=== PATIENT | male | born 1960 | race Caucasian/White ===

== ENCOUNTER 2016-11-08 11:49 | Inpatient (IN) | payer OTHER ==
[2016-11-08 15:42] VITALS: BMI 23.5
--- NOTE | 2016-11-08 17:06 | HP ---
CIWA Score - CIWA Score Nausea/Vomitin-Mild Nausea/No Vomiting Muscle Tremors: 3 Anxiety: 4-Mod. Anxious/Guarded Agitation: 4-Moderately Restless Paroxysmal Sweats: 1-Minimal Palms Moist Orientation: 1-Uncertain about Date Tacttile Disturbances: 0-None Auditory Disturbances: 0-None Visual Disturbances: 0-None Headache: 0-None Present CIWA-Ar Total Score: 14 Admission ROS BHS - HPI Chief Complaint: WITHDRAWAL SX Allergies/Adverse Reactions: Allergies Allergy/AdvReac Type Severity Reaction Status Date / Time No Known Allergies Allergy Verified 07/09/16 13:15 History of Present Illness: 56 YEARS OLD MALE WITH LONG HISTORY OF ALCOHOL DEPENDENCE, DENIES MEDICAL DENIES MENTAL ILLNESS IS ADMITTED TO DETOX Exam Limitations: No Limitations - Ebola screening Have you traveled outside of the country in the last 21 days: No Have you had contact with anyone from an Ebola affected area: No Have you been sick,other than usual withdrawal symptoms: No Do you have a fever: No - Review of Systems Constitutional: Chills, Changes in sleep, Weight Stable EENT: reports: No Symptoms Reported Respiratory: reports: SOB with Exertion Cardiac: reports: No Symptoms Reported GI: reports: Nausea, Poor Fluid Intake, Abdominal cramping : reports: No Symptoms Reported Musculoskeletal: reports: No Symptoms Reported Integumentary: reports: Dryness Neuro: reports: Tremors Endocrine: reports: No Symptoms Reported Hematology: reports: No Symptoms Reported Psychiatric: reports: Judgement Intact, Mood/Affect Appropiate Other Systems: Reviewed and Negative Patient History - Patient Medical History Hx Anemia: No Hx Asthma: No Hx Chronic Obstructive Pulmonary Disease (COPD): No Hx Cancer: No Hx Cardiac Disorders: No Hx Congestive Heart Failure: No Hx Hypertension: No Hx Hypercholesterolemia: No Hx Pacemaker: No HX Cerebrovascular Accident: No Hx Seizures: No Hx Dementia: No Hx Diabetes: No Hx Gastrointestinal Disorders: No Hx Liver Disease: No Hx Genitourinary Disorders: No Hx Sexually Transmitted Disorders: No Hx Renal Disease (ESRD): No Hx Thyroid Disease: No Hx Human Immunodeficiency Virus (HIV): No (LAST 11/27 NEGATIVE) Hx Hepatitis C: No Hx Depression: No Hx Suicide Attempt: No Hx Bipolar Disorder: No Hx Schizophrenia: No - Patient Surgical History Past Surgical History: Yes Hx Neurologic Surgery: No Hx Cataract Extraction: No Hx Cardiac Surgery: No Hx Lung Surgery: No Hx Breast Surgery: No Hx Breast Biopsy: No Hx Abdominal Surgery: Yes (UMBILICAL HERNIA REPAIR) Hx Appendectomy: No Hx Cholecystectomy: No Hx Genitourinary Surgery: No Hx Orthopedic Surgery: No Other Surgical History: HERNIA REPAIR-2009 Anesthesia Reaction: No - PPD History Previous Implant?: Yes Documented Results: Negative w/proof Implanted On Prior [facility] Admission?: Yes Date: 07/11/16 Results: OMM PPD to be Administered?: No - Smoking Cessation Smoking history: Former smoker Have you smoked in the past 12 months: No Aproximately how many cigarettes per day: 0 Cigars Per Day: 0 Hx Chewing Tobacco Use: No Initiated information on smoking cessation: No - Substance & Tx. History Hx Alcohol Use: Yes Hx Substance Use: Yes Substance Use Type: Heroin Hx Substance Use Treatment: Yes - Substances Abused Alcohol Route: Oral Frequency: Daily Amount used: 1/2 PINT VOLKA+ [id number] Age of first use: 15 Date of Last Use: 11/08/16 Family Disease History - Family Disease History Family Disease History: Diabetes: Father (alcohol), Mother, Other: Father, Brother (ALCOHOL,DSA) Admission Physical Exam S - Vital Signs Vital Signs: Vital Signs - 24 hr 11/08/16 15:40 Temperature 96 F L Pulse Rate 80 Respiratory 19 Rate Blood Pressure 122/83 - Physical General Appearance: Yes: Nourished, Appropriately Dressed, Mild Distress, Alcohol on Breath, Tremorous, Irritable, Sweating, Anxious HEENTM: Yes: Hearing grossly Normal, Normal ENT Inspection, Normocephalic, Normal Voice Respiratory: Yes: Chest Non-Tender, Lungs Clear, Normal Breath Sounds, No Respiratory Distress, No Accessory Muscle Use Neck: Yes: Supple, Trachea in good position Breast: Yes: Breasts Symetrical Cardiology: Yes: Regular Rhythm, Regular Rate, S1, S2 Abdominal: Yes: Non Tender, Soft Genitourinary: Yes: Within Normal Limits Back: Yes: Normal Inspection Musculoskeletal: Yes: full range of Motion, Gait Steady Extremities: Yes: Normal Range of Motion, Non-Tender, Tremors, Other (DRY SKIN) Neurological: Yes: Alert, Motor Strength 5/5, Normal Mood/Affect, Normal Response Integumentary: Yes: Dry, Warm Lymphatic: Yes: Within Normal Limits - Diagnostic (1) Alcohol dependence with uncomplicated withdrawal Current Visit: Yes Status: Acute (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
[2016-11-08] MEDS ORDERED: LOPERAMIDE HCL 2 MG CAPSULE PO PRN (17:13)
[2016-11-08] MEDS ORDERED: ACETAMINOPHEN 325 MG TABLET (FP) PO PRN (17:13)
[2016-11-08] MEDS ORDERED: MENTHOL/PHENOL 1 EACH UD MM PRN (17:13)
[2016-11-08] MEDS ORDERED: P-EPHED 60MG/TRIPROLIDI 2.5MG TABLET PO PRN (17:13)
[2016-11-08] MEDS ORDERED: guaiFENesin/D-METHORPHAN HB 10 ML UNIT-DOSE CUPS PO PRN (17:13)
[2016-11-08] MEDS ORDERED: IBUPROFEN 400 MG TABLET (FP) PO PRN (17:13)
[2016-11-08] MEDS ORDERED: MAGNESIUM CITRATE 300 ML BOTTLE PO PRN (17:13)
[2016-11-08] MEDS ORDERED: MAG HYDROX/AL HYDROX/SIMETH 30 ML UNIT-DOSE CUP PO PRN (17:13)
[2016-11-08] MEDS ORDERED: MAGNESIUM HYDROX 2400MG/30ML ORAL SUSPENSION 30 ML CUP PO PRN (17:13)
[2016-11-08] MEDS: chlordiazePOXIDE HCL 25 MG CAPSULE PO PRN (19:27)
[2016-11-08] MEDS ORDERED: diphenhydrAMINE HCL 50 MG CAPSULE PO PRN (22:00)
[2016-11-08] MEDS: THIAMINE HCL 100 MG TABLET (FP) PO SCH (22:58)
[2016-11-08] MEDS: MINERAL OIL/PETROLAT/WATER TOPICAL CREAM 113 GM JAR TP SCH (22:58)
[2016-11-08] MEDS: chlordiazePOXIDE HCL 25 MG CAPSULE PO SCH (22:58)
[2016-11-08 23:16] LABS: URINE APPEARANCE CLEAR; URINE BILIRUBIN NEGATIVE (NEGATIVE); URINE BLOOD NEGATIVE (NEGATIVE); URINE COLOR LTYELLOW; URINE GLUCOSE (UA) NEGATIVE (NEGATIVE); URINE KETONE NEGATIVE (NEGATIVE); URINE LEUK ESTERASE NEGATIVE (NEGATIVE); URINE NITRITE NEGATIVE (NEGATIVE); URINE UROBILINOGEN NEGATIVE E.U./dl (0.2-1.0)
[2016-11-08 23:23] LABS: URINE PROTEIN 2+ (NEGATIVE)
[2016-11-08 23:24] LABS: GRANULAR CASTS 1 /lpf; URINE HYALINE CAST 6 /lpf; URINE MUCUS RARE; URINE RBC <1 /hpf (0-3); URINE WBC <1 /hpf (3-5)
[2016-11-09] MEDS: chlordiazePOXIDE HCL 25 MG CAPSULE PO SCH ×4 (05:19→22:22)
[2016-11-09] MEDS ORDERED: METHADONE HCL 10 MG TABLET PO SCH (07:00)
[2016-11-09] MEDS ORDERED: METHADONE HCL 10 MG TABLET ONE (07:18)
[2016-11-09] MEDS ORDERED: METHADONE HCL 40 MG DISPERSABLE TABLET ONE (07:18)
[2016-11-09] MEDS: METHADONE 80 MG, METHADONE 10 MG PO SCH (07:21)
[2016-11-09 10:17] LABS: ALBUMIN 3.7 g/dl (3.4-5.0); ANION GAP 9 (8-16); CALCIUM 8.6 mg/dL (8.5-10.1); CO2 33 mmol/L (21-32)
[2016-11-09 10:23] LABS: ALK PHOS 186 U/L (45-117); BILIRUBIN,TOTAL 0.6 mg/dL (0.2-1.0); COCKROFT - GAULT 112.04; CREATININE 0.7 mg/dL (0.7-1.3); GLUCOSE,RANDOM 92 mg/dL (74-106); SGOT/AST 300 U/L (15-37); SGPT/ALT 150 U/L (12-78); TOT PROT 7.5 g/dl (6.4-8.2)
[2016-11-09] MEDS: PRENATAL VITAMINS W/ FOLIC ACID TABLET (FP) PO SCH (10:26)
[2016-11-09 10:27] LABS: MCHC 33.4 g/dl (32.0-35.9); MEAN CELL VOLUME 95.7 fl (80-96); MEAN PLT VOLUME 8.4 fl (7.5-11.1); PLATELET COUNT 231 K/MM3 (134-434); RDW 13.1 % (11.9-15.9); WHITE BLOOD COUNT 4.9 K/mm3 (4.0-10.0)
--- NOTE | 2016-11-09 10:47 | PN ---
S CIWA - CIWA Score Nausea/Vomitin Muscle Tremors: 4-Moderate,w/Arms Extend Anxiety: 3 Agitation: 3 Paroxysmal Sweats: 3 Orientation: 0-Oriented Tacttile Disturbances: 0-None Auditory Disturbances: 0-None Visual Disturbances: 0-None Headache: 0-None Present CIWA-Ar Total Score: 15 S Progress Note (SOAP) Subjective: Anxiety,tremors,sweating,interrupted sleep,restless. Objective: 11/09/16 10:42 Vital Signs - 8 hr 11/09/16 11/09/16 11/09/16 03:35 06:42 09:28 Temperature 96 F L 95.8 F L Pulse Rate 66 65 Respiratory 18 18 18 Rate Blood Pressure 181/99 153/97 Laboratory Last Values WBC 4.9 K/mm3 (4.0-10.0) 11/09/16 06:00 RBC 4.20 M/mm3 (4.00-5.60) 11/09/16 06:00 Hgb 13.4 GM/dL (11.7-16.9) 11/09/16 06:00 Hct 40.2 % (35.4-49) 11/09/16 06:00 MCV 95.7 fl (80-96) 11/09/16 06:00 MCHC 33.4 g/dl (32.0-35.9) 11/09/16 06:00 RDW 13.1 % (11.9-15.9) 11/09/16 06:00 Plt Count 231 K/MM3 (134-434) 11/09/16 06:00 MPV 8.4 fl (7.5-11.1) 11/09/16 06:00 Sodium 139 mmol/L (136-145) 11/09/16 06:00 Potassium 4.3 mmol/L (3.5-5.1) 11/09/16 06:00 Chloride 97 mmol/L (98-107) L 11/09/16 06:00 Carbon Dioxide 33 mmol/L (21-32) H 11/09/16 06:00 Anion Gap 9 (8-16) 11/09/16 06:00 BUN 19 mg/dL (7-18) H 11/09/16 06:00 Creatinine 0.7 mg/dL (0.7-1.3) 11/09/16 06:00 Creat Clearance w eGFR > 60 (>60) 11/09/16 06:00 Random Glucose 92 mg/dL (74-106) 11/09/16 06:00 Calcium 8.6 mg/dL (8.5-10.1) 11/09/16 06:00 Total Bilirubin 0.6 mg/dL (0.2-1.0) 11/09/16 06:00 AST 300 U/L (15-37) H D 11/09/16 06:00 ALT 150 U/L (12-78) H D 11/09/16 06:00 Alkaline Phosphatase 186 U/L (45-117) H D 11/09/16 06:00 Total Protein 7.5 g/dl (6.4-8.2) 11/09/16 06:00 Albumin 3.7 g/dl (3.4-5.0) 11/09/16 06:00 Urine Color Ltyellow 11/08/16 23:02 Urine Appearance Clear 11/08/16 23:02 Urine pH 5.0 (5.0-8.0) 11/08/16 23:02 Ur Specific [place] 1.020 (1.001-1.035) 11/08/16 23:02 Urine Protein 2+ (NEGATIVE) H 11/08/16 23:02 Urine Glucose (UA) Negative (NEGATIVE) 11/08/16 23:02 Urine Ketones Negative (NEGATIVE) 11/08/16 23:02 Urine Blood Negative (NEGATIVE) 11/08/16 23:02 Urine Nitrite Negative (NEGATIVE) 11/08/16 23:02 Urine Bilirubin Negative (NEGATIVE) 11/08/16 23:02 Urine Urobilinogen Negative E.U./dl (0.2-1.0) 11/08/16 23:02 Ur Leukocyte Esterase Negative (NEGATIVE) 11/08/16 23:02 Urine RBC <1 /hpf (0-3) 11/08/16 23:02 Urine WBC <1 /hpf (3-5) 11/08/16 23:02 Hyaline Casts 6 /lpf 11/08/16 23:02 Granular Casts 1 /lpf 11/08/16 23:02 Urine Mucus Rare 11/08/16 23:02 labs noted Assessment: 11/09/16 10:43 withdrawal sx. Plan: Continue detox
[2016-11-09] MEDS: amLODIPine BESYLATE 5 MG TABLET (FP) PO SCH ×2 (12:15→22:22)
[2016-11-09] MEDS: chlordiazePOXIDE HCL 25 MG CAPSULE PO PRN (12:18)
--- NOTE | 2016-11-09 13:45 | EKG ---
Test Reason : Blood Pressure : / mmHG Vent. Rate : 067 BPM Atrial Rate : 067 BPM P-R Int : 154 ms QRS Dur : 100 ms QT Int : 420 ms P-R-T Axes : 063 -12 026 degrees QTc Int : 443 ms NORMAL SINUS RHYTHM NON-SPECIFIC INTRA-VENTRICULAR CONDUCTION DELAY NO PREVIOUS ECGS AVAILABLE Confirmed by NIKOLAI LYNNE MD ([id number]) on 11/09/2016 1:45:15 PM Referred By: Confirmed By:NIKOLAI LYNNE MD
[2016-11-09] MEDS: MINERAL OIL/PETROLAT/WATER TOPICAL CREAM 113 GM JAR TP SCH (22:22)
[2016-11-09] MEDS: THIAMINE HCL 100 MG TABLET (FP) PO SCH (22:22)
[2016-11-10] MEDS ORDERED: METHADONE HCL 10 MG TABLET ONE (03:54)
[2016-11-10] MEDS ORDERED: METHADONE HCL 40 MG DISPERSABLE TABLET ONE (03:54)
[2016-11-10] MEDS: chlordiazePOXIDE HCL 25 MG CAPSULE PO SCH ×3 (04:59→18:15)
[2016-11-10] MEDS: METHADONE 80 MG, METHADONE 10 MG PO SCH (04:59)
[2016-11-10] MEDS: PRENATAL VITAMINS W/ FOLIC ACID TABLET (FP) PO SCH (10:32)
[2016-11-10] MEDS: amLODIPine BESYLATE 5 MG TABLET (FP) PO SCH (10:33)
[2016-11-10 13:48] VITALS: BP 112/75; PULSE 73; TEMP 96.9
--- NOTE | 2016-11-10 16:07 | PN ---
[facility] CIWA - CIWA Score Nausea/Vomitin-No Nausea/No Vomiting Muscle Tremors: 3 Anxiety: 4-Mod. Anxious/Guarded Agitation: 1-Slight > Activity Paroxysmal Sweats: 3 Orientation: 1-Uncertain about Date Tacttile Disturbances: 0-None Auditory Disturbances: 3-Moderate Harsh/Frighten Visual Disturbances: 0-None Headache: 2-Mild CIWA-Ar Total Score: 17 S Progress Note (SOAP) Subjective: Diarrhea, H/A, Body aches, Sweating. Objective: PT. A & O X 2 (DISORIENTED ABOUT DAY / DATE). PT. OBSERVED AMBULATING ON UNIT. 11/10/16 16:06 Vital Signs Temperature 96.9 F L 11/10/16 13:47 Pulse Rate 73 11/10/16 13:47 Respiratory Rate 18 11/10/16 13:47 Blood Pressure 112/75 11/10/16 13:47 O2 Sat by Pulse Oximetry (%) Laboratory Last Values WBC 4.9 K/mm3 (4.0-10.0) 11/09/16 06:00 RBC 4.20 M/mm3 (4.00-5.60) 11/09/16 06:00 Hgb 13.4 GM/dL (11.7-16.9) 11/09/16 06:00 Hct 40.2 % (35.4-49) 11/09/16 06:00 MCV 95.7 fl (80-96) 11/09/16 06:00 MCHC 33.4 g/dl (32.0-35.9) 11/09/16 06:00 RDW 13.1 % (11.9-15.9) 11/09/16 06:00 Plt Count 231 K/MM3 (134-434) 11/09/16 06:00 MPV 8.4 fl (7.5-11.1) 11/09/16 06:00 Sodium 139 mmol/L (136-145) 11/09/16 06:00 Potassium 4.3 mmol/L (3.5-5.1) 11/09/16 06:00 Chloride 97 mmol/L (98-107) L 11/09/16 06:00 Carbon Dioxide 33 mmol/L (21-32) H 11/09/16 06:00 Anion Gap 9 (8-16) 11/09/16 06:00 BUN 19 mg/dL (7-18) H 11/09/16 06:00 Creatinine 0.7 mg/dL (0.7-1.3) 11/09/16 06:00 Creat Clearance w eGFR > 60 (>60) 11/09/16 06:00 Random Glucose 92 mg/dL (74-106) 11/09/16 06:00 Calcium 8.6 mg/dL (8.5-10.1) 11/09/16 06:00 Total Bilirubin 0.6 mg/dL (0.2-1.0) 11/09/16 06:00 AST 300 U/L (15-37) H D 11/09/16 06:00 ALT 150 U/L (12-78) H D 11/09/16 06:00 Alkaline Phosphatase 186 U/L (45-117) H D 11/09/16 06:00 Total Protein 7.5 g/dl (6.4-8.2) 11/09/16 06:00 Albumin 3.7 g/dl (3.4-5.0) 11/09/16 06:00 Urine Color Ltyellow 11/08/16 23:02 Urine Appearance Clear 11/08/16 23:02 Urine pH 5.0 (5.0-8.0) 11/08/16 23:02 Ur Specific [place] 1.020 (1.001-1.035) 11/08/16 23:02 Urine Protein 2+ (NEGATIVE) H 11/08/16 23:02 Urine Glucose (UA) Negative (NEGATIVE) 11/08/16 23:02 Urine Ketones Negative (NEGATIVE) 11/08/16 23:02 Urine Blood Negative (NEGATIVE) 11/08/16 23:02 Urine Nitrite Negative (NEGATIVE) 11/08/16 23:02 Urine Bilirubin Negative (NEGATIVE) 11/08/16 23:02 Urine Urobilinogen Negative E.U./dl (0.2-1.0) 11/08/16 23:02 Ur Leukocyte Esterase Negative (NEGATIVE) 11/08/16 23:02 Urine RBC <1 /hpf (0-3) 11/08/16 23:02 Urine WBC <1 /hpf (3-5) 11/08/16 23:02 Hyaline Casts 6 /lpf 11/08/16 23:02 Granular Casts 1 /lpf 11/08/16 23:02 Urine Mucus Rare 11/08/16 23:02 RPR Titer Nonreactive (NONREACTIVE) 11/09/16 06:00 LABS NOTED. Assessment: 11/10/16 16:07 WITHDRAWAL SYMPTOMS. Plan: CONTINUE DETOX. ADVISED PATIENT TO FOLLOW-UP WITH [facility] / REHAB MEDICAL PROVIDER AFTER DISCHARGE FROM DETOX FOR GENERAL MEDICAL ASSESSMENT AND FOR ABNORMAL ADMISSION LAB VALUES.
--- NOTE | 2016-11-10 17:25 | PN ---
S Progress Note Note: patient did not want to complete treatment,signed release ama,seen by counselor
--- NOTE | 2016-11-10 17:28 | DS ---
[facility] Detox Discharge Summary Admission Date: 11/08/16 Discharge Date: 11/10/16 - History Present History: Alcohol Dependence, MMTP Additional Comments: patient did not want to complete treatment,signed release ama,did not want to wait,follow up program as arramgent and pmd for medical problem Pertinent Past History: syncope - Physical Exam Results Vital Signs: Vital Signs Temperature 96.9 F L 11/10/16 13:47 Pulse Rate 73 11/10/16 13:47 Respiratory Rate 18 11/10/16 13:47 Blood Pressure 112/75 11/10/16 13:47 O2 Sat by Pulse Oximetry (%) Pertinent Admission Physical Exam Findings: withdrawal symptom - Medication Discharge Medications: Ambulatory Orders NK [No Known Home Medication] 07/31/13 - Diagnosis (1) Alcohol dependence with uncomplicated withdrawal Current Visit: Yes Status: Acute (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
[2016-11-10] MEDS ORDERED: chlordiazePOXIDE 5 MG CAPSULE PO SCH (23:00)
[2016-11-11] MEDS ORDERED: chlordiazePOXIDE HCL 10 MG CAPSULE PO SCH (23:00)
== END 2016-11-10 17:26 | disposition left against medical advice (07) | DRG 770 ==
LOC: YASAS 11:49 → Y3N 18:10
PROVIDERS: ADMIT Internal Medicine; ATTEND Internal Medicine
PROC: HZ2ZZZZ Detoxification Services for Substance Abuse Treatment (ICD-10-PCS; principal; 2016-11-10)
DX: F11.20 Opioid dependence, uncomplicated (principal); F10.230 Alcohol dependence with withdrawal, uncomplicated; F17.210 Nicotine dependence, cigarettes, uncomplicated; L85.3 Xerosis cutis
CPT/HCPCS: 36415; 80053; 81003; 81015; 85027; 86593; 93005; 93010

== ENCOUNTER 2016-12-11 10:23 | Inpatient (IN) | payer OTHER ==
[2016-12-11 11:17] VITALS: BMI 25.0
--- NOTE | 2016-12-11 13:21 | HP ---
CIWA Score - CIWA Score Nausea/Vomitin-No Nausea/No Vomiting Muscle Tremors: 4-Moderate,w/Arms Extend Anxiety: 4-Mod. Anxious/Guarded Agitation: 3 Paroxysmal Sweats: 1-Minimal Palms Moist Orientation: 0-Oriented Tacttile Disturbances: 3-Moderate Itch/Numb/Burn Auditory Disturbances: 0-None Visual Disturbances: 0-None Headache: 1-Very Mild CIWA-Ar Total Score: 16 Admission ROS BHS - HPI Chief Complaint: DETOX TX FOR ALCOHOL DEPENDENCE Allergies/Adverse Reactions: Allergies Allergy/AdvReac Type Severity Reaction Status Date / Time No Known Allergies Allergy Verified 12/11/16 11:43 History of Present Illness: 56 Y/O H/MALE WITH A HX OF ALCOHOL DEPENDENCE ON MMTP SEEKING DETOX [place]. Exam Limitations: No Limitations - Ebola screening Have you traveled outside of the country in the last 21 days: No Have you had contact with anyone from an Ebola affected area: No Have you been sick,other than usual withdrawal symptoms: No Do you have a fever: No - Review of Systems Constitutional: Chills, Night Sweats, Changes in sleep EENT: reports: Blurred Vision, Tearing, Nose Congestion, Dental Problems (CAIN. DENTURES) Respiratory: reports: No Symptoms reported Cardiac: reports: Lightheadedness GI: reports: Poor Fluid Intake : reports: No Symptoms Reported Musculoskeletal: reports: Back Pain, Muscle Pain Integumentary: reports: No Symptoms Reported Neuro: reports: Headache, Tremors, Unsteady Gait, Dizziness Endocrine: reports: No Symptoms Reported Hematology: reports: No Symptoms Reported Psychiatric: reports: Orientated x3, Anxious Other Systems: Reviewed and Negative Patient History - Patient Medical History Hx Anemia: No Hx Asthma: No Hx Chronic Obstructive Pulmonary Disease (COPD): No Hx Cancer: No Hx Cardiac Disorders: No Hx Congestive Heart Failure: No Hx Hypertension: No Hx Hypercholesterolemia: No Hx Pacemaker: No HX Cerebrovascular Accident: No Hx Seizures: No Hx Dementia: No Hx Diabetes: No Hx Gastrointestinal Disorders: No Hx Liver Disease: No Hx Genitourinary Disorders: No Hx Sexually Transmitted Disorders: No Hx Renal Disease (ESRD): No Hx Thyroid Disease: No Hx Human Immunodeficiency Virus (HIV): No (LAST 11/27 NEGATIVE) Hx Hepatitis C: No Hx Depression: No Hx Suicide Attempt: No (DENIES) Hx Bipolar Disorder: No Hx Schizophrenia: No - Patient Surgical History Past Surgical History: Yes Hx Neurologic Surgery: No Hx Cataract Extraction: No Hx Cardiac Surgery: No Hx Lung Surgery: No Hx Breast Surgery: No Hx Breast Biopsy: No Hx Abdominal Surgery: Yes (umbilical hernia repair in 2009) Hx Appendectomy: No Hx Cholecystectomy: No Hx Genitourinary Surgery: No Hx Section: No Hx Orthopedic Surgery: No Other Surgical History: HERNIA REPAIR-2009 Anesthesia Reaction: No - PPD History Previous Implant?: Yes Documented Results: Negative w/proof Implanted On Prior [facility] Admission?: Yes Date: 07/11/16 Results: 0 mm - Reproductive History Patient is a Female of Child Bearing Age (11 -55 yrs old): No (MALE) - Smoking Cessation Smoking history: Former smoker Have you smoked in the past 12 months: Yes Aproximately how many cigarettes per day: 2 If you are a former smoker, when did you quit?: 5 YRS Cigars Per Day: 0 Hx Chewing Tobacco Use: No Initiated information on smoking cessation: Yes 'Breaking Loose' booklet given: 12/11/16 - Substance & Tx. History Hx Alcohol Use: Yes Substance Use Type: Alcohol Hx Substance Use Treatment: Yes ([facility]-DETOX) - Substances Abused Alcohol-beer/rum Route: Oral Frequency: Daily Amount used: 8-10 (12 oz.)/1/2 pt. Age of first use: 19 Date of Last Use: 12/11/16 Family Disease History - Family Disease History Family Disease History: Diabetes: Father (alcohol), Mother, Other: Father, Brother (ALCOHOL,DSA) Admission Physical Exam BHS - Vital Signs Vital Signs: Vital Signs - 24 hr 12/11/16 11:15 Temperature 96.2 F L Pulse Rate 67 Respiratory 20 Rate Blood Pressure 131/91 - Physical General Appearance: Yes: Moderate Distress, Irritable, Anxious HEENTM: Yes: EOMI, Normocephalic, ANUM, Pharynx Normal Respiratory: Yes: Chest Non-Tender, Lungs Clear, Normal Breath Sounds, No Respiratory Distress Neck: Yes: Supple, Trachea in good position Breast: Yes: Breast Exam Deferred Cardiology: Yes: Regular Rhythm, Regular Rate, S1, S2 Abdominal: Yes: Normal Bowel Sounds, Non Tender, Soft Genitourinary: Yes: Other (N/C) Back: Yes: Within Normal Limits Musculoskeletal: Yes: full range of Motion, Gait Steady Extremities: Yes: Normal Range of Motion, Non-Tender Neurological: Yes: upholsterer inside II-XII NML intact, Fully Oriented, Alert Integumentary: Yes: Dry, Warm Lymphatic: Yes: Within Normal Limits - Diagnostic (1) Alcohol dependence with uncomplicated withdrawal Current Visit: No Status: Acute (2) Methadone maintenance therapy patient Current Visit: No Status: Chronic Comment: 90 MG VERIFICATION PENDING Cleared for Admission [facility] - Detox or Rehab [facility] Level of Care: Medically Managed Detox Regimen/Protocol: Librium [facility] Breath Alcohol Content Breath Alcohol Content: 0.046 Urine Drug Screen - Results Drug Screen Negative: No Urine Drug Screen Results: MTD-Methadone
[2016-12-11] MEDS ORDERED: hydrOXYzine PAMOATE 25 MG CAPSULE (FP) PO PRN (13:32)
[2016-12-11] MEDS ORDERED: chlordiazePOXIDE HCL 25 MG CAPSULE PO ONE (13:32)
[2016-12-11] MEDS ORDERED: P-EPHED 60MG/TRIPROLIDI 2.5MG TABLET PO PRN (13:32)
[2016-12-11] MEDS ORDERED: MAGNESIUM CITRATE 300 ML BOTTLE PO PRN (13:32)
[2016-12-11] MEDS ORDERED: MENTHOL/PHENOL 1 EACH UD MM PRN (13:32)
[2016-12-11] MEDS ORDERED: LOPERAMIDE HCL 2 MG CAPSULE PO PRN (13:32)
[2016-12-11] MEDS ORDERED: MAG HYDROX/AL HYDROX/SIMETH 30 ML UNIT-DOSE CUP PO PRN (13:32)
[2016-12-11] MEDS ORDERED: chlordiazePOXIDE HCL 25 MG CAPSULE PO PRN (13:32)
[2016-12-11] MEDS ORDERED: guaiFENesin/D-METHORPHAN HB 10 ML UNIT-DOSE CUPS PO PRN (13:32)
[2016-12-11] MEDS ORDERED: IBUPROFEN 400 MG TABLET (FP) PO PRN (13:32)
[2016-12-11] MEDS ORDERED: MAGNESIUM HYDROX 2400MG/30ML ORAL SUSPENSION 30 ML CUP PO PRN (13:32)
[2016-12-11] MEDS ORDERED: ACETAMINOPHEN 325 MG TABLET (FP) PO PRN (13:32)
--- NOTE | 2016-12-11 16:00 | PN ---
[facility] Progress Note Note: 56 y/o m pt who is well known comes in for alcohol detox. Pt is on methadone maintence program receiving methadone 90mg /d . Pt states he has not been feeling his usual self over the past two days . He is uneasy and anxious. Pt denies any cp or sob. Pt ekg - sinus vent. rate 67/m, prolonged qt and bigeminy. Pt reports no prior cardiac hx , no arrythmias , no htn , no dm , non smoker x 5 yrs . pt signed out to Dr. Tonny Quintanilla in ED. Pt being transferred to [facility] by [facility] .
[2016-12-11] MEDS: chlordiazePOXIDE HCL 25 MG CAPSULE PO SCH ×2 (17:41→23:09)
[2016-12-11 18:38] LABS: URINE APPEARANCE CLEAR; URINE BILIRUBIN NEGATIVE (NEGATIVE); URINE COLOR LTYELLOW; URINE GLUCOSE (UA) NEGATIVE (NEGATIVE); URINE KETONE NEGATIVE (NEGATIVE); URINE LEUK ESTERASE NEGATIVE (NEGATIVE); URINE NITRITE NEGATIVE (NEGATIVE); URINE UROBILINOGEN NEGATIVE E.U./dl (0.2-1.0)
[2016-12-11 18:39] LABS: URINE BLOOD 1+ (NEGATIVE); URINE PROTEIN 2+ (NEGATIVE)
[2016-12-11 19:27] LABS: URINE RBC 2 /hpf (0-3); URINE WBC <1 /hpf (3-5)
[2016-12-11] MEDS: THIAMINE HCL 100 MG TABLET (FP) PO SCH (23:09)
[2016-12-12] MEDS ORDERED: METHADONE HCL 40 MG DISPERSABLE TABLET ONE (05:02)
[2016-12-12] MEDS ORDERED: METHADONE HCL 10 MG TABLET ONE (05:03)
[2016-12-12] MEDS: METHADONE 80 MG, METHADONE 10 MG PO SCH (05:38)
[2016-12-12] MEDS: chlordiazePOXIDE HCL 25 MG CAPSULE PO SCH ×4 (05:39→22:19)
[2016-12-12] MEDS ORDERED: METHADONE HCL 10 MG TABLET PO SCH (06:00)
[2016-12-12 10:15] LABS: MCH 32.2 pg (25.7-33.7); MCHC 33.5 g/dl (32.0-35.9); MEAN CELL VOLUME 95.9 fl (80-96); MEAN PLT VOLUME 8.6 fl (7.5-11.1); PLATELET COUNT 173 K/MM3 (134-434); RDW 13.6 % (11.9-15.9); WHITE BLOOD COUNT 5.2 K/mm3 (4.0-10.0)
[2016-12-12] MEDS ORDERED: cloNIDine HCL 0.1 MG TABLET PO ONE (10:18)
[2016-12-12 10:45] LABS: ALBUMIN 3.4 g/dl (3.4-5.0); ALK PHOS 379 U/L (45-117); ANION GAP 8 (8-16); BILIRUBIN,TOTAL 1.7 mg/dL (0.2-1.0); CALCIUM 8.5 mg/dL (8.5-10.1); CO2 33 mmol/L (21-32); COCKROFT - GAULT 112.04; CREATININE 0.7 mg/dL (0.7-1.3); GLUCOSE,RANDOM 91 mg/dL (74-106); TOT PROT 7.5 g/dl (6.4-8.2)
[2016-12-12 10:46] LABS: SGOT/AST 621 U/L (15-37); SGPT/ALT 516 U/L (12-78)
[2016-12-12] MEDS: PRENATAL VITAMINS W/ FOLIC ACID TABLET (FP) PO SCH (10:48)
--- NOTE | 2016-12-12 11:14 | PN ---
[facility] CIWA - CIWA Score Nausea/Vomitin-No Nausea/No Vomiting Muscle Tremors: 3 Anxiety: 3 Agitation: 3 Paroxysmal Sweats: 3 Orientation: 0-Oriented Tacttile Disturbances: 0-None Auditory Disturbances: 0-None Visual Disturbances: 0-None Headache: 1-Very Mild CIWA-Ar Total Score: 13 S Progress Note (SOAP) Subjective: sweats mild shakes interrupted sleep anxiety Objective: 12/12/16 11:13 Vital Signs Temperature 98.1 F 12/12/16 10:00 Pulse Rate 78 12/12/16 10:00 Respiratory Rate 18 12/12/16 10:00 Blood Pressure 140/101 12/12/16 10:00 O2 Sat by Pulse Oximetry (%) Laboratory Tests 12/11/16 12/12/16 12/12/16 14:00 06:00 06:00 WBC 5.2 RBC 4.08 Hgb 13.1 Hct 39.2 MCV 95.9 MCHC 33.5 RDW 13.6 Plt Count 173 MPV 8.6 Sodium 134 L Potassium 3.8 Chloride 93 L Carbon Dioxide 33 H Anion Gap 8 BUN 10 Creatinine 0.7 Creat Clearance w eGFR > 60 Random Glucose 91 Calcium 8.5 Total Bilirubin 1.7 H D AST 621 H D ALT 516 H Alkaline Phosphatase 379 H Total Protein 7.5 Albumin 3.4 Urine Color Ltyellow Urine Appearance Clear Urine pH 7.0 D Ur Specific [place] 1.010 Urine Protein 2+ H Urine Glucose (UA) Negative Urine Ketones Negative Urine Blood 1+ H Urine Nitrite Negative Urine Bilirubin Negative Urine Urobilinogen Negative Ur Leukocyte Esterase Negative Urine RBC 2 Urine WBC <1 elevated ast/alt;d/c tylenol repeat labs awake/alert ambulating no acute distress Assessment: 12/12/16 11:13 withdrawal sx Plan: continue detox increase fluids f/u pending labs clonidine 0.1mg x one
--- NOTE | 2016-12-12 11:58 | EKG ---
Test Reason : Blood Pressure : / mmHG Vent. Rate : 067 BPM Atrial Rate : 067 BPM P-R Int : 142 ms QRS Dur : 096 ms QT Int : 458 ms P-R-T Axes : 072 -04 036 degrees QTc Int : 483 ms SINUS RHYTHM WITH FREQUENT PREMATURE VENTRICULAR COMPLEXES IN A PATTERN OF BIGEMINY PROLONGED QT ABNORMAL ECG WHEN COMPARED WITH ECG OF 08-NOV-2016 18:33, PREMATURE VENTRICULAR COMPLEXES ARE NOW PRESENT Confirmed by APRIL NIEVES, BARBARA ([id number]) on 12/12/2016 11:58:15 AM Referred By: Confirmed By:BARBARA CHEN MD
[2016-12-12] MEDS: THIAMINE HCL 100 MG TABLET (FP) PO SCH (22:19)
[2016-12-12] MEDS: diphenhydrAMINE HCL 50 MG CAPSULE PO PRN (22:19)
[2016-12-13] MEDS ORDERED: METHADONE HCL 40 MG DISPERSABLE TABLET ONE (04:13)
[2016-12-13] MEDS ORDERED: METHADONE HCL 10 MG TABLET ONE (04:13)
[2016-12-13] MEDS: METHADONE 80 MG, METHADONE 10 MG PO SCH (06:06)
[2016-12-13] MEDS: chlordiazePOXIDE HCL 25 MG CAPSULE PO SCH ×2 (06:06→10:24)
[2016-12-13 10:05] LABS: ALBUMIN 2.8 g/dl (3.4-5.0); ANION GAP 8 (8-16); BILIRUBIN,TOTAL 0.9 mg/dL (0.2-1.0); CALCIUM 8.5 mg/dL (8.5-10.1); CO2 31 mmol/L (21-32); COCKROFT - GAULT 112.04; CREATININE 0.7 mg/dL (0.7-1.3); GLUCOSE,RANDOM 103 mg/dL (74-106); SGOT/AST 288 U/L (15-37); SGPT/ALT 292 U/L (12-78); TOT PROT 6.4 g/dl (6.4-8.2)
[2016-12-13 10:06] LABS: ALK PHOS 261 U/L (45-117)
[2016-12-13] MEDS: PRENATAL VITAMINS W/ FOLIC ACID TABLET (FP) PO SCH (10:24)
--- NOTE | 2016-12-13 12:16 | PN ---
[facility] CIWA - CIWA Score Nausea/Vomitin Muscle Tremors: 3 Anxiety: 3 Agitation: 2 Paroxysmal Sweats: 1-Minimal Palms Moist Orientation: 0-Oriented Tacttile Disturbances: 1-Very Mild Itch/Numbness Auditory Disturbances: 1-Very Mild Visual Disturbances: 1-Very Mild Sensitivity Headache: 2-Mild CIWA-Ar Total Score: 17 BHS Progress Note (SOAP) Subjective: ALERT,IRRITABLE,ANXIOUS,INTERRUPTED SLEEP,TREMOR Objective: 12/13/16 12:14 Vital Signs Temperature 98.1 F 12/13/16 09:51 Pulse Rate 71 12/13/16 09:51 Respiratory Rate 16 12/13/16 09:51 Blood Pressure 136/88 12/13/16 09:51 O2 Sat by Pulse Oximetry (%) 12/13/16 12:19 NO CHEST PAIN,NO SOB,NO DIZZINESS Laboratory Last Values WBC 5.2 K/mm3 (4.0-10.0) 12/12/16 06:00 RBC 4.08 M/mm3 (4.00-5.60) 12/12/16 06:00 Hgb 13.1 GM/dL (11.7-16.9) 12/12/16 06:00 Hct 39.2 % (35.4-49) 12/12/16 06:00 MCV 95.9 fl (80-96) 12/12/16 06:00 MCHC 33.5 g/dl (32.0-35.9) 12/12/16 06:00 RDW 13.6 % (11.9-15.9) 12/12/16 06:00 Plt Count 173 K/MM3 (134-434) 12/12/16 06:00 MPV 8.6 fl (7.5-11.1) 12/12/16 06:00 Sodium 139 mmol/L (136-145) 12/13/16 07:00 Potassium 4.4 mmol/L (3.5-5.1) 12/13/16 07:00 Chloride 100 mmol/L (98-107) 12/13/16 07:00 Carbon Dioxide 31 mmol/L (21-32) 12/13/16 07:00 Anion Gap 8 (8-16) 12/13/16 07:00 BUN 14 mg/dL (7-18) D 12/13/16 07:00 Creatinine 0.7 mg/dL (0.7-1.3) 12/13/16 07:00 Creat Clearance w eGFR > 60 (>60) 12/13/16 07:00 Random Glucose 103 mg/dL (74-106) 12/13/16 07:00 Calcium 8.5 mg/dL (8.5-10.1) 12/13/16 07:00 Total Bilirubin 0.9 mg/dL (0.2-1.0) D 12/13/16 07:00 AST 288 U/L (15-37) H D 12/13/16 07:00 ALT 292 U/L (12-78) H D 12/13/16 07:00 Alkaline Phosphatase 261 U/L (45-117) H D 12/13/16 07:00 Total Protein 6.4 g/dl (6.4-8.2) 12/13/16 07:00 Albumin 2.8 g/dl (3.4-5.0) L 12/13/16 07:00 Urine Color Ltyellow 12/11/16 14:00 Urine Appearance Clear 12/11/16 14:00 Urine pH 7.0 (5.0-8.0) D 12/11/16 14:00 Ur Specific [place] 1.010 (1.005-1.025) 12/11/16 14:00 Urine Protein 2+ (NEGATIVE) H 12/11/16 14:00 Urine Glucose (UA) Negative (NEGATIVE) 12/11/16 14:00 Urine Ketones Negative (NEGATIVE) 12/11/16 14:00 Urine Blood 1+ (NEGATIVE) H 12/11/16 14:00 Urine Nitrite Negative (NEGATIVE) 12/11/16 14:00 Urine Bilirubin Negative (NEGATIVE) 12/11/16 14:00 Urine Urobilinogen Negative E.U./dl (0.2-1.0) 12/11/16 14:00 Ur Leukocyte Esterase Negative (NEGATIVE) 12/11/16 14:00 Urine RBC 2 /hpf (0-3) 12/11/16 14:00 Urine WBC <1 /hpf (3-5) 12/11/16 14:00 RPR Titer Nonreactive (NONREACTIVE) 12/12/16 06:00 12/13/16 12:20 Assessment: 12/13/16 12:21 12/13/16 12:21 WITHDRAWAL SYMPTOM Plan: CONTINUE DETOX
[2016-12-13] MEDS: chlordiazePOXIDE 5 MG CAPSULE PO SCH ×2 (17:18→22:26)
[2016-12-13] MEDS: diphenhydrAMINE HCL 50 MG CAPSULE PO PRN (22:26)
[2016-12-13] MEDS: THIAMINE HCL 100 MG TABLET (FP) PO SCH (22:26)
[2016-12-14] MEDS ORDERED: METHADONE HCL 40 MG DISPERSABLE TABLET ONE (05:30)
[2016-12-14] MEDS ORDERED: METHADONE HCL 10 MG TABLET ONE (05:31)
[2016-12-14] MEDS: chlordiazePOXIDE 5 MG CAPSULE PO SCH ×2 (06:06→10:52)
[2016-12-14] MEDS: METHADONE 80 MG, METHADONE 10 MG PO SCH (06:06)
[2016-12-14] MEDS: PRENATAL VITAMINS W/ FOLIC ACID TABLET (FP) PO SCH (10:52)
--- NOTE | 2016-12-14 10:59 | PN ---
BHS Progress Note (SOAP) Subjective: ALERT,IRRITABLE,ANXIOUS,INTERRUPTED SLEEP Objective: 12/14/16 10:58 Vital Signs Temperature 97.9 F 12/14/16 10:04 Pulse Rate 84 12/14/16 10:04 Respiratory Rate 20 12/14/16 10:04 Blood Pressure 128/86 12/14/16 10:04 O2 Sat by Pulse Oximetry (%) 12/14/16 10:58 Assessment: 12/14/16 10:58 WITHDRAWAL SYMPTOM Plan: CONTINUE DETOX,DISCHARGE IN AM
[2016-12-14] MEDS: chlordiazePOXIDE HCL 10 MG CAPSULE PO SCH ×2 (17:15→22:25)
[2016-12-14] MEDS: THIAMINE HCL 100 MG TABLET (FP) PO SCH (22:25)
[2016-12-14] MEDS: diphenhydrAMINE HCL 50 MG CAPSULE PO PRN (22:26)
[2016-12-15] MEDS ORDERED: METHADONE HCL 40 MG DISPERSABLE TABLET ONE (03:29)
[2016-12-15] MEDS ORDERED: METHADONE HCL 10 MG TABLET ONE (03:30)
[2016-12-15] MEDS: METHADONE 80 MG, METHADONE 10 MG PO SCH (06:30)
[2016-12-15] MEDS: chlordiazePOXIDE HCL 10 MG CAPSULE PO SCH (06:31)
[2016-12-15] MEDS: PRENATAL VITAMINS W/ FOLIC ACID TABLET (FP) PO SCH (09:18)
--- NOTE | 2016-12-15 11:03 | DS ---
[facility] Detox Discharge Summary Admission Date: 12/11/16 Discharge Date: 12/15/16 - History Present History: Alcohol Dependence, Cocaine Dependence, MMTP Pertinent Past History: Insomnia - Physical Exam Results Vital Signs: Vital Signs Temperature 97.1 F L 12/15/16 06:40 Pulse Rate 90 12/15/16 06:40 Respiratory Rate 20 12/15/16 06:40 Blood Pressure 133/76 12/15/16 06:40 O2 Sat by Pulse Oximetry (%) Pertinent Admission Physical Exam Findings: Withdrawal sx. Laboratory Tests 12/11/16 12/12/16 12/12/16 14:00 06:00 06:00 WBC 5.2 RBC 4.08 Hgb 13.1 Hct 39.2 MCV 95.9 MCHC 33.5 RDW 13.6 Plt Count 173 MPV 8.6 Sodium 134 L Potassium 3.8 Chloride 93 L Carbon Dioxide 33 H Anion Gap 8 BUN 10 Creatinine 0.7 Creat Clearance w eGFR > 60 Random Glucose 91 Calcium 8.5 Total Bilirubin 1.7 H D AST 621 H D ALT 516 H Alkaline Phosphatase 379 H Total Protein 7.5 Albumin 3.4 Urine Color Ltyellow Urine Appearance Clear Urine pH 7.0 D Ur Specific [place] 1.010 Urine Protein 2+ H Urine Glucose (UA) Negative Urine Ketones Negative Urine Blood 1+ H Urine Nitrite Negative Urine Bilirubin Negative Urine Urobilinogen Negative Ur Leukocyte Esterase Negative Urine RBC 2 Urine WBC <1 RPR Titer 12/12/16 12/13/16 06:00 07:00 WBC RBC Hgb Hct MCV MCHC RDW Plt Count MPV Sodium 139 Potassium 4.4 Chloride 100 Carbon Dioxide 31 Anion Gap 8 BUN 14 D Creatinine 0.7 Creat Clearance w eGFR > 60 Random Glucose 103 Calcium 8.5 Total Bilirubin 0.9 D AST 288 H D ALT 292 H D Alkaline Phosphatase 261 H D Total Protein 6.4 Albumin 2.8 L Urine Color Urine Appearance Urine pH Ur Specific [place] Urine Protein Urine Glucose (UA) Urine Ketones Urine Blood Urine Nitrite Urine Bilirubin Urine Urobilinogen Ur Leukocyte Esterase Urine RBC Urine WBC RPR Titer Nonreactive labs noted, repeat hep enzymes improved. - Treatment Hospital Course: Detox Protocol Followed, Detoxed Safely, Responded well, Discharged Condition Good, Rehab Referral Accepted Patient has Accepted a Rehab Referral to: [facility] - Medication Discharge Medications: Ambulatory Orders NK [No Known Home Medication] 07/31/13 - Diagnosis (1) Alcohol dependence with uncomplicated withdrawal Current Visit: Yes Status: Acute (2) Cocaine dependence Current Visit: Yes Status: Acute Qualifiers: Substance use status: uncomplicated Qualified Code(s): F14.20 - Cocaine dependence, uncomplicated (3) Insomnia Current Visit: Yes Status: Acute Qualifiers: Insomnia type: alcohol-induced Qualified Code(s): F10.982 - Alcohol use, unspecified with alcohol-induced sleep disorder (4) Nicotine dependence Current Visit: Yes Status: Acute Qualifiers: Nicotine product type: cigarettes Substance use status: uncomplicated Qualified Code(s): F17.210 - Nicotine dependence, cigarettes, uncomplicated (5) Opioid dependence on agonist therapy Current Visit: Yes Status: Acute - AMA Did Patient Leave Against Medical Advice: No
[2016-12-15 11:19] VITALS: BP 132/92; PULSE 92; TEMP 98.1
== END 2016-12-15 09:41 | disposition home or self-care (01) | DRG 773 ==
LOC: YASAS 10:23 → Y6N 13:35
PROVIDERS: ADMIT Internal Medicine Addiction Medicine; ATTEND Internal Medicine Addiction Medicine
PROC: HZ2ZZZZ Detoxification Services for Substance Abuse Treatment (ICD-10-PCS; principal; 2016-12-15)
DX: F11.20 Opioid dependence, uncomplicated (principal); F10.230 Alcohol dependence with withdrawal, uncomplicated; F14.20 Cocaine dependence, uncomplicated; F17.210 Nicotine dependence, cigarettes, uncomplicated; F10.982 Alcohol use, unspecified with alcohol-induced sleep disorder
CPT/HCPCS: 36415; 80053; 81003; 81015; 85027; 86593; 93005; 93010; J0735

== ENCOUNTER 2016-12-11 16:45 | Emergency (ER) | payer OTHER ==
[2016-12-11 16:52] VITALS: BMI 24.2
--- NOTE | 2016-12-11 18:29 | PDOC ---
History of Present Illness - General History Source: Patient Exam Limitations: No Limitations - History of Present Illness Initial Comments: 12/11/16 17:25 56-year-old male sent over from [facility] for evaluation of abnormal EKG. Patient states was therefore alcohol intake when they did a baseline EKG that showed bigeminy with prolonged QT. Patient denies chest pain shortness of breath , palpitations, nausea, or dizziness. Patient states no cardiac history and denies any other drug use. Patient states has never been seen by program paraprofessional and denies history of diabetes. Patient denies smoking history. Timing/Duration: other Associated Symptoms: reports: denies symptoms <Neelima Naranjo - Last Filed: 12/11/16 18:24> <Mode Niño - Last Filed: 12/11/16 22:10> - General Chief Complaint: Revisit, Lab Variance Stated Complaint: ABNORMAL EKG Time Seen by Provider: 12/11/16 17:19 Past History - Past Medical History Anemia: No Asthma: No Cancer: No Cardiac Disorders: No CVA: No COPD: No CHF: No Dementia: No Diabetes: No GI Disorders: No Disorders: No HTN: No Hypercholesterolemia: No Kidney Stones: No Liver Disease: No Suicide Attempt (Hx): No (DENIES) Seizures: No Thyroid Disease: No - Surgical History Abdominal Surgery: Yes (umbilical hernia repair in 2009) Appendectomy: No Cardiac Surgery: No Cholecystectomy: No Lung Surgery: No Neurologic Surgery: No Orthopedic Surgery: No - Reproductive History Testicular Surgery: No - Psycho/Social/Smoking Cessation Hx Anxiety: No Suicidal Ideation: No Smoking History: Former smoker Have you smoked in the past 12 months: Yes Number of Cigarettes Smoked Daily: 2 If you are a former smoker, when did you quit?: 5 YRS Cigars Per Day: 0 Information on smoking cessation initiated: No 'Breaking Loose' booklet given: 12/11/16 Hx Alcohol Use: No Drug/Substance Use Hx: No Substance Use Type: Alcohol Hx Substance Use Treatment: Yes ([facility]) Patient Lives Alone: No Lives with/in: spouse/SO <Neelima Naranjo - Last Filed: 12/11/16 18:24> <Mode Niño - Last Filed: 12/11/16 22:10> - Past Medical History Allergies/Adverse Reactions: Allergies Allergy/AdvReac Type Severity Reaction Status Date / Time No Known Allergies Allergy Verified 12/11/16 11:43 Home Medications: Ambulatory Orders NK [No Known Home Medication] 07/31/13 Review of Systems - Review of Systems Able to Perform ROS?: Yes Constitutional: No: Symptoms Reported HEENTM: No: Symptoms Reported Respiratory: No: Symptoms reported Cardiac (ROS): No: Symptoms Reported ABD/GI: No: Symptoms Reported : No: Symptoms Reported Musculoskeletal: No: Symptoms Reported Integumentary: No: Symptoms Reported Neurological: Yes: Weakness (mild generalized) <Neelima Naranjo - Last Filed: 12/11/16 18:24> *Physical Exam - Vital Signs Last Vital Signs Temp Pulse Resp BP Pulse Ox 98.7 F 62 20 161/97 100 12/11/16 16:49 12/11/16 16:49 12/11/16 16:49 12/11/16 16:49 12/11/16 16:49 - Physical Exam General Appearance: Yes: Nourished, Appropriately Dressed. No: Apparent Distress HEENT: positive: EOMI, ANUM. negative: Pale Conjunctivae Neck: positive: Supple Respiratory/Chest: positive: Lungs Clear, Normal Breath Sounds. negative: Respiratory Distress, Accessory Muscle Use Cardiovascular: positive: Regular Rhythm, Regular Rate. negative: Murmur Gastrointestinal/Abdominal: positive: Soft. negative: Tenderness Musculoskeletal: negative: CVA Tenderness Extremity: positive: Normal Capillary Refill. negative: Pedal Edema Integumentary: positive: Normal Color, Warm, Moist Neurologic: positive: Normal Mood/Affect, Motor Strength 5/5 (ambulatory) <Neelima Naranjo - Last Filed: 12/11/16 18:24> - Vital Signs Last Vital Signs Temp Pulse Resp BP Pulse Ox 98.7 F 58 L 16 148/76 100 12/11/16 16:49 12/11/16 20:00 12/11/16 20:00 12/11/16 20:00 12/11/16 20:00 <Mode Niño - Last Filed: 12/11/16 22:10> Heart Score/ECG Review - History History: Slightly suspicious - Electrocardiogram EKG: Normal - Age Age: 45-65 - Risk Factors Risk Factors Heart Score: Yes Smoking History Based on the list above the patient has:: 1-2 risk factors - Troponin Troponin: </= normal limit - Score Heart Score - Total: 2 - ECG Intrepretation Rhythm: Regular Rhythm (rate 84.normal sinus rhythm. No ST depression or elevation) <Neelima Naranjo - Last Filed: 12/11/16 18:24> ED Treatment Course - LABORATORY CBC & Chemistry Diagram: 12/11/16 18:42 12/11/16 18:42 - ADDITIONAL ORDERS Additional order review: Laboratory Results 12/11/16 12/11/16 18:42 18:42 Sodium 137 Potassium 3.8 Chloride 96 L Carbon Dioxide 33 H Anion Gap 8 BUN 12 D Creatinine 0.7 Creat Clearance w eGFR > 60 Random Glucose 105 Calcium 8.3 L Magnesium 2.1 Total Bilirubin 1.4 H D AST 506 H D ALT 438 H D Alkaline Phosphatase 343 H D Creatine Kinase 485 H Creatine Kinase Index 1.5 CK-MB (CK-2) 7.347 H CK-MB (CK-2) Rel Index Cancelled Troponin I < 0.02 Total Protein 6.7 Albumin 2.9 L D 12/11/16 18:42 RBC 3.97 L MCV 93.5 MCHC 33.8 RDW 13.4 MPV 8.1 Neutrophils % 63.5 Lymphocytes % 26.8 Monocytes % 9.0 Eosinophils % 0.4 Basophils % 0.3 <Mode Niño - Last Filed: 12/11/16 22:10> Medical Decision Making - Medical Decision Making 12/11/16 18:27 Patient sent over for abnormal EKG despite having no complaints except for mild generalized weakness. Patient does state went to [facility] for alcohol abuse. Patient ordered for cardiac profile, CBC, comp and EKG. EKG here shows normal sinus with a rate of 84. patient is currently asymptomatic.. <Neelima Naranjo - Last Filed: 12/11/16 18:24> *DC/Admit/Observation/Transfer <Neelima Naranjo - Last Filed: 12/11/16 18:24> - Discharge Dispostion Admit: No <Mode Niño - Last Filed: 12/11/16 22:10> Diagnosis at time of Disposition: Alcohol dependence - Discharge Dispostion Disposition: I.P. ALCOHOL/SUBS ABUSE REHAB Condition at time of disposition: Stable
[2016-12-11 19:08] LABS: BASOPHIL 0.3 % (0-2.0); EOSINOPHIL 0.4 % (0-4.5); MCH 31.6 pg (25.7-33.7); MCHC 33.8 g/dl (32.0-35.9); MEAN CELL VOLUME 93.5 fl (80-96); MEAN PLT VOLUME 8.1 fl (7.5-11.1); NEUTROPHILS 63.5 % (42.8-82.8); PLATELET COUNT 153 K/MM3 (134-434); RDW 13.4 % (11.9-15.9); WHITE BLOOD COUNT 4.7 K/mm3 (4.0-10.0)
[2016-12-11 19:37] LABS: ALBUMIN 2.9 g/dl (3.4-5.0); ANION GAP 8 (8-16); CALCIUM 8.3 mg/dL (8.5-10.1); CO2 33 mmol/L (21-32); COCKROFT - GAULT 112.04; CREATININE 0.7 mg/dL (0.7-1.3); GLUCOSE,RANDOM 105 mg/dL (74-106); MAGNESIUM 2.1 mg/dL (1.8-2.4)
[2016-12-11 19:41] LABS: ALK PHOS 343 U/L (45-117); BILIRUBIN,TOTAL 1.4 mg/dL (0.2-1.0); TOT PROT 6.7 g/dl (6.4-8.2); TROPONIN I < 0.02 ng/ml (0.00-0.05)
[2016-12-11 19:50] LABS: SGOT/AST 506 U/L (15-37); SGPT/ALT 438 U/L (12-78)
[2016-12-11 22:34] VITALS: BP 138/79; PULSE 61; TEMP 98.5
--- NOTE | 2016-12-13 16:36 | EKG ---
Test Reason : Blood Pressure : / mmHG Vent. Rate : 059 BPM Atrial Rate : 059 BPM P-R Int : 138 ms QRS Dur : 094 ms QT Int : 410 ms P-R-T Axes : 046 -30 014 degrees QTc Int : 405 ms SINUS BRADYCARDIA LEFT AXIS DEVIATION ABNORMAL ECG WHEN COMPARED WITH ECG OF 11-DEC-2016 13:53, PREMATURE VENTRICULAR COMPLEXES ARE NO LONGER PRESENT T WAVE AMPLITUDE HAS DECREASED IN ANTERIOR LEADS QT HAS SHORTENED Confirmed by EDITH NIEVES, MADHU ([id number]) on 12/13/2016 4:35:53 PM Referred By: Confirmed By:MADHU SHARMA MD
== END 2016-12-12 00:06 | disposition other institution (70) ==
LOC: JER 16:45
DX: F10.20 Alcohol dependence, uncomplicated (principal)
CPT/HCPCS: 36415; 80053; 82550; 82553; 83735; 84484; 85025; 93005; 93010; 99282-25

== ENCOUNTER 2017-06-13 11:19 | Inpatient (IN) | payer OTHER ==
[2017-06-13 13:38] VITALS: BMI 25.3
--- NOTE | 2017-06-13 15:59 | HP ---
CIWA Score - CIWA Score Nausea/Vomitin-No Nausea/No Vomiting Muscle Tremors: 4-Moderate,w/Arms Extend Anxiety: 4-Mod. Anxious/Guarded Agitation: 4-Moderately Restless Paroxysmal Sweats: 3 Orientation: 0-Oriented Tacttile Disturbances: 0-None Auditory Disturbances: 0-None Visual Disturbances: 0-None Headache: 1-Very Mild CIWA-Ar Total Score: 16 Admission ROS BHS - HPI Chief Complaint: I need help. Allergies/Adverse Reactions: Allergies Allergy/AdvReac Type Severity Reaction Status Date / Time No Known Allergies Allergy Verified 06/13/17 15:52 History of Present Illness: pt is a 57yr old male with a history of alcohol dependence seeking detox for treatment. pt is on a mmtp program received his methadone today with 90mg. pending verification. Exam Limitations: No Limitations - Ebola screening Have you traveled outside of the country in the last 21 days: No (N) Have you had contact with anyone from an Ebola affected area: No Have you been sick,other than usual withdrawal symptoms: No Do you have a fever: No - Review of Systems Constitutional: Chills, Diaphoresis, Loss of Appetite, Night Sweats EENT: reports: Blurred Vision, Tearing, Nose Congestion Respiratory: reports: No Symptoms reported Cardiac: reports: No Symptoms Reported GI: reports: Nausea, Poor Appetite, Poor Fluid Intake : reports: No Symptoms Reported Musculoskeletal: reports: No Symptoms Reported Integumentary: reports: Flushing, Sweating Neuro: reports: Headache, Tingling, Tremors Endocrine: reports: Excessive Sweating, Flushing, Intolerance to Cold, Intolerance to Heat Hematology: reports: No Symptoms Reported Psychiatric: reports: Judgement Intact, Mood/Affect Appropiate, Orientated x3, Agitated, Anxious Other Systems: Reviewed and Negative Patient History - Patient Medical History Hx Anemia: No Hx Asthma: No Hx Chronic Obstructive Pulmonary Disease (COPD): No Hx Cancer: No Hx Cardiac Disorders: No Hx Congestive Heart Failure: No Hx Hypertension: No Hx Hypercholesterolemia: No Hx Pacemaker: No HX Cerebrovascular Accident: No Hx Seizures: No Hx Dementia: No Hx Diabetes: No Hx Gastrointestinal Disorders: No Hx Liver Disease: No Hx Genitourinary Disorders: No Hx Sexually Transmitted Disorders: No Hx Renal Disease (ESRD): No Hx Thyroid Disease: No Hx Human Immunodeficiency Virus (HIV): No (LAST 11/27 NEGATIVE) Hx Hepatitis C: No Hx Depression: Yes Hx Suicide Attempt: No (DENIES) Hx Bipolar Disorder: No Hx Schizophrenia: No - Patient Surgical History Past Surgical History: Yes Hx Neurologic Surgery: No Hx Cataract Extraction: No Hx Cardiac Surgery: No Hx Lung Surgery: No Hx Breast Surgery: No Hx Breast Biopsy: No Hx Abdominal Surgery: Yes (umbilical hernia repair in 2009) Hx Appendectomy: No Hx Cholecystectomy: No Hx Genitourinary Surgery: No Hx Section: No Hx Orthopedic Surgery: No Other Surgical History: HERNIA REPAIR-2009 Anesthesia Reaction: No - PPD History Previous Implant?: No Documented Results: Negative w/proof Date: 07/11/16 Results: 0 mm PPD to be Administered?: No - Reproductive History Patient is a Female of Child Bearing Age (11 -55 yrs old): No - Smoking Cessation Smoking history: Former smoker Have you smoked in the past 12 months: Yes Aproximately how many cigarettes per day: 2 If you are a former smoker, when did you quit?: 5 YRS Cigars Per Day: 0 Hx Chewing Tobacco Use: No Initiated information on smoking cessation: Yes 'Breaking Loose' booklet given: 06/13/17 - Substance & Tx. History Hx Alcohol Use: Yes Hx Substance Use: No Substance Use Type: Alcohol Hx Substance Use Treatment: Yes (last detox [facility] 11/2016) - Substances Abused Alcohol-rum Route: Oral Frequency: Daily Amount used: 3 pts. Age of first use: 19 Date of Last Use: 06/13/17 Family Disease History - Family Disease History Family Disease History: Diabetes: Father (alcohol), Mother, Other: Father, Brother (ALCOHOL,DSA) Admission Physical Exam S - Vital Signs Vital Signs: Vital Signs - 24 hr 06/13/17 13:28 Temperature 96.2 F L Pulse Rate 68 Respiratory 20 Rate Blood Pressure 141/75 - Physical General Appearance: Yes: Appropriately Dressed, Moderate Distress, Irritable, Sweating, Anxious HEENTM: Yes: Normal Voice, Nasal Congestion, Rhinorrhea Respiratory: Yes: Lungs Clear, Normal Breath Sounds, No Respiratory Distress Neck: Yes: No masses,lesions,Nodules Breast: Yes: Within Normal Limits Cardiology: Yes: Regular Rhythm, Regular Rate, S1, S2 Abdominal: Yes: Normal Bowel Sounds, Non Tender, Soft Genitourinary: Yes: Within Normal Limits Back: Yes: Normal Inspection Musculoskeletal: Yes: full range of Motion, Back pain Extremities: Yes: Normal Capillary Refill, Non-Tender, Tremors Neurological: Yes: Fully Oriented, Alert, Normal Response Integumentary: Yes: Normal Color, Diaphoresis Lymphatic: Yes: Within Normal Limits - Diagnostic (1) Alcohol dependence with uncomplicated withdrawal Current Visit: Yes Status: Chronic (2) Methadone maintenance therapy patient Current Visit: Yes Status: Chronic Comment: 90 MG VERIFICATION PENDING Cleared for Admission [facility] - Detox or Rehab [facility] Level of Care: Medically Managed Detox Regimen/Protocol: Librium [facility] Breath Alcohol Content Breath Alcohol Content: 0.101 Urine Drug Screen - Results Drug Screen Negative: No Urine Drug Screen Results: MTD-Methadone
[2017-06-13] MEDS ORDERED: IBUPROFEN 400 MG TABLET (FP) PO PRN (16:01)
[2017-06-13] MEDS ORDERED: P-EPHED 60MG/TRIPROLIDI 2.5MG TABLET PO PRN (16:01)
[2017-06-13] MEDS ORDERED: MAG HYDROX/AL HYDROX/SIMETH 30 ML UNIT-DOSE CUP PO PRN (16:01)
[2017-06-13] MEDS ORDERED: MAGNESIUM HYDROX 2400MG/30ML ORAL SUSPENSION 30 ML CUP PO PRN (16:01)
[2017-06-13] MEDS ORDERED: guaiFENesin/D-METHORPHAN HB 10 ML UNIT-DOSE CUPS PO PRN (16:01)
[2017-06-13] MEDS ORDERED: hydrOXYzine PAMOATE 50 MG CAPSULE (FP) PO PRN (16:01)
[2017-06-13] MEDS ORDERED: MAGNESIUM CITRATE 300 ML BOTTLE PO PRN (16:01)
[2017-06-13] MEDS ORDERED: LOPERAMIDE HCL 2 MG CAPSULE PO PRN (16:01)
[2017-06-13] MEDS ORDERED: chlordiazePOXIDE HCL 25 MG CAPSULE PO PRN (16:01)
[2017-06-13] MEDS ORDERED: ACETAMINOPHEN 325 MG TABLET (FP) PO PRN (16:01)
[2017-06-13] MEDS ORDERED: MENTHOL/PHENOL 1 EACH UD MM PRN (16:01)
[2017-06-13] MEDS ORDERED: chlordiazePOXIDE HCL 25 MG CAPSULE PO SCH (17:00)
[2017-06-13] MEDS ORDERED: chlordiazePOXIDE HCL 25 MG CAPSULE PO ONE (18:00)
[2017-06-13] MEDS: chlordiazePOXIDE HCL 25 MG CAPSULE PO SCH (22:20)
[2017-06-13] MEDS: THIAMINE HCL 100 MG TABLET (FP) PO SCH (22:20)
[2017-06-14 02:41] LABS: URINE APPEARANCE CLEAR; URINE BILIRUBIN NEGATIVE (NEGATIVE); URINE BLOOD NEGATIVE (NEGATIVE); URINE COLOR LTYELLOW; URINE GLUCOSE (UA) NEGATIVE (NEGATIVE); URINE KETONE NEGATIVE (NEGATIVE); URINE NITRITE NEGATIVE (NEGATIVE); URINE UROBILINOGEN NEGATIVE mg/dL (0.2-1.0)
[2017-06-14 02:51] LABS: URINE PROTEIN 1+ (NEGATIVE)
[2017-06-14 03:24] LABS: URINE MUCUS RARE; URINE RBC <1 /hpf (0-3); URINE WBC <1 /hpf (3-5)
[2017-06-14] MEDS: chlordiazePOXIDE HCL 25 MG CAPSULE PO SCH ×4 (06:09→22:07)
[2017-06-14] MEDS ORDERED: METHADONE HCL 10 MG TABLET PO ONE (08:53)
[2017-06-14] MEDS ORDERED: METHADONE HCL 40 MG DISPERSABLE TABLET ONE (09:54)
[2017-06-14] MEDS ORDERED: METHADONE HCL 10 MG TABLET ONE (09:54)
[2017-06-14 09:57] LABS: MCH 32.7 pg (25.7-33.7); MCHC 34.3 g/dl (32.0-35.9); MEAN CELL VOLUME 95.4 fl (80-96); MEAN PLT VOLUME 7.6 fl (7.5-11.1); PLATELET COUNT 201 K/MM3 (134-434); RDW 13.1 % (11.9-15.9); WHITE BLOOD COUNT 4.6 K/mm3 (4.0-10.0)
[2017-06-14] MEDS ORDERED: METHADONE 80 MG, METHADONE 10 MG PO ONE (10:00)
[2017-06-14 10:01] LABS: ALBUMIN 2.7 g/dl (3.4-5.0); ANION GAP 8 (8-16); CALCIUM 7.8 mg/dL (8.5-10.1); CO2 30 mmol/L (21-32); GLUCOSE,RANDOM 125 mg/dL (74-106)
--- NOTE | 2017-06-14 10:12 | EKG ---
Test Reason : Blood Pressure : / mmHG Vent. Rate : 067 BPM Atrial Rate : 067 BPM P-R Int : 150 ms QRS Dur : 092 ms QT Int : 410 ms P-R-T Axes : 062 -18 029 degrees QTc Int : 433 ms NORMAL SINUS RHYTHM NONSPECIFIC ST ABNORMALITY WHEN COMPARED WITH ECG OF 11-DEC-2016 16:52, NO SIGNIFICANT CHANGE WAS FOUND Confirmed by NIKOLAI LYNNE MD ([id number]) on 06/14/2017 10:12:35 AM Referred By: Confirmed By:NIKOLAI LYNNE MD
[2017-06-14 10:14] LABS: ALK PHOS 182 U/L (45-117); CREATININE 0.7 mg/dL (0.7-1.3); SGOT/AST 105 U/L (15-37); SGPT/ALT 60 U/L (12-78); TOT PROT 6.4 g/dl (6.4-8.2)
[2017-06-14] MEDS: PRENATAL VITAMINS W/ FOLIC ACID TABLET (FP) PO SCH (10:43)
[2017-06-14 11:02] LABS: URINE LEUK ESTERASE Negative (NEGATIVE)
--- NOTE | 2017-06-14 11:17 | PN ---
[facility] CIWA - CIWA Score Nausea/Vomitin-No Nausea/No Vomiting Muscle Tremors: 3 Anxiety: 4-Mod. Anxious/Guarded Agitation: 4-Moderately Restless Paroxysmal Sweats: 1-Minimal Palms Moist Orientation: 0-Oriented Tacttile Disturbances: 3-Moderate Itch/Numb/Burn Auditory Disturbances: 0-None Visual Disturbances: 0-None Headache: 0-None Present CIWA-Ar Total Score: 15 S Progress Note (SOAP) Subjective: ANXIETY,SLIGHT TREMORS,SWEATS/CHILLS,FATIGUE. Objective: 06/14/17 11:14 Vital Signs Temperature 98.6 F 06/14/17 10:00 Pulse Rate 91 H 06/14/17 10:00 Respiratory Rate 18 06/14/17 10:00 Blood Pressure 146/84 06/14/17 10:00 O2 Sat by Pulse Oximetry (%) Laboratory Last Values WBC 4.6 K/mm3 (4.0-10.0) 06/14/17 07:00 RBC 3.79 M/mm3 (4.00-5.60) L 06/14/17 07:00 Hgb 12.4 GM/dL (11.7-16.9) 06/14/17 07:00 Hct 36.2 % (35.4-49) 06/14/17 07:00 MCV 95.4 fl (80-96) 06/14/17 07:00 MCH 32.7 pg (25.7-33.7) 06/14/17 07:00 MCHC 34.3 g/dl (32.0-35.9) 06/14/17 07:00 RDW 13.1 % (11.9-15.9) 06/14/17 07:00 Plt Count 201 K/MM3 (134-434) 06/14/17 07:00 MPV 7.6 fl (7.5-11.1) D 06/14/17 07:00 Sodium 136 mmol/L (136-145) 06/14/17 07:00 Potassium 3.3 mmol/L (3.5-5.1) L D 06/14/17 07:00 Chloride 98 mmol/L (98-107) 06/14/17 07:00 Carbon Dioxide 30 mmol/L (21-32) 06/14/17 07:00 Anion Gap 8 (8-16) 06/14/17 07:00 BUN 12 mg/dL (7-18) 06/14/17 07:00 Creatinine 0.7 mg/dL (0.7-1.3) 06/14/17 07:00 Creat Clearance w eGFR > 60 (>60) 06/14/17 07:00 Random Glucose 125 mg/dL (74-106) H D 06/14/17 07:00 Calcium 7.8 mg/dL (8.5-10.1) L 06/14/17 07:00 Total Bilirubin 1.0 mg/dL (0.2-1.0) 06/14/17 07:00 AST 105 U/L (15-37) H D 06/14/17 07:00 ALT 60 U/L (12-78) D 06/14/17 07:00 Alkaline Phosphatase 182 U/L (45-117) H D 06/14/17 07:00 Total Protein 6.4 g/dl (6.4-8.2) 06/14/17 07:00 Albumin 2.7 g/dl (3.4-5.0) L 06/14/17 07:00 Urine Color Ltyellow 06/14/17 02:00 Urine Appearance Clear 06/14/17 02:00 Urine pH 5.0 (5.0-8.0) D 06/14/17 02:[address] [place] 1.014 (1.001-1.035) 06/14/17 02:00 Urine Protein 1+ (NEGATIVE) H 06/14/17 02:00 Urine Glucose (UA) Negative (NEGATIVE) 06/14/17 02:00 Urine Ketones Negative (NEGATIVE) 06/14/17 02:00 Urine Blood Negative (NEGATIVE) 06/14/17 02:00 Urine Nitrite Negative (NEGATIVE) 06/14/17 02:00 Urine Bilirubin Negative (NEGATIVE) 06/14/17 02:00 Urine Urobilinogen Negative mg/dL (0.2-1.0) 06/14/17 02:00 Ur Leukocyte Esterase Negative (NEGATIVE) 06/14/17 02:00 Urine WBC (Auto) <1 /hpf (3-5) 06/14/17 02:00 Urine RBC (Auto) <1 /hpf (0-3) 06/14/17 02:00 Urine Mucus Rare 06/14/17 02:00 K+ =3.3 Assessment: 06/14/17 11:15 WITHDRAWAL SX HYPOKALEMIA Plan: CONTINUE DTEOX KCL LIQUID 20 MEQ PO BID
[2017-06-14] MEDS: POTASSIUM CHLORIDE ORAL LIQUID 20 MEQ/15 ML PO SCH ×2 (13:31→22:06)
--- NOTE | 2017-06-14 13:34 | CONSULT ---
[facility] Psychiatric Consult - Data Date of interview: 06/14/17 Admission source: [facility] Identifying data: Another admission to [facility] for this 57 y/o [place] male seeking detox treatment on for alcohol,cocaine and opioid dependence.Patient is ,no children,domiciled,unemployed and supported on Public Assistance. Substance Abuse History: Confirmed by patient in this session.See the following [facility] report for details : Smoking history: Former smoker. Have you smoked in the past 12 months: Yes. Aproximately how many cigarettes per day: 2. If you are a former smoker, when did you quit?: 5 YRS. Cigars Per Day: 0. Hx Chewing Tobacco Use: No. Initiated information on smoking cessation: Yes. 'Breaking Loose' booklet given: 06/13/17. - Substance & Tx. History. Hx Alcohol Use: Yes. Hx Substance Use: No. Substance Use Type: Alcohol. Hx Substance Use Treatment: Yes (last detox [facility] 11/2016). - Substances Abused. Alcohol- rum. Route: Oral. Frequency: Daily. Amount used: 3 pts. Age of first use: 19. Date of Last Use: 06/13/17 Medical History: Abnormal EKG and moderately elevated liver enzymes.Otherwise patient reports good general health. Psychiatric History: Patient denies. Physical/Sexual Abuse/Trauma History: Patient denies. Additional Comment: Urine Drug Screen Results: MTD-Methadone.Noted. Mental Status Exam - Mental Status Exam Alert and Oriented to: Time, Place, Person Cognitive Function: Good Patient Appearance: Well Groomed Mood: Hopeful, Euthymic Affect: Appropriate, Normal Range Patient Behavior: Appropriate, Cooperative Speech Pattern: Clear, Appropriate Voice Loudness: Normal Thought Process: Goal Oriented Thought Disorder: Not Present Hallucinations: Denies Suicidal Ideation: Denies Homicidal Ideation: Denies Insight/Judgement: Poor Sleep: Well Appetite: Good Muscle strength/Tone: Normal Gait/Station: Normal Psychiatric Findings - Problem List ([place] 1, 2,3) (1) Alcohol dependence with uncomplicated withdrawal Current Visit: Yes Status: Acute (2) Opioid dependence on agonist therapy Current Visit: Yes Status: Acute - Initial Treatment Plan Initial Treatment Plan: Psychoeducation.Detoxification.Observation.
[2017-06-14] MEDS: THIAMINE HCL 100 MG TABLET (FP) PO SCH (22:06)
[2017-06-15] MEDS ORDERED: METHADONE HCL 10 MG TABLET ONE (04:28)
[2017-06-15] MEDS ORDERED: METHADONE HCL 40 MG DISPERSABLE TABLET ONE (04:28)
[2017-06-15] MEDS: METHADONE 80 MG, METHADONE 10 MG PO SCH (06:00)
[2017-06-15] MEDS ORDERED: METHADONE HCL 10 MG TABLET PO SCH (06:00)
[2017-06-15] MEDS: chlordiazePOXIDE HCL 25 MG CAPSULE PO SCH ×3 (06:00→16:51)
[2017-06-15] MEDS: PRENATAL VITAMINS W/ FOLIC ACID TABLET (FP) PO SCH (10:14)
[2017-06-15] MEDS: POTASSIUM CHLORIDE ORAL LIQUID 20 MEQ/15 ML PO SCH ×2 (10:14→22:29)
[2017-06-15] MEDS ORDERED: LIDOCAINE VISCOUS 2% ORAL/TOP 20 ML UNIT-DOSE CUP MM PRN (11:27)
--- NOTE | 2017-06-15 16:37 | PN ---
[facility] CIWA - CIWA Score Nausea/Vomitin-No Nausea/No Vomiting Muscle Tremors: 5 Anxiety: 3 Agitation: 4-Moderately Restless Paroxysmal Sweats: 2 Orientation: 2-Disoriented Date<2 days Tacttile Disturbances: 1-Very Mild Itch/Numbness Auditory Disturbances: 0-None Visual Disturbances: 0-None Headache: 0-None Present CIWA-Ar Total Score: 17 BHS Progress Note (SOAP) Subjective: Tremors, Sweating, Anxious. Objective: PT. A & O X 2 (UNCERTAIN ABOUT DAY / DATE). PT. OBSERVED AMBULATING ON UNIT. NO ACUTE DISTRESS. 06/15/17 16:33 Vital Signs Temperature 97.7 F 06/15/17 13:15 Pulse Rate 102 H 06/15/17 13:15 Respiratory Rate 16 06/15/17 13:15 Blood Pressure 112/66 06/15/17 13:15 O2 Sat by Pulse Oximetry (%) Laboratory Tests 06/14/17 06/14/17 06/14/17 02:00 07:00 07:00 WBC 4.6 RBC 3.79 L Hgb 12.4 Hct 36.2 MCV 95.4 MCH 32.7 MCHC 34.3 RDW 13.1 Plt Count 201 MPV 7.6 D Sodium 136 Potassium 3.3 L D Chloride 98 Carbon Dioxide 30 Anion Gap 8 BUN 12 Creatinine 0.7 Creat Clearance w eGFR > 60 Random Glucose 125 H D Calcium 7.8 L Total Bilirubin 1.0 AST 105 H D ALT 60 D Alkaline Phosphatase 182 H D Total Protein 6.4 Albumin 2.7 L Urine Color Ltyellow Urine Appearance Clear Urine pH 5.0 D Ur Specific [place] 1.014 Urine Protein 1+ H Urine Glucose (UA) Negative Urine Ketones Negative Urine Blood Negative Urine Nitrite Negative Urine Bilirubin Negative Urine Urobilinogen Negative Ur Leukocyte Esterase Negative Urine WBC (Auto) <1 Urine RBC (Auto) <1 Urine Mucus Rare RPR Titer 06/14/17 07:00 WBC RBC Hgb Hct MCV MCH MCHC RDW Plt Count MPV Sodium Potassium Chloride Carbon Dioxide Anion Gap BUN Creatinine Creat Clearance w eGFR Random Glucose Calcium Total Bilirubin AST ALT Alkaline Phosphatase Total Protein Albumin Urine Color Urine Appearance Urine pH Ur Specific [place] Urine Protein Urine Glucose (UA) Urine Ketones Urine Blood Urine Nitrite Urine Bilirubin Urine Urobilinogen Ur Leukocyte Esterase Urine WBC (Auto) Urine RBC (Auto) Urine Mucus RPR Titer Nonreactive LABS NOTED. Assessment: 06/15/17 16:34 WITHDRAWAL SYMPTOMS. HYPOKALEMIA. 06/15/17 16:36 Plan: CONTINUE DETOX. CONTINUE DK-DUR. INCREASE DAILY PO FLUID INTAKE. REPEAT AST, AP TOMORROW AM FOR ELEVATED ADMISSION LEVELS.
[2017-06-15] MEDS: THIAMINE HCL 100 MG TABLET (FP) PO SCH (22:30)
[2017-06-15] MEDS: chlordiazePOXIDE 5 MG CAPSULE PO SCH (22:30)
[2017-06-16] MEDS ORDERED: METHADONE HCL 10 MG TABLET ONE (03:27)
[2017-06-16] MEDS ORDERED: METHADONE HCL 40 MG DISPERSABLE TABLET ONE (03:27)
[2017-06-16] MEDS: METHADONE 80 MG, METHADONE 10 MG PO SCH (05:50)
[2017-06-16] MEDS: chlordiazePOXIDE 5 MG CAPSULE PO SCH ×3 (05:50→16:59)
[2017-06-16] MEDS: POTASSIUM CHLORIDE ORAL LIQUID 20 MEQ/15 ML PO SCH ×2 (10:53→22:37)
[2017-06-16] MEDS: PRENATAL VITAMINS W/ FOLIC ACID TABLET (FP) PO SCH (10:53)
[2017-06-16 12:15] LABS: ALK PHOS 182 U/L (45-117); SGOT/AST 175 U/L (15-37)
--- NOTE | 2017-06-16 13:50 | PN ---
BHS Progress Note (SOAP) Subjective: Anxious, sweating, nausea Objective: 06/16/17 13:54 Last Vital Signs Temp Pulse Resp BP Pulse Ox 98.4 F 89 16 122/69 06/16/17 13:10 06/16/17 13:10 06/16/17 13:10 06/16/17 13:10 Laboratory Tests 06/14/17 06/14/17 06/14/17 02:00 07:00 07:00 WBC 4.6 RBC 3.79 L Hgb 12.4 Hct 36.2 MCV 95.4 MCH 32.7 MCHC 34.3 RDW 13.1 Plt Count 201 MPV 7.6 D Sodium 136 Potassium 3.3 L D Chloride 98 Carbon Dioxide 30 Anion Gap 8 BUN 12 Creatinine 0.7 Creat Clearance w eGFR > 60 Random Glucose 125 H D Calcium 7.8 L Total Bilirubin 1.0 AST 105 H D ALT 60 D Alkaline Phosphatase 182 H D Total Protein 6.4 Albumin 2.7 L Urine Color Ltyellow Urine Appearance Clear Urine pH 5.0 D Ur Specific [place] 1.014 Urine Protein 1+ H Urine Glucose (UA) Negative Urine Ketones Negative Urine Blood Negative Urine Nitrite Negative Urine Bilirubin Negative Urine Urobilinogen Negative Ur Leukocyte Esterase Negative Urine WBC (Auto) <1 Urine RBC (Auto) <1 Urine Mucus Rare RPR Titer 06/14/17 06/16/17 07:00 08:45 WBC RBC Hgb Hct MCV MCH MCHC RDW Plt Count MPV Sodium Potassium Chloride Carbon Dioxide Anion Gap BUN Creatinine Creat Clearance w eGFR Random Glucose Calcium Total Bilirubin AST 175 H D ALT Alkaline Phosphatase 182 H Total Protein Albumin Urine Color Urine Appearance Urine pH Ur Specific [place] Urine Protein Urine Glucose (UA) Urine Ketones Urine Blood Urine Nitrite Urine Bilirubin Urine Urobilinogen Ur Leukocyte Esterase Urine WBC (Auto) Urine RBC (Auto) Urine Mucus RPR Titer Nonreactive Labs noted Assessment: 06/16/17 13:55 Withdrawal symptoms Plan: Continue detox Encouraged to drink lots of water Follow up with PCP within 1 week post discharge
[2017-06-16] MEDS: THIAMINE HCL 100 MG TABLET (FP) PO SCH (22:37)
[2017-06-16] MEDS: chlordiazePOXIDE HCL 10 MG CAPSULE PO SCH (22:37)
[2017-06-17] MEDS ORDERED: METHADONE HCL 10 MG TABLET ONE (04:57)
[2017-06-17] MEDS ORDERED: METHADONE HCL 40 MG DISPERSABLE TABLET ONE (04:57)
[2017-06-17] MEDS: METHADONE 80 MG, METHADONE 10 MG PO SCH (05:28)
[2017-06-17] MEDS: chlordiazePOXIDE HCL 10 MG CAPSULE PO SCH (05:28)
[2017-06-17 06:19] VITALS: BP 131/80; PULSE 69; TEMP 96.7
[2017-06-17] MEDS: POTASSIUM CHLORIDE ORAL LIQUID 20 MEQ/15 ML PO SCH (09:23)
[2017-06-17] MEDS: PRENATAL VITAMINS W/ FOLIC ACID TABLET (FP) PO SCH (09:23)
--- NOTE | 2017-06-17 20:32 | DS ---
[facility] Detox Discharge Summary Admission Date: 06/13/17 Discharge Date: 06/17/17 - History Present History: Alcohol Dependence, Opioid Dependence, MMTP Additional Comments: PATIENT SCHEDULED TO GO TO [facility] OUTPATIENT SUBSTANCE USE TREATMENT PROGRAM ([facility]) FOR AFTERCARE. PATIENT WAS DISCHARGED FROM DETOX UNIT IN STABLE MEDICAL CONDITION. Pertinent Past History: Depression, MMTP. - Physical Exam Results Vital Signs: Vital Signs Temperature 96.7 F L 06/17/17 06:18 Pulse Rate 69 06/17/17 06:18 Respiratory Rate 16 06/17/17 06:18 Blood Pressure 131/80 06/17/17 06:18 O2 Sat by Pulse Oximetry (%) Pertinent Admission Physical Exam Findings: WITHDRAWAL SYMPTOMS. Laboratory Tests 06/14/17 06/14/17 06/14/17 02:00 07:00 07:00 WBC 4.6 RBC 3.79 L Hgb 12.4 Hct 36.2 MCV 95.4 MCH 32.7 MCHC 34.3 RDW 13.1 Plt Count 201 MPV 7.6 D Sodium 136 Potassium 3.3 L D Chloride 98 Carbon Dioxide 30 Anion Gap 8 BUN 12 Creatinine 0.7 Creat Clearance w eGFR > 60 Random Glucose 125 H D Calcium 7.8 L Total Bilirubin 1.0 AST 105 H D ALT 60 D Alkaline Phosphatase 182 H D Total Protein 6.4 Albumin 2.7 L Urine Color Ltyellow Urine Appearance Clear Urine pH 5.0 D Ur Specific [place] 1.014 Urine Protein 1+ H Urine Glucose (UA) Negative Urine Ketones Negative Urine Blood Negative Urine Nitrite Negative Urine Bilirubin Negative Urine Urobilinogen Negative Ur Leukocyte Esterase Negative Urine WBC (Auto) <1 Urine RBC (Auto) <1 Urine Mucus Rare RPR Titer 06/14/17 06/16/17 07:00 08:45 WBC RBC Hgb Hct MCV MCH MCHC RDW Plt Count MPV Sodium Potassium Chloride Carbon Dioxide Anion Gap BUN Creatinine Creat Clearance w eGFR Random Glucose Calcium Total Bilirubin AST 175 H D ALT Alkaline Phosphatase 182 H Total Protein Albumin Urine Color Urine Appearance Urine pH Ur Specific [place] Urine Protein Urine Glucose (UA) Urine Ketones Urine Blood Urine Nitrite Urine Bilirubin Urine Urobilinogen Ur Leukocyte Esterase Urine WBC (Auto) Urine RBC (Auto) Urine Mucus RPR Titer Nonreactive LABS NOTED. - Treatment Hospital Course: Detox Protocol Followed, Detoxed Safely, Responded well, Discharged Condition Good Patient has Accepted a Rehab Referral to: PT GOING TO [facility] ([place], [place]) FOR AFTERCARE. - Medication Discharge Medications: Ambulatory Orders NK [No Known Home Medication] 07/31/13 - Diagnosis (1) Alcohol dependence with uncomplicated withdrawal Status: Acute (2) Methadone maintenance therapy patient Status: Chronic (3) Opioid dependence on agonist therapy Status: Chronic - AMA Did Patient Leave Against Medical Advice: No
== END 2017-06-17 09:09 | disposition home or self-care (01) | DRG 773 ==
LOC: YASAS 11:19 → Y3N 17:31
PROVIDERS: ADMIT Internal Medicine; ATTEND Internal Medicine
PROC: HZ2ZZZZ Detoxification Services for Substance Abuse Treatment (ICD-10-PCS; principal; 2017-06-13)
DX: F11.20 Opioid dependence, uncomplicated (principal); F10.230 Alcohol dependence with withdrawal, uncomplicated; F14.20 Cocaine dependence, uncomplicated; F17.210 Nicotine dependence, cigarettes, uncomplicated; F32.9 Major depressive disorder, single episode, unspecified; F19.24 Other psychoactive substance dependence with psychoactive substance-induced mood disorder; G47.00 Insomnia, unspecified; E87.6 Hypokalemia; L85.3 Xerosis cutis
CPT/HCPCS: 36415; 80053; 81003; 81015; 84075; 84450; 85027; 86593; 93005; 93010

== ENCOUNTER 2017-11-27 09:49 | Inpatient (IN) | payer OTHER ==
[2017-11-27 12:16] VITALS: BMI 26.8
--- NOTE | 2017-11-27 12:47 | HP ---
CIWA Score - CIWA Score Nausea/Vomitin Muscle Tremors: 2 Anxiety: 2 Agitation: 1-Slight > Activity Paroxysmal Sweats: 2 Orientation: 0-Oriented Tacttile Disturbances: 1-Very Mild Itch/Numbness Auditory Disturbances: 0-None Visual Disturbances: 0-None Headache: 2-Mild CIWA-Ar Total Score: 12 Admission ROS S - HPI Chief Complaint: ETOH withdrawal symptoms Allergies/Adverse Reactions: Allergies Allergy/AdvReac Type Severity Reaction Status Date / Time No Known Allergies Allergy Verified 11/27/17 12:32 History of Present Illness: Patient presents with ETOH withdrawal symptoms. Last attempted detox here at [facility] in 06/2017. Patient drinks up to 12 pack of beer daily and 2-3 shots of liquor. Denies history of seizures from ETOH use/withdrawal. Denies PMH and treatment for depression/anxiety. Patient does report depressed affect and occasional anxiety. Denies SI/HI and suicide attempts. Last drink this morning. In MMTP at [facility]. Dose reported as 90mg. RN verification pending. Exam Limitations: No Limitations - Ebola screening Have you traveled outside of the country in the last 21 days: No Have you had contact with anyone from an Ebola affected area: No Have you been sick,other than usual withdrawal symptoms: No Do you have a fever: No - Review of Systems Constitutional: Night Sweats, Changes in sleep, Weight Stable EENT: reports: No Symptoms Reported Respiratory: reports: Shortness of Breath Cardiac: reports: No Symptoms Reported GI: reports: Nausea, Poor Fluid Intake, Abdominal cramping : reports: No Symptoms Reported Musculoskeletal: reports: No Symptoms Reported Integumentary: reports: Erythema, Sweating Neuro: reports: Headache, Tremors Endocrine: reports: No Symptoms Reported Hematology: reports: No Symptoms Reported Psychiatric: reports: Orientated x3, Anxious, Depressed Patient History - Patient Medical History Hx Anemia: No Hx Asthma: No Hx Chronic Obstructive Pulmonary Disease (COPD): No Hx Cancer: No Hx Cardiac Disorders: No Hx Congestive Heart Failure: No Hx Hypertension: No Hx Hypercholesterolemia: No Hx Pacemaker: No HX Cerebrovascular Accident: No Hx Seizures: No Hx Dementia: No Hx Diabetes: No Hx Gastrointestinal Disorders: No Hx Liver Disease: No Hx Genitourinary Disorders: No Hx Sexually Transmitted Disorders: No Hx Renal Disease (ESRD): No Hx Thyroid Disease: No Hx Human Immunodeficiency Virus (HIV): No (LAST 11/27 NEGATIVE) Hx Hepatitis C: No Hx Depression: Yes Hx Suicide Attempt: No Hx Bipolar Disorder: No Hx Schizophrenia: No - Patient Surgical History Past Surgical History: Yes Hx Neurologic Surgery: No Hx Cataract Extraction: No Hx Cardiac Surgery: No Hx Lung Surgery: No Hx Breast Surgery: No Hx Breast Biopsy: No Hx Abdominal Surgery: Yes (umbilical hernia repair in 2009) Hx Appendectomy: No Hx Cholecystectomy: No Hx Genitourinary Surgery: No Hx Section: No Hx Orthopedic Surgery: No Other Surgical History: HERNIA REPAIR-2009 Anesthesia Reaction: No - PPD History Previous Implant?: Yes Documented Results: Negative w/proof Implanted On Prior [facility] Admission?: Yes Date: 07/11/16 Results: 0 MM PPD to be Administered?: Yes - Smoking Cessation Smoking history: Former smoker Have you smoked in the past 12 months: Yes Aproximately how many cigarettes per day: 2 If you are a former smoker, when did you quit?: 5 YRS Cigars Per Day: 0 Hx Chewing Tobacco Use: No Initiated information on smoking cessation: No - Substance & Tx. History Hx Alcohol Use: Yes Hx Substance Use: No Substance Use Type: Alcohol Hx Substance Use Treatment: Yes - Substances Abused Alcohol Route: Oral Frequency: Daily Amount used: 2 6PK BEERS Age of first use: 19 Date of Last Use: 11/27/17 Family Disease History - Family Disease History Family Disease History: Diabetes: Father (alcohol), Mother, Other: Father, Brother (ALCOHOL,DSA) Admission Physical Exam BHS - Vital Signs Vital Signs: Vital Signs - 24 hr 11/27/17 12:13 Temperature 96 F L Pulse Rate 90 Respiratory 20 Rate Blood Pressure 163/110 - Physical General Appearance: Yes: Alcohol on Breath, Tremorous, Sweating HEENTM: Yes: EOMI, Hearing grossly Normal, Normocephalic, Normal Voice, ANUM, Pharynx Normal Respiratory: Yes: Chest Non-Tender, Lungs Clear, Normal Breath Sounds, No Respiratory Distress, No Accessory Muscle Use Neck: Yes: No masses,lesions,Nodules, Supple, Trachea in good position Breast: Yes: Breast Exam Deferred Cardiology: Yes: Regular Rhythm, Regular Rate, S1, S2 Abdominal: Yes: Normal Bowel Sounds, Non Tender, Soft Genitourinary: Yes: Within Normal Limits Back: Yes: Normal Inspection, Muscle Spasm Musculoskeletal: Yes: full range of Motion, Gait Steady Extremities: Yes: Normal Inspection, Normal Range of Motion, Non-Tender, Tremors Neurological: Yes: gear and spline grinder II-XII NML intact, Fully Oriented, Alert, Motor Strength 5/5, Depressed Affect Integumentary: Yes: Normal Color, Warm, Moist Lymphatic: Yes: Within Normal Limits - Diagnostic (1) Anxiety Current Visit: Yes Status: Acute (2) Alcohol dependence with uncomplicated withdrawal Current Visit: Yes Status: Acute (3) Depression Current Visit: Yes Status: Suspected Qualifiers: Depression Type: unspecified Qualified Code(s): F32.9 - Major depressive disorder, single episode, unspecified (4) Methadone maintenance therapy patient Current Visit: Yes Status: Chronic Comment: 90 MG VERIFICATION PENDING Cleared for Admission [facility] - Detox or Rehab [facility] Level of Care: Medically Managed Detox Regimen/Protocol: Librium [facility] Breath Alcohol Content Breath Alcohol Content: 0.064 Urine Drug Screen - Results Drug Screen Negative: No Urine Drug Screen Results: MTD-Methadone
[2017-11-27] MEDS ORDERED: hydrOXYzine PAMOATE 50 MG CAPSULE (FP) PO PRN (12:56)
[2017-11-27] MEDS ORDERED: ACETAMINOPHEN 325 MG TABLET (FP) PO PRN (12:56)
[2017-11-27] MEDS ORDERED: MAGNESIUM HYDROX 2400MG/30ML ORAL SUSPENSION 30 ML CUP PO PRN (12:56)
[2017-11-27] MEDS ORDERED: MAGNESIUM CITRATE 300 ML BOTTLE PO PRN (12:56)
[2017-11-27] MEDS ORDERED: MENTHOL/PHENOL 1 EACH UD MM PRN (12:56)
[2017-11-27] MEDS ORDERED: LOPERAMIDE HCL 2 MG CAPSULE PO PRN (12:56)
[2017-11-27] MEDS ORDERED: P-EPHED 60MG/TRIPROLIDI 2.5MG TABLET PO PRN (12:56)
[2017-11-27] MEDS ORDERED: IBUPROFEN 400 MG TABLET (FP) PO PRN (12:56)
[2017-11-27] MEDS ORDERED: MAG HYDROX/AL HYDROX/SIMETH 30 ML UNIT-DOSE CUP PO PRN (12:56)
[2017-11-27] MEDS ORDERED: guaiFENesin/D-METHORPHAN HB 10 ML UNIT-DOSE CUPS PO PRN (12:56)
[2017-11-27] MEDS ORDERED: chlordiazePOXIDE HCL 25 MG CAPSULE PO PRN (12:58)
[2017-11-27] MEDS ORDERED: chlordiazePOXIDE HCL 25 MG CAPSULE PO ONE (13:45)
--- NOTE | 2017-11-27 16:07 | EKG ---
Test Reason : Blood Pressure : / mmHG Vent. Rate : 074 BPM Atrial Rate : 074 BPM P-R Int : 156 ms QRS Dur : 092 ms QT Int : 384 ms P-R-T Axes : 065 -16 008 degrees QTc Int : 426 ms NORMAL SINUS RHYTHM MINIMAL VOLTAGE CRITERIA FOR LVH, MAY BE NORMAL VARIANT BORDERLINE ECG WHEN COMPARED WITH ECG OF 13-JUN-2017 20:43, NO SIGNIFICANT CHANGE WAS FOUND Confirmed by BARBARA CHEN MD ([id number]) on 11/27/2017 4:07:10 PM Referred By: Confirmed By:BARBARA CHEN MD
[2017-11-27 17:29] LABS: URINE APPEARANCE CLEAR; URINE BILIRUBIN NEGATIVE (<2.0 mg/dL); URINE COLOR LTYELLOW; URINE GLUCOSE (UA) NEGATIVE (NEGATIVE); URINE KETONE NEGATIVE (NEGATIVE); URINE LEUK ESTERASE NEGATIVE (NEGATIVE); URINE NITRITE NEGATIVE (NEGATIVE); URINE UROBILINOGEN NEGATIVE mg/dL (0.2-1.0)
[2017-11-27 17:31] LABS: URINE PROTEIN 2+ (NEGATIVE)
[2017-11-27] MEDS: chlordiazePOXIDE HCL 25 MG CAPSULE PO SCH ×2 (17:58→22:17)
[2017-11-27] MEDS ORDERED: MELATONIN 5 MG TABLETS PO PRN (22:00)
[2017-11-27] MEDS: THIAMINE HCL 100 MG TABLET (FP) PO SCH (22:16)
[2017-11-28] MEDS ORDERED: METHADONE HCL 10 MG TABLET ONE (04:36)
[2017-11-28] MEDS ORDERED: METHADONE HCL 40 MG DISPERSABLE TABLET ONE (04:37)
[2017-11-28] MEDS: chlordiazePOXIDE HCL 25 MG CAPSULE PO SCH ×4 (05:17→22:09)
[2017-11-28] MEDS: METHADONE 80 MG, METHADONE 10 MG PO SCH (05:17)
[2017-11-28] MEDS ORDERED: METHADONE HCL 10 MG TABLET PO SCH (06:00)
[2017-11-28] MEDS ORDERED: cloNIDine HCL 0.1 MG TABLET PO ONE (06:38)
--- NOTE | 2017-11-28 06:41 | PN ---
BHS Progress Note Note: Patient's blood pressure is B/P173/96. Patient is asymptomatic Vital Signs Temperature 96.8 F L 11/28/17 05:51 Pulse Rate 69 11/28/17 05:51 Respiratory Rate 16 11/28/17 05:51 Blood Pressure 173/96 11/28/17 05:51 O2 Sat by Pulse Oximetry (%) Laboratory Last Values Urine Color Ltyellow 11/27/17 13:45 Urine Appearance Clear 11/27/17 13:45 Urine pH 6.0 (5.0-8.0) 11/27/17 13:45 Ur Specific [place] 1.014 (1.001-1.035) 11/27/17 13:45 Urine Protein 2+ (NEGATIVE) H 11/27/17 13:45 Urine Glucose (UA) Negative (NEGATIVE) 11/27/17 13:45 Urine Ketones Negative (NEGATIVE) 11/27/17 13:45 Urine Blood Negative (NEGATIVE) 11/27/17 13:45 Urine Nitrite Negative (NEGATIVE) 11/27/17 13:45 Urine Bilirubin Negative (<2.0 mg/dL) 11/27/17 13:45 Urine Urobilinogen Negative mg/dL (0.2-1.0) 11/27/17 13:45 Ur Leukocyte Esterase Negative (NEGATIVE) 11/27/17 13:45 Urine WBC (Auto) <1 /hpf (3-5) 11/27/17 13:45 Urine RBC (Auto) <1 /hpf (0-3) 11/27/17 13:45 Action: Clonidine 0.1mg tablet oral ordered
[2017-11-28] MEDS: PRENATAL VITAMINS W/ FOLIC ACID TABLET (FP) PO SCH (10:05)
--- NOTE | 2017-11-28 10:37 | PN ---
S CIWA - CIWA Score Nausea/Vomitin-No Nausea/No Vomiting Muscle Tremors: 4-Moderate,w/Arms Extend Anxiety: 4-Mod. Anxious/Guarded Agitation: 4-Moderately Restless Paroxysmal Sweats: 1-Minimal Palms Moist Orientation: 0-Oriented Tacttile Disturbances: 0-None Auditory Disturbances: 0-None Visual Disturbances: 0-None Headache: 0-None Present CIWA-Ar Total Score: 13 BHS Progress Note (SOAP) Subjective: MILD TO MODERATE ANXIETY, SWEATS,TREMORS. ALERT O X 3. OOB WITH STEADY GAIT. Objective: 11/28/17 10:36 Vital Signs 11/28/17 11/28/17 11/28/17 05:51 07:33 09:11 Temperature 96.8 F L 98.2 F 96.8 F L Pulse Rate 69 69 66 Respiratory 16 18 18 Rate Blood Pressure 173/96 148/87 111/65 Laboratory Tests 11/27/17 13:45 Urine Color Ltyellow Urine Appearance Clear Urine pH 6.0 Ur Specific [place] 1.014 Urine Protein 2+ H Urine Glucose (UA) Negative Urine Ketones Negative Urine Blood Negative Urine Nitrite Negative Urine Bilirubin Negative Urine Urobilinogen Negative Ur Leukocyte Esterase Negative Urine WBC (Auto) <1 Urine RBC (Auto) <1 Assessment: 11/28/17 10:36 WITHDRAWAL SX Plan: CONTINUE DETOX INCREASE PO FLUIDS.
--- NOTE | 2017-11-28 10:43 | CONSULT ---
[facility] Psychiatric Consult - Data Date of interview: 11/28/17 Admission source: Self-referred Identifying data: Mr Watts is a 57 years old [place], uemployed on public assistance, domiciled seeking detox treatment alcohol Medical History: Significant for history of alcohol withdrawal seizure and surgery for umbilical hernia in 2009. Patient is on methadone 90 mg/day Psychiatric History: Denies history of previous psychiatric treatment Physical/Sexual Abuse/Trauma History: Denies history of emotional, physical or sexual abuse as well as DV relationship Additional Comment: Denies criminal history Mental Status Exam - Mental Status Exam Alert and Oriented to: Time, Place, Person Cognitive Function: Fair Patient Appearance: Well Groomed Mood: Hopeful, Euthymic Affect: Appropriate Patient Behavior: Cooperative Speech Pattern: Clear Voice Loudness: Normal Thought Process: Intact, Goal Oriented Thought Disorder: Not Present Hallucinations: Denies Suicidal Ideation: Denies Homicidal Ideation: Denies Insight/Judgement: Poor Sleep: Well Appetite: Good Muscle strength/Tone: Normal Gait/Station: Normal Psychiatric Findings - Problem List ([place] 1, 2,3) (1) Alcohol dependence with uncomplicated withdrawal Current Visit: Yes Status: Acute (2) Opioid dependence on agonist therapy Current Visit: Yes Status: Chronic (3) Dry skin dermatitis Current Visit: No Status: Acute - Initial Treatment Plan Initial Treatment Plan: Continue inpatient detoxification
[2017-11-28 11:13] LABS: MEAN CELL VOLUME 96.9 fl (80-96); WHITE BLOOD COUNT 4.3 K/mm3 (4.0-10.0)
[2017-11-28 11:17] LABS: HEMATOCRIT 34.4 % (35.4-49); HEMOGLOBIN 11.8 GM/dL (11.7-16.9); MCH 33.2 pg (25.7-33.7); MCHC 34.3 g/dl (32.0-35.9); MEAN PLT VOLUME 7.8 fl (7.5-11.1); PLATELET COUNT 170 K/MM3 (134-434); RBC 3.55 M/mm3 (4.00-5.60); RDW 13.4 % (11.9-15.9)
[2017-11-28 12:09] LABS: CHLORIDE 99 mmol/L (98-107); POTASSIUM 4.5 mmol/L (3.5-5.1); SODIUM 137 mmol/L (136-145)
[2017-11-28 12:26] LABS: ALBUMIN 3.4 g/dl (3.4-5.0); ALK PHOS 264 U/L (45-117); ANION GAP 9 (8-16); BILIRUBIN,TOTAL 1.4 mg/dL (0.2-1.0); BLOOD UREA NITROGEN 13 mg/dL (7-18); CALCIUM 8.5 mg/dL (8.5-10.1); CO2 29 mmol/L (21-32); CREATININE 0.6 mg/dL (0.7-1.3); GLUCOSE,RANDOM 89 mg/dL (74-106); SGOT/AST 382 U/L (15-37); SGPT/ALT 143 U/L (12-78); TOT PROT 7.4 g/dl (6.4-8.2)
[2017-11-28] MEDS: THIAMINE HCL 100 MG TABLET (FP) PO SCH (22:09)
[2017-11-29] MEDS ORDERED: METHADONE HCL 40 MG DISPERSABLE TABLET ONE (04:29)
[2017-11-29] MEDS ORDERED: METHADONE HCL 10 MG TABLET ONE (04:29)
[2017-11-29] MEDS: METHADONE 80 MG, METHADONE 10 MG PO SCH (05:17)
[2017-11-29] MEDS: chlordiazePOXIDE HCL 25 MG CAPSULE PO SCH ×2 (05:17→10:14)
[2017-11-29] MEDS: PRENATAL VITAMINS W/ FOLIC ACID TABLET (FP) PO SCH (10:14)
--- NOTE | 2017-11-29 11:23 | PN ---
[facility] CIWA - CIWA Score Nausea/Vomitin-No Nausea/No Vomiting Muscle Tremors: 4-Moderate,w/Arms Extend Anxiety: 4-Mod. Anxious/Guarded Agitation: 4-Moderately Restless Paroxysmal Sweats: 1-Minimal Palms Moist Orientation: 0-Oriented Tacttile Disturbances: 3-Moderate Itch/Numb/Burn (FEET) Auditory Disturbances: 0-None Visual Disturbances: 0-None Headache: 0-None Present CIWA-Ar Total Score: 16 S Progress Note (SOAP) Subjective: ANXIETY,IRRITABILITY,SWEATS,PAINFUL CALLUSES ON FEET. PT IS OOB AMBULATING ON UNIT WITH STEADY GAIT. Objective: 11/29/17 11:19 Vital Signs 11/29/17 11/29/17 11/29/17 03:30 06:13 09:39 Temperature 97.9 F 96.2 F L Pulse Rate 68 88 Respiratory 18 18 20 Rate Blood Pressure 132/76 119/77 Laboratory Tests 11/27/17 11/28/17 11/28/17 13:45 06:00 06:00 WBC 4.3 RBC 3.55 L Hgb 11.8 Hct 34.4 L MCV 96.9 H MCH 33.2 MCHC 34.3 RDW 13.4 Plt Count 170 MPV 7.8 Sodium 137 Potassium 4.5 D Chloride 99 Carbon Dioxide 29 Anion Gap 9 BUN 13 Creatinine 0.6 L Creat Clearance w eGFR > 60 Random Glucose 89 D Calcium 8.5 Total Bilirubin 1.4 H D AST 382 H D ALT 143 H D Alkaline Phosphatase 264 H D Total Protein 7.4 Albumin 3.4 D Urine Color Ltyellow Urine Appearance Clear Urine pH 6.0 Ur Specific [place] 1.014 Urine Protein 2+ H Urine Glucose (UA) Negative Urine Ketones Negative Urine Blood Negative Urine Nitrite Negative Urine Bilirubin Negative Urine Urobilinogen Negative Ur Leukocyte Esterase Negative Urine WBC (Auto) <1 Urine RBC (Auto) <1 RPR Titer 11/28/17 06:00 WBC RBC Hgb Hct MCV MCH MCHC RDW Plt Count MPV Sodium Potassium Chloride Carbon Dioxide Anion Gap BUN Creatinine Creat Clearance w eGFR Random Glucose Calcium Total Bilirubin AST ALT Alkaline Phosphatase Total Protein Albumin Urine Color Urine Appearance Urine pH Ur Specific [place] Urine Protein Urine Glucose (UA) Urine Ketones Urine Blood Urine Nitrite Urine Bilirubin Urine Urobilinogen Ur Leukocyte Esterase Urine WBC (Auto) Urine RBC (Auto) RPR Titer Nonreactive Assessment: 11/29/17 11:19 WITHDRAWAL SX Plan: CONTINUE DETOX BACITRACIN OINTMENT DIRECTED WARM WATER AND BETADINE FOOT SOAK DIRECTED
[2017-11-29] MEDS: POVIDONE-IODINE 10% SOLN 118 ML BOTTLE TP SCH (12:45)
[2017-11-29] MEDS: BACITRACIN 0.9 GM PACKET TP SCH (12:45)
[2017-11-29] MEDS: chlordiazePOXIDE 5 MG CAPSULE PO SCH ×2 (17:33→22:15)
[2017-11-29] MEDS: THIAMINE HCL 100 MG TABLET (FP) PO SCH (22:15)
[2017-11-30] MEDS ORDERED: METHADONE HCL 40 MG DISPERSABLE TABLET ONE (03:27)
[2017-11-30] MEDS ORDERED: METHADONE HCL 10 MG TABLET ONE (03:27)
[2017-11-30] MEDS: chlordiazePOXIDE 5 MG CAPSULE PO SCH ×2 (05:48→10:09)
[2017-11-30] MEDS: METHADONE 80 MG, METHADONE 10 MG PO SCH (05:49)
[2017-11-30] MEDS: BACITRACIN 0.9 GM PACKET TP SCH (10:08)
[2017-11-30] MEDS: PRENATAL VITAMINS W/ FOLIC ACID TABLET (FP) PO SCH (10:08)
[2017-11-30] MEDS: POVIDONE-IODINE 10% SOLN 118 ML BOTTLE TP SCH (10:09)
[2017-11-30] MEDS ORDERED: TRIMETHOBENZAMIDE HCL 200MG/2ML INJ IM PRN (12:11)
--- NOTE | 2017-11-30 16:21 | PN ---
BHS Progress Note (SOAP) Subjective: Fatigue, Body Aches, Nausea. Objective: PATIENT A & O X 3, OBSERVED AMBULATING ON UNIT. NO ACUTE DISTRESS. 11/30/17 16:19 Vital Signs Temperature 96.4 F L 11/30/17 13:10 Pulse Rate 85 11/30/17 13:10 Respiratory Rate 18 11/30/17 13:10 Blood Pressure 138/84 11/30/17 13:10 O2 Sat by Pulse Oximetry (%) Laboratory Tests 11/27/17 11/28/17 11/28/17 13:45 06:00 06:00 WBC 4.3 RBC 3.55 L Hgb 11.8 Hct 34.4 L MCV 96.9 H MCH 33.2 MCHC 34.3 RDW 13.4 Plt Count 170 MPV 7.8 Sodium 137 Potassium 4.5 D Chloride 99 Carbon Dioxide 29 Anion Gap 9 BUN 13 Creatinine 0.6 L Creat Clearance w eGFR > 60 Random Glucose 89 D Calcium 8.5 Total Bilirubin 1.4 H D AST 382 H D ALT 143 H D Alkaline Phosphatase 264 H D Total Protein 7.4 Albumin 3.4 D Urine Color Ltyellow Urine Appearance Clear Urine pH 6.0 Ur Specific [place] 1.014 Urine Protein 2+ H Urine Glucose (UA) Negative Urine Ketones Negative Urine Blood Negative Urine Nitrite Negative Urine Bilirubin Negative Urine Urobilinogen Negative Ur Leukocyte Esterase Negative Urine WBC (Auto) <1 Urine RBC (Auto) <1 RPR Titer 11/28/17 06:00 WBC RBC Hgb Hct MCV MCH MCHC RDW Plt Count MPV Sodium Potassium Chloride Carbon Dioxide Anion Gap BUN Creatinine Creat Clearance w eGFR Random Glucose Calcium Total Bilirubin AST ALT Alkaline Phosphatase Total Protein Albumin Urine Color Urine Appearance Urine pH Ur Specific [place] Urine Protein Urine Glucose (UA) Urine Ketones Urine Blood Urine Nitrite Urine Bilirubin Urine Urobilinogen Ur Leukocyte Esterase Urine WBC (Auto) Urine RBC (Auto) RPR Titer Nonreactive LABS NOTED. Assessment: 11/30/17 16:19 WITHDRAWAL SYMPTOMS. Plan: CONTINUE DETOX. INCREASE DAILY PO FLUID INTAKE. PRN TIGAN IM FOR NAUSEA. PATIENT SCHEDULED FOR D/C TOMORROW.
[2017-11-30] MEDS: chlordiazePOXIDE HCL 10 MG CAPSULE PO SCH ×2 (17:23→22:07)
[2017-11-30] MEDS: THIAMINE HCL 100 MG TABLET (FP) PO SCH (22:07)
[2017-12-01] MEDS ORDERED: METHADONE HCL 10 MG TABLET ONE (03:49)
[2017-12-01] MEDS ORDERED: METHADONE HCL 40 MG DISPERSABLE TABLET ONE (03:50)
[2017-12-01] MEDS: METHADONE 80 MG, METHADONE 10 MG PO SCH (05:48)
[2017-12-01] MEDS: chlordiazePOXIDE HCL 10 MG CAPSULE PO SCH (05:48)
[2017-12-01 06:23] VITALS: PULSE 88
[2017-12-01 09:21] VITALS: BP 133/73; TEMP 98
--- NOTE | 2017-12-01 11:18 | DS ---
[facility] Detox Discharge Summary Admission Date: 11/27/17 Discharge Date: 12/01/17 - History Present History: Alcohol Dependence, MMTP Pertinent Past History: Denies - Physical Exam Results Vital Signs: Vital Signs Temperature 98 F 12/01/17 09:21 Pulse Rate 88 12/01/17 09:21 Respiratory Rate 20 12/01/17 09:21 Blood Pressure 133/73 12/01/17 09:21 O2 Sat by Pulse Oximetry (%) Pertinent Admission Physical Exam Findings: Withdrawal symptoms Laboratory Tests 11/27/17 11/28/17 11/28/17 13:45 06:00 06:00 WBC 4.3 RBC 3.55 L Hgb 11.8 Hct 34.4 L MCV 96.9 H MCH 33.2 MCHC 34.3 RDW 13.4 Plt Count 170 MPV 7.8 Sodium 137 Potassium 4.5 D Chloride 99 Carbon Dioxide 29 Anion Gap 9 BUN 13 Creatinine 0.6 L Creat Clearance w eGFR > 60 Random Glucose 89 D Calcium 8.5 Total Bilirubin 1.4 H D AST 382 H D ALT 143 H D Alkaline Phosphatase 264 H D Total Protein 7.4 Albumin 3.4 D Urine Color Ltyellow Urine Appearance Clear Urine pH 6.0 Ur Specific [place] 1.014 Urine Protein 2+ H Urine Glucose (UA) Negative Urine Ketones Negative Urine Blood Negative Urine Nitrite Negative Urine Bilirubin Negative Urine Urobilinogen Negative Ur Leukocyte Esterase Negative Urine WBC (Auto) <1 Urine RBC (Auto) <1 RPR Titer 11/28/17 06:00 WBC RBC Hgb Hct MCV MCH MCHC RDW Plt Count MPV Sodium Potassium Chloride Carbon Dioxide Anion Gap BUN Creatinine Creat Clearance w eGFR Random Glucose Calcium Total Bilirubin AST ALT Alkaline Phosphatase Total Protein Albumin Urine Color Urine Appearance Urine pH Ur Specific [place] Urine Protein Urine Glucose (UA) Urine Ketones Urine Blood Urine Nitrite Urine Bilirubin Urine Urobilinogen Ur Leukocyte Esterase Urine WBC (Auto) Urine RBC (Auto) RPR Titer Nonreactive Labs reviewed: UA shows 2 + protein (encouraged to drink more water and follow up with PCP) - Treatment Hospital Course: Detox Protocol Followed, Detoxed Safely, Responded well, Discharged Condition Good - Medication Discharge Medications: Ambulatory Orders NK [No Known Home Medication] 07/31/13 - Diagnosis (1) Proteinuria Status: Acute Qualifiers: Proteinuria type: isolated (2) Alcohol dependence with uncomplicated withdrawal Status: Acute (3) Anxiety Status: Acute (4) Methadone maintenance therapy patient Status: Chronic (5) Depression Status: Chronic Qualifiers: Depression Type: unspecified Qualified Code(s): F32.9 - Major depressive disorder, single episode, unspecified - AMA Did Patient Leave Against Medical Advice: No (F/U with your PCP within 1-2 weeks )
== END 2017-12-01 09:30 | disposition home or self-care (01) | DRG 773 ==
LOC: YASAS 09:49 → Y3N 13:28
PROVIDERS: ADMIT Internal Medicine; ATTEND Internal Medicine
PROC: HZ2ZZZZ Detoxification Services for Substance Abuse Treatment (ICD-10-PCS; principal; 2017-11-27)
DX: F11.20 Opioid dependence, uncomplicated (principal); F10.230 Alcohol dependence with withdrawal, uncomplicated; F32.9 Major depressive disorder, single episode, unspecified; F41.9 Anxiety disorder, unspecified; L84 Corns and callosities; L85.3 Xerosis cutis; R80.9 Proteinuria, unspecified
CPT/HCPCS: 36415; 80053; 81003; 81015; 85027; 86593; 93005; 93010; J0735

== ENCOUNTER 2018-03-24 13:15 | Inpatient (IN) | payer OTHER ==
[2018-03-24 15:00] VITALS: BMI 25.6
--- NOTE | 2018-03-24 18:46 | HP ---
CIWA Score - CIWA Score Nausea/Vomitin-No Nausea/No Vomiting Muscle Tremors: 3 Anxiety: 4-Mod. Anxious/Guarded Agitation: 4-Moderately Restless Paroxysmal Sweats: 2 Orientation: 0-Oriented Tacttile Disturbances: 2-Mild Itch/Numbness/Burn (both feet) Auditory Disturbances: 0-None Visual Disturbances: 0-None Headache: 2-Mild CIWA-Ar Total Score: 17 Admission ROS S - HPI Chief Complaint: alcohol withdrawal symptoms Allergies/Adverse Reactions: Allergies Allergy/AdvReac Type Severity Reaction Status Date / Time No Known Allergies Allergy Verified 03/24/18 16:19 History of Present Illness: 58 yo male with hx of alcohol dependence is here seeking detox. MMTP: [facility] on methadone 90 mg, last mediated today, dose pending verification. PMHX: (R) [place], Fatty Liver, anxiety. Denies suicidal / homicidal or hx of suicide attempts. Denies hx of seizures, reports hx of frequent blackouts with last episode two weeks ago. Last detox [facility] 01/05/18 - 01/10/18. Reports longest period of sobriety two years while incarcerated, while in the community longest period sobriety two months. Exam Limitations: No Limitations - Ebola screening Have you traveled outside of the country in the last 21 days: No Have you had contact with anyone from an Ebola affected area: No Have you been sick,other than usual withdrawal symptoms: No Do you have a fever: No - Review of Systems Constitutional: Loss of Appetite, Changes in sleep, Unintentional Wgt. Loss (10 lbs in past three months), Other (feel very anxious) EENT: reports: Hearing Loss (Right ear) Respiratory: reports: No Symptoms reported Cardiac: reports: No Symptoms Reported GI: reports: Poor Appetite, Poor Fluid Intake, Indigestion : reports: No Symptoms Reported Musculoskeletal: reports: Joint Pain, Other (uses cane for ambulation) Integumentary: reports: No Symptoms Reported Neuro: reports: Numbness (both feet) Endocrine: reports: Increased Thirst Hematology: reports: No Symptoms Reported Psychiatric: reports: Orientated x3, Anxious Other Systems: Reviewed and Negative Patient History - Patient Medical History Hx Anemia: No Hx Asthma: No Hx Chronic Obstructive Pulmonary Disease (COPD): No Hx Cancer: No Hx Cardiac Disorders: No Hx Congestive Heart Failure: No Hx Hypertension: No Hx Hypercholesterolemia: No Hx Pacemaker: No HX Cerebrovascular Accident: No Hx Seizures: No Hx Dementia: No Hx Diabetes: No Hx Gastrointestinal Disorders: No Hx Liver Disease: Yes (fatty Liver ) Hx Genitourinary Disorders: No Hx Sexually Transmitted Disorders: No Hx Renal Disease (ESRD): No Hx Thyroid Disease: No Hx Human Immunodeficiency Virus (HIV): No (LAST NEGATIVE PER PATIENT 12/2017, SCREENED AT [facility] ) Hx Hepatitis C: No Hx Depression: Yes Hx Suicide Attempt: No Hx Bipolar Disorder: No Hx Schizophrenia: No - Patient Surgical History Past Surgical History: Yes Hx Neurologic Surgery: No Hx Cataract Extraction: No Hx Cardiac Surgery: No Hx Lung Surgery: No Hx Breast Surgery: No Hx Breast Biopsy: No Hx Abdominal Surgery: Yes (umbilical hernia repair in 2009) Hx Appendectomy: No Hx Cholecystectomy: No Hx Genitourinary Surgery: No Hx Section: No Hx Orthopedic Surgery: No Other Surgical History: HERNIA REPAIR-2009 Anesthesia Reaction: No - PPD History Previous Implant?: Yes Documented Results: Negative w/proof Implanted On Prior [facility] Admission?: Yes Date: 11/29/17 Results: 0 mm PPD to be Administered?: Yes - Smoking Cessation Smoking history: Former smoker Have you smoked in the past 12 months: Yes Aproximately how many cigarettes per day: 0 If you are a former smoker, when did you quit?: 2003 Cigars Per Day: 0 Hx Chewing Tobacco Use: No Initiated information on smoking cessation: No - Substance & Tx. History Hx Alcohol Use: Yes Hx Substance Use: Yes Substance Use Type: Alcohol Hx Substance Use Treatment: Yes - Substances Abused Alcohol-vodka/beer Route: Oral Frequency: Daily Amount used: 1 pt./2-3 6 pks. Age of first use: 14 Date of Last Use: 03/24/18 Family Disease History - Family Disease History Family Disease History: Diabetes: Father (alcohol), Mother, Other: Father, Brother (ALCOHOL,DSA) Admission Physical Exam BHS - Vital Signs Vital Signs: Vital Signs - 24 hr 03/24/18 14:58 Temperature 97 F L Pulse Rate 62 Respiratory 18 Rate Blood Pressure 148/93 - Physical General Appearance: Yes: Disheveled, Mild Distress, Alcohol on Breath, Thin, Anxious HEENTM: Yes: EOMI, Normal ENT Inspection, Normocephalic, Normal Voice, ANUM, Pharynx Normal, Tm's normal, Other ((R) [place]THWAY) Respiratory: Yes: Chest Non-Tender, Lungs Clear, Normal Breath Sounds, No Respiratory Distress, No Accessory Muscle Use Neck: Yes: Within Normal Limits Breast: Yes: Breast Exam Deferred Cardiology: Yes: Regular Rhythm, Regular Rate Abdominal: Yes: Normal Bowel Sounds, Non Tender, Flat, Soft Genitourinary: Yes: Within Normal Limits Back: Yes: Normal Inspection Musculoskeletal: Yes: full range of Motion, Gait Steady, Pelvis Stable Extremities: Yes: Normal Capillary Refill, Normal Inspection, Normal Range of Motion, Non-Tender Neurological: Yes: 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, Fully Oriented, Alert, Motor Strength 5/5, Depressed Affect Lymphatic: Yes: Within Normal Limits - Diagnostic (1) [place]THWAY (hard of hearing) Current Visit: Yes Status: Chronic Qualifiers: Hearing loss type: unspecified Laterality: right Qualified Code(s): H91.91 - Unspecified hearing loss, right ear (2) Alcohol dependence with uncomplicated withdrawal Current Visit: Yes Status: Acute (3) Use of cane as ambulatory aid Current Visit: Yes Status: Chronic (4) Opioid dependence on agonist therapy Current Visit: Yes Status: Chronic Comment: MMTP: [facility], on methadone 90 mg qd, dose pending verification Cleared for Admission [facility] - Detox or Rehab [facility] Level of Care: Medically Managed Detox Regimen/Protocol: Librium [facility] Breath Alcohol Content Breath Alcohol Content: 0.064 Urine Drug Screen - Results Drug Screen Negative: No Urine Drug Screen Results: MTD-Methadone
[2018-03-24] MEDS ORDERED: IBUPROFEN 400 MG TABLET (FP) PO PRN (18:57)
[2018-03-24] MEDS ORDERED: MENTHOL/PHENOL 1 EACH UD MM PRN (18:57)
[2018-03-24] MEDS ORDERED: MAGNESIUM HYDROX 2400MG/30ML ORAL SUSPENSION 30 ML CUP PO PRN (18:57)
[2018-03-24] MEDS ORDERED: MAGNESIUM CITRATE 300 ML BOTTLE PO PRN (18:57)
[2018-03-24] MEDS ORDERED: ACETAMINOPHEN 325 MG TABLET (FP) PO PRN (18:57)
[2018-03-24] MEDS ORDERED: hydrOXYzine PAMOATE 50 MG CAPSULE (FP) PO PRN (18:57)
[2018-03-24] MEDS ORDERED: LOPERAMIDE HCL 2 MG CAPSULE PO PRN (18:57)
[2018-03-24] MEDS ORDERED: guaiFENesin/D-METHORPHAN HB 10 ML UNIT-DOSE CUPS PO PRN (18:57)
[2018-03-24] MEDS ORDERED: chlordiazePOXIDE HCL 25 MG CAPSULE PO ONE (18:57)
[2018-03-24] MEDS ORDERED: P-EPHED 60MG/TRIPROLIDI 2.5MG TABLET PO PRN (18:57)
[2018-03-24] MEDS ORDERED: MAG HYDROX/AL HYDROX/SIMETH 30 ML UNIT-DOSE CUP PO PRN (18:57)
[2018-03-24] MEDS ORDERED: chlordiazePOXIDE HCL 25 MG CAPSULE PO PRN (18:57)
[2018-03-24] MEDS ORDERED: MELATONIN 5 MG TABLETS PO PRN (22:00)
[2018-03-24] MEDS: THIAMINE HCL 100 MG TABLET (FP) PO SCH (22:44)
[2018-03-24] MEDS: chlordiazePOXIDE HCL 25 MG CAPSULE PO SCH (22:44)
[2018-03-24 23:17] LABS: URINE APPEARANCE CLEAR; URINE BILIRUBIN NEGATIVE (<2.0 mg/dL); URINE COLOR LTYELLOW; URINE GLUCOSE (UA) NEGATIVE (NEGATIVE); URINE KETONE NEGATIVE (NEGATIVE); URINE LEUK ESTERASE NEGATIVE (NEGATIVE); URINE NITRITE NEGATIVE (NEGATIVE); URINE UROBILINOGEN NEGATIVE mg/dL (0.2-1.0)
[2018-03-24 23:21] LABS: URINE PROTEIN 2+ (NEGATIVE)
[2018-03-25] MEDS: chlordiazePOXIDE HCL 25 MG CAPSULE PO SCH ×4 (05:56→22:37)
[2018-03-25] MEDS ORDERED: METHADONE HCL 10 MG TABLET PO ONE (09:05)
[2018-03-25] MEDS ORDERED: METHADONE 80 MG, METHADONE 10 MG PO ONE (09:20)
--- NOTE | 2018-03-25 09:21 | CONSULT ---
[facility] Psychiatric Consult - Data Date of interview: 03/25/18 Admission source: [facility] Identifying data: Patient is a 58 year old single male, without children, unemployed, currently staying with a friend and is supported by food stamps. This is one of multiple admissions for patient. Pt. admitted to for alcohol and opiate dependence. Substance Abuse History: Smoking Cessation. Smoking history: Former smoker. Have you smoked in the past 12 months: Yes. Aproximately how many cigarettes per day: 0. If you are a former smoker, when did you quit?: 2003. Cigars Per Day: 0. Hx Chewing Tobacco Use: No. Initiated information on smoking cessation : No. - Substance & Tx. History. Hx Alcohol Use: Yes. Hx Substance Use: Yes. Substance Use Type: Alcohol. Hx Substance Use Treatment: Yes. - Substances Abused. Alcohol-vodka/beer. Route: Oral. Frequency: Daily. Amount used: 1 pt./2-3 6 pks. Age of first use: 14. Date of Last Use: 03/24/18 Medical History: umbilical hernia repair in 2009 Psychiatric History: Patient denies h/o psychiatric hospitalization, outpatient care, and suicide attempt. Pt. is on Methadone 90mg/day. Physical/Sexual Abuse/Trauma History: denies. Mental Status Exam - Mental Status Exam Alert and Oriented to: Time, Place, Person Cognitive Function: Good Patient Appearance: Well Groomed Mood: Euthymic Affect: Mood Congruent Patient Behavior: Cooperative Speech Pattern: Appropriate (Patient is ukrainian speaking. ) Voice Loudness: Normal Thought Process: Goal Oriented Thought Disorder: Not Present Hallucinations: Denies Suicidal Ideation: Denies Homicidal Ideation: Denies Insight/Judgement: Poor Sleep: Fair Appetite: Fair Muscle strength/Tone: Normal Gait/Station: Normal Psychiatric Findings - Problem List ([place] 1, 2,3) (1) Alcohol dependence with uncomplicated withdrawal Current Visit: Yes Status: Acute (2) Opioid dependence on agonist therapy Current Visit: Yes Status: Chronic Comment: MMTP: [facility], on methadone 90 mg qd, dose pending verification - Initial Treatment Plan Initial Treatment Plan: Psychoeducation provided. Detoxification in progress. Observation.
--- NOTE | 2018-03-25 10:00 | PN ---
S CIWA - CIWA Score Nausea/Vomitin-Mild Nausea/No Vomiting Muscle Tremors: 4-Moderate,w/Arms Extend Anxiety: 4-Mod. Anxious/Guarded Agitation: 4-Moderately Restless Paroxysmal Sweats: 1-Minimal Palms Moist Orientation: 0-Oriented Tacttile Disturbances: 1-Very Mild Itch/Numbness Auditory Disturbances: 0-None Visual Disturbances: 0-None Headache: 0-None Present CIWA-Ar Total Score: 15 BHS Progress Note (SOAP) Subjective: sweat tremor irritable restlessness poor sleep at night low energy denies chest pain denies dizziness no shortness of breath reported chronic methadone maintenance Objective: 03/25/18 10:09 Vital Signs Temperature 97.9 F 03/25/18 09:24 Pulse Rate 64 03/25/18 09:24 Respiratory Rate 18 03/25/18 09:24 Blood Pressure 148/82 03/25/18 09:24 O2 Sat by Pulse Oximetry (%) Laboratory Last Values Urine Color Ltyellow 03/24/18 23:08 Urine Appearance Clear 03/24/18 23:08 Urine pH 6.0 (5.0-8.0) 03/24/18 23:08 Ur Specific [place] 1.005 (1.001-1.035) 03/24/18 23:08 Urine Protein 2+ (NEGATIVE) H 03/24/18 23:08 Urine Glucose (UA) Negative (NEGATIVE) 03/24/18 23:08 Urine Ketones Negative (NEGATIVE) 03/24/18 23:08 Urine Blood 1+ (NEGATIVE) H 03/24/18 23:08 Urine Nitrite Negative (NEGATIVE) 03/24/18 23:08 Urine Bilirubin Negative (<2.0 mg/dL) 03/24/18 23:08 Urine Urobilinogen Negative mg/dL (0.2-1.0) 03/24/18 23:08 Ur Leukocyte Esterase Negative (NEGATIVE) 03/24/18 23:08 Urine WBC (Auto) <1 /hpf (3-5) 03/24/18 23:08 Urine RBC (Auto) <1 /hpf (0-3) 03/24/18 23:08 lab noted Assessment: 03/25/18 10:10 withdrawal sx medication reconciliation methadone 90 mg Plan: continue detox health teaching on alcohol related health issues
[2018-03-25 10:18] LABS: HEMATOCRIT 39.2 % (35.4-49); HEMOGLOBIN 13.1 GM/dL (11.7-16.9); MCH 32.2 pg (25.7-33.7); MCHC 33.5 g/dl (32.0-35.9); MEAN CELL VOLUME 96.1 fl (80-96); MEAN PLT VOLUME 7.7 fl (7.5-11.1); PLATELET COUNT 149 K/MM3 (134-434); RBC 4.08 M/mm3 (4.00-5.60); WHITE BLOOD COUNT 2.3 K/mm3 (4.0-10.0)
[2018-03-25] MEDS: PRENATAL VITAMINS W/ FOLIC ACID TABLET (FP) PO SCH (10:43)
[2018-03-25] MEDS ORDERED: METHADONE HCL 40 MG DISPERSABLE TABLET ONE (10:44)
[2018-03-25] MEDS ORDERED: METHADONE HCL 10 MG TABLET ONE (10:44)
[2018-03-25] MEDS: amLODIPine BESYLATE 5 MG TABLET (FP) PO SCH ×2 (10:45→22:37)
[2018-03-25 11:32] LABS: CHLORIDE 100 mmol/L (98-107); POTASSIUM 3.3 mmol/L (3.5-5.1); SODIUM 141 mmol/L (136-145)
[2018-03-25 11:39] LABS: ALBUMIN 3.3 g/dl (3.4-5.0); ALK PHOS 176 U/L (45-117); ANION GAP 10 MMOL/L (8-16); BILIRUBIN,TOTAL 1.2 mg/dL (0.2-1.0); BLOOD UREA NITROGEN 13 mg/dL (7-18); CALCIUM 8.7 mg/dL (8.5-10.1); CO2 31 mmol/L (21-32); CREATININE 0.6 mg/dL (0.7-1.3); GLUCOSE,RANDOM 109 mg/dL (74-106); SGOT/AST 121 U/L (15-37); SGPT/ALT 45 U/L (12-78); TOT PROT 7.2 g/dl (6.4-8.2)
--- NOTE | 2018-03-25 17:20 | EKG ---
Test Reason : Blood Pressure : / mmHG Vent. Rate : 061 BPM Atrial Rate : 061 BPM P-R Int : 154 ms QRS Dur : 096 ms QT Int : 424 ms P-R-T Axes : 049 -29 -25 degrees QTc Int : 426 ms NORMAL SINUS RHYTHM MINIMAL VOLTAGE CRITERIA FOR LVH, MAY BE NORMAL VARIANT NONSPECIFIC T WAVE ABNORMALITY ABNORMAL ECG Confirmed by MD ADIN, MONA ([id number]) on 03/25/2018 5:20:21 PM Referred By: Confirmed By:MONA OAKLEY MD
--- NOTE | 2018-03-25 17:23 | EKG ---
Test Reason : Blood Pressure : / mmHG Vent. Rate : 069 BPM Atrial Rate : 069 BPM P-R Int : 154 ms QRS Dur : 092 ms QT Int : 450 ms P-R-T Axes : 061 -13 009 degrees QTc Int : 482 ms NORMAL SINUS RHYTHM PROLONGED QT ABNORMAL ECG Confirmed by MD ADIN, MONA ([id number]) on 03/25/2018 5:22:57 PM Referred By: Confirmed By:MONA OAKLEY MD
[2018-03-25] MEDS: THIAMINE HCL 100 MG TABLET (FP) PO SCH (22:36)
[2018-03-26] MEDS ORDERED: METHADONE HCL 10 MG TABLET ONE (04:55)
[2018-03-26] MEDS ORDERED: METHADONE HCL 40 MG DISPERSABLE TABLET ONE (04:55)
[2018-03-26] MEDS: chlordiazePOXIDE HCL 25 MG CAPSULE PO SCH ×3 (05:37→16:57)
[2018-03-26] MEDS: METHADONE 80 MG, METHADONE 10 MG PO SCH (05:38)
[2018-03-26] MEDS ORDERED: METHADONE HCL 10 MG TABLET PO SCH (06:00)
[2018-03-26] MEDS: amLODIPine BESYLATE 5 MG TABLET (FP) PO SCH ×2 (10:45→22:06)
[2018-03-26] MEDS: PRENATAL VITAMINS W/ FOLIC ACID TABLET (FP) PO SCH (10:45)
--- NOTE | 2018-03-26 12:10 | PN ---
S CIWA - CIWA Score Nausea/Vomitin Muscle Tremors: 1-None Visible, but [place] Anxiety: 3 Agitation: 2 Paroxysmal Sweats: 2 Orientation: 0-Oriented Tacttile Disturbances: 2-Mild Itch/Numbness/Burn Auditory Disturbances: 0-None Visual Disturbances: 0-None Headache: 0-None Present CIWA-Ar Total Score: 12 S Progress Note (SOAP) Subjective: sweats, anxious lbp Objective: 03/26/18 12:12 Vital Signs Temperature 97.0 F L 03/26/18 09:41 Pulse Rate 71 03/26/18 09:41 Respiratory Rate 18 03/26/18 09:41 Blood Pressure 132/81 03/26/18 09:41 O2 Sat by Pulse Oximetry (%) Laboratory Tests 03/24/18 03/25/18 03/25/18 23:08 07:00 07:00 WBC 2.3 L RBC 4.08 Hgb 13.1 Hct 39.2 MCV 96.1 H MCH 32.2 MCHC 33.5 RDW 14.0 Plt Count 149 MPV 7.7 Sodium 141 Potassium 3.3 L Chloride 100 Carbon Dioxide 31 Anion Gap 10 BUN 13 Creatinine 0.6 L Creat Clearance w eGFR > 60 Random Glucose 109 H D Calcium 8.7 Total Bilirubin 1.2 H AST 121 H D ALT 45 D Alkaline Phosphatase 176 H Total Protein 7.2 Albumin 3.3 L Urine Color Ltyellow Urine Appearance Clear Urine pH 6.0 Ur Specific [place] 1.005 Urine Protein 2+ H Urine Glucose (UA) Negative Urine Ketones Negative Urine Blood 1+ H Urine Nitrite Negative Urine Bilirubin Negative Urine Urobilinogen Negative Ur Leukocyte Esterase Negative Urine WBC (Auto) <1 Urine RBC (Auto) <1 RPR Titer 03/25/18 07:00 WBC RBC Hgb Hct MCV MCH MCHC RDW Plt Count MPV Sodium Potassium Chloride Carbon Dioxide Anion Gap BUN Creatinine Creat Clearance w eGFR Random Glucose Calcium Total Bilirubin AST ALT Alkaline Phosphatase Total Protein Albumin Urine Color Urine Appearance Urine pH Ur Specific [place] Urine Protein Urine Glucose (UA) Urine Ketones Urine Blood Urine Nitrite Urine Bilirubin Urine Urobilinogen Ur Leukocyte Esterase Urine WBC (Auto) Urine RBC (Auto) RPR Titer Nonreactive pt aox3 in nad ambulating c/o foot of pain on rt rt foot no rubor, calor or dolor 03/26/18 12:13 03/26/18 12:14 Assessment: 03/26/18 12:15 withdrawal sx's lbp Plan: cont. detox increase fluids motrin prn cane
[2018-03-26] MEDS: CYCLOBENZAPRINE HCL 5 MG TABLET PO SCH ×2 (13:30→22:06)
[2018-03-26] MEDS: chlordiazePOXIDE 5 MG CAPSULE PO SCH (22:06)
[2018-03-26] MEDS: THIAMINE HCL 100 MG TABLET (FP) PO SCH (22:06)
[2018-03-26] MEDS: POTASSIUM CHLORIDE ORAL LIQUID 20 MEQ/15 ML PO SCH (22:06)
[2018-03-27] MEDS ORDERED: METHADONE HCL 10 MG TABLET ONE (05:13)
[2018-03-27] MEDS ORDERED: METHADONE HCL 40 MG DISPERSABLE TABLET ONE (05:13)
[2018-03-27] MEDS: METHADONE 80 MG, METHADONE 10 MG PO SCH (05:29)
[2018-03-27] MEDS: chlordiazePOXIDE 5 MG CAPSULE PO SCH ×3 (05:30→17:43)
[2018-03-27] MEDS: CYCLOBENZAPRINE HCL 5 MG TABLET PO SCH ×2 (05:30→14:49)
[2018-03-27] MEDS: POTASSIUM CHLORIDE ORAL LIQUID 20 MEQ/15 ML PO SCH ×2 (10:54→22:17)
[2018-03-27] MEDS: amLODIPine BESYLATE 5 MG TABLET (FP) PO SCH ×2 (10:54→22:18)
[2018-03-27] MEDS: PRENATAL VITAMINS W/ FOLIC ACID TABLET (FP) PO SCH (10:54)
--- NOTE | 2018-03-27 14:14 | PN ---
BHS Progress Note (SOAP) Subjective: feeling better no tremor less sweat trouble ambulate with cane on [address] appears sleepy that trouble sleep at night Objective: 03/27/18 14:13 Vital Signs Temperature 97.5 F L 03/27/18 13:56 Pulse Rate 76 03/27/18 13:56 Respiratory Rate 18 03/27/18 13:56 Blood Pressure 112/70 03/27/18 13:56 O2 Sat by Pulse Oximetry (%) Laboratory Last Values WBC 2.3 K/mm3 (4.0-10.0) L 03/25/18 07:00 RBC 4.08 M/mm3 (4.00-5.60) 03/25/18 07:00 Hgb 13.1 GM/dL (11.7-16.9) 03/25/18 07:00 Hct 39.2 % (35.4-49) 03/25/18 07:00 MCV 96.1 fl (80-96) H 03/25/18 07:00 MCH 32.2 pg (25.7-33.7) 03/25/18 07:00 MCHC 33.5 g/dl (32.0-35.9) 03/25/18 07:00 RDW 14.0 % (11.9-15.9) 03/25/18 07:00 Plt Count 149 K/MM3 (134-434) 03/25/18 07:00 MPV 7.7 fl (7.5-11.1) 03/25/18 07:00 Sodium 141 mmol/L (136-145) 03/25/18 07:00 Potassium 3.3 mmol/L (3.5-5.1) L 03/25/18 07:00 Chloride 100 mmol/L (98-107) 03/25/18 07:00 Carbon Dioxide 31 mmol/L (21-32) 03/25/18 07:00 Anion Gap 10 MMOL/L (8-16) 03/25/18 07:00 BUN 13 mg/dL (7-18) 03/25/18 07:00 Creatinine 0.6 mg/dL (0.7-1.3) L 03/25/18 07:00 Creat Clearance w eGFR > 60 (>60) 03/25/18 07:00 Random Glucose 109 mg/dL (74-106) H D 03/25/18 07:00 Calcium 8.7 mg/dL (8.5-10.1) 03/25/18 07:00 Total Bilirubin 1.2 mg/dL (0.2-1.0) H 03/25/18 07:00 AST 121 U/L (15-37) H D 03/25/18 07:00 ALT 45 U/L (12-78) D 03/25/18 07:00 Alkaline Phosphatase 176 U/L (45-117) H 03/25/18 07:00 Total Protein 7.2 g/dl (6.4-8.2) 03/25/18 07:00 Albumin 3.3 g/dl (3.4-5.0) L 03/25/18 07:00 Urine Color Ltyellow 03/24/18 23:08 Urine Appearance Clear 03/24/18 23:08 Urine pH 6.0 (5.0-8.0) 03/24/18 23:08 Ur Specific [place] 1.005 (1.001-1.035) 03/24/18 23:08 Urine Protein 2+ (NEGATIVE) H 03/24/18 23:08 Urine Glucose (UA) Negative (NEGATIVE) 03/24/18 23:08 Urine Ketones Negative (NEGATIVE) 03/24/18 23:08 Urine Blood 1+ (NEGATIVE) H 03/24/18 23:08 Urine Nitrite Negative (NEGATIVE) 03/24/18 23:08 Urine Bilirubin Negative (<2.0 mg/dL) 03/24/18 23:08 Urine Urobilinogen Negative mg/dL (0.2-1.0) 03/24/18 23:08 Ur Leukocyte Esterase Negative (NEGATIVE) 03/24/18 23:08 Urine WBC (Auto) <1 /hpf (3-5) 03/24/18 23:08 Urine RBC (Auto) <1 /hpf (0-3) 03/24/18 23:08 RPR Titer Nonreactive (NONREACTIVE) 03/25/18 07:00 lab noted 03/27/18 14:14 continue K+ 03/27/18 14:15 patient agrees to follow up to methadone program for K+ repeat and low wbc Assessment: 03/27/18 14:16 mild withdrawal sx Plan: medically supervised
[2018-03-27] MEDS: THIAMINE HCL 100 MG TABLET (FP) PO SCH (22:17)
[2018-03-27] MEDS: chlordiazePOXIDE HCL 10 MG CAPSULE PO SCH (22:18)
[2018-03-28] MEDS ORDERED: METHADONE HCL 10 MG TABLET ONE (03:01)
[2018-03-28] MEDS ORDERED: METHADONE HCL 40 MG DISPERSABLE TABLET ONE (03:01)
[2018-03-28] MEDS: METHADONE 80 MG, METHADONE 10 MG PO SCH (05:55)
[2018-03-28] MEDS: chlordiazePOXIDE HCL 10 MG CAPSULE PO SCH (05:55)
--- NOTE | 2018-03-28 09:31 | PN ---
BHS Progress Note (SOAP) Subjective: i'm better Objective: 03/28/18 09:29 Vital Signs Temperature 95.9 F L 03/28/18 06:18 Pulse Rate 80 03/28/18 06:18 Respiratory Rate 16 03/28/18 06:18 Blood Pressure 137/79 03/28/18 06:18 O2 Sat by Pulse Oximetry (%) Laboratory Tests 03/24/18 03/25/18 03/25/18 23:08 07:00 07:00 WBC 2.3 L RBC 4.08 Hgb 13.1 Hct 39.2 MCV 96.1 H MCH 32.2 MCHC 33.5 RDW 14.0 Plt Count 149 MPV 7.7 Sodium 141 Potassium 3.3 L Chloride 100 Carbon Dioxide 31 Anion Gap 10 BUN 13 Creatinine 0.6 L Creat Clearance w eGFR > 60 Random Glucose 109 H D Calcium 8.7 Total Bilirubin 1.2 H AST 121 H D ALT 45 D Alkaline Phosphatase 176 H Total Protein 7.2 Albumin 3.3 L Urine Color Ltyellow Urine Appearance Clear Urine pH 6.0 Ur Specific [place] 1.005 Urine Protein 2+ H Urine Glucose (UA) Negative Urine Ketones Negative Urine Blood 1+ H Urine Nitrite Negative Urine Bilirubin Negative Urine Urobilinogen Negative Ur Leukocyte Esterase Negative Urine WBC (Auto) <1 Urine RBC (Auto) <1 RPR Titer 03/25/18 07:00 WBC RBC Hgb Hct MCV MCH MCHC RDW Plt Count MPV Sodium Potassium Chloride Carbon Dioxide Anion Gap BUN Creatinine Creat Clearance w eGFR Random Glucose Calcium Total Bilirubin AST ALT Alkaline Phosphatase Total Protein Albumin Urine Color Urine Appearance Urine pH Ur Specific [place] Urine Protein Urine Glucose (UA) Urine Ketones Urine Blood Urine Nitrite Urine Bilirubin Urine Urobilinogen Ur Leukocyte Esterase Urine WBC (Auto) Urine RBC (Auto) RPR Titer Nonreactive pt aox3 in nad ambulating Assessment: 03/28/18 09:30 detox completed hypokalemia - K replaced 03/28/18 09:30 Plan: d/c today increase fluids
--- NOTE | 2018-03-28 09:33 | DS ---
[facility] Detox Discharge Summary Admission Date: 03/24/18 Discharge Date: 03/28/18 - History Present History: Alcohol Dependence, MMTP - Physical Exam Results Vital Signs: Vital Signs Temperature 95.9 F L 03/28/18 06:18 Pulse Rate 80 03/28/18 06:18 Respiratory Rate 16 03/28/18 06:18 Blood Pressure 137/79 03/28/18 06:18 O2 Sat by Pulse Oximetry (%) - Treatment Hospital Course: Detox Protocol Followed, Detoxed Safely, Responded well, Discharged Condition Good - Medication Discharge Medications: Ambulatory Orders Methadone [Dolophine -] 90 mg PO DAILY 03/25/18 - Diagnosis (1) Alcohol dependence with uncomplicated withdrawal Current Visit: Yes Status: Chronic (2) Opioid dependence on agonist therapy Current Visit: Yes Status: Chronic (3) Cocaine dependence Current Visit: No Status: Acute Qualifiers: Substance use status: uncomplicated Qualified Code(s): F14.20 - Cocaine dependence, uncomplicated (4) Hypokalemia Current Visit: Yes Status: Acute (5) Nicotine dependence Current Visit: No Status: Acute Qualifiers: Nicotine product type: cigarettes Substance use status: in withdrawal Qualified Code(s): F17.213 - Nicotine dependence, cigarettes, with withdrawal - AMA Did Patient Leave Against Medical Advice: No
[2018-03-28 09:53] VITALS: BP 115/90; PULSE 89; TEMP 98.4
[2018-03-28] MEDS: POTASSIUM CHLORIDE ORAL LIQUID 20 MEQ/15 ML PO SCH (10:05)
[2018-03-28] MEDS: amLODIPine BESYLATE 5 MG TABLET (FP) PO SCH (10:05)
[2018-03-28] MEDS: PRENATAL VITAMINS W/ FOLIC ACID TABLET (FP) PO SCH (10:05)
== END 2018-03-28 10:47 | disposition home or self-care (01) | DRG 773 ==
LOC: YASAS 13:15 → Y6N 17:49
PROC: HZ2ZZZZ Detoxification Services for Substance Abuse Treatment (ICD-10-PCS; principal; 2018-03-24)
DX: F10.230 Alcohol dependence with withdrawal, uncomplicated (principal); F11.20 Opioid dependence, uncomplicated; F14.20 Cocaine dependence, uncomplicated; F17.213 Nicotine dependence, cigarettes, with withdrawal; E87.6 Hypokalemia; F32.9 Major depressive disorder, single episode, unspecified; H91.91 Unspecified hearing loss, right ear; K76.0 Fatty (change of) liver, not elsewhere classified; R26.89 Other abnormalities of gait and mobility; Z99.89 Dependence on other enabling machines and devices
CPT/HCPCS: 36415; 80053; 81003; 81015; 85027; 86593; 93005; 93010

== ENCOUNTER 2018-05-07 15:17 | Inpatient (IN) | payer OTHER ==
[2018-05-07 17:23] VITALS: BMI 24.6
--- NOTE | 2018-05-07 20:41 | HP ---
CIWA Score - CIWA Score Nausea/Vomitin Muscle Tremors: 3 Anxiety: 3 Agitation: 2 Paroxysmal Sweats: 2 Orientation: 0-Oriented Tacttile Disturbances: 1-Very Mild Itch/Numbness Auditory Disturbances: 0-None Visual Disturbances: 1-Very Mild Sensitivity Headache: 0-None Present CIWA-Ar Total Score: 14 Admission ROS BHS - HPI Chief Complaint: alcohol withdrawal symptoms Allergies/Adverse Reactions: Allergies Allergy/AdvReac Type Severity Reaction Status Date / Time No Known Allergies Allergy Verified 05/07/18 17:47 History of Present Illness: 58 yo male with hx of alcohol dependence is here seeking detox, this one of multiple admissions. Last detox [facility] 03/24/18 - 03/28/18. MMTP: [facility] on methadone 90 mg, last mediated today, dose pending verification. PMHX: HTN, (R) [place], Fatty Liver, anxiety. Denies suicidal / homicidal or hx of suicide attempts. Denies hx of seizures. Last detox Reports longest period of sobriety two years while incarcerated, while in the community longest period sobriety two months. Exam Limitations: No Limitations - Ebola screening Have you traveled outside of the country in the last 21 days: No Have you had contact with anyone from an Ebola affected area: No Have you been sick,other than usual withdrawal symptoms: No - Review of Systems Constitutional: Chills, Loss of Appetite, Changes in sleep, Unintentional Wgt. Loss EENT: reports: See HPI Respiratory: reports: Cough (x one week) Cardiac: reports: No Symptoms Reported GI: reports: Nausea, Poor Appetite, Poor Fluid Intake, Indigestion, Other (+ abdominal hernia) : reports: No Symptoms Reported Musculoskeletal: reports: Other (uses cane for ambulation) Integumentary: reports: Dryness, Pruritus Neuro: reports: Weakness Endocrine: reports: Increased Thirst Hematology: reports: No Symptoms Reported Psychiatric: reports: Orientated x3, Depressed Other Systems: Reviewed and Negative Patient History - Patient Medical History Hx Anemia: No Hx Asthma: No Hx Chronic Obstructive Pulmonary Disease (COPD): No Hx Cancer: No Hx Cardiac Disorders: No Hx Congestive Heart Failure: No Hx Hypertension: No Hx Hypercholesterolemia: No Hx Pacemaker: No HX Cerebrovascular Accident: No Hx Seizures: No Hx Dementia: No Hx Diabetes: No Hx Gastrointestinal Disorders: No Hx Liver Disease: Yes (fatty Liver ) Hx Genitourinary Disorders: No Hx Sexually Transmitted Disorders: No Hx Renal Disease (ESRD): No Hx Thyroid Disease: No Hx Human Immunodeficiency Virus (HIV): No (LAST NEGATIVE PER PATIENT 12/2017, SCREENED AT [facility] ) Hx Hepatitis C: No Hx Depression: Yes Hx Suicide Attempt: No Hx Bipolar Disorder: No Hx Schizophrenia: No - Patient Surgical History Past Surgical History: Yes Hx Neurologic Surgery: No Hx Cataract Extraction: No Hx Cardiac Surgery: No Hx Lung Surgery: No Hx Breast Surgery: No Hx Breast Biopsy: No Hx Abdominal Surgery: Yes (umbilical hernia repair in 2009) Hx Appendectomy: No Hx Cholecystectomy: No Hx Genitourinary Surgery: No Hx Section: No Hx Orthopedic Surgery: No Other Surgical History: HERNIA REPAIR-2009 Anesthesia Reaction: No - PPD History Previous Implant?: Yes Documented Results: Negative w/proof Date: 11/29/17 Results: 0 mm PPD to be Administered?: No - Smoking Cessation Smoking history: Former smoker Have you smoked in the past 12 months: Yes Aproximately how many cigarettes per day: 0 If you are a former smoker, when did you quit?: 2003 Cigars Per Day: 0 Hx Chewing Tobacco Use: No Initiated information on smoking cessation: No - Substance & Tx. History Hx Alcohol Use: Yes Hx Substance Use: Yes Substance Use Type: Alcohol Hx Substance Use Treatment: Yes (Last detox [facility] 03/24/18 - 03/28/18.) - Substances Abused Alcohol Route: Oral Frequency: Daily Amount used: Rum - 2 PINTS, BEER- 2 SIX PACK Age of first use: 19 Date of Last Use: 05/07/18 Family Disease History - Family Disease History Family Disease History: Diabetes: Father (alcohol), Mother, Other: Father, Brother (ALCOHOL,DSA) Admission Physical Exam S - Vital Signs Vital Signs: Vital Signs - 24 hr 05/07/18 17:20 Temperature 98.1 F Pulse Rate 86 Respiratory 18 Rate Blood Pressure 122/95 - Physical General Appearance: Yes: Disheveled, Mild Distress, Thin, Tremorous, Sweating, Anxious HEENTM: Yes: EOMI, Normal ENT Inspection, Normocephalic, Normal Voice, ANUM, Pharynx Normal, Tm's normal, Hearing Decreased Respiratory: Yes: Chest Non-Tender, Lungs Clear, No Respiratory Distress, No Accessory Muscle Use, Wheezing Neck: Yes: Within Normal Limits Breast: Yes: Breast Exam Deferred Cardiology: Yes: Regular Rhythm, Regular Rate Abdominal: Yes: Normal Bowel Sounds, Non Tender, Flat, Soft, Other (+ abdominal hernia, no pain or tendeness) Genitourinary: Yes: Within Normal Limits Back: Yes: Normal Inspection Musculoskeletal: Yes: full range of Motion, Gait Steady, Pelvis Stable, Other ( ambulates with cane) Extremities: Yes: Normal Capillary Refill, Normal Inspection, Normal Range of Motion, Non-Tender Neurological: Yes: hide or skin buffer II-XII NML intact, Fully Oriented, Alert, Motor Strength 5/5, Normal Mood/Affect Integumentary: Yes: Normal Color, Warm, Diaphoresis Lymphatic: Yes: Within Normal Limits - Diagnostic (1) Nicotine dependence Current Visit: Yes Status: Acute Qualifiers: Nicotine product type: cigarettes Substance use status: in withdrawal Qualified Code(s): F17.213 - Nicotine dependence, cigarettes, with withdrawal (2) Alcohol dependence with uncomplicated withdrawal Current Visit: Yes Status: Chronic (3) [place] (hard of hearing) Current Visit: Yes Status: Chronic Qualifiers: Hearing loss type: unspecified Laterality: right Qualified Code(s): H91.91 - Unspecified hearing loss, right ear (4) Opioid dependence on agonist therapy Current Visit: Yes Status: Chronic Comment: MMTP: [facility], on methadone 90 mg qd, dose pending verification (5) Use of cane as ambulatory aid Current Visit: Yes Status: Chronic (6) Wheezing Current Visit: Yes Status: Acute (7) Cough Current Visit: Yes Status: Acute Cleared for Admission [facility] - Detox or Rehab [facility] Level of Care: Medically Managed Detox Regimen/Protocol: Librium [facility] Breath Alcohol Content Breath Alcohol Content: 0.163 Urine Drug Screen - Results Drug Screen Negative: No Urine Drug Screen Results: MTD-Methadone
[2018-05-07] MEDS ORDERED: P-EPHED 60MG/TRIPROLIDI 2.5MG TABLET PO PRN (20:46)
[2018-05-07] MEDS ORDERED: MENTHOL/PHENOL 1 EACH UD MM PRN (20:46)
[2018-05-07] MEDS ORDERED: MAGNESIUM CITRATE 300 ML BOTTLE PO PRN (20:46)
[2018-05-07] MEDS ORDERED: chlordiazePOXIDE HCL 25 MG CAPSULE PO PRN (20:46)
[2018-05-07] MEDS ORDERED: MAGNESIUM HYDROX 2400MG/30ML ORAL SUSPENSION 30 ML CUP PO PRN (20:46)
[2018-05-07] MEDS ORDERED: ACETAMINOPHEN 325 MG TABLET (FP) PO PRN (20:46)
[2018-05-07] MEDS ORDERED: chlordiazePOXIDE HCL 25 MG CAPSULE PO ONE (20:46)
[2018-05-07] MEDS ORDERED: LOPERAMIDE HCL 2 MG CAPSULE PO PRN (20:46)
[2018-05-07] MEDS ORDERED: MAG HYDROX/AL HYDROX/SIMETH 30 ML UNIT-DOSE CUP PO PRN (20:46)
[2018-05-07] MEDS ORDERED: IBUPROFEN 400 MG TABLET (FP) PO PRN (20:46)
[2018-05-07] MEDS ORDERED: ALBUTEROL SO4 0.083% IH SOL 2.5 MG/3 ML VIAL.NEB. NEB PRN (20:56)
[2018-05-07] MEDS: amLODIPine BESYLATE 5 MG TABLET (FP) PO SCH (22:27)
[2018-05-07] MEDS: chlordiazePOXIDE HCL 25 MG CAPSULE PO SCH (22:27)
[2018-05-07] MEDS: THIAMINE HCL 100 MG TABLET (FP) PO SCH (22:28)
[2018-05-07] MEDS: MELATONIN 5 MG TABLETS PO PRN (22:28)
[2018-05-07 23:26] LABS: URINE APPEARANCE CLEAR; URINE BILIRUBIN NEGATIVE (<2.0 mg/dL); URINE COLOR LTYELLOW; URINE GLUCOSE (UA) NEGATIVE (NEGATIVE); URINE KETONE NEGATIVE (NEGATIVE); URINE LEUK ESTERASE NEGATIVE (NEGATIVE); URINE NITRITE NEGATIVE (NEGATIVE); URINE PROTEIN 1+ (NEGATIVE); URINE UROBILINOGEN NEGATIVE mg/dL (0.2-1.0)
[2018-05-08] MEDS: chlordiazePOXIDE HCL 25 MG CAPSULE PO SCH ×4 (06:01→22:23)
--- NOTE | 2018-05-08 07:45 | CONSULT ---
[facility] Psychiatric Consult - Data Date of interview: 05/08/18 Admission source: [facility] Identifying data: This is a 58 years old cape verdean speaking male, single, unemployed, homeless, on PA support, with history of alcohol, opoids dependence is here seeking detox reporting withdrawal symptoms., this one of multiple admissions. Last detox [facility] 03/24/18 - 03/28/18. Patient on MMTP: [facility] on methadone 90 mg, last mediated yesterday. Substance Abuse History: MMTP 90mg per day. - Smoking Cessation. Smoking history: Former smoker. Have you smoked in the past 12 months: Yes. Aproximately how many cigarettes per day: 0. If you are a former smoker, when did you quit?: 2003. Cigars Per Day: 0. Hx Chewing Tobacco Use: No. Initiated information on smoking cessation: No. - Substance & Tx. History. Hx Alcohol Use: Yes. Hx Substance Use: Yes. Substance Use Type: Alcohol. Hx Substance Use Treatment: Yes (Last detox [facility] 03/24/18 - 03/28/18.). - Substances Abused. Alcohol. Route: Oral. Frequency: Daily. Amount used: Rum - 2 PINTS, BEER- 2 SIX PACK. Age of first use: 19. Date of Last Use: 05/07 Medical History: Ambulating with Cane, Chronic Cough,[place] history, Foot callus,. MMTP 90 MG PER DAY Psychiatric History: Patient reports hsitory of depression, denies psychiatric hospitalization history, denies suicidal, homicidal history, reports no medications taking prior to admission. Physical/Sexual Abuse/Trauma History: Denies Additional Comment: Observation. Detox Unit Care Protocol Mental Status Exam - Mental Status Exam Alert and Oriented to: Person Cognitive Function: Fair Patient Appearance: Well Groomed Mood: Anxious Affect: Mood Congruent Patient Behavior: Cooperative Speech Pattern: Appropriate Voice Loudness: Normal Thought Process: Goal Oriented Thought Disorder: Being Controlled Hallucinations: Denies Suicidal Ideation: Denies Homicidal Ideation: Denies Insight/Judgement: Fair Sleep: Difficulty falling asleep Appetite: Fair Muscle strength/Tone: Normal Gait/Station: Normal Additional Comments: Observation. Detox Unit Care Protocol Psychiatric Findings - Problem List ([place] 1, 2,3) (1) Cough Current Visit: Yes Status: Acute (2) Nicotine dependence Current Visit: Yes Status: Acute Qualifiers: Nicotine product type: cigarettes Substance use status: in withdrawal Qualified Code(s): F17.213 - Nicotine dependence, cigarettes, with withdrawal (3) Wheezing Current Visit: Yes Status: Acute (4) Alcohol dependence with uncomplicated withdrawal Current Visit: Yes Status: Chronic (5) [place] (hard of hearing) Current Visit: Yes Status: Chronic Qualifiers: Hearing loss type: unspecified Laterality: right Qualified Code(s): H91.91 - Unspecified hearing loss, right ear (6) Opioid dependence on agonist therapy Current Visit: Yes Status: Chronic Comment: MMTP: [facility], on methadone 90 mg qd, dose pending verification (7) Use of cane as ambulatory aid Current Visit: Yes Status: Chronic (8) Alcohol dependence Current Visit: No Status: Acute (9) Cocaine dependence Current Visit: No Status: Acute Qualifiers: Substance use status: uncomplicated Qualified Code(s): F14.20 - Cocaine dependence, uncomplicated (10) Drug-induced mood disorder Current Visit: No Status: Acute (11) Proteinuria Current Visit: No Status: Acute Qualifiers: Proteinuria type: isolated (12) Callus of foot Current Visit: No Status: Chronic (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 Current Visit: No Status: Chronic Comment: 90 MG VERIFICATION PENDING (14) Opioid dependence on agonist therapy Current Visit: No Status: Chronic - Initial Treatment Plan Initial Treatment Plan: Observation. Detox Unit Care Protocol
[2018-05-08] MEDS ORDERED: METHADONE HCL 10 MG TABLET PO ONE (08:45)
[2018-05-08] MEDS ORDERED: METHADONE 80 MG, METHADONE 10 MG PO ONE (09:00)
[2018-05-08] MEDS ORDERED: METHADONE HCL 40 MG DISPERSABLE TABLET ONE (09:29)
[2018-05-08] MEDS ORDERED: METHADONE HCL 10 MG TABLET ONE (09:30)
[2018-05-08] MEDS: amLODIPine BESYLATE 5 MG TABLET (FP) PO SCH ×2 (09:52→22:23)
[2018-05-08] MEDS: PRENATAL VITAMINS W/ FOLIC ACID TABLET (FP) PO SCH (09:52)
--- NOTE | 2018-05-08 10:35 | PN ---
S CIWA - CIWA Score Nausea/Vomitin-No Nausea/No Vomiting Muscle Tremors: 4-Moderate,w/Arms Extend Anxiety: 4-Mod. Anxious/Guarded Agitation: 4-Moderately Restless Paroxysmal Sweats: 3 Orientation: 0-Oriented Tacttile Disturbances: 0-None Auditory Disturbances: 0-None Visual Disturbances: 0-None Headache: 0-None Present CIWA-Ar Total Score: 15 BHS Progress Note (SOAP) Subjective: sweats shakes interrupted sleep agitation anxiety body aches Objective: 05/08/18 10:35 Vital Signs Temperature 97.9 F 05/08/18 09:55 Pulse Rate 82 05/08/18 09:55 Respiratory Rate 18 05/08/18 09:55 Blood Pressure 154/104 H 05/08/18 09:55 O2 Sat by Pulse Oximetry (%) Laboratory Tests 05/07/18 22:30 Urine Color Ltyellow Urine Appearance Clear Urine pH 6.0 Ur Specific [place] 1.004 L Urine Protein 1+ H Urine Glucose (UA) Negative Urine Ketones Negative Urine Blood 1+ H Urine Nitrite Negative Urine Bilirubin Negative Urine Urobilinogen Negative Ur Leukocyte Esterase Negative Urine WBC (Auto) 1 Urine RBC (Auto) None rest of labs pending aaox3 ambulating no acute distress Assessment: 05/08/18 10:35 withdrawal sx Plan: continue detox increase fluids labs pending
[2018-05-08 11:02] LABS: HEMATOCRIT 38.9 % (35.4-49); MCH 32.1 pg (25.7-33.7); MCHC 33.5 g/dl (32.0-35.9); MEAN PLT VOLUME 7.5 fl (7.5-11.1); PLATELET COUNT 184 K/MM3 (134-434); RBC 4.05 M/mm3 (4.00-5.60); RDW 13.8 % (11.9-15.9); WHITE BLOOD COUNT 3.3 K/mm3 (4.0-10.0)
[2018-05-08 11:09] LABS: ALBUMIN 3.2 g/dl (3.4-5.0); ALK PHOS 246 U/L (45-117); ANION GAP 11 MMOL/L (8-16); BLOOD UREA NITROGEN 7 mg/dL (7-18); CALCIUM 8.3 mg/dL (8.5-10.1); CHLORIDE 101 mmol/L (98-107); CO2 30 mmol/L (21-32); CREATININE 0.6 mg/dL (0.55-1.3); GLUCOSE,RANDOM 92 mg/dL (74-106); POTASSIUM 3.8 mmol/L (3.5-5.1); SGOT/AST 117 U/L (15-37); SGPT/ALT 46 U/L (13-61); SODIUM 142 mmol/L (136-145); TOT PROT 7.3 g/dl (6.4-8.2)
[2018-05-08] MEDS: guaiFENesin/D-METHORPHAN HB 10 ML UNIT-DOSE CUPS PO PRN ×2 (11:36→18:52)
--- NOTE | 2018-05-08 12:19 | EKG ---
Test Reason : Blood Pressure : / mmHG Vent. Rate : 070 BPM Atrial Rate : 070 BPM P-R Int : 148 ms QRS Dur : 100 ms QT Int : 356 ms P-R-T Axes : 064 002 034 degrees QTc Int : 384 ms NORMAL SINUS RHYTHM MINIMAL VOLTAGE CRITERIA FOR LVH, MAY BE NORMAL VARIANT NONSPECIFIC T WAVE ABNORMALITY ABNORMAL ECG WHEN COMPARED WITH ECG OF 25-MAR-2018 09:51, NO SIGNIFICANT CHANGE WAS FOUND Confirmed by EDITH NIEVES, MADHU ([id number]) on 05/08/2018 12:18:42 PM Referred By: Confirmed By:MADHU SHARMA MD
[2018-05-08] MEDS: THIAMINE HCL 100 MG TABLET (FP) PO SCH (22:22)
[2018-05-09] MEDS ORDERED: METHADONE HCL 40 MG DISPERSABLE TABLET ONE (04:25)
[2018-05-09] MEDS ORDERED: METHADONE HCL 10 MG TABLET ONE (04:26)
[2018-05-09] MEDS: METHADONE 80 MG, METHADONE 10 MG PO SCH (05:21)
[2018-05-09] MEDS: chlordiazePOXIDE HCL 25 MG CAPSULE PO SCH ×3 (05:21→17:23)
[2018-05-09] MEDS ORDERED: METHADONE HCL 40 MG DISPERSABLE TABLET PO SCH (06:00)
[2018-05-09] MEDS: amLODIPine BESYLATE 5 MG TABLET (FP) PO SCH ×2 (10:32→22:17)
[2018-05-09] MEDS: PRENATAL VITAMINS W/ FOLIC ACID TABLET (FP) PO SCH (10:32)
[2018-05-09] MEDS: guaiFENesin/D-METHORPHAN HB 10 ML UNIT-DOSE CUPS PO PRN ×2 (10:34→17:23)
--- NOTE | 2018-05-09 10:41 | PN ---
BHS Progress Note (SOAP) Subjective: sweats agitation interrupted sleep Objective: 05/09/18 10:40 Vital Signs Temperature 98.2 F 05/09/18 09:27 Pulse Rate 90 05/09/18 09:27 Respiratory Rate 17 05/09/18 09:27 Blood Pressure 156/86 05/09/18 09:27 O2 Sat by Pulse Oximetry (%) Laboratory Tests 05/07/18 05/08/18 05/08/18 22:30 07:00 07:00 WBC 3.3 L RBC 4.05 Hgb 13.0 Hct 38.9 MCV 96.0 MCH 32.1 MCHC 33.5 RDW 13.8 Plt Count 184 D MPV 7.5 Sodium 142 Potassium 3.8 Chloride 101 Carbon Dioxide 30 Anion Gap 11 BUN 7 Creatinine 0.6 Creat Clearance w eGFR > 60 Random Glucose 92 Calcium 8.3 L Total Bilirubin 1.0 AST 117 H ALT 46 Alkaline Phosphatase 246 H Total Protein 7.3 Albumin 3.2 L Urine Color Ltyellow Urine Appearance Clear Urine pH 6.0 Ur Specific [place] 1.004 L Urine Protein 1+ H Urine Glucose (UA) Negative Urine Ketones Negative Urine Blood 1+ H Urine Nitrite Negative Urine Bilirubin Negative Urine Urobilinogen Negative Ur Leukocyte Esterase Negative Urine WBC (Auto) 1 Urine RBC (Auto) None RPR Titer 05/08/18 07:00 WBC RBC Hgb Hct MCV MCH MCHC RDW Plt Count MPV Sodium Potassium Chloride Carbon Dioxide Anion Gap BUN Creatinine Creat Clearance w eGFR Random Glucose Calcium Total Bilirubin AST ALT Alkaline Phosphatase Total Protein Albumin Urine Color Urine Appearance Urine pH Ur Specific [place] Urine Protein Urine Glucose (UA) Urine Ketones Urine Blood Urine Nitrite Urine Bilirubin Urine Urobilinogen Ur Leukocyte Esterase Urine WBC (Auto) Urine RBC (Auto) RPR Titer Nonreactive
--- NOTE | 2018-05-09 10:43 | PN ---
S CIWA - CIWA Score Nausea/Vomitin-No Nausea/No Vomiting Muscle Tremors: 4-Moderate,w/Arms Extend Anxiety: 3 Agitation: 3 Paroxysmal Sweats: 3 Orientation: 0-Oriented Tacttile Disturbances: 0-None Auditory Disturbances: 0-None Visual Disturbances: 0-None Headache: 0-None Present CIWA-Ar Total Score: 13 BHS Progress Note (SOAP) Subjective: agitation sweats interrupted sleep body aches Objective: 05/09/18 10:42 Vital Signs Temperature 98.2 F 05/09/18 09:27 Pulse Rate 90 05/09/18 09:27 Respiratory Rate 17 05/09/18 09:27 Blood Pressure 156/86 05/09/18 09:27 O2 Sat by Pulse Oximetry (%) Laboratory Tests 05/07/18 05/08/18 05/08/18 22:30 07:00 07:00 WBC 3.3 L RBC 4.05 Hgb 13.0 Hct 38.9 MCV 96.0 MCH 32.1 MCHC 33.5 RDW 13.8 Plt Count 184 D MPV 7.5 Sodium 142 Potassium 3.8 Chloride 101 Carbon Dioxide 30 Anion Gap 11 BUN 7 Creatinine 0.6 Creat Clearance w eGFR > 60 Random Glucose 92 Calcium 8.3 L Total Bilirubin 1.0 AST 117 H ALT 46 Alkaline Phosphatase 246 H Total Protein 7.3 Albumin 3.2 L Urine Color Ltyellow Urine Appearance Clear Urine pH 6.0 Ur Specific [place] 1.004 L Urine Protein 1+ H Urine Glucose (UA) Negative Urine Ketones Negative Urine Blood 1+ H Urine Nitrite Negative Urine Bilirubin Negative Urine Urobilinogen Negative Ur Leukocyte Esterase Negative Urine WBC (Auto) 1 Urine RBC (Auto) None RPR Titer 05/08/18 07:00 WBC RBC Hgb Hct MCV MCH MCHC RDW Plt Count MPV Sodium Potassium Chloride Carbon Dioxide Anion Gap BUN Creatinine Creat Clearance w eGFR Random Glucose Calcium Total Bilirubin AST ALT Alkaline Phosphatase Total Protein Albumin Urine Color Urine Appearance Urine pH Ur Specific [place] Urine Protein Urine Glucose (UA) Urine Ketones Urine Blood Urine Nitrite Urine Bilirubin Urine Urobilinogen Ur Leukocyte Esterase Urine WBC (Auto) Urine RBC (Auto) RPR Titer Nonreactive aaox3 ambulating no acute distress Assessment: 05/09/18 10:43 withdrawal sx Plan: continue detox increase fluids
[2018-05-09] MEDS: THIAMINE HCL 100 MG TABLET (FP) PO SCH (22:17)
[2018-05-09] MEDS: chlordiazePOXIDE 5 MG CAPSULE PO SCH (22:17)
[2018-05-10] MEDS ORDERED: METHADONE HCL 40 MG DISPERSABLE TABLET ONE (04:43)
[2018-05-10] MEDS ORDERED: METHADONE HCL 10 MG TABLET ONE (04:43)
[2018-05-10] MEDS: METHADONE 80 MG, METHADONE 10 MG PO SCH (05:21)
[2018-05-10] MEDS: chlordiazePOXIDE 5 MG CAPSULE PO SCH ×3 (05:21→17:04)
[2018-05-10] MEDS: guaiFENesin/D-METHORPHAN HB 10 ML UNIT-DOSE CUPS PO PRN ×2 (09:09→22:42)
[2018-05-10] MEDS: amLODIPine BESYLATE 5 MG TABLET (FP) PO SCH ×2 (10:28→22:40)
[2018-05-10] MEDS: PRENATAL VITAMINS W/ FOLIC ACID TABLET (FP) PO SCH (10:28)
--- NOTE | 2018-05-10 17:08 | PN ---
S Progress Note (SOAP) Subjective: States feeling better. Still feels anxiety. Objective: A&O x 3. Mild tremors felt in hands. Seen pacing floors. Gait steady. Vital Signs 05/10/18 05/10/18 05/10/18 00:30 03:30 07:22 Temperature 98.2 F Pulse Rate 77 Respiratory 18 18 18 Rate Blood Pressure 147/80 05/10/18 05/10/18 05/10/18 09:30 14:06 17:42 Temperature 98.6 F 97.2 F L 100 F H Pulse Rate 96 H 97 H 78 Respiratory 16 18 20 Rate Blood Pressure 140/82 132/81 147/72 Laboratory Last Values WBC 3.3 K/mm3 (4.0-10.0) L 05/08/18 07:00 RBC 4.05 M/mm3 (4.00-5.60) 05/08/18 07:00 Hgb 13.0 GM/dL (11.7-16.9) 05/08/18 07:00 Hct 38.9 % (35.4-49) 05/08/18 07:00 MCV 96.0 fl (80-96) 05/08/18 07:00 MCH 32.1 pg (25.7-33.7) 05/08/18 07:00 MCHC 33.5 g/dl (32.0-35.9) 05/08/18 07:00 RDW 13.8 % (11.9-15.9) 05/08/18 07:00 Plt Count 184 K/MM3 (134-434) D 05/08/18 07:00 MPV 7.5 fl (7.5-11.1) 05/08/18 07:00 Sodium 142 mmol/L (136-145) 05/08/18 07:00 Potassium 3.8 mmol/L (3.5-5.1) 05/08/18 07:00 Chloride 101 mmol/L (98-107) 05/08/18 07:00 Carbon Dioxide 30 mmol/L (21-32) 05/08/18 07:00 Anion Gap 11 MMOL/L (8-16) 05/08/18 07:00 BUN 7 mg/dL (7-18) 05/08/18 07:00 Creatinine 0.6 mg/dL (0.55-1.3) 05/08/18 07:00 Creat Clearance w eGFR > 60 (>60) 05/08/18 07:00 Random Glucose 92 mg/dL (74-106) 05/08/18 07:00 Calcium 8.3 mg/dL (8.5-10.1) L 05/08/18 07:00 Total Bilirubin 1.0 mg/dL (0.2-1) 05/08/18 07:00 AST 117 U/L (15-37) H 05/08/18 07:00 ALT 46 U/L (13-61) 05/08/18 07:00 Alkaline Phosphatase 246 U/L (45-117) H 05/08/18 07:00 Total Protein 7.3 g/dl (6.4-8.2) 05/08/18 07:00 Albumin 3.2 g/dl (3.4-5.0) L 05/08/18 07:00 Urine Color Ltyellow 05/07/18 22:30 Urine Appearance Clear 05/07/18 22:30 Urine pH 6.0 (5.0-8.0) 05/07/18 22:30 Ur Specific [place] 1.004 (1.010-1.035) L 05/07/18 22:30 Urine Protein 1+ (NEGATIVE) H 05/07/18 22:30 Urine Glucose (UA) Negative (NEGATIVE) 05/07/18 22:30 Urine Ketones Negative (NEGATIVE) 05/07/18 22:30 Urine Blood 1+ (NEGATIVE) H 05/07/18 22:30 Urine Nitrite Negative (NEGATIVE) 05/07/18 22:30 Urine Bilirubin Negative (<2.0 mg/dL) 05/07/18 22:30 Urine Urobilinogen Negative mg/dL (0.2-1.0) 05/07/18 22:30 Ur Leukocyte Esterase Negative (NEGATIVE) 05/07/18 22:30 Urine WBC (Auto) 1 /hpf (3-5) 05/07/18 22:30 Urine RBC (Auto) None /hpf (0-3) 05/07/18 22:30 RPR Titer Nonreactive (NONREACTIVE) 05/08/18 07:00 Labs reviewed. Assessment: Withdrawal symptoms. Plan: Continue detox.
[2018-05-10] MEDS: chlordiazePOXIDE HCL 10 MG CAPSULE PO SCH (22:40)
[2018-05-10] MEDS: THIAMINE HCL 100 MG TABLET (FP) PO SCH (22:40)
[2018-05-10] MEDS: MELATONIN 5 MG TABLETS PO PRN (22:41)
[2018-05-11] MEDS ORDERED: METHADONE HCL 40 MG DISPERSABLE TABLET ONE (02:45)
[2018-05-11] MEDS ORDERED: METHADONE HCL 10 MG TABLET ONE (02:46)
[2018-05-11] MEDS: chlordiazePOXIDE HCL 10 MG CAPSULE PO SCH (05:43)
[2018-05-11] MEDS: METHADONE 80 MG, METHADONE 10 MG PO SCH (05:43)
[2018-05-11] MEDS: amLODIPine BESYLATE 5 MG TABLET (FP) PO SCH (09:24)
[2018-05-11] MEDS: PRENATAL VITAMINS W/ FOLIC ACID TABLET (FP) PO SCH (09:24)
--- NOTE | 2018-05-11 09:46 | DS ---
[facility] Detox Discharge Summary Admission Date: 05/07/18 Discharge Date: 05/11/18 - History Present History: Alcohol Dependence Additional Comments: 58 years old male admitted on 05/07/18 for alcohol withdrawal sx completed alcohol detox regimen tolerated well denies alcohol withdrawl sx alert oriented x 3 no acute distress [facility] - Physical Exam Results Vital Signs: Vital Signs Temperature 97.5 F L 05/11/18 07:02 Pulse Rate 75 05/11/18 07:02 Respiratory Rate 16 05/11/18 07:02 Blood Pressure 152/83 05/11/18 07:02 O2 Sat by Pulse Oximetry (%) Pertinent Admission Physical Exam Findings: alcohol withdrawl sx Vital Signs Temperature 98.1 F 05/11/18 09:54 Pulse Rate 90 05/11/18 09:54 Respiratory Rate 16 05/11/18 09:54 Blood Pressure 121/73 05/11/18 09:54 O2 Sat by Pulse Oximetry (%) Laboratory Last Values WBC 3.3 K/mm3 (4.0-10.0) L 05/08/18 07:00 RBC 4.05 M/mm3 (4.00-5.60) 05/08/18 07:00 Hgb 13.0 GM/dL (11.7-16.9) 05/08/18 07:00 Hct 38.9 % (35.4-49) 05/08/18 07:00 MCV 96.0 fl (80-96) 05/08/18 07:00 MCH 32.1 pg (25.7-33.7) 05/08/18 07:00 MCHC 33.5 g/dl (32.0-35.9) 05/08/18 07:00 RDW 13.8 % (11.9-15.9) 05/08/18 07:00 Plt Count 184 K/MM3 (134-434) D 05/08/18 07:00 MPV 7.5 fl (7.5-11.1) 05/08/18 07:00 Sodium 142 mmol/L (136-145) 05/08/18 07:00 Potassium 3.8 mmol/L (3.5-5.1) 05/08/18 07:00 Chloride 101 mmol/L (98-107) 05/08/18 07:00 Carbon Dioxide 30 mmol/L (21-32) 05/08/18 07:00 Anion Gap 11 MMOL/L (8-16) 05/08/18 07:00 BUN 7 mg/dL (7-18) 05/08/18 07:00 Creatinine 0.6 mg/dL (0.55-1.3) 05/08/18 07:00 Creat Clearance w eGFR > 60 (>60) 05/08/18 07:00 Random Glucose 92 mg/dL (74-106) 05/08/18 07:00 Calcium 8.3 mg/dL (8.5-10.1) L 05/08/18 07:00 Total Bilirubin 1.0 mg/dL (0.2-1) 05/08/18 07:00 AST 117 U/L (15-37) H 05/08/18 07:00 ALT 46 U/L (13-61) 05/08/18 07:00 Alkaline Phosphatase 246 U/L (45-117) H 05/08/18 07:00 Total Protein 7.3 g/dl (6.4-8.2) 05/08/18 07:00 Albumin 3.2 g/dl (3.4-5.0) L 05/08/18 07:00 Urine Color Ltyellow 05/07/18 22:30 Urine Appearance Clear 05/07/18 22:30 Urine pH 6.0 (5.0-8.0) 05/07/18 22:30 Ur Specific [place] 1.004 (1.010-1.035) L 05/07/18 22:30 Urine Protein 1+ (NEGATIVE) H 05/07/18 22:30 Urine Glucose (UA) Negative (NEGATIVE) 05/07/18 22:30 Urine Ketones Negative (NEGATIVE) 05/07/18 22:30 Urine Blood 1+ (NEGATIVE) H 05/07/18 22:30 Urine Nitrite Negative (NEGATIVE) 05/07/18 22:30 Urine Bilirubin Negative (<2.0 mg/dL) 05/07/18 22:30 Urine Urobilinogen Negative mg/dL (0.2-1.0) 05/07/18 22:30 Ur Leukocyte Esterase Negative (NEGATIVE) 05/07/18 22:30 Urine WBC (Auto) 1 /hpf (3-5) 05/07/18 22:30 Urine RBC (Auto) None /hpf (0-3) 05/07/18 22:30 RPR Titer Nonreactive (NONREACTIVE) 05/08/18 07:00 lab noted - Treatment Hospital Course: Detox Protocol Followed, Detoxed Safely, Responded well, Discharged Condition Good, Rehab Referral Accepted Patient has Accepted a Rehab Referral to: [facility] [place], [place] methadone maintenance program - Medication Discharge Medications: Ambulatory Orders Methadone [Dolophine -] 90 mg PO DAILY 03/25/18 Amlodipine Besylate [Norvasc -] 5 mg PO BID #60 tablet 05/11/18 - Diagnosis (1) Drug-induced mood disorder Status: Suspected (2) Nicotine dependence Status: Acute Qualifiers: Nicotine product type: cigarettes Substance use status: in withdrawal Qualified Code(s): F17.213 - Nicotine dependence, cigarettes, with withdrawal (3) Alcohol dependence with uncomplicated withdrawal Status: Acute (4) Methadone maintenance therapy patient Status: Chronic (5) Use of cane as ambulatory aid Status: Chronic - AMA Did Patient Leave Against Medical Advice: No
[2018-05-11 09:54] VITALS: BP 121/73; PULSE 90; TEMP 98.1
== END 2018-05-11 09:46 | disposition home or self-care (01) | DRG 773 ==
LOC: YASAS 15:17 → Y6N 18:04
PROC: HZ2ZZZZ Detoxification Services for Substance Abuse Treatment (ICD-10-PCS; principal; 2018-05-07)
DX: F10.230 Alcohol dependence with withdrawal, uncomplicated (principal); F14.20 Cocaine dependence, uncomplicated; F11.20 Opioid dependence, uncomplicated; F17.213 Nicotine dependence, cigarettes, with withdrawal; F19.24 Other psychoactive substance dependence with psychoactive substance-induced mood disorder; F32.9 Major depressive disorder, single episode, unspecified; H91.91 Unspecified hearing loss, right ear; L84 Corns and callosities; R05 Cough; R06.2 Wheezing; R80.9 Proteinuria, unspecified; R26.89 Other abnormalities of gait and mobility; Z99.89 Dependence on other enabling machines and devices
CPT/HCPCS: 36415; 80053; 81003; 81015; 85027; 86593; 93005; 93010

== ENCOUNTER 2018-05-31 11:33 | Inpatient (IN) | payer OTHER ==
[2018-05-31 12:10] VITALS: BMI 23.8
--- NOTE | 2018-05-31 13:30 | HP ---
CIWA Score Nausea/Vomitin Muscle Tremors: 3 Anxiety: 3 Agitation: 0-Normal Activity Paroxysmal Sweats: No Perspiration Orientation: 1-Uncertain about Date Tacttile Disturbances: 0-None Auditory Disturbances: 0-None Visual Disturbances: 1-Very Mild Sensitivity Headache: 2-Mild CIWA-Ar Total Score: 13 - Admission Criteria OASAS Guidelines: Admission for Medically Managed Detox: Requires at least one of the followin. CIWA greater than 12 2. Seizures within the past 24 hours 3. Delirium tremens within the past 24 hours 4. Hallucinations within the past 24 hours 5. Acute intervention needed for co occurring medical disorder 6. Acute intervention needed for co occurring psychiatric disorder 7. Severe withdrawal that cannot be handled at a lower level of care (continued vomiting, continued diarrhea, abnormal vital signs) requiring intravenous medication and/or fluids 8. Patient presents the following: CIWA greater than 12 Admission Criteria Met: Admission criteria met Admission ROS S - HPI Chief Complaint: I feel desperate, I have a big problem with drinking too much, if I don't I get sick, I vomit Allergies/Adverse Reactions: Allergies Allergy/AdvReac Type Severity Reaction Status Date / Time No Known Allergies Allergy Verified 05/31/18 12:41 History of Present Illness: 58 yo gentleman here for detox from alcohol - this is one of many admissions for treatment. Denies seizure but often has black outs. Patient is on [facility] methadone program 90mg - [phone] - closed now, was dosed today. States he had a drink at 9am this morning because he vomited, but is now feeling sick again, nauseous. Exam Limitations: Clinical Condition - Ebola screening Have you traveled outside of the country in the last 21 days: No (N) Have you had contact with anyone from an Ebola affected area: No Have you been sick,other than usual withdrawal symptoms: No Do you have a fever: No - Review of Systems Constitutional: Loss of Appetite, Malaise, Changes in sleep, Weakness EENT: reports: Blurred Vision Respiratory: reports: No Symptoms reported Cardiac: reports: No Symptoms Reported GI: reports: Nausea, Poor Appetite, Poor Fluid Intake, Indigestion, Abdominal cramping : reports: Frequency Musculoskeletal: reports: No Symptoms Reported Integumentary: reports: Dryness Neuro: reports: Headache, Tremors Endocrine: reports: No Symptoms Reported Hematology: reports: No Symptoms Reported Psychiatric: reports: Judgement Intact, Mood/Affect Appropiate, Anxious Other Systems: Reviewed and Negative Patient History - Patient Medical History Hx Anemia: No Hx Asthma: No Hx Chronic Obstructive Pulmonary Disease (COPD): No Hx Cancer: No Hx Cardiac Disorders: No Hx Congestive Heart Failure: No Hx Hypertension: Yes (states when he drinks, does not take medicine) Hx Hypercholesterolemia: No Hx Pacemaker: No HX Cerebrovascular Accident: No Hx Seizures: No Hx Dementia: No Hx Diabetes: No Hx Gastrointestinal Disorders: No Hx Liver Disease: Yes (fatty Liver ) Hx Genitourinary Disorders: No Hx Sexually Transmitted Disorders: No Hx Renal Disease (ESRD): No Hx Thyroid Disease: No Hx Human Immunodeficiency Virus (HIV): No (LAST NEGATIVE PER PATIENT 12/2017, SCREENED AT [facility] ) Hx Hepatitis C: No Hx Depression: Yes (with anxiety) Hx Suicide Attempt: No Hx Bipolar Disorder: No Hx Schizophrenia: No - Patient Surgical History Past Surgical History: Yes Hx Neurologic Surgery: No Hx Cataract Extraction: No Hx Cardiac Surgery: No Hx Lung Surgery: No Hx Breast Surgery: No Hx Breast Biopsy: No Hx Abdominal Surgery: Yes (umbilical hernia repair in 2009) Hx Appendectomy: No Hx Cholecystectomy: No Hx Genitourinary Surgery: No Hx Section: No Hx Orthopedic Surgery: No Anesthesia Reaction: No - PPD History Previous Implant?: Yes Documented Results: Negative w/proof Implanted On Prior [facility] Admission?: Yes Date: 11/29/17 Results: 0 mm PPD to be Administered?: No - Reproductive History Patient is a Female of Child Bearing Age (11 -55 yrs old): No (male) - Smoking Cessation Smoking history: Former smoker Have you smoked in the past 12 months: Yes Aproximately how many cigarettes per day: 0 If you are a former smoker, when did you quit?: 2003 Cigars Per Day: 0 Hx Chewing Tobacco Use: No Initiated information on smoking cessation: No - Substance & Tx. History Hx Alcohol Use: Yes Hx Substance Use: Yes Substance Use Type: Alcohol, Cocaine Hx Substance Use Treatment: Yes (detox, on [facility]MTP) - Substances Abused Alcohol Route: Oral Frequency: Daily Amount used: 1-2 pints of vodka, 12 12oz cans of beers Age of first use: 19 Date of Last Use: 05/31/18 Cocaine Route: Inhalation Frequency: 1-3 times last 30 days Amount used: 1 gram Age of first use: 21 Date of Last Use: 05/30/18 Family Disease History - Family Disease History Family Disease History: Diabetes: Father (, alcohol), Mother (in [place]), Respiratory: Sister (four living , asthma), Other: Father, Brother (two living, ALCOHOL,DSA), Sister Admission Physical Exam [facility] - Vital Signs Vital Signs: Vital Signs - 24 hr 05/31/18 11:59 Temperature 98.0 F Pulse Rate 76 Respiratory 18 Rate Blood Pressure 145/95 - Physical General Appearance: Yes: Nourished, Appropriately Dressed, Moderate Distress, Tremorous, Anxious HEENTM: Yes: EOMI, Hearing grossly Normal, Normocephalic, Normal Voice, Pharynx Normal, Other (tongue coated) Respiratory: Yes: Normal Breath Sounds, No Respiratory Distress Neck: Yes: No masses,lesions,Nodules, Supple Breast: Yes: Breast Exam Deferred Cardiology: Yes: Regular Rhythm, Regular Rate Abdominal: Yes: Non Tender, Soft Genitourinary: Yes: Frequency Back: Yes: Normal Inspection Musculoskeletal: Yes: full range of Motion, Gait Steady Extremities: Yes: Normal Inspection, Normal Range of Motion, Non-Tender Neurological: Yes: Alert, Motor Strength 5/5, Normal Mood/Affect, Normal Response Integumentary: Yes: Normal Color, Dry, Warm Lymphatic: Yes: Within Normal Limits - Diagnostic (1) Alcohol dependence with uncomplicated withdrawal Current Visit: Yes Status: Chronic (2) Cocaine dependence Current Visit: Yes Status: Acute Qualifiers: Substance use status: uncomplicated Qualified Code(s): F14.20 - Cocaine dependence, uncomplicated (3) Anxiety Current Visit: Yes Status: Chronic (4) Syncope Current Visit: Yes Status: Chronic Qualifiers: Syncope type: unspecified Qualified Code(s): R55 - Syncope and collapse (5) Methadone maintenance therapy patient Current Visit: Yes Status: Chronic Comment: 90 MG VERIFICATION PENDING Cleared for Admission [facility] - Detox or Rehab [facility] Level of Care: Medically Managed Detox Regimen/Protocol: Librium [facility] Breath Alcohol Content Breath Alcohol Content: 0.049 Urine Drug Screen - Results Drug Screen Negative: No Urine Drug Screen Results: BRUCE-Cocaine, BZO-Benzodiazepines, MTD-Methadone
[2018-05-31] MEDS ORDERED: IBUPROFEN 400 MG TABLET (FP) PO PRN (13:38)
[2018-05-31] MEDS ORDERED: ACETAMINOPHEN 325 MG TABLET (FP) PO PRN (13:38)
[2018-05-31] MEDS ORDERED: LOPERAMIDE HCL 2 MG CAPSULE PO PRN (13:38)
[2018-05-31] MEDS ORDERED: chlordiazePOXIDE HCL 25 MG CAPSULE PO PRN (13:38)
[2018-05-31] MEDS ORDERED: MAGNESIUM CITRATE 300 ML BOTTLE PO PRN (13:38)
[2018-05-31] MEDS ORDERED: MAG HYDROX/AL HYDROX/SIMETH 30 ML UNIT-DOSE CUP PO PRN (13:38)
[2018-05-31] MEDS ORDERED: MAGNESIUM HYDROX 2400MG/30ML ORAL SUSPENSION 30 ML CUP PO PRN (13:38)
[2018-05-31] MEDS ORDERED: guaiFENesin/D-METHORPHAN HB 10 ML UNIT-DOSE CUPS PO PRN (13:38)
[2018-05-31] MEDS ORDERED: P-EPHED 60MG/TRIPROLIDI 2.5MG TABLET PO PRN (13:38)
[2018-05-31] MEDS ORDERED: MENTHOL/PHENOL 1 EACH UD MM PRN (13:38)
--- NOTE | 2018-05-31 14:31 | EKG ---
Test Reason : Blood Pressure : / mmHG Vent. Rate : 063 BPM Atrial Rate : 063 BPM P-R Int : 138 ms QRS Dur : 094 ms QT Int : 360 ms P-R-T Axes : 038 -25 032 degrees QTc Int : 368 ms NORMAL SINUS RHYTHM MINIMAL VOLTAGE CRITERIA FOR LVH, MAY BE NORMAL VARIANT NONSPECIFIC T WAVE ABNORMALITY ABNORMAL ECG WHEN COMPARED WITH ECG OF 07-MAY-2018 20:57, NO SIGNIFICANT CHANGE IS FOUND Confirmed by Wil Garcia ([id number]) on 05/31/2018 2:31:39 PM Referred By: Confirmed By:Wil Garcia
[2018-05-31] MEDS: chlordiazePOXIDE HCL 25 MG CAPSULE PO SCH ×2 (18:00→22:33)
[2018-05-31 19:31] LABS: URINE APPEARANCE TURBID; URINE BILIRUBIN NEGATIVE (<2.0 mg/dL); URINE COLOR YELLOW; URINE GLUCOSE (UA) NEGATIVE (NEGATIVE); URINE KETONE NEGATIVE (NEGATIVE); URINE LEUK ESTERASE NEGATIVE (NEGATIVE); URINE NITRITE NEGATIVE (NEGATIVE); URINE PROTEIN 2+ (NEGATIVE); URINE UROBILINOGEN NEGATIVE mg/dL (0.2-1.0)
[2018-05-31] MEDS: THIAMINE HCL 100 MG TABLET (FP) PO SCH (22:32)
[2018-05-31] MEDS: MELATONIN 5 MG TABLETS PO PRN (22:33)
[2018-06-01] MEDS: chlordiazePOXIDE HCL 25 MG CAPSULE PO SCH ×4 (05:19→22:16)
[2018-06-01] MEDS: PRENATAL VITAMINS W/ FOLIC ACID TABLET (FP) PO SCH (10:12)
[2018-06-01] MEDS ORDERED: METHADONE HCL 10 MG TABLET PO ONE (10:15)
[2018-06-01 10:30] LABS: HEMATOCRIT 39.5 % (35.4-49); HEMOGLOBIN 13.3 GM/dL (11.7-16.9); MCHC 33.6 g/dl (32.0-35.9); MEAN CELL VOLUME 95.3 fl (80-96); MEAN PLT VOLUME 8.1 fl (7.5-11.1); PLATELET COUNT 150 K/MM3 (134-434); RBC 4.14 M/mm3 (4.00-5.60); RDW 14.4 % (11.9-15.9); WHITE BLOOD COUNT 2.5 K/mm3 (4.0-10.0)
[2018-06-01 10:41] LABS: ALBUMIN 3.2 g/dl (3.4-5.0); ALK PHOS 293 U/L (45-117); ANION GAP 9 MMOL/L (8-16); BLOOD UREA NITROGEN 15 mg/dL (7-18); CALCIUM 8.4 mg/dL (8.5-10.1); CHLORIDE 98 mmol/L (98-107); CO2 31 mmol/L (21-32); CREATININE 0.7 mg/dL (0.55-1.3); GLUCOSE,RANDOM 99 mg/dL (74-106); POTASSIUM 3.5 mmol/L (3.5-5.1); SGOT/AST 223 U/L (15-37); SGPT/ALT 88 U/L (13-61); SODIUM 138 mmol/L (136-145); TOT PROT 7.4 g/dl (6.4-8.2)
[2018-06-01] MEDS ORDERED: METHADONE 80 MG, METHADONE 10 MG PO ONE (10:45)
[2018-06-01] MEDS ORDERED: METHADONE HCL 40 MG DISPERSABLE TABLET ONE (10:47)
[2018-06-01] MEDS ORDERED: METHADONE HCL 10 MG TABLET ONE (10:47)
[2018-06-01] MEDS ORDERED: PNEUMOCOCCAL 23 VACCINE 0.5 ML VIAL IM ONE (12:00)
[2018-06-01] MEDS ORDERED: PNEUMOC 13-VAL CONJ-DIP CRM/PF 0.5 ML DISP.SYRIN IM ONE (12:00)
[2018-06-01] MEDS ORDERED: FLU VACCINE QUAD 60 MCG/0.5 ML (MDV 18-19) IM ONE (12:00)
--- NOTE | 2018-06-01 15:25 | PN ---
S CIWA - CIWA Score Nausea/Vomitin-Mild Nausea/No Vomiting Muscle Tremors: 3 Anxiety: 3 Agitation: 3 Paroxysmal Sweats: 1-Minimal Palms Moist Orientation: 1-Uncertain about Date Tacttile Disturbances: 1-Very Mild Itch/Numbness Auditory Disturbances: 0-None Visual Disturbances: 0-None Headache: 0-None Present CIWA-Ar Total Score: 13 BHS Progress Note (SOAP) Subjective: tremor sweat restlessness anxiety methadone 90mg verified Objective: 06/01/18 15:25 Vital Signs Temperature 98.1 F 06/01/18 14:00 Pulse Rate 67 06/01/18 14:00 Respiratory Rate 18 06/01/18 14:00 Blood Pressure 122/83 06/01/18 14:00 O2 Sat by Pulse Oximetry (%) Laboratory Last Values WBC 2.5 K/mm3 (4.0-10.0) L 06/01/18 07:40 RBC 4.14 M/mm3 (4.00-5.60) 06/01/18 07:40 Hgb 13.3 GM/dL (11.7-16.9) 06/01/18 07:40 Hct 39.5 % (35.4-49) 06/01/18 07:40 MCV 95.3 fl (80-96) 06/01/18 07:40 MCH 32.0 pg (25.7-33.7) 06/01/18 07:40 MCHC 33.6 g/dl (32.0-35.9) 06/01/18 07:40 RDW 14.4 % (11.9-15.9) 06/01/18 07:40 Plt Count 150 K/MM3 (134-434) 06/01/18 07:40 MPV 8.1 fl (7.5-11.1) 06/01/18 07:40 Sodium 138 mmol/L (136-145) 06/01/18 07:40 Potassium 3.5 mmol/L (3.5-5.1) 06/01/18 07:40 Chloride 98 mmol/L (98-107) 06/01/18 07:40 Carbon Dioxide 31 mmol/L (21-32) 06/01/18 07:40 Anion Gap 9 MMOL/L (8-16) 06/01/18 07:40 BUN 15 mg/dL (7-18) 06/01/18 07:40 Creatinine 0.7 mg/dL (0.55-1.3) 06/01/18 07:40 Creat Clearance w eGFR > 60 (>60) 06/01/18 07:40 Random Glucose 99 mg/dL (74-106) 06/01/18 07:40 Calcium 8.4 mg/dL (8.5-10.1) L 06/01/18 07:40 Total Bilirubin 2.0 mg/dL (0.2-1) H 06/01/18 07:40 AST 223 U/L (15-37) H 06/01/18 07:40 ALT 88 U/L (13-61) H 06/01/18 07:40 Alkaline Phosphatase 293 U/L (45-117) H 06/01/18 07:40 Total Protein 7.4 g/dl (6.4-8.2) 06/01/18 07:40 Albumin 3.2 g/dl (3.4-5.0) L 06/01/18 07:40 Urine Color Yellow 05/31/18 17:30 Urine Appearance Turbid 05/31/18 17:30 Urine pH 5.0 (5.0-8.0) 05/31/18 17:30 Ur Specific [place] 1.019 (1.010-1.035) 05/31/18 17:30 Urine Protein 2+ (NEGATIVE) H 05/31/18 17:30 Urine Glucose (UA) Negative (NEGATIVE) 05/31/18 17:30 Urine Ketones Negative (NEGATIVE) 05/31/18 17:30 Urine Blood 1+ (NEGATIVE) H 05/31/18 17:30 Urine Nitrite Negative (NEGATIVE) 05/31/18 17:30 Urine Bilirubin Negative (<2.0 mg/dL) 05/31/18 17:30 Urine Urobilinogen Negative mg/dL (0.2-1.0) 05/31/18 17:30 Ur Leukocyte Esterase Negative (NEGATIVE) 05/31/18 17:30 Urine WBC (Auto) 40 /hpf (3-5) 05/31/18 17:30 Urine RBC (Auto) 2 /hpf (0-3) 05/31/18 17:30 RPR Titer Nonreactive (NONREACTIVE) 06/01/18 07:40 lab noted repeat cbc Assessment: 06/01/18 15:31 withdrawal sx Plan: continue detox
[2018-06-01] MEDS: THIAMINE HCL 100 MG TABLET (FP) PO SCH (22:16)
[2018-06-01] MEDS: MELATONIN 5 MG TABLETS PO PRN (22:16)
[2018-06-02] MEDS ORDERED: METHADONE HCL 10 MG TABLET PO SCH (06:00)
[2018-06-02] MEDS ORDERED: METHADONE HCL 40 MG DISPERSABLE TABLET ONE (06:16)
[2018-06-02] MEDS: METHADONE 80 MG, METHADONE 10 MG PO SCH (06:17)
[2018-06-02] MEDS: chlordiazePOXIDE HCL 25 MG CAPSULE PO SCH ×2 (06:17→10:18)
[2018-06-02] MEDS ORDERED: METHADONE HCL 10 MG TABLET ONE (06:17)
[2018-06-02] MEDS ORDERED: AMMONIUM LACTATE 12% LOTION 225 GM BOTTLE TP PRN (08:44)
[2018-06-02] MEDS: PRENATAL VITAMINS W/ FOLIC ACID TABLET (FP) PO SCH (10:18)
[2018-06-02 10:21] LABS: BASO % 0.3 % (0-2.0); EOS % 1.3 % (0-4.5); HEMATOCRIT 37.2 % (35.4-49); HEMOGLOBIN 12.1 GM/dL (11.7-16.9); LYMPH % 23.4 % (8-40); MCH 31.1 pg (25.7-33.7); MCHC 32.4 g/dl (32.0-35.9); MEAN CELL VOLUME 95.7 fl (80-96); MONO % 10.7 % (3.8-10.2); NEUT % 64.3 % (42.8-82.8); PLATELET COUNT 107 K/MM3 (134-434); RBC 3.88 M/mm3 (4.00-5.60); RDW 14.3 % (11.9-15.9); WHITE BLOOD COUNT 3.3 K/mm3 (4.0-10.0)
--- NOTE | 2018-06-02 14:05 | PN ---
S CIWA - CIWA Score Nausea/Vomitin-No Nausea/No Vomiting Muscle Tremors: 3 Anxiety: 1-Mildly Anxious Agitation: 2 Paroxysmal Sweats: 1-Minimal Palms Moist Orientation: 0-Oriented Tacttile Disturbances: 1-Very Mild Itch/Numbness Auditory Disturbances: 1-Very Mild Visual Disturbances: 0-None Headache: 1-Very Mild CIWA-Ar Total Score: 10 S Progress Note (SOAP) Subjective: sweat tremor restlessness ambulate with cane Objective: 06/02/18 14:06 Vital Signs Temperature 98.2 F 06/02/18 12:47 Pulse Rate 72 06/02/18 12:47 Respiratory Rate 18 06/02/18 12:47 Blood Pressure 135/71 06/02/18 12:47 O2 Sat by Pulse Oximetry (%) Laboratory Last Values WBC 3.3 K/mm3 (4.0-10.0) L 06/02/18 07:00 RBC 3.88 M/mm3 (4.00-5.60) L 06/02/18 07:00 Hgb 12.1 GM/dL (11.7-16.9) 06/02/18 07:00 Hct 37.2 % (35.4-49) 06/02/18 07:00 MCV 95.7 fl (80-96) 06/02/18 07:00 MCH 31.1 pg (25.7-33.7) 06/02/18 07:00 MCHC 32.4 g/dl (32.0-35.9) 06/02/18 07:00 RDW 14.3 % (11.9-15.9) 06/02/18 07:00 Plt Count 107 K/MM3 (134-434) L D 06/02/18 07:00 MPV 8.0 fl (7.5-11.1) 06/02/18 07:00 Absolute Neuts (auto) 2.1 K/mm3 (1.5-8.0) 06/02/18 07:00 Neutrophils % 64.3 % (42.8-82.8) 06/02/18 07:00 Lymphocytes % 23.4 % (8-40) 06/02/18 07:00 Monocytes % 10.7 % (3.8-10.2) H 06/02/18 07:00 Eosinophils % 1.3 % (0-4.5) D 06/02/18 07:00 Basophils % 0.3 % (0-2.0) 06/02/18 07:00 Nucleated RBC % 0 % (0-0) 06/02/18 07:00 Sodium 138 mmol/L (136-145) 06/01/18 07:40 Potassium 3.5 mmol/L (3.5-5.1) 06/01/18 07:40 Chloride 98 mmol/L (98-107) 06/01/18 07:40 Carbon Dioxide 31 mmol/L (21-32) 06/01/18 07:40 Anion Gap 9 MMOL/L (8-16) 06/01/18 07:40 BUN 15 mg/dL (7-18) 06/01/18 07:40 Creatinine 0.7 mg/dL (0.55-1.3) 06/01/18 07:40 Creat Clearance w eGFR > 60 (>60) 06/01/18 07:40 Random Glucose 99 mg/dL (74-106) 06/01/18 07:40 Calcium 8.4 mg/dL (8.5-10.1) L 06/01/18 07:40 Total Bilirubin 2.0 mg/dL (0.2-1) H 06/01/18 07:40 AST 223 U/L (15-37) H 06/01/18 07:40 ALT 88 U/L (13-61) H 06/01/18 07:40 Alkaline Phosphatase 293 U/L (45-117) H 06/01/18 07:40 Total Protein 7.4 g/dl (6.4-8.2) 06/01/18 07:40 Albumin 3.2 g/dl (3.4-5.0) L 06/01/18 07:40 Urine Color Yellow 05/31/18 17:30 Urine Appearance Turbid 05/31/18 17:30 Urine pH 5.0 (5.0-8.0) 05/31/18 17:30 Ur Specific [place] 1.019 (1.010-1.035) 05/31/18 17:30 Urine Protein 2+ (NEGATIVE) H 05/31/18 17:30 Urine Glucose (UA) Negative (NEGATIVE) 05/31/18 17:30 Urine Ketones Negative (NEGATIVE) 05/31/18 17:30 Urine Blood 1+ (NEGATIVE) H 05/31/18 17:30 Urine Nitrite Negative (NEGATIVE) 05/31/18 17:30 Urine Bilirubin Negative (<2.0 mg/dL) 05/31/18 17:30 Urine Urobilinogen Negative mg/dL (0.2-1.0) 05/31/18 17:30 Ur Leukocyte Esterase Negative (NEGATIVE) 05/31/18 17:30 Urine WBC (Auto) 40 /hpf (3-5) 05/31/18 17:30 Urine RBC (Auto) 2 /hpf (0-3) 05/31/18 17:30 RPR Titer Nonreactive (NONREACTIVE) 06/01/18 07:40 lab noted repeat ua pending 06/02/18 14:12 wbc 3.3 patient agrees to discuss wbc with methadone program and continue monitoring the wbc level Assessment: 06/02/18 14:13 withdrawal sx Plan: continue detox
[2018-06-02] MEDS: chlordiazePOXIDE 5 MG CAPSULE PO SCH ×2 (17:24→22:09)
[2018-06-02] MEDS: THIAMINE HCL 100 MG TABLET (FP) PO SCH (22:09)
[2018-06-02] MEDS: MELATONIN 5 MG TABLETS PO PRN (22:12)
[2018-06-03] MEDS: chlordiazePOXIDE 5 MG CAPSULE PO SCH ×2 (06:03→10:39)
[2018-06-03] MEDS ORDERED: METHADONE HCL 10 MG TABLET ONE (06:04)
[2018-06-03] MEDS ORDERED: METHADONE HCL 40 MG DISPERSABLE TABLET ONE (06:04)
[2018-06-03] MEDS: METHADONE 80 MG, METHADONE 10 MG PO SCH (06:05)
[2018-06-03] MEDS: PRENATAL VITAMINS W/ FOLIC ACID TABLET (FP) PO SCH (10:39)
--- NOTE | 2018-06-03 11:14 | PN ---
[facility] Progress Note (SOAP) Subjective: feeling better no tremor less sweat social with peers in day room Objective: 06/03/18 11:16 Vital Signs Temperature 98.6 F 06/03/18 09:34 Pulse Rate 71 06/03/18 09:34 Respiratory Rate 18 06/03/18 09:34 Blood Pressure 138/83 06/03/18 09:34 O2 Sat by Pulse Oximetry (%) Laboratory Last Values WBC 3.3 K/mm3 (4.0-10.0) L 06/02/18 07:00 RBC 3.88 M/mm3 (4.00-5.60) L 06/02/18 07:00 Hgb 12.1 GM/dL (11.7-16.9) 06/02/18 07:00 Hct 37.2 % (35.4-49) 06/02/18 07:00 MCV 95.7 fl (80-96) 06/02/18 07:00 MCH 31.1 pg (25.7-33.7) 06/02/18 07:00 MCHC 32.4 g/dl (32.0-35.9) 06/02/18 07:00 RDW 14.3 % (11.9-15.9) 06/02/18 07:00 Plt Count 107 K/MM3 (134-434) L D 06/02/18 07:00 MPV 8.0 fl (7.5-11.1) 06/02/18 07:00 Absolute Neuts (auto) 2.1 K/mm3 (1.5-8.0) 06/02/18 07:00 Neutrophils % 64.3 % (42.8-82.8) 06/02/18 07:00 Lymphocytes % 23.4 % (8-40) 06/02/18 07:00 Monocytes % 10.7 % (3.8-10.2) H 06/02/18 07:00 Eosinophils % 1.3 % (0-4.5) D 06/02/18 07:00 Basophils % 0.3 % (0-2.0) 06/02/18 07:00 Nucleated RBC % 0 % (0-0) 06/02/18 07:00 Sodium 138 mmol/L (136-145) 06/01/18 07:40 Potassium 3.5 mmol/L (3.5-5.1) 06/01/18 07:40 Chloride 98 mmol/L (98-107) 06/01/18 07:40 Carbon Dioxide 31 mmol/L (21-32) 06/01/18 07:40 Anion Gap 9 MMOL/L (8-16) 06/01/18 07:40 BUN 15 mg/dL (7-18) 06/01/18 07:40 Creatinine 0.7 mg/dL (0.55-1.3) 06/01/18 07:40 Creat Clearance w eGFR > 60 (>60) 06/01/18 07:40 Random Glucose 99 mg/dL (74-106) 06/01/18 07:40 Calcium 8.4 mg/dL (8.5-10.1) L 06/01/18 07:40 Total Bilirubin 2.0 mg/dL (0.2-1) H 06/01/18 07:40 AST 223 U/L (15-37) H 06/01/18 07:40 ALT 88 U/L (13-61) H 06/01/18 07:40 Alkaline Phosphatase 293 U/L (45-117) H 06/01/18 07:40 Total Protein 7.4 g/dl (6.4-8.2) 06/01/18 07:40 Albumin 3.2 g/dl (3.4-5.0) L 06/01/18 07:40 Urine Color Yellow 05/31/18 17:30 Urine Appearance Turbid 05/31/18 17:30 Urine pH 5.0 (5.0-8.0) 05/31/18 17:30 Ur Specific [place] 1.019 (1.010-1.035) 05/31/18 17:30 Urine Protein 2+ (NEGATIVE) H 05/31/18 17:30 Urine Glucose (UA) Negative (NEGATIVE) 05/31/18 17:30 Urine Ketones Negative (NEGATIVE) 05/31/18 17:30 Urine Blood 1+ (NEGATIVE) H 05/31/18 17:30 Urine Nitrite Negative (NEGATIVE) 05/31/18 17:30 Urine Bilirubin Negative (<2.0 mg/dL) 05/31/18 17:30 Urine Urobilinogen Negative mg/dL (0.2-1.0) 05/31/18 17:30 Ur Leukocyte Esterase Negative (NEGATIVE) 05/31/18 17:30 Urine WBC (Auto) 40 /hpf (3-5) 05/31/18 17:30 Urine RBC (Auto) 2 /hpf (0-3) 05/31/18 17:30 RPR Titer Nonreactive (NONREACTIVE) 06/01/18 07:40 lab noted long history of liver enzyme elevation agrees to return to methadone program continute monitoring lever enzyme 06/03/18 11:22 Assessment: 06/03/18 11:23 mild withdrawal sx Plan: medically supervised detox
[2018-06-03] MEDS: chlordiazePOXIDE HCL 10 MG CAPSULE PO SCH ×2 (17:42→22:24)
[2018-06-03] MEDS: MELATONIN 5 MG TABLETS PO PRN (22:24)
[2018-06-03] MEDS: THIAMINE HCL 100 MG TABLET (FP) PO SCH (22:24)
[2018-06-04] MEDS ORDERED: METHADONE HCL 40 MG DISPERSABLE TABLET ONE (04:34)
[2018-06-04] MEDS ORDERED: METHADONE HCL 10 MG TABLET ONE (04:34)
[2018-06-04] MEDS: METHADONE 80 MG, METHADONE 10 MG PO SCH (05:48)
[2018-06-04] MEDS: chlordiazePOXIDE HCL 10 MG CAPSULE PO SCH (05:48)
[2018-06-04 08:07] VITALS: BP 143/67; PULSE 65; TEMP 97.9
[2018-06-04 10:42] LABS: URINE APPEARANCE CLEAR; URINE BILIRUBIN NEGATIVE (<2.0 mg/dL); URINE COLOR YELLOW; URINE GLUCOSE (UA) NEGATIVE (NEGATIVE); URINE KETONE NEGATIVE (NEGATIVE); URINE LEUK ESTERASE NEGATIVE (NEGATIVE); URINE NITRITE NEGATIVE (NEGATIVE); URINE PROTEIN NEGATIVE (NEGATIVE)
--- NOTE | 2018-06-04 11:51 | DS ---
[facility] Detox Discharge Summary Admission Date: 05/31/18 Discharge Date: 06/04/18 - History Present History: Alcohol Dependence Additional Comments: 58 years old male admitted on 05/31/18 for alcohol withdrawal sx completed alcohol detox regimen tolerated well denies alcohol withdrawal sx alert oriented x 3 no acute distress aftercare [facility] - Physical Exam Results Vital Signs: Vital Signs Temperature 97.9 F 06/04/18 08:06 Pulse Rate 65 06/04/18 08:06 Respiratory Rate 18 06/04/18 08:06 Blood Pressure 143/67 06/04/18 08:06 O2 Sat by Pulse Oximetry (%) Pertinent Admission Physical Exam Findings: alcohol withdrawal sx Vital Signs Temperature 97.9 F 06/04/18 08:06 Pulse Rate 65 06/04/18 08:06 Respiratory Rate 18 06/04/18 08:06 Blood Pressure 143/67 06/04/18 08:06 O2 Sat by Pulse Oximetry (%) Laboratory Last Values WBC 3.3 K/mm3 (4.0-10.0) L 06/02/18 07:00 RBC 3.88 M/mm3 (4.00-5.60) L 06/02/18 07:00 Hgb 12.1 GM/dL (11.7-16.9) 06/02/18 07:00 Hct 37.2 % (35.4-49) 06/02/18 07:00 MCV 95.7 fl (80-96) 06/02/18 07:00 MCH 31.1 pg (25.7-33.7) 06/02/18 07:00 MCHC 32.4 g/dl (32.0-35.9) 06/02/18 07:00 RDW 14.3 % (11.9-15.9) 06/02/18 07:00 Plt Count 107 K/MM3 (134-434) L D 06/02/18 07:00 MPV 8.0 fl (7.5-11.1) 06/02/18 07:00 Absolute Neuts (auto) 2.1 K/mm3 (1.5-8.0) 06/02/18 07:00 Neutrophils % 64.3 % (42.8-82.8) 06/02/18 07:00 Lymphocytes % 23.4 % (8-40) 06/02/18 07:00 Monocytes % 10.7 % (3.8-10.2) H 06/02/18 07:00 Eosinophils % 1.3 % (0-4.5) D 06/02/18 07:00 Basophils % 0.3 % (0-2.0) 06/02/18 07:00 Nucleated RBC % 0 % (0-0) 06/02/18 07:00 Sodium 138 mmol/L (136-145) 06/01/18 07:40 Potassium 3.5 mmol/L (3.5-5.1) 06/01/18 07:40 Chloride 98 mmol/L (98-107) 06/01/18 07:40 Carbon Dioxide 31 mmol/L (21-32) 06/01/18 07:40 Anion Gap 9 MMOL/L (8-16) 06/01/18 07:40 BUN 15 mg/dL (7-18) 06/01/18 07:40 Creatinine 0.7 mg/dL (0.55-1.3) 06/01/18 07:40 Creat Clearance w eGFR > 60 (>60) 06/01/18 07:40 Random Glucose 99 mg/dL (74-106) 06/01/18 07:40 Calcium 8.4 mg/dL (8.5-10.1) L 06/01/18 07:40 Total Bilirubin 2.0 mg/dL (0.2-1) H 06/01/18 07:40 AST 237 U/L (15-37) H 06/03/18 11:45 ALT 88 U/L (13-61) H 06/01/18 07:40 Alkaline Phosphatase 293 U/L (45-117) H 06/01/18 07:40 Total Protein 7.4 g/dl (6.4-8.2) 06/01/18 07:40 Albumin 3.2 g/dl (3.4-5.0) L 06/01/18 07:40 Urine Color Yellow 06/04/18 07:00 Urine Appearance Clear 06/04/18 07:00 Urine pH 5.0 (5.0-8.0) 06/04/18 07:00 Ur Specific [place] 1.013 (1.010-1.035) 06/04/18 07:00 Urine Protein Negative (NEGATIVE) 06/04/18 07:00 Urine Glucose (UA) Negative (NEGATIVE) 06/04/18 07:00 Urine Ketones Negative (NEGATIVE) 06/04/18 07:00 Urine Blood Negative (NEGATIVE) 06/04/18 07:00 Urine Nitrite Negative (NEGATIVE) 06/04/18 07:00 Urine Bilirubin Negative (<2.0 mg/dL) 06/04/18 07:00 Urine Urobilinogen 2.0 mg/dL (0.2-1.0) 06/04/18 07:00 Ur Leukocyte Esterase Negative (NEGATIVE) 06/04/18 07:00 Urine WBC (Auto) 40 /hpf (3-5) 05/31/18 17:30 Urine RBC (Auto) 2 /hpf (0-3) 05/31/18 17:30 RPR Titer Nonreactive (NONREACTIVE) 06/01/18 07:40 lab noted patient agrees to follow up lab results with methadone program medical provider - Treatment Hospital Course: Detox Protocol Followed, Detoxed Safely, Responded well, Discharged Condition Good, Rehab Referral Accepted Patient has Accepted a Rehab Referral to: [facility] methadone program - Medication Discharge Medications: Ambulatory Orders Methadone [Dolophine -] 90 mg PO DAILY 03/25/18 Amlodipine Besylate [Norvasc -] 5 mg PO BID #30 tablet 06/03/18 - Diagnosis (1) Liver enzyme elevation Status: Chronic (2) Alcohol dependence with uncomplicated withdrawal Status: Acute (3) [place] (hard of hearing) Status: Chronic Qualifiers: Hearing loss type: unspecified Laterality: right Qualified Code(s): H91.91 - Unspecified hearing loss, right ear (4) Methadone maintenance therapy patient Status: Chronic (5) Use of cane as ambulatory aid Status: Chronic (6) Drug-induced mood disorder Status: Suspected - AMA Did Patient Leave Against Medical Advice: No
== END 2018-06-04 09:25 | disposition home or self-care (01) | DRG 773 ==
LOC: YASAS 11:33 → Y6N 13:10
PROC: HZ2ZZZZ Detoxification Services for Substance Abuse Treatment (ICD-10-PCS; principal; 2018-05-31)
DX: F10.230 Alcohol dependence with withdrawal, uncomplicated (principal); F14.20 Cocaine dependence, uncomplicated; F11.20 Opioid dependence, uncomplicated; F19.24 Other psychoactive substance dependence with psychoactive substance-induced mood disorder; F41.8 Other specified anxiety disorders; F32.9 Major depressive disorder, single episode, unspecified; R55 Syncope and collapse; H91.91 Unspecified hearing loss, right ear; I10 Essential (primary) hypertension; R74.8 Abnormal levels of other serum enzymes; R26.89 Other abnormalities of gait and mobility; Z91.19 Patient's noncompliance with other medical treatment and regimen
CPT/HCPCS: 36415; 80053; 81003; 81015; 84450; 85025; 85027; 86593; 93005; 93010

== ENCOUNTER 2018-07-20 14:01 | Inpatient (IN) | payer OTHER ==
[2018-07-20 15:05] VITALS: BMI 23.8
--- NOTE | 2018-07-20 18:15 | HP ---
CIWA Score Nausea/Vomitin Muscle Tremors: 2 Anxiety: 2 Agitation: 2 Paroxysmal Sweats: 1-Minimal Palms Moist Orientation: 0-Oriented Tacttile Disturbances: 1-Very Mild Itch/Numbness Auditory Disturbances: 1-Very Mild Visual Disturbances: 0-None Headache: 2-Mild CIWA-Ar Total Score: 13 - Admission Criteria OASAS Guidelines: Admission for Medically Managed Detox: Requires at least one of the followin. CIWA greater than 12 2. Seizures within the past 24 hours 3. Delirium tremens within the past 24 hours 4. Hallucinations within the past 24 hours 5. Acute intervention needed for co occurring medical disorder 6. Acute intervention needed for co occurring psychiatric disorder 7. Severe withdrawal that cannot be handled at a lower level of care (continued vomiting, continued diarrhea, abnormal vital signs) requiring intravenous medication and/or fluids 8. Patient presents the following: CIWA greater than 12 Admission Criteria Met: Admission criteria met Admission ROS [facility]HS - HPI Chief Complaint: i need help to stop drinking alcohol Allergies/Adverse Reactions: Allergies Allergy/AdvReac Type Severity Reaction Status Date / Time No Known Allergies Allergy Verified 07/20/18 17:58 History of Present Illness: this 58 years old male with alcohol dependence seeking detox,withdrawal symptom ,last detox 05/31/18 to 06/04/18 syncope mmtp 90 mgs/day,last medicated today epigastric hernia for 3 months multiple admissions in detox plan for our patient program after detox Exam Limitations: No Limitations - Ebola screening Have you traveled outside of the country in the last 21 days: No (N) Have you had contact with anyone from an Ebola affected area: No Have you been sick,other than usual withdrawal symptoms: No Do you have a fever: No - Review of Systems Constitutional: Loss of Appetite, Night Sweats, Changes in sleep, Weakness, Unintentional Wgt. Loss EENT: reports: Nose Congestion Respiratory: reports: No Symptoms reported Cardiac: reports: No Symptoms Reported GI: reports: Nausea, Poor Appetite, Abdominal cramping, Other (epigastric hernia ) : reports: No Symptoms Reported Musculoskeletal: reports: Back Pain, Muscle Pain Integumentary: reports: Dryness Neuro: reports: Headache, Tremors Endocrine: reports: No Symptoms Reported Hematology: reports: No Symptoms Reported Psychiatric: reports: No Sypmtoms Reported, Judgement Intact, Mood/Affect Appropiate, Orientated x3 Patient History - Patient Medical History Hx Anemia: No Hx Asthma: No Hx Chronic Obstructive Pulmonary Disease (COPD): No Hx Cancer: No Hx Cardiac Disorders: No Hx Congestive Heart Failure: No Hx Hypertension: Yes (states when he drinks, does not take medicine) Hx Hypercholesterolemia: No Hx Pacemaker: No HX Cerebrovascular Accident: No Hx Seizures: No Hx Dementia: No Hx Diabetes: No Hx Gastrointestinal Disorders: No Hx Liver Disease: Yes (fatty Liver ) Hx Genitourinary Disorders: No Hx Sexually Transmitted Disorders: No Hx Renal Disease (ESRD): No Hx Thyroid Disease: No Hx Human Immunodeficiency Virus (HIV): No (LAST NEGATIVE PER PATIENT 12/2017, SCREENED AT [facility] ) Hx Hepatitis C: No Hx Depression: Yes (with anxiety) Hx Suicide Attempt: No Hx Bipolar Disorder: No Hx Schizophrenia: No Other Medical History: no suicidal,no homicidal - Patient Surgical History Past Surgical History: No Hx Neurologic Surgery: No Hx Cataract Extraction: No Hx Cardiac Surgery: No Hx Lung Surgery: No Hx Breast Surgery: No Hx Breast Biopsy: No Hx Abdominal Surgery: No Hx Appendectomy: No Hx Cholecystectomy: No Hx Genitourinary Surgery: No Hx Section: No Hx Orthopedic Surgery: No Anesthesia Reaction: No - PPD History Previous Implant?: Yes Documented Results: Negative w/proof Implanted On Prior R Admission?: Yes Date: 11/29/17 Results: 0 mm PPD to be Administered?: No - Smoking Cessation Smoking history: Former smoker Have you smoked in the past 12 months: No Aproximately how many cigarettes per day: 0 If you are a former smoker, when did you quit?: 2004 Cigars Per Day: 0 Hx Chewing Tobacco Use: No Initiated information on smoking cessation: Yes 'Breaking Loose' booklet given: 07/20/18 - Substance & Tx. History Hx Alcohol Use: Yes Hx Substance Use: No Substance Use Type: Alcohol Hx Substance Use Treatment: Yes (05/31/18 to 06/04/18) - Substances Abused Alcohol Route: Oral Frequency: Daily Amount used: liquor- 3 pints, beer- 2 six pack Age of first use: 24 Date of Last Use: 07/20/18 Family Disease History - Family Disease History Family Disease History: Diabetes: Father (, alcohol), Mother (in [place]), Respiratory: Sister (four living , asthma), Other: Father, Brother (two living, ALCOHOL,DSA), Sister Admission Physical Exam [facility] - Vital Signs Vital Signs: Vital Signs - 24 hr 07/20/18 15:03 Temperature 97.0 F L Pulse Rate 74 Respiratory 18 Rate Blood Pressure 137/90 - Physical General Appearance: Yes: Moderate Distress, Tremorous, Irritable, Sweating, Anxious HEENTM: Yes: Normal ENT Inspection, ANUM, Pharynx Normal Respiratory: Yes: Lungs Clear, Normal Breath Sounds, No Respiratory Distress Neck: Yes: Within Normal Limits, Supple, Trachea in good position Breast: Yes: Within Normal Limits Cardiology: Yes: Within Normal Limits, Regular Rhythm, Regular Rate, S1, S2 Abdominal: Yes: Within Normal Limits, Normal Bowel Sounds, Non Tender, Flat, Soft, Hernia (pigastric hernia) Genitourinary: Yes: Within Normal Limits Back: Yes: Muscle Spasm Musculoskeletal: Yes: full range of Motion, Back pain, Muscle Pain Extremities: Yes: Tremors Neurological: Yes: glass driller II-XII NML intact, Fully Oriented, Alert, Motor Strength 5/5 Integumentary: Yes: Dry Lymphatic: Yes: Within Normal Limits - Diagnostic (1) Alcohol dependence with uncomplicated withdrawal Current Visit: No Status: Acute (2) Callus of foot Current Visit: No Status: Chronic (3) Opioid dependence on agonist therapy Current Visit: No Status: Chronic Comment: MMTP: [facility], on methadone 90 mg qd, dose pending verification (4) Syncope Current Visit: No Status: Chronic Qualifiers: Syncope type: unspecified Qualified Code(s): R55 - Syncope and collapse (5) Use of cane as ambulatory aid Current Visit: No Status: Chronic Cleared for Admission [facility] - Detox or Rehab [facility] Level of Care: Medically Managed Detox Regimen/Protocol: Librium [facility] Breath Alcohol Content Breath Alcohol Content: 0.082 Urine Drug Screen - Results Drug Screen Negative: No Urine Drug Screen Results: MTD-Methadone
[2018-07-20] MEDS ORDERED: MENTHOL/PHENOL 1 EACH UD MM PRN (18:21)
[2018-07-20] MEDS ORDERED: LOPERAMIDE HCL 2 MG CAPSULE PO PRN (18:21)
[2018-07-20] MEDS ORDERED: hydrOXYzine PAMOATE 50 MG CAPSULE (FP) PO PRN (18:21)
[2018-07-20] MEDS ORDERED: MAGNESIUM HYDROX 2400MG/30ML ORAL SUSPENSION 30 ML CUP PO PRN (18:21)
[2018-07-20] MEDS ORDERED: MAG HYDROX/AL HYDROX/SIMETH 30 ML UNIT-DOSE CUP PO PRN (18:21)
[2018-07-20] MEDS ORDERED: guaiFENesin/D-METHORPHAN HB 10 ML UNIT-DOSE CUPS PO PRN (18:21)
[2018-07-20] MEDS ORDERED: MAGNESIUM CITRATE 300 ML BOTTLE PO PRN (18:21)
[2018-07-20] MEDS ORDERED: IBUPROFEN 400 MG TABLET (FP) PO PRN (18:21)
[2018-07-20] MEDS ORDERED: P-EPHED 60MG/TRIPROLIDI 2.5MG TABLET PO PRN (18:21)
[2018-07-20] MEDS ORDERED: chlordiazePOXIDE HCL 25 MG CAPSULE PO PRN (18:21)
[2018-07-20] MEDS ORDERED: ACETAMINOPHEN 325 MG TABLET (FP) PO PRN (18:21)
[2018-07-20] MEDS: amLODIPine BESYLATE 5 MG TABLET (FP) PO SCH (22:15)
[2018-07-20] MEDS: THIAMINE HCL 100 MG TABLET (FP) PO SCH (22:15)
[2018-07-20] MEDS: chlordiazePOXIDE HCL 25 MG CAPSULE PO SCH (22:15)
[2018-07-21] MEDS: chlordiazePOXIDE HCL 25 MG CAPSULE PO SCH ×4 (05:10→22:08)
[2018-07-21] MEDS ORDERED: METHADONE HCL 10 MG TABLET PO SCH (07:15)
[2018-07-21] MEDS ORDERED: METHADONE HCL 10 MG TABLET ONE (09:17)
[2018-07-21] MEDS ORDERED: METHADONE HCL 40 MG DISPERSABLE TABLET ONE (09:17)
[2018-07-21] MEDS ORDERED: METHADONE 80 MG, METHADONE 10 MG PO ONE (10:00)
[2018-07-21] MEDS ORDERED: METHADONE HCL 10 MG TABLET PO ONE (10:00)
[2018-07-21 10:10] LABS: ALBUMIN 3.2 g/dl (3.4-5.0); ALK PHOS 297 U/L (45-117); ANION GAP 9 MMOL/L (8-16); BLOOD UREA NITROGEN 11 mg/dL (7-18); CALCIUM 8.4 mg/dL (8.5-10.1); CHLORIDE 100 mmol/L (98-107); CO2 31 mmol/L (21-32); CREATININE 0.6 mg/dL (0.55-1.3); GLUCOSE,RANDOM 90 mg/dL (74-106); POTASSIUM 3.5 mmol/L (3.5-5.1); SGOT/AST 194 U/L (15-37); SGPT/ALT 69 U/L (13-61); SODIUM 140 mmol/L (136-145); TOT PROT 7.2 g/dl (6.4-8.2)
[2018-07-21] MEDS: PRENATAL VITAMINS W/ FOLIC ACID TABLET (FP) PO SCH (10:15)
[2018-07-21] MEDS: amLODIPine BESYLATE 5 MG TABLET (FP) PO SCH ×2 (10:15→22:08)
[2018-07-21 10:20] LABS: HEMATOCRIT 36.5 % (35.4-49); MCH 34.2 pg (25.7-33.7); MCHC 35.7 g/dl (32.0-35.9); MEAN CELL VOLUME 95.8 fl (80-96); MEAN PLT VOLUME 7.9 fl (7.5-11.1); PLATELET COUNT 133 K/MM3 (134-434); RBC 3.81 M/mm3 (4.00-5.60); RDW 15.3 % (11.9-15.9); WHITE BLOOD COUNT 2.2 K/mm3 (4.0-10.0)
--- NOTE | 2018-07-21 11:43 | PN ---
S CIWA - CIWA Score Nausea/Vomitin-No Nausea/No Vomiting Muscle Tremors: 2 Anxiety: 3 Agitation: 3 Paroxysmal Sweats: 1-Minimal Palms Moist Orientation: 0-Oriented Tacttile Disturbances: 0-None Auditory Disturbances: 0-None Visual Disturbances: 0-None Headache: 0-None Present CIWA-Ar Total Score: 9 BHS Progress Note (SOAP) Subjective: PATIENT C/O MILD NIGHT SWEATS, ANXIETY, RESTLESSNESS AND NAUSEA. Objective: 07/21/18 11:40 Vital Signs Temperature 98.5 F 07/21/18 09:18 Pulse Rate 71 07/21/18 09:18 Respiratory Rate 18 07/21/18 09:18 Blood Pressure 137/74 07/21/18 09:18 O2 Sat by Pulse Oximetry (%) Laboratory Tests 07/21/18 07/21/18 07/21/18 07:00 07:00 07:00 WBC 2.2 L RBC 3.81 L Hgb 13.0 Hct 36.5 MCV 95.8 MCH 34.2 H MCHC 35.7 RDW 15.3 Plt Count 133 L D MPV 7.9 Sodium 140 Potassium 3.5 Chloride 100 Carbon Dioxide 31 Anion Gap 9 BUN 11 Creatinine 0.6 Creat Clearance w eGFR > 60 Random Glucose 90 Calcium 8.4 L Total Bilirubin 1.0 AST 194 H ALT 69 H Alkaline Phosphatase 297 H Total Protein 7.2 Albumin 3.2 L RPR Titer Nonreactive PE: ALERT AND ORIENTED X 3 SKIN WARM, MOISTURE TO PALMS CAR S1S2 RESP CTA BL GI + EPIGASTIC HERNIA, SOFT, BS+ EXT MILD TREMORS, NO EDEMA FULL ROM ANXIOUS Assessment: 07/21/18 11:41 WITHDRAWAL SX ELEVATED LFTS ABNORMALLY LOW WBC Plan: CONTINUE DETOX ENCOURAGE FLUIDS CHECK AMMONIA LEVEL AND REPEAT CMP REPEAT CBC MONITOR CLINICALLY
[2018-07-21] MEDS: THIAMINE HCL 100 MG TABLET (FP) PO SCH (22:08)
[2018-07-22] MEDS ORDERED: METHADONE HCL 10 MG TABLET ONE (04:51)
[2018-07-22] MEDS ORDERED: METHADONE HCL 40 MG DISPERSABLE TABLET ONE (04:52)
[2018-07-22] MEDS: chlordiazePOXIDE HCL 25 MG CAPSULE PO SCH ×3 (05:20→17:24)
[2018-07-22] MEDS: METHADONE 80 MG, METHADONE 10 MG PO SCH (05:21)
[2018-07-22] MEDS ORDERED: METHADONE HCL 10 MG TABLET PO SCH (06:00)
[2018-07-22] MEDS: amLODIPine BESYLATE 5 MG TABLET (FP) PO SCH ×2 (10:03→22:02)
[2018-07-22] MEDS: PRENATAL VITAMINS W/ FOLIC ACID TABLET (FP) PO SCH (10:03)
[2018-07-22 10:33] LABS: HEMATOCRIT 36.9 % (35.4-49); HEMOGLOBIN 12.1 GM/dL (11.7-16.9); MCH 31.8 pg (25.7-33.7); MCHC 32.7 g/dl (32.0-35.9); MEAN CELL VOLUME 97.4 fl (80-96); MEAN PLT VOLUME 7.8 fl (7.5-11.1); PLATELET COUNT 117 K/MM3 (134-434); RBC 3.79 M/mm3 (4.00-5.60); RDW 14.9 % (11.9-15.9); WHITE BLOOD COUNT 2.6 K/mm3 (4.0-10.0)
[2018-07-22 11:00] LABS: ALK PHOS 263 U/L (45-117); ANION GAP 7 MMOL/L (8-16); BILIRUBIN,TOTAL 1.2 mg/dL (0.2-1); BLOOD UREA NITROGEN 17 mg/dL (7-18); CALCIUM 8.6 mg/dL (8.5-10.1); CHLORIDE 103 mmol/L (98-107); CO2 29 mmol/L (21-32); CREATININE 0.7 mg/dL (0.55-1.3); GLUCOSE,RANDOM 100 mg/dL (74-106); SGOT/AST 202 U/L (15-37); SGPT/ALT 73 U/L (13-61); SODIUM 139 mmol/L (136-145); TOT PROT 6.8 g/dl (6.4-8.2)
--- NOTE | 2018-07-22 13:09 | PN ---
S CIWA - CIWA Score Nausea/Vomitin-No Nausea/No Vomiting Muscle Tremors: 1-None Visible, but [place] Anxiety: 2 Agitation: 3 Paroxysmal Sweats: No Perspiration Orientation: 0-Oriented Tacttile Disturbances: 0-None Auditory Disturbances: 0-None Visual Disturbances: 0-None Headache: 0-None Present CIWA-Ar Total Score: 6 BHS Progress Note (SOAP) Subjective: PATIENT C/O ANXIETY, RESTLESSNESS AND MILD SHAKES. Objective: 07/22/18 13:04 Vital Signs Temperature 98.5 F 07/22/18 09:25 Pulse Rate 75 07/22/18 09:25 Respiratory Rate 17 07/22/18 09:25 Blood Pressure 119/73 07/22/18 09:25 O2 Sat by Pulse Oximetry (%) Laboratory Tests 07/21/18 07/21/18 07/21/18 07:00 07:00 07:00 WBC 2.2 L RBC 3.81 L Hgb 13.0 Hct 36.5 MCV 95.8 MCH 34.2 H MCHC 35.7 RDW 15.3 Plt Count 133 L D MPV 7.9 Sodium 140 Potassium 3.5 Chloride 100 Carbon Dioxide 31 Anion Gap 9 BUN 11 Creatinine 0.6 Creat Clearance w eGFR > 60 Random Glucose 90 Calcium 8.4 L Total Bilirubin 1.0 AST 194 H ALT 69 H Alkaline Phosphatase 297 H Ammonia Total Protein 7.2 Albumin 3.2 L RPR Titer Nonreactive 07/22/18 07/22/18 07/22/18 07:00 07:00 07:00 WBC 2.6 L RBC 3.79 L Hgb 12.1 Hct 36.9 MCV 97.4 H MCH 31.8 MCHC 32.7 RDW 14.9 Plt Count 117 L MPV 7.8 Sodium 139 Potassium 4.0 Chloride 103 Carbon Dioxide 29 Anion Gap 7 L BUN 17 Creatinine 0.7 Creat Clearance w eGFR > 60 Random Glucose 100 Calcium 8.6 Total Bilirubin 1.2 H AST 202 H ALT 73 H Alkaline Phosphatase 263 H Ammonia 98.70 H Total Protein 6.8 Albumin 3.0 L RPR Titer PE: ALERT AND ORIENTED X 3 SKIN WARM AND DRY CAR S1S2 RESP CTA BL EXT FULL ROM, MILD TREMORS FELT MILD ANXIETY Assessment: 07/22/18 13:06 WITHDRAWAL SX ELEVATED AMMONIA LEVEL/LFTS 07/22/18 13:09 Plan: CONTINUE DETOX ENCOURAGE FLUIDS START LACTULOSE 20G TID REPEAT LFTS AND AMMONIA LEVEL IN AM CONTINUE TO MONITOR
[2018-07-22] MEDS: LACTULOSE 20 GM/30 ML UDC (FOR ORAL USE ONLY) PO SCH ×2 (14:55→22:02)
[2018-07-22] MEDS: chlordiazePOXIDE 5 MG CAPSULE PO SCH (22:01)
[2018-07-22] MEDS: THIAMINE HCL 100 MG TABLET (FP) PO SCH (22:01)
[2018-07-22] MEDS: MELATONIN 5 MG TABLETS PO PRN (22:02)
[2018-07-23] MEDS ORDERED: METHADONE HCL 10 MG TABLET ONE (04:42)
[2018-07-23] MEDS ORDERED: METHADONE HCL 40 MG DISPERSABLE TABLET ONE (04:42)
[2018-07-23] MEDS: LACTULOSE 20 GM/30 ML UDC (FOR ORAL USE ONLY) PO SCH ×3 (05:05→22:02)
[2018-07-23] MEDS: METHADONE 80 MG, METHADONE 10 MG PO SCH (05:05)
[2018-07-23] MEDS: chlordiazePOXIDE 5 MG CAPSULE PO SCH ×3 (05:05→17:09)
[2018-07-23] MEDS: PRENATAL VITAMINS W/ FOLIC ACID TABLET (FP) PO SCH (10:08)
[2018-07-23] MEDS: amLODIPine BESYLATE 5 MG TABLET (FP) PO SCH ×2 (10:08→22:02)
[2018-07-23 10:39] LABS: BILIRUBIN,DIRECT 0.4 mg/dL (0.0-0.2); BILIRUBIN,TOTAL 0.9 mg/dL (0.2-1); TOT PROT 6.8 g/dl (6.4-8.2)
--- NOTE | 2018-07-23 11:56 | PN ---
S Progress Note (SOAP) Subjective: feeling better little tremor less sweat patient reported that he has elevated liver enzyme on and off throughout the years patient agrees to continue lactulose for elevated ammonia serum level and presents lab results to methadone program medical provider as well as low wbc informed alcohol related liver problems Objective: 07/23/18 11:53 Vital Signs Temperature 96.8 F L 07/23/18 09:05 Pulse Rate 79 07/23/18 09:05 Respiratory Rate 18 07/23/18 09:05 Blood Pressure 123/68 07/23/18 09:05 O2 Sat by Pulse Oximetry (%) Laboratory Last Values WBC 2.6 K/mm3 (4.0-10.0) L 07/22/18 07:00 RBC 3.79 M/mm3 (4.00-5.60) L 07/22/18 07:00 Hgb 12.1 GM/dL (11.7-16.9) 07/22/18 07:00 Hct 36.9 % (35.4-49) 07/22/18 07:00 MCV 97.4 fl (80-96) H 07/22/18 07:00 MCH 31.8 pg (25.7-33.7) 07/22/18 07:00 MCHC 32.7 g/dl (32.0-35.9) 07/22/18 07:00 RDW 14.9 % (11.9-15.9) 07/22/18 07:00 Plt Count 117 K/MM3 (134-434) L 07/22/18 07:00 MPV 7.8 fl (7.5-11.1) 07/22/18 07:00 Sodium 139 mmol/L (136-145) 07/22/18 07:00 Potassium 4.0 mmol/L (3.5-5.1) 07/22/18 07:00 Chloride 103 mmol/L (98-107) 07/22/18 07:00 Carbon Dioxide 29 mmol/L (21-32) 07/22/18 07:00 Anion Gap 7 MMOL/L (8-16) L 07/22/18 07:00 BUN 17 mg/dL (7-18) 07/22/18 07:00 Creatinine 0.7 mg/dL (0.55-1.3) 07/22/18 07:00 Creat Clearance w eGFR > 60 (>60) 07/22/18 07:00 Random Glucose 100 mg/dL (74-106) 07/22/18 07:00 Calcium 8.6 mg/dL (8.5-10.1) 07/22/18 07:00 Total Bilirubin 0.9 mg/dL (0.2-1) 07/23/18 07:00 Direct Bilirubin 0.4 mg/dL (0.0-0.2) H 07/23/18 07:00 AST 216 U/L (15-37) H 07/23/18 07:00 ALT 86 U/L (13-61) H 07/23/18 07:00 Alkaline Phosphatase 257 U/L (45-117) H 07/23/18 07:00 Ammonia 82.48 umol/L (11-32) H 07/23/18 07:00 Total Protein 6.8 g/dl (6.4-8.2) 07/23/18 07:00 Albumin 3.0 g/dl (3.4-5.0) L 07/23/18 07:00 RPR Titer Nonreactive (NONREACTIVE) 07/21/18 07:00 lab noted inr Assessment: 07/23/18 11:56 mild withdrawal sx Plan: continue detox
[2018-07-23 21:31] LABS: INR 1.06 (0.83-1.09); PROTHROMBIN TIME (PATIENT) 12.5 SEC (9.7-13.0)
[2018-07-23] MEDS: THIAMINE HCL 100 MG TABLET (FP) PO SCH (22:02)
[2018-07-23] MEDS: MELATONIN 5 MG TABLETS PO PRN (22:02)
[2018-07-23] MEDS: chlordiazePOXIDE HCL 10 MG CAPSULE PO SCH (22:02)
[2018-07-24] MEDS: LACTULOSE 20 GM/30 ML UDC (FOR ORAL USE ONLY) PO SCH (05:23)
[2018-07-24] MEDS: chlordiazePOXIDE HCL 10 MG CAPSULE PO SCH (05:23)
[2018-07-24] MEDS ORDERED: METHADONE HCL 40 MG DISPERSABLE TABLET ONE (05:26)
[2018-07-24] MEDS ORDERED: METHADONE HCL 10 MG TABLET ONE (05:26)
[2018-07-24] MEDS: METHADONE 80 MG, METHADONE 10 MG PO SCH (05:27)
[2018-07-24 09:22] VITALS: BP 129/82; PULSE 82; TEMP 96.7
--- NOTE | 2018-07-24 09:37 | DS ---
[facility] Detox Discharge Summary Admission Date: 07/20/18 Discharge Date: 07/24/18 - History Present History: Alcohol Dependence Additional Comments: 58 years old male admitted on 07/20/18 for alcohol withdrawal stabilization completed detox regimen aftercare [facility] methadone program 90 mg po daily Pertinent Past History: patient preferred return to methadone program after completed alcohol detox regimen discussed alcohol related liver enzyme elevation - Physical Exam Results Vital Signs: Vital Signs Temperature 96.7 F L 07/24/18 09:22 Pulse Rate 82 07/24/18 09:22 Respiratory Rate 16 07/24/18 09:22 Blood Pressure 129/82 07/24/18 09:22 O2 Sat by Pulse Oximetry (%) Pertinent Admission Physical Exam Findings: alcohol withdrawal sx Laboratory Last Values WBC 2.6 K/mm3 (4.0-10.0) L 07/22/18 07:00 RBC 3.79 M/mm3 (4.00-5.60) L 07/22/18 07:00 Hgb 12.1 GM/dL (11.7-16.9) 07/22/18 07:00 Hct 36.9 % (35.4-49) 07/22/18 07:00 MCV 97.4 fl (80-96) H 07/22/18 07:00 MCH 31.8 pg (25.7-33.7) 07/22/18 07:00 MCHC 32.7 g/dl (32.0-35.9) 07/22/18 07:00 RDW 14.9 % (11.9-15.9) 07/22/18 07:00 Plt Count 117 K/MM3 (134-434) L 07/22/18 07:00 MPV 7.8 fl (7.5-11.1) 07/22/18 07:00 PT with INR 12.50 SEC (9.7-13.0) 07/23/18 15:20 INR 1.06 (0.83-1.09) 07/23/18 15:20 Sodium 139 mmol/L (136-145) 07/22/18 07:00 Potassium 4.0 mmol/L (3.5-5.1) 07/22/18 07:00 Chloride 103 mmol/L (98-107) 07/22/18 07:00 Carbon Dioxide 29 mmol/L (21-32) 07/22/18 07:00 Anion Gap 7 MMOL/L (8-16) L 07/22/18 07:00 BUN 17 mg/dL (7-18) 07/22/18 07:00 Creatinine 0.7 mg/dL (0.55-1.3) 07/22/18 07:00 Creat Clearance w eGFR > 60 (>60) 07/22/18 07:00 Random Glucose 100 mg/dL (74-106) 07/22/18 07:00 Calcium 8.6 mg/dL (8.5-10.1) 07/22/18 07:00 Total Bilirubin 0.9 mg/dL (0.2-1) 07/23/18 07:00 Direct Bilirubin 0.4 mg/dL (0.0-0.2) H 07/23/18 07:00 AST 216 U/L (15-37) H 07/23/18 07:00 ALT 86 U/L (13-61) H 07/23/18 07:00 Alkaline Phosphatase 257 U/L (45-117) H 07/23/18 07:00 Ammonia 82.48 umol/L (11-32) H 07/23/18 07:00 Total Protein 6.8 g/dl (6.4-8.2) 07/23/18 07:00 Albumin 3.0 g/dl (3.4-5.0) L 07/23/18 07:00 RPR Titer Nonreactive (NONREACTIVE) 07/21/18 07:00 lab noted a copy of lab results gave to the patient upon discharge patient agrees to follow up low wbc with methadone preogram - Treatment Hospital Course: Detox Protocol Followed, Detoxed Safely, Responded well, Discharged Condition Good, Rehab Referral Accepted Patient has Accepted a Rehab Referral to: methadone maintenaince program - Medication Discharge Medications: Ambulatory Orders Methadone [Dolophine -] 90 mg PO DAILY 03/25/18 Amlodipine Besylate [Norvasc -] 5 mg PO BID #30 tablet 07/23/18 Lactulose (Oral Use) [Cephulac -] 20 gm PO TID #1 udc 07/23/18 - Diagnosis (1) Alcohol dependence with uncomplicated withdrawal Current Visit: Yes Status: Acute (2) Liver enzyme elevation Current Visit: Yes Status: Chronic (3) Abnormal white blood cell (WBC) count Current Visit: Yes Status: Chronic (4) Nicotine dependence Current Visit: Yes Status: Acute Qualifiers: Nicotine product type: cigarettes Substance use status: in withdrawal Qualified Code(s): F17.213 - Nicotine dependence, cigarettes, with withdrawal (5) Methadone maintenance therapy patient Current Visit: Yes Status: Chronic (6) Drug-induced mood disorder Current Visit: Yes Status: Suspected - AMA Did Patient Leave Against Medical Advice: No
== END 2018-07-24 09:27 | disposition home or self-care (01) | DRG 773 ==
LOC: YASAS 14:01 → Y3N 18:29
PROC: HZ2ZZZZ Detoxification Services for Substance Abuse Treatment (ICD-10-PCS; principal; 2018-07-20)
DX: F10.230 Alcohol dependence with withdrawal, uncomplicated (principal); F11.20 Opioid dependence, uncomplicated; F17.213 Nicotine dependence, cigarettes, with withdrawal; F19.24 Other psychoactive substance dependence with psychoactive substance-induced mood disorder; R94.5 Abnormal results of liver function studies; D72.829 Elevated white blood cell count, unspecified; E72.20 Disorder of urea cycle metabolism, unspecified; L84 Corns and callosities; M19.90 Unspecified osteoarthritis, unspecified site; R26.2 Difficulty in walking, not elsewhere classified; Z99.89 Dependence on other enabling machines and devices
CPT/HCPCS: 36415; 80053; 80076; 82140; 85027; 85610; 86593

== ENCOUNTER 2018-08-23 09:56 | Inpatient (IN) | payer OTHER ==
[2018-08-23 10:38] VITALS: BMI 23.2
--- NOTE | 2018-08-23 11:39 | HP ---
CIWA Score Nausea/Vomitin Muscle Tremors: 4-Moderate,w/Arms Extend Anxiety: 2 Agitation: 0-Normal Activity Paroxysmal Sweats: No Perspiration Orientation: 0-Oriented Tacttile Disturbances: 0-None Auditory Disturbances: 1-Very Mild Visual Disturbances: 1-Very Mild Sensitivity Headache: 2-Mild CIWA-Ar Total Score: 13 - Admission Criteria OASAS Guidelines: Admission for Medically Managed Detox: Requires at least one of the followin. CIWA greater than 12 2. Seizures within the past 24 hours 3. Delirium tremens within the past 24 hours 4. Hallucinations within the past 24 hours 5. Acute intervention needed for co occurring medical disorder 6. Acute intervention needed for co occurring psychiatric disorder 7. Severe withdrawal that cannot be handled at a lower level of care (continued vomiting, continued diarrhea, abnormal vital signs) requiring intravenous medication and/or fluids 8. Patient presents the following: CIWA greater than 12 Admission Criteria Met: Admission criteria met Admission ROS [facility] Chief Complaint: I have to stop drinking, no good, I get sick Allergies/Adverse Reactions: Allergies Allergy/AdvReac Type Severity Reaction Status Date / Time No Known Allergies Allergy Verified 08/23/18 13:00 History of Present Illness: 58 yo gentleman here for detox from alcohol - one of multiple admissions for detox. Patient on [facility] Methadone program (90mg) and dosed today, states he goes every day, no take home bottles. No seizures, does have black outs. Drinks first thing in the morning. Noted likely has cirrhosis. States he is out of his lactulose and norvasc for two weeks. He is concerned about his protruding abdomen but says he had a 'test' done and they said it was not a hernia so he does not know why is stomach is like this. - Ebola screening Have you traveled outside of the country in the last 21 days: No (N) Have you had contact with anyone from an Ebola affected area: No Have you been sick,other than usual withdrawal symptoms: No Do you have a fever: No - Review of Systems Constitutional: Loss of Appetite, Night Sweats, Weakness EENT: reports: Blurred Vision Respiratory: reports: No Symptoms reported Cardiac: reports: No Symptoms Reported GI: reports: Nausea, Abdominal cramping : reports: Frequency Musculoskeletal: reports: Joint Pain, Other (right foot arthritis) Integumentary: reports: Dryness Neuro: reports: Headache, Tremors Endocrine: reports: No Symptoms Reported Hematology: reports: No Symptoms Reported Psychiatric: reports: Judgement Intact, Mood/Affect Appropiate, Orientated x3, Anxious Other Systems: Reviewed and Negative Patient History - Patient Medical History Hx Anemia: No (thrombocytopenia) Hx Asthma: No Hx Chronic Obstructive Pulmonary Disease (COPD): No Hx Cancer: No Hx Cardiac Disorders: No Hx Congestive Heart Failure: No Hx Hypertension: Yes (states when he drinks, does not take medicine) Hx Hypercholesterolemia: No Hx Pacemaker: No HX Cerebrovascular Accident: No Hx Seizures: No Hx Dementia: No Hx Diabetes: No Hx Gastrointestinal Disorders: No Hx Liver Disease: Yes (fatty Liver , cirrhosis, ? ascites) Hx Genitourinary Disorders: No Hx Sexually Transmitted Disorders: No Hx Renal Disease (ESRD): No Hx Thyroid Disease: No Hx Human Immunodeficiency Virus (HIV): No (LAST NEGATIVE PER PATIENT 12/2017, SCREENED AT [facility] ) Hx Hepatitis C: No Hx Depression: Yes (with anxiety) Hx Suicide Attempt: No Hx Bipolar Disorder: No Hx Schizophrenia: No Other Medical History: foot arthritis - need cane - Patient Surgical History Past Surgical History: No Hx Neurologic Surgery: No Hx Cataract Extraction: No Hx Cardiac Surgery: No Hx Lung Surgery: No Hx Breast Surgery: No Hx Breast Biopsy: No Hx Abdominal Surgery: No Hx Appendectomy: No Hx Cholecystectomy: No Hx Genitourinary Surgery: No Hx Section: No Hx Orthopedic Surgery: No Other Surgical History: HERNIA REPAIR-2009 Anesthesia Reaction: No - PPD History Previous Implant?: Yes Documented Results: Negative w/proof Implanted On Prior [facility] Admission?: Yes Date: 11/29/17 Results: 0 mm PPD to be Administered?: No - Reproductive History Patient is a Female of Child Bearing Age (11 -55 yrs old): No (male) - Smoking Cessation Smoking history: Former smoker Have you smoked in the past 12 months: No Aproximately how many cigarettes per day: 0 If you are a former smoker, when did you quit?: 2003 Cigars Per Day: 0 Hx Chewing Tobacco Use: No Initiated information on smoking cessation: No - Substance & Tx. History Hx Alcohol Use: Yes Hx Substance Use: Yes (on methadone program) Substance Use Type: Alcohol, Opiates Hx Substance Use Treatment: Yes (detox, rehab, methadone program) - Substances Abused alcohol Route: Oral Frequency: Daily Amount used: six 16 oz beers; 5 shots vodka Age of first use: 19 Date of Last Use: 08/23/18 Family Disease History - Family Disease History Family Disease History: Heart Disease: Father (, alcohol), Respiratory: Sister (four in [place], one [place], living , asthma), Other: Father, Mother ( living in [place] - not sure about her health), Brother (two living, ALCOHOL,), Sister, Son (one adult in [place]), Daughter (one adult in [place]) Admission Physical Exam [facility] - Vital Signs Vital Signs: Vital Signs - 24 hr 08/23/18 10:07 Temperature 97.4 F L Pulse Rate 65 Respiratory 18 Rate Blood Pressure 190/104 H - Physical General Appearance: Yes: Nourished, Appropriately Dressed, Moderate Distress, Tremorous, Anxious HEENTM: Yes: EOMI, Normocephalic, Normal Voice, Pharynx Normal, Hearing Decreased, Other (tongue coated) Respiratory: Yes: Normal Breath Sounds, No Respiratory Distress Neck: Yes: No masses,lesions,Nodules, Supple Breast: Yes: Breast Exam Deferred Cardiology: Yes: Regular Rhythm, Regular Rate Abdominal: Yes: Protuberent, Distended Genitourinary: Yes: Frequency Back: Yes: Decreased Range of Motion Musculoskeletal: Yes: full range of Motion, Gait Steady, Joint Stiffness, Other (uses cane, right foot pain/arthritis) Extremities: Yes: Normal Inspection, Non-Tender Neurological: Yes: Fully Oriented, Alert, Motor Strength 5/5, Normal Mood/Affect , Normal Response Integumentary: Yes: Normal Color, Dry, Warm Lymphatic: Yes: Within Normal Limits - Diagnostic (1) Alcohol dependence with uncomplicated withdrawal Current Visit: Yes Status: Chronic (2) Dry skin dermatitis Current Visit: Yes Status: Chronic (3) Methadone maintenance therapy patient Current Visit: Yes Status: Chronic Comment: [address] [facility] (4) Use of cane as ambulatory aid Current Visit: Yes Status: Chronic (5) Thrombocytopenia Current Visit: Yes Status: Acute (6) [place] (hard of hearing) Current Visit: Yes Status: Chronic Qualifiers: Hearing loss type: unspecified Laterality: right Qualified Code(s): H91.91 - Unspecified hearing loss, right ear (7) High blood pressure Current Visit: Yes Status: Acute Qualifiers: Hypertension type: essential hypertension Qualified Code(s): I10 - Essential (primary) hypertension (8) Cirrhosis of liver Current Visit: Yes Status: Suspected Cleared for Admission S - Detox or Rehab [facility] Level of Care: Medically Managed Detox Regimen/Protocol: Librium [facility] Breath Alcohol Content Breath Alcohol Content: 0.058 Urine Drug Screen - Results Drug Screen Negative: No Urine Drug Screen Results: MTD-Methadone Inpatient Rehab Admission - Rehab Decision to Admit Inpatient rehab admission?: No
[2018-08-23] MEDS ORDERED: LOPERAMIDE HCL 2 MG CAPSULE PO PRN (12:08)
[2018-08-23] MEDS ORDERED: MAG HYDROX/AL HYDROX/SIMETH 30 ML UNIT-DOSE CUP PO PRN (12:08)
[2018-08-23] MEDS ORDERED: MAGNESIUM HYDROX 2400MG/30ML ORAL SUSPENSION 30 ML CUP PO PRN (12:08)
[2018-08-23] MEDS ORDERED: guaiFENesin/D-METHORPHAN HB 10 ML UNIT-DOSE CUPS PO PRN (12:08)
[2018-08-23] MEDS ORDERED: ACETAMINOPHEN 325 MG TABLET (FP) PO PRN (12:08)
[2018-08-23] MEDS ORDERED: MAGNESIUM CITRATE 300 ML BOTTLE PO PRN (12:08)
[2018-08-23] MEDS ORDERED: chlordiazePOXIDE HCL 25 MG CAPSULE PO PRN (12:08)
[2018-08-23] MEDS ORDERED: MENTHOL/PHENOL 1 EACH UD MM PRN (12:08)
[2018-08-23] MEDS ORDERED: P-EPHED 60MG/TRIPROLIDI 2.5MG TABLET PO PRN (12:08)
[2018-08-23] MEDS: chlordiazePOXIDE HCL 25 MG CAPSULE PO SCH ×2 (21:41→23:09)
[2018-08-23] MEDS ORDERED: MELATONIN 5 MG TABLETS PO PRN (22:00)
[2018-08-23] MEDS: THIAMINE HCL 100 MG TABLET (FP) PO SCH (23:09)
[2018-08-24] MEDS: chlordiazePOXIDE HCL 25 MG CAPSULE PO SCH ×4 (05:49→22:21)
[2018-08-24 10:17] LABS: HEMATOCRIT 37.8 % (35.4-49); MCH 33.4 pg (25.7-33.7); MCHC 34.3 g/dl (32.0-35.9); MEAN CELL VOLUME 97.3 fl (80-96); MEAN PLT VOLUME 8.1 fl (7.5-11.1); PLATELET COUNT 100 K/MM3 (134-434); RBC 3.89 M/mm3 (4.00-5.60); RDW 14.2 % (11.9-15.9)
[2018-08-24 10:21] LABS: ALBUMIN 3.3 g/dl (3.4-5.0); ALK PHOS 273 U/L (45-117); ANION GAP 7 MMOL/L (8-16); BILIRUBIN,TOTAL 1.6 mg/dL (0.2-1); BLOOD UREA NITROGEN 12 mg/dL (7-18); CALCIUM 8.4 mg/dL (8.5-10.1); CHLORIDE 98 mmol/L (98-107); CO2 31 mmol/L (21-32); CREATININE 0.6 mg/dL (0.55-1.3); GLUCOSE,RANDOM 98 mg/dL (74-106); POTASSIUM 3.4 mmol/L (3.5-5.1); SGOT/AST 208 U/L (15-37); SGPT/ALT 81 U/L (13-61); SODIUM 136 mmol/L (136-145); TOT PROT 7.2 g/dl (6.4-8.2)
[2018-08-24] MEDS: PRENATAL VITAMINS W/ FOLIC ACID TABLET (FP) PO SCH (10:38)
[2018-08-24] MEDS ORDERED: METHADONE HCL 10 MG TABLET PO SCH (10:45)
[2018-08-24 11:12] LABS: WHITE BLOOD COUNT 1.8 K/mm3 (4.0-10.0)
[2018-08-24] MEDS ORDERED: METHADONE HCL 40 MG DISPERSABLE TABLET ONE (11:47)
[2018-08-24] MEDS ORDERED: METHADONE HCL 10 MG TABLET ONE (11:47)
[2018-08-24] MEDS: METHADONE 80 MG, METHADONE 10 MG PO SCH (11:50)
[2018-08-24] MEDS ORDERED: POTASSIUM CHLORIDE TABS 20 MEQ TABLET.ER (FP) PO ONE ×2 (15:39→21:00)
--- NOTE | 2018-08-24 15:53 | PN ---
[facility] CIWA - CIWA Score Nausea/Vomitin Muscle Tremors: 4-Moderate,w/Arms Extend Anxiety: 4-Mod. Anxious/Guarded Agitation: 4-Moderately Restless Paroxysmal Sweats: 3 Orientation: 0-Oriented Tacttile Disturbances: 0-None Auditory Disturbances: 0-None Visual Disturbances: 0-None Headache: 0-None Present CIWA-Ar Total Score: 17 BHS Progress Note (SOAP) Subjective: Anxious, interrupted sleep Objective: 08/24/18 15:45 Last Vital Signs Temp Pulse Resp BP Pulse Ox 97.0 F L 77 18 124/74 08/24/18 12:33 08/24/18 12:33 08/24/18 12:33 08/24/18 12:33 Laboratory Tests 08/24/18 08/24/18 08/24/18 07:45 07:45 07:45 WBC 1.8 L* RBC 3.89 L Hgb 13.0 Hct 37.8 MCV 97.3 H MCH 33.4 MCHC 34.3 RDW 14.2 Plt Count 100 L MPV 8.1 Sodium 136 Potassium 3.4 L Chloride 98 Carbon Dioxide 31 Anion Gap 7 L BUN 12 Creatinine 0.6 Creat Clearance w eGFR > 60 Random Glucose 98 Calcium 8.4 L Total Bilirubin 1.6 H AST 208 H ALT 81 H Alkaline Phosphatase 273 H Ammonia 64.65 H Total Protein 7.2 Albumin 3.3 L RPR Titer 08/24/18 07:45 WBC RBC Hgb Hct MCV MCH MCHC RDW Plt Count MPV Sodium Potassium Chloride Carbon Dioxide Anion Gap BUN Creatinine Creat Clearance w eGFR Random Glucose Calcium Total Bilirubin AST ALT Alkaline Phosphatase Ammonia Total Protein Albumin RPR Titer Nonreactive Labs reviewed: wbc 1.8, plt 100, K 3.4, elevated LFTs, elevated ammonia level of 64.65 Assessment: 08/24/18 15:47 Withdrawal symptoms Noted with leukopenia, thrombocytopenia, hypokalemia, elevated LFTs and hyperammonemia Plan: Continue detox Encouraged PO water hydration Leukopenia: asymptomatic, encouraged washing hands with soap and water, repeat CBC in AM Thrombocytopenia: repeat cbc in AM, might be related to alcohol dependence Hypokalemia, mild: K Dur 40 Meq PO x 2 doses (at least 4 hours apart), K Dur 20Meq PO daily start tomorrow, repeat serum K level in AM Elevated LFTs: could be r/t alcohol dependence and fatty liver; repeat hepatic panel in AM Hyperammonemia: start lactulose 20gm PO TID x 3 days, encouraged PO water hydration
[2018-08-24] MEDS: THIAMINE HCL 100 MG TABLET (FP) PO SCH (22:22)
[2018-08-24] MEDS: LACTULOSE 20 GM/30 ML UDC (FOR ORAL USE ONLY) PO SCH (22:22)
[2018-08-25] MEDS ORDERED: METHADONE HCL 10 MG TABLET ONE (05:26)
[2018-08-25] MEDS ORDERED: METHADONE HCL 40 MG DISPERSABLE TABLET ONE (05:26)
[2018-08-25] MEDS: chlordiazePOXIDE HCL 25 MG CAPSULE PO SCH ×2 (05:27→10:33)
[2018-08-25] MEDS: METHADONE 80 MG, METHADONE 10 MG PO SCH (05:27)
[2018-08-25] MEDS: LACTULOSE 20 GM/30 ML UDC (FOR ORAL USE ONLY) PO SCH ×3 (05:27→22:21)
[2018-08-25 10:00] LABS: BASO % 0.8 % (0-2.0); EOS % 1.4 % (0-4.5); HEMATOCRIT 35.5 % (35.4-49); HEMOGLOBIN 12.4 GM/dL (11.7-16.9); LYMPH % 25.1 % (8-40); MCH 34.1 pg (25.7-33.7); MCHC 34.8 g/dl (32.0-35.9); MEAN PLT VOLUME 8.1 fl (7.5-11.1); MONO % 11.8 % (3.8-10.2); NEUT % 60.9 % (42.8-82.8); PLATELET COUNT 105 K/MM3 (134-434); RBC 3.63 M/mm3 (4.00-5.60); RDW 14.2 % (11.9-15.9); WHITE BLOOD COUNT 2.7 K/mm3 (4.0-10.0)
[2018-08-25 10:15] LABS: ALBUMIN 3.1 g/dl (3.4-5.0); BILIRUBIN,DIRECT 0.4 mg/dL (0.0-0.2); BILIRUBIN,TOTAL 1.1 mg/dL (0.2-1); TOT PROT 6.8 g/dl (6.4-8.2)
[2018-08-25] MEDS: POTASSIUM CHLORIDE TABS 20 MEQ TABLET.ER (FP) PO SCH (10:32)
[2018-08-25] MEDS: PRENATAL VITAMINS W/ FOLIC ACID TABLET (FP) PO SCH (10:33)
--- NOTE | 2018-08-25 14:42 | PN ---
S CIWA - CIWA Score Nausea/Vomitin-No Nausea/No Vomiting Muscle Tremors: 3 Anxiety: 4-Mod. Anxious/Guarded Agitation: 1-Slight > Activity Paroxysmal Sweats: No Perspiration Orientation: 0-Oriented Tacttile Disturbances: 0-None Auditory Disturbances: 2-Mild Harshness/Frighten Visual Disturbances: 1-Very Mild Sensitivity Headache: 3-Moderate CIWA-Ar Total Score: 14 BHS Progress Note (SOAP) Subjective: Anxious, Body Aches, Tremors, H/A. Objective: PATIENT A & O X 2 (UNCERTAIN ABOUT CURRENT DAY / DATE). PATIENT OBSERVED AMBULATING ON UNIT WITH ASSISTANCE OF A CANE. IN NO ACUTE DISTRESS. 08/25/18 14:43 Vital Signs Temperature 98.2 F 08/25/18 13:28 Pulse Rate 67 08/25/18 13:28 Respiratory Rate 16 08/25/18 13:28 Blood Pressure 120/64 08/25/18 13:28 O2 Sat by Pulse Oximetry (%) Laboratory Tests 08/24/18 08/24/18 08/24/18 07:45 07:45 07:45 WBC 1.8 L* RBC 3.89 L Hgb 13.0 Hct 37.8 MCV 97.3 H MCH 33.4 MCHC 34.3 RDW 14.2 Plt Count 100 L MPV 8.1 Absolute Neuts (auto) Neutrophils % Lymphocytes % Monocytes % Eosinophils % Basophils % Nucleated RBC % Sodium 136 Potassium 3.4 L Chloride 98 Carbon Dioxide 31 Anion Gap 7 L BUN 12 Creatinine 0.6 Creat Clearance w eGFR > 60 Random Glucose 98 Calcium 8.4 L Total Bilirubin 1.6 H Direct Bilirubin AST 208 H ALT 81 H Alkaline Phosphatase 273 H Ammonia 64.65 H Total Protein 7.2 Albumin 3.3 L RPR Titer 08/24/18 08/25/18 08/25/18 07:45 07:50 07:50 WBC 2.7 L RBC 3.63 L Hgb 12.4 Hct 35.5 MCV 98.0 H MCH 34.1 H MCHC 34.8 RDW 14.2 Plt Count 105 L MPV 8.1 Absolute Neuts (auto) 1.6 Neutrophils % 60.9 Lymphocytes % 25.1 Monocytes % 11.8 H Eosinophils % 1.4 Basophils % 0.8 Nucleated RBC % 0 Sodium Potassium 4.0 Chloride Carbon Dioxide Anion Gap BUN Creatinine Creat Clearance w eGFR Random Glucose Calcium Total Bilirubin 1.1 H Direct Bilirubin 0.4 H AST 187 H ALT 78 H Alkaline Phosphatase 238 H Ammonia Total Protein 6.8 Albumin 3.1 L RPR Titer Nonreactive LABS NOTED. K LEVEL NOW NOTED TO BE WITHIN NORMAL RANGE. RESULTS OF REPEAT CBC LEVEL NOTED. MINOR IMPROVEMENT IN WBC LEVEL. PATIENT HAS HAD LOW WBC LEVELS ON PREVIOUS ADMISSIONS. 08/25/18 14:48 Assessment: 08/25/18 14:43 WITHDRAWAL SYMPTOMS. LEUKOPENIA. ELEVATED LIVER ENZYMES. HYPERAMMONEMIA. 08/25/18 14:47 Plan: CONTINUE DETOX. CONTINUE DETOX. INCREASE DAILY PO FLUID INTAKE. CONTINUE LACTULOSE PO. REPEAT AMMONIA LEVEL TOMORROW AM. REPEAT CBC TOMORROW AM FOR ADMISSION AND REPEAT ASSESSMENT ABNORMALITIES. DUE TO ELEVATED LIVER ENZYMES LEVELS ON ADMISSION AND ON REPEAT ASSESSMENT, PATIENT CHANGED FROM LIBRIUM DETOX PROTOCOL OVER TO ATIVAN DETOX PROTOCOL.
[2018-08-25] MEDS ORDERED: LORazepam 0.5 MG TABLET PO PRN (15:11)
[2018-08-25] MEDS ORDERED: chlordiazePOXIDE 5 MG CAPSULE PO SCH (17:00)
[2018-08-25] MEDS: LORazepam 1 MG TABLET PO SCH ×2 (17:20→22:21)
[2018-08-25] MEDS: THIAMINE HCL 100 MG TABLET (FP) PO SCH (22:21)
[2018-08-26] MEDS: LACTULOSE 20 GM/30 ML UDC (FOR ORAL USE ONLY) PO SCH ×3 (06:09→22:37)
[2018-08-26] MEDS: LORazepam 0.5 MG TABLET PO SCH ×4 (06:09→22:37)
[2018-08-26] MEDS: METHADONE 80 MG, METHADONE 10 MG PO SCH (06:10)
[2018-08-26] MEDS ORDERED: METHADONE HCL 10 MG TABLET ONE (06:10)
[2018-08-26] MEDS ORDERED: METHADONE HCL 40 MG DISPERSABLE TABLET ONE (06:10)
--- NOTE | 2018-08-26 09:58 | PN ---
S Progress Note (SOAP) Subjective: alert,irritable,anxious,interrupted sleep Objective: 08/26/18 09:56 Vital Signs Temperature 97.9 F 08/26/18 09:13 Pulse Rate 96 H 08/26/18 09:13 Respiratory Rate 18 08/26/18 09:13 Blood Pressure 135/75 08/26/18 09:13 O2 Sat by Pulse Oximetry (%) Assessment: 08/26/18 09:56 awaiting of repeat cmp and ammonia Plan: continue detox,continue lactulose
[2018-08-26] MEDS: PRENATAL VITAMINS W/ FOLIC ACID TABLET (FP) PO SCH (10:44)
[2018-08-26] MEDS: POTASSIUM CHLORIDE TABS 20 MEQ TABLET.ER (FP) PO SCH (10:44)
[2018-08-26 10:50] LABS: BASO % 0.6 % (0-2.0); EOS % 1.3 % (0-4.5); HEMATOCRIT 33.4 % (35.4-49); HEMOGLOBIN 11.3 GM/dL (11.7-16.9); MCH 33.5 pg (25.7-33.7); MEAN CELL VOLUME 98.7 fl (80-96); MEAN PLT VOLUME 8.3 fl (7.5-11.1); MONO % 10.5 % (3.8-10.2); NEUT % 63.6 % (42.8-82.8); PLATELET COUNT 101 K/MM3 (134-434); RBC 3.38 M/mm3 (4.00-5.60); RDW 14.1 % (11.9-15.9); WHITE BLOOD COUNT 2.4 K/mm3 (4.0-10.0)
[2018-08-26] MEDS ORDERED: chlordiazePOXIDE HCL 10 MG CAPSULE PO SCH (17:00)
[2018-08-26] MEDS: THIAMINE HCL 100 MG TABLET (FP) PO SCH (22:37)
[2018-08-27] MEDS ORDERED: METHADONE HCL 10 MG TABLET ONE (05:09)
[2018-08-27] MEDS ORDERED: METHADONE HCL 40 MG DISPERSABLE TABLET ONE (05:09)
[2018-08-27] MEDS ORDERED: LORazepam 0.5 MG TABLET PO ONE (06:00)
[2018-08-27] MEDS: METHADONE 80 MG, METHADONE 10 MG PO SCH (06:01)
[2018-08-27] MEDS: LACTULOSE 20 GM/30 ML UDC (FOR ORAL USE ONLY) PO SCH (06:09)
[2018-08-27 07:35] VITALS: BP 147/84; PULSE 79; TEMP 96.1
--- NOTE | 2018-08-27 09:06 | DS ---
[facility] Detox Discharge Summary Admission Date: 08/23/18 Discharge Date: 08/27/18 - History Present History: Alcohol Dependence, Opioid Dependence, MMTP - Physical Exam Results Vital Signs: Vital Signs Temperature 96.1 F L 08/27/18 07:35 Pulse Rate 79 08/27/18 07:35 Respiratory Rate 18 08/27/18 07:35 Blood Pressure 147/84 08/27/18 07:35 O2 Sat by Pulse Oximetry (%) - Treatment Hospital Course: Detox Protocol Followed, Detoxed Safely, Responded well, Discharged Condition Good, Rehab Referral Accepted - Medication Discharge Medications: Ambulatory Orders Methadone [Dolophine -] 90 mg PO DAILY 03/25/18 Amlodipine Besylate [Norvasc -] 5 mg PO BID #30 tablet 07/23/18 Lactulose (Oral Use) [Cephulac -] 20 gm PO TID #1 udc 07/23/18 - Diagnosis (1) Alcohol dependence with uncomplicated withdrawal Current Visit: Yes Status: Chronic (2) High blood pressure Current Visit: Yes Status: Chronic Qualifiers: Hypertension type: essential hypertension Qualified Code(s): I10 - Essential (primary) hypertension (3) Hyperammonemia Current Visit: Yes Status: Acute (4) LFT elevation Current Visit: Yes Status: Acute (5) Leukocytopenia, unspecified Current Visit: Yes Status: Acute Qualifiers: Neutropenia type: other drug-induced (6) Thrombocytopenia Current Visit: Yes Status: Resolved (7) Anxiety Current Visit: Yes Status: Chronic (8) Cocaine dependence Current Visit: Yes Status: Chronic Qualifiers: Substance use status: uncomplicated Qualified Code(s): F14.20 - Cocaine dependence, uncomplicated (9) Dry skin dermatitis Current Visit: Yes Status: Chronic (10) Fatty liver Current Visit: Yes Status: Chronic (11) CHILKAT (hard of hearing) Current Visit: Yes Status: Chronic Qualifiers: Hearing loss type: unspecified Laterality: right Qualified Code(s): H91.91 - Unspecified hearing loss, right ear (12) HTN (hypertension), benign Current Visit: Yes Status: Chronic (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 Current Visit: Yes Status: Chronic (14) Use of cane as ambulatory aid Current Visit: Yes Status: Chronic (15) Cirrhosis of liver Current Visit: Yes Status: Suspected Qualifiers: Hepatic cirrhosis type: unspecified hepatic cirrhosis Ascites presence: unspecified Qualified Code(s): K74.60 - Unspecified cirrhosis of liver (16) Arthritis Current Visit: No Status: Acute (17) Cough Current Visit: No Status: Acute (18) Hypokalemia Current Visit: No Status: Acute (19) Insomnia Current Visit: No Status: Acute Qualifiers: Insomnia type: alcohol-induced Qualified Code(s): F10.982 - Alcohol use, unspecified with alcohol-induced sleep disorder (20) Nicotine dependence Current Visit: No Status: Acute Qualifiers: Nicotine product type: cigarettes Substance use status: in withdrawal Qualified Code(s): F17.213 - Nicotine dependence, cigarettes, with withdrawal (21) Proteinuria Current Visit: No Status: Acute Qualifiers: Proteinuria type: isolated (22) Liver enzyme elevation Current Visit: No Status: Chronic (23) Opioid dependence on agonist therapy Current Visit: No Status: Chronic (24) Opioid dependence on agonist therapy Current Visit: No Status: Chronic (25) Syncope Current Visit: No Status: Chronic Qualifiers: Syncope type: unspecified Qualified Code(s): R55 - Syncope and collapse (26) Drug-induced mood disorder Current Visit: No Status: Suspected - AMA Did Patient Leave Against Medical Advice: No (pt declined; referred to his MMTP program)
== END 2018-08-27 09:12 | disposition home or self-care (01) | DRG 773 ==
LOC: YASAS 09:56 → Y6N 13:16
PROVIDERS: ADMIT Surgery; ATTEND Surgery
PROC: HZ2ZZZZ Detoxification Services for Substance Abuse Treatment (ICD-10-PCS; principal; 2018-08-23)
DX: F10.230 Alcohol dependence with withdrawal, uncomplicated (principal); F11.20 Opioid dependence, uncomplicated; F14.20 Cocaine dependence, uncomplicated; F17.213 Nicotine dependence, cigarettes, with withdrawal; F41.9 Anxiety disorder, unspecified; F19.24 Other psychoactive substance dependence with psychoactive substance-induced mood disorder; G47.00 Insomnia, unspecified; E87.6 Hypokalemia; I10 Essential (primary) hypertension; E72.20 Disorder of urea cycle metabolism, unspecified; R94.5 Abnormal results of liver function studies; D72.819 Decreased white blood cell count, unspecified; D69.6 Thrombocytopenia, unspecified; L85.3 Xerosis cutis; K76.0 Fatty (change of) liver, not elsewhere classified; H91.91 Unspecified hearing loss, right ear; M19.90 Unspecified osteoarthritis, unspecified site; R80.9 Proteinuria, unspecified; K74.60 Unspecified cirrhosis of liver; R26.2 Difficulty in walking, not elsewhere classified; Z99.89 Dependence on other enabling machines and devices
CPT/HCPCS: 36415; 80053; 80076; 82140; 84132; 85025; 85027; 86593

== ENCOUNTER 2018-09-28 13:02 | Inpatient (IN) | payer OTHER ==
[2018-09-28 13:39] VITALS: BMI 22.1
--- NOTE | 2018-09-28 14:31 | HP ---
CIWA Score Nausea/Vomitin Muscle Tremors: 2 Anxiety: 2 Agitation: 2 Paroxysmal Sweats: 2 Orientation: 0-Oriented Tacttile Disturbances: 1-Very Mild Itch/Numbness Auditory Disturbances: 1-Very Mild Visual Disturbances: 0-None Headache: 2-Mild CIWA-Ar Total Score: 14 - Admission Criteria OASAS Guidelines: Admission for Medically Managed Detox: Requires at least one of the followin. CIWA greater than 12 2. Seizures within the past 24 hours 3. Delirium tremens within the past 24 hours 4. Hallucinations within the past 24 hours 5. Acute intervention needed for co occurring medical disorder 6. Acute intervention needed for co occurring psychiatric disorder 7. Severe withdrawal that cannot be handled at a lower level of care (continued vomiting, continued diarrhea, abnormal vital signs) requiring intravenous medication and/or fluids 8. Admission ROS S - [facility] Chief Complaint: i need help to stop drinking alcohol Allergies/Adverse Reactions: Allergies Allergy/AdvReac Type Severity Reaction Status Date / Time No Known Allergies Allergy Verified 09/28/18 14:04 History of Present Illness: this 58 years old male with alcohol dependence,seeking detox,withdrawal symptom, multiple admissions in the past,last 08/23/18 to 08/27/18 syncope alcohol related arthritis of right knee,ambulation with cane mmtp 70 mgs/day,last medicated today no significant period of sobriety plan for rehab afer detox - Ebola screening Have you traveled outside of the country in the last 21 days: No (N) Have you had contact with anyone from an Ebola affected area: No Have you been sick,other than usual withdrawal symptoms: No Do you have a fever: No - Review of Systems Constitutional: Loss of Appetite, Malaise, Night Sweats, Changes in sleep, Weakness, Unintentional Wgt. Loss EENT: reports: Nose Congestion Respiratory: reports: No Symptoms reported Cardiac: reports: No Symptoms Reported GI: reports: Poor Appetite, Abdominal cramping : reports: No Symptoms Reported Musculoskeletal: reports: Back Pain, Muscle Pain, Other (arthritis of right knee ambulation with cane) Integumentary: reports: Dryness Neuro: reports: Headache, Tremors Endocrine: reports: No Symptoms Reported Hematology: reports: No Symptoms Reported Psychiatric: reports: No Sypmtoms Reported, Judgement Intact, Mood/Affect Appropiate, Orientated x3, other Other Systems: Reviewed and Negative Patient History - Patient Medical History Hx Anemia: No (thrombocytopenia) Hx Asthma: No Hx Chronic Obstructive Pulmonary Disease (COPD): No Hx Cancer: No Hx Cardiac Disorders: No Hx Congestive Heart Failure: No Hx Hypertension: Yes (currently not on medications) Hx Hypercholesterolemia: No Hx Pacemaker: No HX Cerebrovascular Accident: No Hx Seizures: No Hx Dementia: No Hx Diabetes: No Hx Gastrointestinal Disorders: No Hx Liver Disease: Yes (fatty Liver , cirrhosis, ? ascites) Hx Genitourinary Disorders: No Hx Sexually Transmitted Disorders: No Hx Renal Disease (ESRD): No Hx Thyroid Disease: No Hx Human Immunodeficiency Virus (HIV): No (LAST NEGATIVE PER PATIENT 12/2017, SCREENED AT [facility] ) Hx Hepatitis C: No Hx Depression: Yes (with anxiety) Hx Suicide Attempt: No Hx Bipolar Disorder: No Hx Schizophrenia: No Other Medical History: no suicidal,no homicidal,arthritis of right knee, ambulation with cane - Patient Surgical History Past Surgical History: Yes Hx Neurologic Surgery: No Hx Cataract Extraction: No Hx Cardiac Surgery: No Hx Lung Surgery: No Hx Breast Surgery: No Hx Breast Biopsy: No Hx Abdominal Surgery: No Hx Appendectomy: No Hx Cholecystectomy: No Hx Genitourinary Surgery: No Hx Section: No Hx Orthopedic Surgery: No Other Surgical History: HERNIA REPAIR-2009 left inguinal hernia Anesthesia Reaction: No - PPD History Previous Implant?: Yes Documented Results: Negative w/proof Implanted On Prior [facility] Admission?: Yes Date: 11/29/17 Results: 0 mm PPD to be Administered?: No - Smoking Cessation Smoking history: Former smoker Have you smoked in the past 12 months: No Aproximately how many cigarettes per day: 0 If you are a former smoker, when did you quit?: 2004 Cigars Per Day: 0 Hx Chewing Tobacco Use: No Initiated information on smoking cessation: Yes 'Breaking Loose' booklet given: 09/28/18 - Substance & Tx. History Hx Alcohol Use: Yes Hx Substance Use: Yes Substance Use Type: Alcohol Hx Substance Use Treatment: Yes ([facility] 08/23/18 to 08/27/18) - Substances Abused Alcohol Route: Oral Frequency: Daily Amount used: 5 nips of vodka, 6 cans of beer Age of first use: 19 Date of Last Use: 09/28/18 Family Disease History - Family Disease History Family Disease History: Heart Disease: Father (, alcohol), Respiratory: Sister (four in [place], one [place], living , asthma), Other: Father, Mother ( living in [place] - not sure about her health), Brother (two living, ALCOHOL,), Sister, Son (one adult in [place]), Daughter (one adult in [place]) Admission Physical Exam [facility] - Vital Signs Vital Signs: Vital Signs - 24 hr 09/28/18 13:32 Temperature 97.0 F L Pulse Rate 79 Respiratory 18 Rate Blood Pressure 161/78 - Physical General Appearance: Yes: Moderate Distress, Tremorous, Irritable, Sweating, Anxious HEENTM: Yes: Normal ENT Inspection, ANUM, Pharynx Normal Respiratory: Yes: Lungs Clear, Normal Breath Sounds, No Respiratory Distress Neck: Yes: Within Normal Limits, Supple, Trachea in good position Breast: Yes: Within Normal Limits Cardiology: Yes: Within Normal Limits, Regular Rhythm, Regular Rate, S1, S2 Abdominal: Yes: Within Normal Limits, Normal Bowel Sounds, Non Tender, Soft, Surgical Scar Back: Yes: Muscle Spasm Extremities: Yes: Tremors, Other (pain in the right knee cane for ambulation) Neurological: Yes: administrative support coordinator II-XII NML intact, Fully Oriented, Alert, Motor Strength 5/5 Integumentary: Yes: Dry Lymphatic: Yes: Within Normal Limits - Diagnostic (1) Alcohol dependence with uncomplicated withdrawal Current Visit: No Status: Chronic (2) Insomnia Current Visit: No Status: Acute Qualifiers: Insomnia type: alcohol-induced Qualified Code(s): F10.982 - Alcohol use, unspecified with alcohol-induced sleep disorder (3) Methadone maintenance therapy patient Current Visit: No Status: Chronic Comment: [address] [facility] (4) Syncope Current Visit: No Status: Chronic Qualifiers: Syncope type: unspecified Qualified Code(s): R55 - Syncope and collapse (5) Use of cane as ambulatory aid Current Visit: No Status: Chronic (6) Arthritis Current Visit: Yes Status: Acute Cleared for Admission S - Detox or Rehab [facility] Level of Care: Medically Managed Detox Regimen/Protocol: Librium [facility] Breath Alcohol Content Breath Alcohol Content: 0.037 Urine Drug Screen - Results Drug Screen Negative: No Urine Drug Screen Results: BZO-Benzodiazepines, MTD-Methadone Inpatient Rehab Admission - Rehab Decision to Admit Inpatient rehab admission?: No
[2018-09-28] MEDS ORDERED: MAGNESIUM CITRATE 300 ML BOTTLE PO PRN (14:42)
[2018-09-28] MEDS ORDERED: ACETAMINOPHEN 325 MG TABLET (FP) PO PRN ×2 (14:42)
[2018-09-28] MEDS ORDERED: BISMUTH SUBSALICYLATE 524 MG/30 ML UD PO PRN (14:42)
[2018-09-28] MEDS ORDERED: MENTHOL/PHENOL 1 EACH UD MM PRN (14:42)
[2018-09-28] MEDS ORDERED: METHOCARBAMOL 500 MG TABLET PO PRN (14:42)
[2018-09-28] MEDS ORDERED: chlordiazePOXIDE HCL 25 MG CAPSULE PO PRN (14:42)
[2018-09-28] MEDS ORDERED: IBUPROFEN 400 MG TABLET (FP) PO PRN (14:42)
[2018-09-28] MEDS ORDERED: hydrOXYzine PAMOATE 25 MG CAPSULE (FP) PO PRN (14:42)
[2018-09-28] MEDS ORDERED: MELATONIN 5 MG TABLETS PO PRN (14:42)
[2018-09-28] MEDS ORDERED: MAGNESIUM HYDROX 2400MG/30ML ORAL SUSPENSION 30 ML CUP PO PRN (14:42)
[2018-09-28] MEDS ORDERED: MAG HYDROX/AL HYDROX/SIMETH 30 ML UNIT-DOSE CUP PO PRN (14:42)
[2018-09-28] MEDS: chlordiazePOXIDE HCL 25 MG CAPSULE PO SCH ×2 (17:28→22:10)
[2018-09-28] MEDS: THIAMINE HCL 100 MG TABLET (FP) PO SCH (22:10)
[2018-09-29] MEDS: chlordiazePOXIDE HCL 25 MG CAPSULE PO SCH ×2 (05:25→10:50)
[2018-09-29] MEDS ORDERED: METHADONE HCL 10 MG TABLET PO ONE (08:25)
[2018-09-29] MEDS ORDERED: METHADONE 40 MG, METHADONE 30 MG PO ONE (08:35)
[2018-09-29 09:54] LABS: HEMATOCRIT 34.4 % (35.4-49); MCH 33.6 pg (25.7-33.7); MEAN PLT VOLUME 7.8 fl (7.5-11.1); PLATELET COUNT 100 K/MM3 (134-434); RBC 3.58 M/mm3 (4.00-5.60); RDW 13.6 % (11.9-15.9); WHITE BLOOD COUNT 2.2 K/mm3 (4.0-10.0)
[2018-09-29 10:28] LABS: ALK PHOS 442 U/L (45-117); ANION GAP 7 MMOL/L (8-16); BLOOD UREA NITROGEN 16 mg/dL (7-18); CALCIUM 8.2 mg/dL (8.5-10.1); CHLORIDE 99 mmol/L (98-107); CO2 30 mmol/L (21-32); CREATININE 0.7 mg/dL (0.55-1.3); GLUCOSE,RANDOM 88 mg/dL (74-106); POTASSIUM 3.3 mmol/L (3.5-5.1); SGOT/AST 394 U/L (15-37); SGPT/ALT 133 U/L (13-61); SODIUM 136 mmol/L (136-145); TOT PROT 6.6 g/dl (6.4-8.2)
[2018-09-29] MEDS: PRENATAL VITAMINS W/ FOLIC ACID TABLET (FP) PO SCH (10:48)
[2018-09-29] MEDS ORDERED: METHADONE HCL 40 MG DISPERSABLE TABLET ONE (10:51)
[2018-09-29] MEDS ORDERED: METHADONE HCL 10 MG TABLET ONE (10:51)
[2018-09-29] MEDS ORDERED: POTASSIUM CHLORIDE TABS 20 MEQ TABLET.ER (FP) PO ONE (14:25)
[2018-09-29] MEDS ORDERED: LORazepam 1 MG TABLET PO PRN (14:28)
[2018-09-29] MEDS ORDERED: amLODIPine BESYLATE 5 MG TABLET (FP) PO ONE (14:31)
--- NOTE | 2018-09-29 14:37 | PN ---
S CIWA - CIWA Score Nausea/Vomitin-No Nausea/No Vomiting Muscle Tremors: 2 Anxiety: 3 Agitation: 1-Slight > Activity Paroxysmal Sweats: 2 Orientation: 2-Disoriented Date<2 days Tacttile Disturbances: 0-None Auditory Disturbances: 1-Very Mild Visual Disturbances: 2-Mild Sensitivity Headache: 2-Mild CIWA-Ar Total Score: 15 BHS Progress Note (SOAP) Subjective: Tremors Sweating, Anxious, H/A. Objective: PATIENT A & O X 2 (UNCERTAIN ABOUT CURRENT DAY / DATE). PATIENT OBSERVED AMBULATING ON UNIT. IN NO ACUTE DISTRESS. 09/29/18 14:31 Vital Signs Temperature 98.1 F 09/29/18 13:23 Pulse Rate 74 09/29/18 13:23 Respiratory Rate 18 09/29/18 13:23 Blood Pressure 154/88 09/29/18 13:23 O2 Sat by Pulse Oximetry (%) Laboratory Tests 09/29/18 09/29/18 09/29/18 07:40 07:40 07:40 WBC 2.2 L RBC 3.58 L Hgb 12.0 Hct 34.4 L MCV 96.0 MCH 33.6 MCHC 35.0 RDW 13.6 Plt Count 100 L MPV 7.8 Sodium 136 Potassium 3.3 L Chloride 99 Carbon Dioxide 30 Anion Gap 7 L BUN 16 Creatinine 0.7 Creat Clearance w eGFR 115.43 Random Glucose 88 Calcium 8.2 L Total Bilirubin 1.0 AST 394 H ALT 133 H Alkaline Phosphatase 442 H Total Protein 6.6 Albumin 3.0 L RPR Titer Nonreactive LABS NOTED. Assessment: 09/29/18 14:32 WITHDRAWAL SYMPTOMS. PANCYTOPENIA. HYPOKALEMIA. ELEVATED LIVER ENZYMES. 09/29/18 14:32 Plan: CONRINUE DETOX. AMLODIPINE, 5 MG PO DAILY FOR ELEVATED BP (PATIENT WAS PRESCRIBED ON A PREVIOUS ADMISSION. DUE TO SIGNIFICANTLY ELEVATED LIVER ENZYME VALUES NOTED ON ADMISSION, CHANGE FROM LIBRIUM TO ATIVAN DETOX PROTOCOL. HFP ORDERED FOR TOMORROW. K-DUR, 20 MEQ PO BID FOR HYPOKALEMIA. RE-CHECK K LEVEL TOMORROW. AMMONIA LEVEL TOMORROW (PATIENT HAS HAD ELEVATED LEVELS ON PREVIOUS ADMISSIONS) AND PATIENT HAS HISTORY OF OUTPATIENT PRESCRIPTION OF LACTULOSE.
[2018-09-29] MEDS: LORazepam 2 MG TABLET PO SCH ×2 (17:00→22:17)
[2018-09-29] MEDS ORDERED: chlordiazePOXIDE HCL 25 MG CAPSULE PO SCH (17:00)
[2018-09-29] MEDS: POTASSIUM CHLORIDE TABS 20 MEQ TABLET.ER (FP) PO SCH (18:46)
[2018-09-29] MEDS: THIAMINE HCL 100 MG TABLET (FP) PO SCH (22:17)
[2018-09-30] MEDS ORDERED: METHADONE HCL 10 MG TABLET ONE (04:02)
[2018-09-30] MEDS ORDERED: METHADONE HCL 40 MG DISPERSABLE TABLET ONE (04:02)
[2018-09-30] MEDS: METHADONE 40 MG, METHADONE 30 MG PO SCH (05:31)
[2018-09-30] MEDS: LORazepam 1 MG TABLET PO SCH ×4 (05:31→22:15)
[2018-09-30] MEDS ORDERED: METHADONE HCL 40 MG DISPERSABLE TABLET PO SCH (06:00)
--- NOTE | 2018-09-30 10:05 | PN ---
S CIWA - CIWA Score Nausea/Vomitin Muscle Tremors: 2 Anxiety: 2 Agitation: 2 Paroxysmal Sweats: 1-Minimal Palms Moist Orientation: 0-Oriented Tacttile Disturbances: 1-Very Mild Itch/Numbness Auditory Disturbances: 1-Very Mild Visual Disturbances: 0-None Headache: 2-Mild CIWA-Ar Total Score: 13 BHS Progress Note (SOAP) Subjective: alert,irritable,anxious,interrupted sleep,tremor Objective: 09/30/18 10:02 Vital Signs Temperature 97.7 F 09/30/18 09:25 Pulse Rate 89 09/30/18 09:25 Respiratory Rate 18 09/30/18 09:25 Blood Pressure 113/63 09/30/18 09:25 O2 Sat by Pulse Oximetry (%) Laboratory Last Values WBC 2.2 K/mm3 (4.0-10.0) L 09/29/18 07:40 RBC 3.58 M/mm3 (4.00-5.60) L 09/29/18 07:40 Hgb 12.0 GM/dL (11.7-16.9) 09/29/18 07:40 Hct 34.4 % (35.4-49) L 09/29/18 07:40 MCV 96.0 fl (80-96) 09/29/18 07:40 MCH 33.6 pg (25.7-33.7) 09/29/18 07:40 MCHC 35.0 g/dl (32.0-35.9) 09/29/18 07:40 RDW 13.6 % (11.9-15.9) 09/29/18 07:40 Plt Count 100 K/MM3 (134-434) L 09/29/18 07:40 MPV 7.8 fl (7.5-11.1) 09/29/18 07:40 Sodium 136 mmol/L (136-145) 09/29/18 07:40 Potassium 3.3 mmol/L (3.5-5.1) L 09/29/18 07:40 Chloride 99 mmol/L (98-107) 09/29/18 07:40 Carbon Dioxide 30 mmol/L (21-32) 09/29/18 07:40 Anion Gap 7 MMOL/L (8-16) L 09/29/18 07:40 BUN 16 mg/dL (7-18) 09/29/18 07:40 Creatinine 0.7 mg/dL (0.55-1.3) 09/29/18 07:40 Creat Clearance w eGFR 115.43 (>60) 09/29/18 07:40 Random Glucose 88 mg/dL (74-106) 09/29/18 07:40 Calcium 8.2 mg/dL (8.5-10.1) L 09/29/18 07:40 Total Bilirubin 1.0 mg/dL (0.2-1) 09/29/18 07:40 AST 394 U/L (15-37) H 09/29/18 07:40 ALT 133 U/L (13-61) H 09/29/18 07:40 Alkaline Phosphatase 442 U/L (45-117) H 09/29/18 07:40 Ammonia 48.20 umol/L (11-32) H 09/30/18 07:00 Total Protein 6.6 g/dl (6.4-8.2) 09/29/18 07:40 Albumin 3.0 g/dl (3.4-5.0) L 09/29/18 07:40 RPR Titer Nonreactive (NONREACTIVE) 09/29/18 07:40 leukopenia,hypokalemia,elevation of ammonia,48.20,ast 394,ocd263,alk 442 Assessment: 09/30/18 10:03 withdrawal symptom Plan: continue detox,d/c tylenol,k replacement,lactulose 20 grams po tid,continue ativan detox,repeat liver enzymed pending
[2018-09-30] MEDS: PRENATAL VITAMINS W/ FOLIC ACID TABLET (FP) PO SCH (10:22)
[2018-09-30] MEDS: amLODIPine BESYLATE 5 MG TABLET (FP) PO SCH (10:22)
[2018-09-30] MEDS: POTASSIUM CHLORIDE TABS 20 MEQ TABLET.ER (FP) PO SCH ×2 (10:23→17:16)
[2018-09-30 11:53] LABS: ALBUMIN 2.8 g/dl (3.4-5.0); BILIRUBIN,DIRECT 0.6 mg/dL (0.0-0.2); BILIRUBIN,TOTAL 1.2 mg/dL (0.2-1); POTASSIUM 4.7 mmol/L (3.5-5.1)
[2018-09-30] MEDS: LACTULOSE 20 GM/30 ML UDC (FOR ORAL USE ONLY) PO SCH ×2 (14:07→22:16)
[2018-09-30] MEDS ORDERED: LORazepam 0.5 MG TABLET PO PRN (14:30)
[2018-09-30] MEDS ORDERED: chlordiazePOXIDE HCL 10 MG CAPSULE PO PRN (17:00)
[2018-09-30] MEDS ORDERED: chlordiazePOXIDE HCL 10 MG CAPSULE PO SCH (17:00)
[2018-09-30] MEDS: THIAMINE HCL 100 MG TABLET (FP) PO SCH (22:15)
[2018-10-01] MEDS ORDERED: METHADONE HCL 40 MG DISPERSABLE TABLET ONE (05:00)
[2018-10-01] MEDS ORDERED: METHADONE HCL 10 MG TABLET ONE (05:00)
[2018-10-01] MEDS: LACTULOSE 20 GM/30 ML UDC (FOR ORAL USE ONLY) PO SCH ×3 (06:12→22:04)
[2018-10-01] MEDS: METHADONE 40 MG, METHADONE 30 MG PO SCH (06:13)
[2018-10-01] MEDS: PRENATAL VITAMINS W/ FOLIC ACID TABLET (FP) PO SCH (10:57)
[2018-10-01] MEDS: POTASSIUM CHLORIDE TABS 20 MEQ TABLET.ER (FP) PO SCH ×2 (10:58→18:58)
[2018-10-01] MEDS: amLODIPine BESYLATE 5 MG TABLET (FP) PO SCH (10:58)
--- NOTE | 2018-10-01 14:59 | PN ---
BHS Progress Note (SOAP) Subjective: pt without complaints today, on alcohol detox protocol O: Vital Signs - 24 hr 09/30/18 09/30/18 10/01/18 17:23 21:44 00:30 Temperature 98.6 F 98.2 F Pulse Rate 83 90 Respiratory 16 18 18 Rate Blood Pressure 143/80 126/66 10/01/18 10/01/18 10/01/18 07:28 09:36 14:11 Temperature 98.1 F 97.1 F L 97.1 F L Pulse Rate 85 84 86 Respiratory 18 16 16 Rate Blood Pressure 145/91 113/72 119/78 Laboratory Tests 09/29/18 09/29/18 09/29/18 07:40 07:40 07:40 WBC 2.2 L RBC 3.58 L Hgb 12.0 Hct 34.4 L MCV 96.0 MCH 33.6 MCHC 35.0 RDW 13.6 Plt Count 100 L MPV 7.8 Sodium 136 Potassium 3.3 L Chloride 99 Carbon Dioxide 30 Anion Gap 7 L BUN 16 Creatinine 0.7 Creat Clearance w eGFR 115.43 Random Glucose 88 Calcium 8.2 L Total Bilirubin 1.0 Direct Bilirubin AST 394 H ALT 133 H Alkaline Phosphatase 442 H Ammonia Total Protein 6.6 Albumin 3.0 L RPR Titer Nonreactive 09/30/18 09/30/18 07:00 07:30 WBC RBC Hgb Hct MCV MCH MCHC RDW Plt Count MPV Sodium Potassium 4.7 Chloride Carbon Dioxide Anion Gap BUN Creatinine Creat Clearance w eGFR Random Glucose Calcium Total Bilirubin 1.2 H Direct Bilirubin 0.6 H AST 344 H ALT 130 H Alkaline Phosphatase 358 H Ammonia 48.20 H Total Protein 7.0 Albumin 2.8 L RPR Titer K normal elevated liver enzymes a/p: continue alcohol detox protocol
[2018-10-01] MEDS ORDERED: chlordiazePOXIDE HCL 10 MG CAPSULE PO SCH (17:00)
[2018-10-01] MEDS: LORazepam 0.5 MG TABLET PO SCH (18:58)
[2018-10-01] MEDS: THIAMINE HCL 100 MG TABLET (FP) PO SCH (22:04)
[2018-10-02] MEDS ORDERED: METHADONE HCL 10 MG TABLET ONE (04:27)
[2018-10-02] MEDS ORDERED: METHADONE HCL 40 MG DISPERSABLE TABLET ONE (04:27)
[2018-10-02] MEDS: METHADONE 40 MG, METHADONE 30 MG PO SCH (05:24)
[2018-10-02] MEDS: LORazepam 0.5 MG TABLET PO SCH ×2 (05:27→10:58)
[2018-10-02] MEDS: LACTULOSE 20 GM/30 ML UDC (FOR ORAL USE ONLY) PO SCH (05:28)
[2018-10-02 09:55] VITALS: BP 138/75; PULSE 80; TEMP 98.1
[2018-10-02] MEDS: POTASSIUM CHLORIDE TABS 20 MEQ TABLET.ER (FP) PO SCH (10:57)
[2018-10-02] MEDS: amLODIPine BESYLATE 5 MG TABLET (FP) PO SCH (10:58)
--- NOTE | 2018-10-02 11:17 | PN ---
S Progress Note (SOAP) Subjective: alert,no complaint Objective: 10/02/18 11:11 Vital Signs Temperature 98.1 F 10/02/18 09:54 Pulse Rate 80 10/02/18 09:54 Respiratory Rate 18 10/02/18 09:54 Blood Pressure 138/75 10/02/18 09:54 O2 Sat by Pulse Oximetry (%) Assessment: 10/02/18 11:11 detox completed,no withdrawal symptom Plan: discharge today,follow up with after care program as arrangement,patient is scheduled for [facility] but declined, [facility] for abnormal liver function test and leucopenia
--- NOTE | 2018-10-02 11:21 | DS ---
[facility] Detox Discharge Summary Admission Date: 09/28/18 Discharge Date: 10/02/18 - History Present History: Alcohol Dependence, MMTP Additional Comments: follow up with [facility] and [facility] clinic at [facility] Pertinent Past History: syncope arthritis insomnia leukopenia abnormal liver enzymes ambulation with cane - Physical Exam Results Vital Signs: Vital Signs Temperature 98.1 F 10/02/18 09:54 Pulse Rate 80 10/02/18 09:54 Respiratory Rate 18 10/02/18 09:54 Blood Pressure 138/75 10/02/18 09:54 O2 Sat by Pulse Oximetry (%) Pertinent Admission Physical Exam Findings: withdrawal signs and symptom - Treatment Hospital Course: Detox Protocol Followed, Detoxed Safely, Responded well, Discharged Condition Good Patient has Accepted a Rehab Referral to: declined - Medication Discharge Medications: Ambulatory Orders Methadone [Dolophine -] 70 mg PO DAILY 03/25/18 - Diagnosis (1) Alcohol dependence with uncomplicated withdrawal Current Visit: No Status: Chronic (2) Insomnia Current Visit: No Status: Acute Qualifiers: Insomnia type: alcohol-induced Qualified Code(s): F10.982 - Alcohol use, unspecified with alcohol-induced sleep disorder (3) Methadone maintenance therapy patient Current Visit: No Status: Chronic (4) Syncope Current Visit: No Status: Chronic Qualifiers: Syncope type: unspecified Qualified Code(s): R55 - Syncope and collapse (5) Use of cane as ambulatory aid Current Visit: No Status: Chronic (6) Arthritis Current Visit: Yes Status: Acute - AMA Did Patient Leave Against Medical Advice: No
== END 2018-10-02 11:25 | disposition home or self-care (01) | DRG 773 ==
LOC: YASAS 13:02 → Y6N 14:32
PROVIDERS: ADMIT Surgery; ATTEND Surgery
PROC: HZ2ZZZZ Detoxification Services for Substance Abuse Treatment (ICD-10-PCS; principal; 2018-09-28)
DX: F10.230 Alcohol dependence with withdrawal, uncomplicated (principal); F11.20 Opioid dependence, uncomplicated; F10.282 Alcohol dependence with alcohol-induced sleep disorder; F41.8 Other specified anxiety disorders; F32.9 Major depressive disorder, single episode, unspecified; E72.20 Disorder of urea cycle metabolism, unspecified; E87.6 Hypokalemia; D72.818 Other decreased white blood cell count; M12.9 Arthropathy, unspecified; R94.5 Abnormal results of liver function studies; R74.8 Abnormal levels of other serum enzymes; K76.0 Fatty (change of) liver, not elsewhere classified; K74.60 Unspecified cirrhosis of liver
CPT/HCPCS: 36415; 80053; 80076; 82140; 84132; 85027; 86593

== ENCOUNTER 2018-11-01 13:22 | Inpatient (IN) | payer OTHER ==
[2018-11-01 14:34] VITALS: BMI 22.9
--- NOTE | 2018-11-01 15:16 | HP ---
CIWA Score Nausea/Vomitin Muscle Tremors: 2 Anxiety: 2 Agitation: 1-Slight > Activity Paroxysmal Sweats: 1-Minimal Palms Moist Orientation: 1-Uncertain about Date Tacttile Disturbances: 2-Mild Itch/Numbness/Burn Auditory Disturbances: 0-None Visual Disturbances: 0-None Headache: 2-Mild CIWA-Ar Total Score: 13 - Admission Criteria OASAS Guidelines: Admission for Medically Managed Detox: Requires at least one of the followin. CIWA greater than 12 2. Seizures within the past 24 hours 3. Delirium tremens within the past 24 hours 4. Hallucinations within the past 24 hours 5. Acute intervention needed for co occurring medical disorder 6. Acute intervention needed for co occurring psychiatric disorder 7. Severe withdrawal that cannot be handled at a lower level of care (continued vomiting, continued diarrhea, abnormal vital signs) requiring intravenous medication and/or fluids 8. Patient presents the following: CIWA greater than 12 Admission Criteria Met: Admission criteria met Admission ROS S - [facility] Chief Complaint: I need help with alcohol Allergies/Adverse Reactions: Allergies Allergy/AdvReac Type Severity Reaction Status Date / Time No Known Allergies Allergy Verified 09/28/18 14:04 History of Present Illness: Patient is a 58 years old male with alcohol dependence who presents for detox. Patient has been to [facility] detox several times, almost on a monthly basis, his last treatment was in September.He denies alcohol related seizures but reports black outs. He walks with a cane due to severe OA of the knees, did not bring cane this admission. He is on methadone maintenance, currently receiving 70mg, last dose today.He denies periods of sobriety. Exam Limitations: No Limitations - Ebola screening Have you traveled outside of the country in the last 21 days: No (N) Have you had contact with anyone from an Ebola affected area: No Have you been sick,other than usual withdrawal symptoms: No Do you have a fever: No - Review of Systems Constitutional: Malaise, Changes in sleep, Weakness, Unintentional Wgt. Loss EENT: reports: No Symptoms Reported Respiratory: reports: No Symptoms reported Cardiac: reports: Lightheadedness (sometimes) GI: reports: Nausea, Poor Appetite, Abdominal cramping : reports: No Symptoms Reported Musculoskeletal: reports: Back Pain, Joint Pain Integumentary: reports: No Symptoms Reported Neuro: reports: Headache Endocrine: reports: No Symptoms Reported Hematology: reports: No Symptoms Reported Psychiatric: reports: No Sypmtoms Reported Other Systems: Reviewed and Negative Patient History - Patient Medical History Hx Anemia: No Hx Asthma: No Hx Chronic Obstructive Pulmonary Disease (COPD): No Hx Cancer: No Hx Cardiac Disorders: No Hx Congestive Heart Failure: No Hx Hypertension: Yes Hx Hypercholesterolemia: No Hx Pacemaker: No HX Cerebrovascular Accident: No Hx Seizures: No Hx Dementia: No Hx Diabetes: No Hx Gastrointestinal Disorders: No Hx Liver Disease: Yes (fatty Liver , cirrhosis, ascites) Hx Genitourinary Disorders: No Hx Sexually Transmitted Disorders: No Hx Renal Disease (ESRD): No Hx Thyroid Disease: No Hx Human Immunodeficiency Virus (HIV): No Hx Hepatitis C: No Hx Depression: No Hx Suicide Attempt: No Hx Bipolar Disorder: No Hx Schizophrenia: No - Patient Surgical History Past Surgical History: Yes Hx Neurologic Surgery: No Hx Cataract Extraction: No Hx Cardiac Surgery: No Hx Lung Surgery: No Hx Breast Surgery: No Hx Breast Biopsy: No Hx Abdominal Surgery: No Hx Appendectomy: No Hx Cholecystectomy: No Hx Genitourinary Surgery: No Hx Section: No Hx Orthopedic Surgery: No Other Surgical History: 2009 left inguinal hernia repair Anesthesia Reaction: No - PPD History Previous Implant?: Yes Documented Results: Negative w/proof Implanted On Prior [facility] Admission?: Yes Date: 11/29/17 Results: 0 mm PPD to be Administered?: No - Smoking Cessation Smoking history: Former smoker Have you smoked in the past 12 months: No Aproximately how many cigarettes per day: 0 If you are a former smoker, when did you quit?: 2004 Cigars Per Day: 0 Hx Chewing Tobacco Use: No Initiated information on smoking cessation: No - Substances abused Alcohol Substance route: Oral Frequency: Daily Amount used: 6 beers and 5 shots of voldka. Age of first use: 19 Date of last use: 11/01/18 Family Disease History - Family Disease History Family Disease History: Heart Disease: Father (, alcohol), Respiratory: Sister (four in [place], one [place], living , asthma), Other: Father, Mother ( living in [place] - not sure about her health), Brother (two living, ALCOHOL,), Sister, Son (one adult in [place]), Daughter (one adult in [place]) Admission Physical Exam [facility] - Vital Signs Vital Signs: Vital Signs - 24 hr 11/01/18 14:19 Temperature 97.7 F Pulse Rate 80 Respiratory 18 Rate Blood Pressure 151/88 - Physical General Appearance: Yes: No Apparent Distress HEENTM: Yes: Hearing grossly Normal, Normocephalic, Normal Voice Respiratory: Yes: Chest Non-Tender, Lungs Clear, Normal Breath Sounds, No Respiratory Distress, No Accessory Muscle Use Neck: Yes: No masses,lesions,Nodules Breast: Yes: Breast Exam Deferred Cardiology: Yes: Regular Rhythm, Regular Rate Abdominal: Yes: Normal Bowel Sounds, Distended (r/t ascites), Other (Firm with telangiectasia) Genitourinary: Yes: Within Normal Limits Back: Yes: Normal Inspection Musculoskeletal: Yes: Back pain, Other (OA joint pain) Extremities: Yes: Non-Tender Neurological: Yes: bilingual inside sales representative II-XII NML intact, Fully Oriented, Alert, Normal Mood/ Affect, Normal Response Integumentary: Yes: Clammy, Other (multiple tattoos) Lymphatic: Yes: Within Normal Limits - Diagnostic (1) Ascites Current Visit: Yes Status: Chronic Qualifiers: Ascites type: due to alcoholic cirrhosis Qualified Code(s): K70.31 - Alcoholic cirrhosis of liver with ascites (2) Alcohol dependence with uncomplicated withdrawal Current Visit: Yes Status: Acute (3) Methadone maintenance therapy patient Current Visit: No Status: Chronic Comment: [address] [facility] (4) Cirrhosis of liver Current Visit: No Status: Suspected Qualifiers: Hepatic cirrhosis type: unspecified hepatic cirrhosis Ascites presence: unspecified Qualified Code(s): K74.60 - Unspecified cirrhosis of liver Cleared for Admission [facility] - Detox or Rehab [facility] Level of Care: Medically Managed Detox Regimen/Protocol: Librium Breathalyzer - Breathalyzer Breathalyzer: 0.035 Urine Drug Screen - Test Device Lot number: [id number] Expiration date: 06/13/20 - Results Drug screen NEGATIVE: No Urine drug screen results: MTD-Methadone Inpatient Rehab Admission - Rehab Decision to Admit Inpatient rehab admission?: No - Initial Determination Are CD services needed?: Yes Free of communicable disease: Yes Not in need of hospitalization: Yes
[2018-11-01] MEDS ORDERED: MENTHOL/PHENOL 1 EACH UD MM PRN (15:31)
[2018-11-01] MEDS ORDERED: METHOCARBAMOL 500 MG TABLET PO PRN (15:31)
[2018-11-01] MEDS ORDERED: ACETAMINOPHEN 325 MG TABLET (FP) PO PRN (15:31)
[2018-11-01] MEDS ORDERED: MAGNESIUM CITRATE 300 ML BOTTLE PO PRN (15:31)
[2018-11-01] MEDS ORDERED: IBUPROFEN 400 MG TABLET (FP) PO PRN (15:31)
[2018-11-01] MEDS ORDERED: BISMUTH SUBSALICYLATE 524 MG/30 ML UD PO PRN (15:31)
[2018-11-01] MEDS ORDERED: hydrOXYzine PAMOATE 50 MG CAPSULE (FP) PO PRN (15:31)
[2018-11-01] MEDS ORDERED: chlordiazePOXIDE HCL 25 MG CAPSULE PO ONE (15:31)
[2018-11-01] MEDS ORDERED: MAGNESIUM HYDROX 2400MG/30ML ORAL SUSPENSION 30 ML CUP PO PRN (15:31)
[2018-11-01] MEDS ORDERED: ONDANSETRON *ODT* 4 MG TABLET SL PRN (15:31)
[2018-11-01] MEDS ORDERED: MAG HYDROX/AL HYDROX/SIMETH 30 ML UNIT-DOSE CUP PO PRN (15:31)
[2018-11-01] MEDS: chlordiazePOXIDE HCL 25 MG CAPSULE PO SCH (22:35)
[2018-11-01] MEDS: MELATONIN 5 MG TABLETS PO PRN (22:35)
[2018-11-01] MEDS: THIAMINE HCL 100 MG TABLET (FP) PO SCH (22:35)
[2018-11-02] MEDS: chlordiazePOXIDE HCL 25 MG CAPSULE PO SCH ×2 (05:11→14:00)
[2018-11-02] MEDS ORDERED: METHADONE HCL 10 MG TABLET PO SCH (09:15)
[2018-11-02] MEDS ORDERED: METHADONE HCL 10 MG TABLET ONE (09:48)
[2018-11-02] MEDS ORDERED: METHADONE HCL 40 MG DISPERSABLE TABLET ONE (09:49)
[2018-11-02] MEDS: METHADONE 40 MG, METHADONE 30 MG PO SCH (10:16)
[2018-11-02] MEDS: PRENATAL VITAMINS W/ FOLIC ACID TABLET (FP) PO SCH (10:16)
[2018-11-02 10:25] LABS: ALK PHOS 300 U/L (45-117); ANION GAP 5 MMOL/L (8-16); BILIRUBIN,TOTAL 1.6 mg/dL (0.2-1); BLOOD UREA NITROGEN 14 mg/dL (7-18); CALCIUM 8.5 mg/dL (8.5-10.1); CHLORIDE 100 mmol/L (98-107); CO2 31 mmol/L (21-32); CREATININE 0.6 mg/dL (0.55-1.3); GLUCOSE,RANDOM 96 mg/dL (74-106); POTASSIUM 3.7 mmol/L (3.5-5.1); SGOT/AST 229 U/L (15-37); SGPT/ALT 86 U/L (13-61); SODIUM 135 mmol/L (136-145); TOT PROT 6.8 g/dl (6.4-8.2)
[2018-11-02 10:32] LABS: HEMATOCRIT 33.6 % (35.4-49); HEMOGLOBIN 11.7 GM/dL (11.7-16.9); MCH 33.5 pg (25.7-33.7); MEAN CELL VOLUME 95.9 fl (80-96); MEAN PLT VOLUME 7.6 fl (7.5-11.1); PLATELET COUNT 95 K/MM3 (134-434)
[2018-11-02] MEDS: chlordiazePOXIDE HCL 10 MG CAPSULE PO PRN ×2 (10:42→17:40)
--- NOTE | 2018-11-02 12:37 | PN ---
[facility] CIWA - CIWA Score Nausea/Vomitin Muscle Tremors: 4-Moderate,w/Arms Extend Anxiety: 3 Agitation: 2 Paroxysmal Sweats: 3 Orientation: 0-Oriented Tacttile Disturbances: 0-None Auditory Disturbances: 0-None Visual Disturbances: 0-None Headache: 0-None Present CIWA-Ar Total Score: 14 [facility] Progress Note (SOAP) Subjective: Denies withdrawal symptoms at present, stating medication has been helping to keep withdrawal symptoms away; patient is anxious Objective: 11/02/18 12:34 Last Vital Signs Temp Pulse Resp BP Pulse Ox 97.5 F L 62 126 H 164/89 11/02/18 10:14 11/02/18 10:14 11/02/18 10:14 11/02/18 10:14 Tachycardia and elevated b/p noted (elevated pulse and b/p most likely r/t withdrawal; has h/o htn) Laboratory Tests 11/02/18 11/02/18 11/02/18 07:40 07:40 07:40 WBC 2.0 L RBC 3.50 L Hgb 11.7 Hct 33.6 L MCV 95.9 MCH 33.5 MCHC 35.0 RDW 14.0 Plt Count 95 L MPV 7.6 Sodium 135 L Potassium 3.7 Chloride 100 Carbon Dioxide 31 Anion Gap 5 L BUN 14 Creatinine 0.6 Creat Clearance w eGFR 137.90 Random Glucose 96 Calcium 8.5 Total Bilirubin 1.6 H AST 229 H ALT 86 H Alkaline Phosphatase 300 H Total Protein 6.8 Albumin 3.0 L RPR Titer Nonreactive Labs reviewed: pancytopenia and elevated LFTs noted most likely r/t alcohol dependence Assessment: 11/02/18 12:38 Withdrawal symptoms Noted with HTN, Elevated LFTs and Pancytopenia Plan: Continue detox Encouraged PO water hydration HTN, history of: start clonidine 0.1mg PO q8hr prn, start norvasc 5mg PO daily Elevated LFTs: most likely due to alcohol dependence, repeat AST, ALT, Alk phos , total bilirubin Pancytopenia most likely due to alcohol dependence: encouraged abstinence from alcohol, repeat CBC in AM
[2018-11-02] MEDS ORDERED: cloNIDine HCL 0.1 MG TABLET PO PRN (12:55)
[2018-11-02] MEDS: amLODIPine BESYLATE 5 MG TABLET (FP) PO SCH (13:40)
[2018-11-02] MEDS: chlordiazePOXIDE 5 MG CAPSULE PO SCH (22:02)
[2018-11-02] MEDS: THIAMINE HCL 100 MG TABLET (FP) PO SCH (22:03)
[2018-11-02] MEDS: MELATONIN 5 MG TABLETS PO PRN (22:03)
[2018-11-03] MEDS ORDERED: METHADONE HCL 40 MG DISPERSABLE TABLET ONE (04:01)
[2018-11-03] MEDS ORDERED: METHADONE HCL 10 MG TABLET ONE (04:01)
[2018-11-03] MEDS: chlordiazePOXIDE 5 MG CAPSULE PO SCH ×2 (05:43→13:16)
[2018-11-03] MEDS: METHADONE 40 MG, METHADONE 30 MG PO SCH (06:06)
[2018-11-03 09:45] LABS: BASO % 0.5 % (0-2.0); EOS % 1.3 % (0-4.5); HEMATOCRIT 34.5 % (35.4-49); HEMOGLOBIN 12.1 GM/dL (11.7-16.9); LYMPH % 24.2 % (8-40); MCH 33.6 pg (25.7-33.7); MCHC 34.9 g/dl (32.0-35.9); MEAN CELL VOLUME 96.3 fl (80-96); MONO % 10.3 % (3.8-10.2); NEUT % 63.7 % (42.8-82.8); PLATELET COUNT 107 K/MM3 (134-434); RBC 3.59 M/mm3 (4.00-5.60); RDW 14.3 % (11.9-15.9); WHITE BLOOD COUNT 3.2 K/mm3 (4.0-10.0)
[2018-11-03 09:50] LABS: BILIRUBIN,TOTAL 1.9 mg/dL (0.2-1)
[2018-11-03] MEDS: amLODIPine BESYLATE 5 MG TABLET (FP) PO SCH (10:12)
[2018-11-03] MEDS: PRENATAL VITAMINS W/ FOLIC ACID TABLET (FP) PO SCH (10:12)
[2018-11-03] MEDS: chlordiazePOXIDE HCL 10 MG CAPSULE PO PRN ×2 (10:16→18:27)
--- NOTE | 2018-11-03 11:07 | PN ---
S CIWA - CIWA Score Nausea/Vomitin-No Nausea/No Vomiting Muscle Tremors: 3 Anxiety: 3 Agitation: 2 Paroxysmal Sweats: No Perspiration Orientation: 0-Oriented Tacttile Disturbances: 0-None Auditory Disturbances: 0-None Visual Disturbances: 0-None Headache: 0-None Present CIWA-Ar Total Score: 8 [facility] Progress Note (SOAP) Subjective: PATIENT C/O ANXIETY, RESTLESSNESS AND SHAKES. Objective: 11/03/18 11:05 Laboratory Tests 11/02/18 11/02/18 11/02/18 07:40 07:40 07:40 WBC 2.0 L RBC 3.50 L Hgb 11.7 Hct 33.6 L MCV 95.9 MCH 33.5 MCHC 35.0 RDW 14.0 Plt Count 95 L MPV 7.6 Absolute Neuts (auto) Neutrophils % Lymphocytes % Monocytes % Eosinophils % Basophils % Nucleated RBC % Sodium 135 L Potassium 3.7 Chloride 100 Carbon Dioxide 31 Anion Gap 5 L BUN 14 Creatinine 0.6 Creat Clearance w eGFR 137.90 Random Glucose 96 Calcium 8.5 Total Bilirubin 1.6 H AST 229 H ALT 86 H Alkaline Phosphatase 300 H Total Protein 6.8 Albumin 3.0 L RPR Titer Nonreactive 11/03/18 11/03/18 07:45 07:45 WBC 3.2 L RBC 3.59 L Hgb 12.1 Hct 34.5 L MCV 96.3 H MCH 33.6 MCHC 34.9 RDW 14.3 Plt Count 107 L MPV 8.0 Absolute Neuts (auto) 2.1 Neutrophils % 63.7 Lymphocytes % 24.2 Monocytes % 10.3 H Eosinophils % 1.3 Basophils % 0.5 Nucleated RBC % 0 Sodium Potassium Chloride Carbon Dioxide Anion Gap BUN Creatinine Creat Clearance w eGFR Random Glucose Calcium Total Bilirubin 1.9 H AST 266 H ALT 91 H Alkaline Phosphatase 279 H Total Protein Albumin RPR Titer PE: ALERT AND ORIENTED X 3 SKIN WITH FACIAL FLUSHING +PERRLA, EOMS INTACT BL EXT WITH TREMORS, NO VISIBLE EDEMA Assessment: 11/03/18 11:06 ELEVATED LFTS ETOH WITHDRAWALS Plan: CONTINUED DETOX ENCOURAGE FLUIDS REPEAT CMP IN AM MONITOR CLINICALLY
[2018-11-03] MEDS ORDERED: chlordiazePOXIDE HCL 10 MG CAPSULE PO PRN (21:00)
[2018-11-03] MEDS: chlordiazePOXIDE HCL 10 MG CAPSULE PO SCH (22:02)
[2018-11-03] MEDS: MELATONIN 5 MG TABLETS PO PRN (22:03)
[2018-11-03] MEDS: THIAMINE HCL 100 MG TABLET (FP) PO SCH (22:03)
[2018-11-04] MEDS ORDERED: METHADONE HCL 40 MG DISPERSABLE TABLET ONE (04:33)
[2018-11-04] MEDS ORDERED: METHADONE HCL 10 MG TABLET ONE (04:33)
[2018-11-04] MEDS: chlordiazePOXIDE HCL 10 MG CAPSULE PO SCH (05:35)
[2018-11-04] MEDS: METHADONE 40 MG, METHADONE 30 MG PO SCH (06:10)
[2018-11-04 06:29] VITALS: BP 138/71; PULSE 62; TEMP 97
--- NOTE | 2018-11-04 08:47 | DS ---
[facility] Detox Discharge Summary Admission Date: 11/01/18 Discharge Date: 11/04/18 - History Present History: Alcohol Dependence, Cocaine Dependence - Physical Exam Results Vital Signs: Vital Signs Temperature 97.0 F L 11/04/18 06:29 Pulse Rate 62 11/04/18 06:29 Respiratory Rate 18 11/04/18 06:29 Blood Pressure 138/71 11/04/18 06:29 O2 Sat by Pulse Oximetry (%) - Treatment Hospital Course: Detox Protocol Followed, Detoxed Safely, Responded well, Discharged Condition Good, Rehab Referral Accepted - Medication Discharge Medications: Ambulatory Orders Methadone [Dolophine -] 70 mg PO DAILY 03/25/18 - Diagnosis (1) Alcohol dependence with uncomplicated withdrawal Current Visit: Yes Status: Chronic (2) Ascites Current Visit: Yes Status: Chronic Qualifiers: Ascites type: due to alcoholic cirrhosis Qualified Code(s): K70.31 - Alcoholic cirrhosis of liver with ascites (3) Arthritis Current Visit: No Status: Acute (4) Insomnia Current Visit: No Status: Acute Qualifiers: Insomnia type: alcohol-induced Qualified Code(s): F10.982 - Alcohol use, unspecified with alcohol-induced sleep disorder (5) Nicotine dependence Current Visit: Yes Status: Chronic Qualifiers: Nicotine product type: cigarettes Substance use status: uncomplicated Qualified Code(s): F17.210 - Nicotine dependence, cigarettes, uncomplicated (6) Pancytopenia Current Visit: No Status: Acute (7) Anxiety Current Visit: No Status: Chronic (8) Cocaine dependence Current Visit: Yes Status: Chronic Qualifiers: Substance use status: uncomplicated Qualified Code(s): F14.20 - Cocaine dependence, uncomplicated (9) SYCUAN (hard of hearing) Current Visit: No Status: Chronic Qualifiers: Hearing loss type: unspecified Laterality: right Qualified Code(s): H91.91 - Unspecified hearing loss, right ear (10) HTN (hypertension), benign Current Visit: No Status: Chronic (11) High blood pressure Current Visit: No Status: Chronic Qualifiers: Hypertension type: essential hypertension Qualified Code(s): I10 - Essential (primary) hypertension (12) Methadone maintenance therapy patient Current Visit: Yes Status: Chronic (13) Cirrhosis of liver Current Visit: No Status: Suspected Qualifiers: Hepatic cirrhosis type: unspecified hepatic cirrhosis Ascites presence: unspecified Qualified Code(s): K74.60 - Unspecified cirrhosis of liver (14) Drug-induced mood disorder Current Visit: No Status: Suspected - AMA Did Patient Leave Against Medical Advice: No (declined rehab; )
[2018-11-04 12:26] LABS: ALBUMIN 3.1 g/dl (3.4-5.0); ALK PHOS 263 U/L (45-117); ANION GAP 6 MMOL/L (8-16); BLOOD UREA NITROGEN 14 mg/dL (7-18); CALCIUM 8.9 mg/dL (8.5-10.1); CHLORIDE 102 mmol/L (98-107); CO2 30 mmol/L (21-32); CREATININE 0.6 mg/dL (0.55-1.3); GLUCOSE,RANDOM 105 mg/dL (74-106); POTASSIUM 4.4 mmol/L (3.5-5.1); SGOT/AST 280 U/L (15-37); SGPT/ALT 109 U/L (13-61); SODIUM 137 mmol/L (136-145); TOT PROT 6.7 g/dl (6.4-8.2)
== END 2018-11-04 09:19 | disposition home or self-care (01) | DRG 773 ==
LOC: YASAS 13:22 → Y6N 15:22
PROVIDERS: ADMIT Surgery; ATTEND Surgery
PROC: HZ2ZZZZ Detoxification Services for Substance Abuse Treatment (ICD-10-PCS; principal; 2018-11-01)
DX: F10.230 Alcohol dependence with withdrawal, uncomplicated (principal); F11.20 Opioid dependence, uncomplicated; F14.20 Cocaine dependence, uncomplicated; F17.210 Nicotine dependence, cigarettes, uncomplicated; F41.9 Anxiety disorder, unspecified; F19.24 Other psychoactive substance dependence with psychoactive substance-induced mood disorder; F19.282 Other psychoactive substance dependence with psychoactive substance-induced sleep disorder; I10 Essential (primary) hypertension; K70.31 Alcoholic cirrhosis of liver with ascites; M19.90 Unspecified osteoarthritis, unspecified site; H91.91 Unspecified hearing loss, right ear; K74.60 Unspecified cirrhosis of liver; R94.5 Abnormal results of liver function studies; R00.0 Tachycardia, unspecified
CPT/HCPCS: 36415; 80053; 82247; 84075; 84450; 84460; 85025; 85027; 86593

== ENCOUNTER 2018-11-23 16:27 | Inpatient (IN) | payer OTHER | END 2018-11-27 09:04 | disposition home or self-care (01) | LOC: YASAS 16:27 → Y6N 17:33 ==

== ENCOUNTER 2019-01-20 19:14 | Inpatient (IN) | payer OTHER ==
[2019-01-20 20:25] VITALS: BMI 21.4
--- NOTE | 2019-01-20 21:31 | HP ---
CIWA Score Nausea/Vomitin-Mild Nausea/No Vomiting Muscle Tremors: None Anxiety: 4-Mod. Anxious/Guarded Agitation: 4-Moderately Restless Paroxysmal Sweats: No Perspiration Orientation: 1-Uncertain about Date Tacttile Disturbances: 3-Moderate Itch/Numb/Burn Auditory Disturbances: 0-None Visual Disturbances: 3-Moderate Sensitivity Headache: 0-None Present CIWA-Ar Total Score: 16 - Admission Criteria OASAS Guidelines: Admission for Medically Managed Detox: Requires at least one of the followin. CIWA greater than 12 2. Seizures within the past 24 hours 3. Delirium tremens within the past 24 hours 4. Hallucinations within the past 24 hours 5. Acute intervention needed for co occurring medical disorder 6. Acute intervention needed for co occurring psychiatric disorder 7. Severe withdrawal that cannot be handled at a lower level of care (continued vomiting, continued diarrhea, abnormal vital signs) requiring intravenous medication and/or fluids 8. Patient presents the following: CIWA greater than 12 Admission Criteria Met: Admission criteria met Admission ROS S - [facility] Chief Complaint: SEEKING DETOX FOR C/O WITHDRAWAL SX'S Allergies/Adverse Reactions: Allergies Allergy/AdvReac Type Severity Reaction Status Date / Time No Known Allergies Allergy Verified 01/20/19 20:22 History of Present Illness: 59 Y.O. MALE WITH OPIOID AND ALCOHOL DEPENDENCE HERE FOR DETOX. HE IS ON MMTP 70 MG AT [facility]. LDM TODAY P/ VERIFICATION. HE REPORTS DAILY USE OF ALCOHOL. LAST HERE 11/2018 REPORTS RELAPSING LESS THAN 2 WEEKS AFTER DC. LONGEST CLEAN TIME 3 YEARS WHILE INCARCERATED. RELPASING 8 YEARS AGO. DENIES HX/O SZ D/O , +BLACKOUTS. HOMELESS, FOOD STAMPS, DENIES LEGALS Exam Limitations: Language Barrier (citizen of [place] speaking), Physical Impairment ( AMBULATES WITH CANE DUE TO WEAKNESS AND UNSTEADY GAIT) - Ebola screening Have you traveled outside of the country in the last 21 days: No (N) Have you had contact with anyone from an Ebola affected area: No Do you have a fever: No - Review of Systems Constitutional: Loss of Appetite, Changes in sleep EENT: reports: Dental Problems (DENTURES UPPER) Respiratory: reports: No Symptoms reported Cardiac: reports: No Symptoms Reported GI: reports: Poor Appetite, Abdominal cramping : reports: No Symptoms Reported Musculoskeletal: reports: Other (BBILAT FOOT PAIN) Integumentary: reports: No Symptoms Reported Neuro: reports: Unsteady Gait (AMBULATES WITH CANE) Endocrine: reports: No Symptoms Reported Hematology: reports: No Symptoms Reported Psychiatric: reports: Orientated x3 (X2), Agitated (IRRITABLE), Depressed ( DENIES SI) Other Systems: Reviewed and Negative Patient History - Patient Medical History Hx Anemia: No Hx Asthma: No Hx Chronic Obstructive Pulmonary Disease (COPD): No Hx Cancer: No Hx Cardiac Disorders: No Hx Congestive Heart Failure: No Hx Hypertension: No Hx Hypercholesterolemia: No Hx Pacemaker: No HX Cerebrovascular Accident: No Hx Seizures: No Hx Dementia: No Hx Diabetes: No Hx Gastrointestinal Disorders: Yes (epigastric hernia) Hx Liver Disease: Yes (fatty Liver , cirrhosis, ) Hx Genitourinary Disorders: No Hx Sexually Transmitted Disorders: No Hx Renal Disease (ESRD): No Hx Thyroid Disease: No Hx Human Immunodeficiency Virus (HIV): No Hx Hepatitis C: No Hx Depression: No Hx Suicide Attempt: No Hx Bipolar Disorder: No Hx Schizophrenia: No - Patient Surgical History Past Surgical History: Yes Hx Neurologic Surgery: No Hx Cataract Extraction: No Hx Cardiac Surgery: No Hx Lung Surgery: No Hx Breast Surgery: No Hx Breast Biopsy: No Hx Abdominal Surgery: No Hx Appendectomy: No Hx Cholecystectomy: No Hx Genitourinary Surgery: No Hx Section: No Hx Orthopedic Surgery: No Other Surgical History: 2009 left inguinal hernia repair Anesthesia Reaction: No - PPD History Previous Implant?: Yes Documented Results: Negative w/proof Implanted On Prior [facility] Admission?: Yes Date: 11/29/17 Results: 0 mm PPD to be Administered?: Yes - Smoking Cessation Smoking history: Former smoker Have you smoked in the past 12 months: No Aproximately how many cigarettes per day: 0 If you are a former smoker, when did you quit?: 2003 Cigars Per Day: 0 Hx Chewing Tobacco Use: No Initiated information on smoking cessation: No - Substance & Tx. History Hx Alcohol Use: Yes Hx Substance Use: Yes Substance Use Type: Alcohol Hx Substance Use Treatment: Yes ([facility]) - Substances abused Alcohol Substance route: Oral Frequency: Daily Amount used: 6 beers and 5 NIPS of voldka. Age of first use: 19 Date of last use: 01/20/19 Family Disease History - Family Disease History Family Disease History: Heart Disease: Father (, alcohol), Respiratory: Sister (four in [place], one [place], living , asthma), Other: Father, Mother ( living in [place] - not sure about her health), Brother (two living, ALCOHOL,), Sister, Son (one adult in [place]), Daughter (one adult in [place]) Admission Physical Exam [facility] - Vital Signs Vital Signs: Vital Signs - 24 hr 01/20/19 20:21 Temperature 97.2 F L Pulse Rate 64 Respiratory 18 Rate Blood Pressure 141/84 - Physical General Appearance: Yes: Alcohol on Breath, Irritable HEENTM: Yes: EOMI, Normocephalic, Normal Voice, ANUM, Pharynx Normal, Other ( DENTURES BOTH) Respiratory: Yes: Chest Non-Tender, Lungs Clear, Normal Breath Sounds, No Respiratory Distress, No Accessory Muscle Use Neck: Yes: No masses,lesions,Nodules, Supple, Trachea in good position Breast: Yes: Breast Exam Deferred Cardiology: Yes: Regular Rhythm, Regular Rate, S1, S2 Abdominal: Yes: Normal Bowel Sounds, Non Tender, Soft, Hernia Genitourinary: Yes: Within Normal Limits Back: Yes: Normal Inspection Musculoskeletal: Yes: full range of Motion Extremities: Yes: Within Normal Limits Neurological: Yes: Alert, Motor Strength 5/5, Normal Mood/Affect Integumentary: Yes: Other (DRY FLAKY SKIN) Lymphatic: Yes: Within Normal Limits - Diagnostic (1) Ambulates with cane Current Visit: Yes Status: Chronic (2) Alcohol dependence with uncomplicated withdrawal Current Visit: Yes Status: Acute (3) Methadone maintenance therapy patient Current Visit: Yes Status: Chronic Comment: [address] [facility] (4) Drug-induced mood disorder Current Visit: Yes Status: Suspected Cleared for Admission [facility] - Detox or Rehab [facility] Level of Care: Medically Managed Detox Regimen/Protocol: Librium Claeared for Rehab Admission: No Breathalyzer - Breathalyzer Breathalyzer: 0.115 Urine Drug Screen - Test Device Lot number: [id number] Expiration date: 11/11/20 - Control Is test valid?: Yes - Results Drug screen NEGATIVE: No Urine drug screen results: MTD-Methadone, BZO-Benzodiazepines Inpatient Rehab Admission - Rehab Decision to Admit Inpatient rehab admission?: No
[2019-01-20] MEDS ORDERED: MAGNESIUM HYDROX 2400MG/30ML ORAL SUSPENSION 30 ML CUP PO PRN (21:38)
[2019-01-20] MEDS ORDERED: IBUPROFEN 400 MG TABLET (FP) PO PRN (21:38)
[2019-01-20] MEDS ORDERED: METHOCARBAMOL 500 MG TABLET PO PRN (21:38)
[2019-01-20] MEDS ORDERED: ONDANSETRON *ODT* 4 MG TABLET SL PRN (21:38)
[2019-01-20] MEDS ORDERED: BISMUTH SUBSALICYLATE 524 MG/30 ML UD PO PRN (21:38)
[2019-01-20] MEDS ORDERED: MAGNESIUM CITRATE 300 ML BOTTLE PO PRN (21:38)
[2019-01-20] MEDS ORDERED: MAG HYDROX/AL HYDROX/SIMETH 30 ML UNIT-DOSE CUP PO PRN (21:38)
[2019-01-20] MEDS ORDERED: MENTHOL/PHENOL 1 EACH UD MM PRN (21:38)
[2019-01-20] MEDS ORDERED: hydrOXYzine PAMOATE 25 MG CAPSULE (FP) PO PRN (21:38)
[2019-01-20] MEDS ORDERED: ACETAMINOPHEN 325 MG TABLET (FP) PO PRN ×2 (21:38)
[2019-01-20] MEDS ORDERED: P-EPHED 60MG/TRIPROLIDI 2.5MG TABLET PO PRN (21:38)
[2019-01-20] MEDS: THIAMINE HCL 100 MG TABLET (FP) PO SCH (23:22)
[2019-01-20] MEDS: chlordiazePOXIDE HCL 25 MG CAPSULE PO SCH (23:22)
[2019-01-20] MEDS: MELATONIN 5 MG TABLETS PO PRN (23:24)
[2019-01-21 00:08] LABS: EPI CELLS 0.4 /HPF (0-5/HPF); HYALINE CASTS 5 /lpf (0-8); URINE APPEARANCE TURBID; URINE BACTERIA 0.5 /hpf (NEGATIVE); URINE BILIRUBIN NEGATIVE (NEGATIVE); URINE COLOR YELLOW; URINE GLUCOSE (UA) NEGATIVE (NEGATIVE); URINE KETONE NEGATIVE (NEGATIVE); URINE LEUK ESTERASE NEGATIVE (NEGATIVE); URINE NITRITE NEGATIVE (NEGATIVE); URINE PROTEIN 2+ (NEGATIVE); URINE RBC 1 /hpf (0-4); URINE WBC 0 /hpf (0-5)
[2019-01-21] MEDS: chlordiazePOXIDE HCL 25 MG CAPSULE PO SCH ×3 (06:17→22:24)
[2019-01-21] MEDS: chlordiazePOXIDE HCL 10 MG CAPSULE PO PRN ×2 (09:27→17:00)
[2019-01-21] MEDS: PRENATAL VITAMINS W/ FOLIC ACID TABLET (FP) PO SCH (09:27)
[2019-01-21] MEDS ORDERED: METHADONE HCL 40 MG DISPERSABLE TABLET ONE (09:41)
[2019-01-21] MEDS ORDERED: METHADONE HCL 10 MG TABLET ONE (09:41)
[2019-01-21] MEDS ORDERED: METHADONE 40 MG, METHADONE 30 MG PO ONE (09:45)
[2019-01-21] MEDS ORDERED: METHADONE HCL 10 MG TABLET PO ONE (10:00)
[2019-01-21 10:03] LABS: HEMATOCRIT 36.5 % (35.4-49); HEMOGLOBIN 12.3 GM/dL (11.7-16.9); MCH 32.8 pg (25.7-33.7); MCHC 33.7 g/dl (32.0-35.9); MEAN CELL VOLUME 97.4 fl (80-96); MEAN PLT VOLUME 7.5 fl (7.5-11.1); PLATELET COUNT 134 K/MM3 (134-434); RBC 3.75 M/mm3 (4.00-5.60); RDW 13.6 % (11.9-15.9); WHITE BLOOD COUNT 2.4 K/mm3 (4.0-10.0)
[2019-01-21 10:08] LABS: ALBUMIN 3.5 g/dl (3.4-5.0); BILIRUBIN,TOTAL 1.5 mg/dL (0.2-1); BLOOD UREA NITROGEN 15.7 mg/dL (7-18); CALCIUM 8.4 mg/dL (8.5-10.1); CREATININE 0.7 mg/dL (0.55-1.3); POTASSIUM 3.6 mmol/L (3.5-5.1); TOT PROT 7.5 g/dl (6.4-8.2)
[2019-01-21] MEDS ORDERED: cloNIDine HCL 0.1 MG TABLET PO PRN (10:36)
--- NOTE | 2019-01-21 10:43 | PN ---
S CIWA - CIWA Score Nausea/Vomitin-Mild Nausea/No Vomiting Muscle Tremors: 2 Anxiety: 3 Agitation: 3 Paroxysmal Sweats: 1-Minimal Palms Moist Orientation: 1-Uncertain about Date Tacttile Disturbances: 1-Very Mild Itch/Numbness Auditory Disturbances: 0-None Visual Disturbances: 0-None Headache: 2-Mild CIWA-Ar Total Score: 14 [facility] Progress Note (SOAP) Subjective: long history of hypertension none compliance with medication headaches tremor denies chest pain denies dizziness ambulate with cane received methadone 70 mg today Objective: 01/21/19 10:41 Vital Signs Temperature 96.8 F L 01/21/19 09:06 Pulse Rate 63 01/21/19 09:06 Respiratory Rate 20 01/21/19 09:06 Blood Pressure 140/75 01/21/19 09:06 O2 Sat by Pulse Oximetry (%) Laboratory Last Values WBC 2.4 K/mm3 (4.0-10.0) L 01/21/19 07:50 RBC 3.75 M/mm3 (4.00-5.60) L 01/21/19 07:50 Hgb 12.3 GM/dL (11.7-16.9) 01/21/19 07:50 Hct 36.5 % (35.4-49) 01/21/19 07:50 MCV 97.4 fl (80-96) H 01/21/19 07:50 MCH 32.8 pg (25.7-33.7) 01/21/19 07:50 MCHC 33.7 g/dl (32.0-35.9) 01/21/19 07:50 RDW 13.6 % (11.9-15.9) 01/21/19 07:50 Plt Count 134 K/MM3 (134-434) 01/21/19 07:50 MPV 7.5 fl (7.5-11.1) 01/21/19 07:50 Sodium 137 mmol/L (136-145) 01/21/19 07:50 Potassium 3.6 mmol/L (3.5-5.1) 01/21/19 07:50 Chloride 101 mmol/L (98-107) 01/21/19 07:50 Carbon Dioxide 31 mmol/L (21-32) 01/21/19 07:50 Anion Gap 6 MMOL/L (8-16) L 01/21/19 07:50 BUN 15.7 mg/dL (7-18) 01/21/19 07:50 Creatinine 0.7 mg/dL (0.55-1.3) 01/21/19 07:50 Est GFR (CKD-EPI)AfAm 118.88 01/21/19 07:50 Est GFR (CKD-EPI)NonAf 102.57 01/21/19 07:50 Random Glucose 120 mg/dL (74-106) H 01/21/19 07:50 Calcium 8.4 mg/dL (8.5-10.1) L 01/21/19 07:50 Total Bilirubin 1.5 mg/dL (0.2-1) H 01/21/19 07:50 AST 166 U/L (15-37) H 01/21/19 07:50 ALT 66 U/L (13-61) H 01/21/19 07:50 Alkaline Phosphatase 303 U/L (45-117) H 01/21/19 07:50 Total Protein 7.5 g/dl (6.4-8.2) 01/21/19 07:50 Albumin 3.5 g/dl (3.4-5.0) 01/21/19 07:50 Urine Color Yellow 01/20/19 22:38 Urine Appearance Turbid 01/20/19 22:38 Urine pH 5.0 (5.0-8.0) 01/20/19 22:38 Ur Specific [place] 1.020 (1.010-1.035) 01/20/19 22:38 Urine Protein 2+ (NEGATIVE) H 01/20/19 22:38 Urine Glucose (UA) Negative (NEGATIVE) 01/20/19 22:38 Urine Ketones Negative (NEGATIVE) 01/20/19 22:38 Urine Blood Trace (NEGATIVE) 01/20/19 22:38 Urine Nitrite Negative (NEGATIVE) 01/20/19 22:38 Urine Bilirubin Negative (NEGATIVE) 01/20/19 22:38 Urine Urobilinogen 1.0 mg/dL (0.2-1.0) 01/20/19 22:38 Ur Leukocyte Esterase Negative (NEGATIVE) 01/20/19 22:38 Urine WBC (Auto) 0 /hpf (0-5) 01/20/19 22:38 Urine RBC (Auto) 1 /hpf (0-4) 01/20/19 22:38 Urine Casts (Auto) 5 /lpf (0-8) 01/20/19 22:38 U Epithel Cells (Auto) 0.4 /HPF (0-5/HPF) 01/20/19 22:38 Urine Bacteria (Auto) 0.5 /hpf (NEGATIVE) 01/20/19 22:38 lab noted ast elevation discuss ativan as alcohol detox regimen 01/21/19 10:43 Assessment: 01/21/19 10:42 alcohol withdrawal sx hypertension Plan: continue alcohol detox repeat ast 01/13/19
[2019-01-21] MEDS: amLODIPine BESYLATE 10 MG TABLET (FP) PO SCH (11:38)
--- NOTE | 2019-01-21 15:54 | CONSULT ---
[facility] Psychiatric Consult - Data Date of interview: 01/21/19 Admission source: [facility] Identifying data: Patient is a 59 year old single male, without children, unemployed, resides with friend, and is not receiving financial assistance. This is one of multiple admissions for patient. Patient admitted to for alcohol dependence. Substance Abuse History: Smoking Cessation. Smoking history: Former smoker. Have you smoked in the past 12 months: No. Aproximately how many cigarettes per day: 0. If you are a former smoker, when did you quit?: 2003. Cigars Per Day: 0. Hx Chewing Tobacco Use: No. Initiated information on smoking cessation : No. - Substance & Tx. History. Hx Alcohol Use: Yes. Hx Substance Use: Yes. Substance Use Type: Alcohol. Hx Substance Use Treatment: Yes ([facility] - Substances abused. Alcohol. Substance route: Oral. Frequency: Daily. Amount used: 6 beers and 5 NIPS of voldka. Age of first use: 19. Date of last use: 01/20/19 Medical History: epigastric hernia, fatty Liver, cirrhosis, left inguinal hernia repair Psychiatric History: Patient's first psychiatric contact was approximately 8-10 years ago at [facility]. Reports being admitted after experiencing auditory hallucinations and having suicidal ideation. As per patient he was under the influence of illicit substances which caused him to have auditory hallucinations. States he was given medication that caused stiffness. He denies having another psychotic epioside after he was discharge from [facility]. Patient denies h/o outpatient psychiatric care and suicide attempt. States he only see's a psychiatric provider when admitted to detox/ rehab facilites. Patient reports stable mood and reports sleeping well last night. Physical/Sexual Abuse/Trauma History: denies. Mental Status Exam - Mental Status Exam Alert and Oriented to: Time, Place, Person Cognitive Function: Good Patient Appearance: Well Groomed Mood: Euthymic Affect: Appropriate Patient Behavior: Cooperative Speech Pattern: Appropriate Voice Loudness: Normal Thought Process: Intact, Goal Oriented Thought Disorder: Not Present Hallucinations: Denies Suicidal Ideation: Denies Homicidal Ideation: Denies Insight/Judgement: Poor Sleep: Fair Appetite: Fair Muscle strength/Tone: Normal Gait/Station: Other (Patient ambulates with a cane.) Psychiatric Findings - Problem List ([place] 1, 2,3) (1) Alcohol dependence with uncomplicated withdrawal Current Visit: Yes Status: Acute (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 Detoxification in progress. Observation.
[2019-01-21] MEDS: THIAMINE HCL 100 MG TABLET (FP) PO SCH (22:24)
[2019-01-21] MEDS: MELATONIN 5 MG TABLETS PO PRN (22:25)
[2019-01-22] MEDS ORDERED: METHADONE HCL 40 MG DISPERSABLE TABLET ONE (04:14)
[2019-01-22] MEDS ORDERED: METHADONE HCL 10 MG TABLET ONE (04:14)
[2019-01-22] MEDS: chlordiazePOXIDE 5 MG CAPSULE PO SCH ×3 (05:46→22:19)
[2019-01-22] MEDS: METHADONE 40 MG, METHADONE 30 MG PO SCH (05:47)
[2019-01-22] MEDS ORDERED: METHADONE HCL 10 MG TABLET PO SCH (06:00)
[2019-01-22] MEDS: PRENATAL VITAMINS W/ FOLIC ACID TABLET (FP) PO SCH (10:31)
[2019-01-22] MEDS: amLODIPine BESYLATE 10 MG TABLET (FP) PO SCH (10:31)
--- NOTE | 2019-01-22 11:18 | PN ---
[facility] CIWA - CIWA Score Nausea/Vomitin-Mild Nausea/No Vomiting Muscle Tremors: 3 Anxiety: 2 Agitation: 2 Paroxysmal Sweats: No Perspiration Orientation: 0-Oriented Tacttile Disturbances: 1-Very Mild Itch/Numbness Auditory Disturbances: 1-Very Mild Visual Disturbances: 0-None Headache: 0-None Present CIWA-Ar Total Score: 10 S Progress Note (SOAP) Subjective: 59 years old male admitted on 01/20/19 for alcohol withdrawal sx long history of ventral hernia and leukocytopenia monitoring by primary care provider in [place] denies pain had regular bowel movement x 1 earlier today + bowel sound no signs of hernia strangulation no vomiting ambulating with cane report doing well with librium detox protocol feeling better today Objective: 01/22/19 11:21 Vital Signs Temperature 97.7 F 01/22/19 10:47 Pulse Rate 70 01/22/19 10:47 Respiratory Rate 18 01/22/19 10:47 Blood Pressure 143/80 01/22/19 10:47 O2 Sat by Pulse Oximetry (%) Laboratory Last Values WBC 2.4 K/mm3 (4.0-10.0) L 01/21/19 07:50 RBC 3.75 M/mm3 (4.00-5.60) L 01/21/19 07:50 Hgb 12.3 GM/dL (11.7-16.9) 01/21/19 07:50 Hct 36.5 % (35.4-49) 01/21/19 07:50 MCV 97.4 fl (80-96) H 01/21/19 07:50 MCH 32.8 pg (25.7-33.7) 01/21/19 07:50 MCHC 33.7 g/dl (32.0-35.9) 01/21/19 07:50 RDW 13.6 % (11.9-15.9) 01/21/19 07:50 Plt Count 134 K/MM3 (134-434) 01/21/19 07:50 MPV 7.5 fl (7.5-11.1) 01/21/19 07:50 Sodium 137 mmol/L (136-145) 01/21/19 07:50 Potassium 3.6 mmol/L (3.5-5.1) 01/21/19 07:50 Chloride 101 mmol/L (98-107) 01/21/19 07:50 Carbon Dioxide 31 mmol/L (21-32) 01/21/19 07:50 Anion Gap 6 MMOL/L (8-16) L 01/21/19 07:50 BUN 15.7 mg/dL (7-18) 01/21/19 07:50 Creatinine 0.7 mg/dL (0.55-1.3) 01/21/19 07:50 Est GFR (CKD-EPI)AfAm 118.88 01/21/19 07:50 Est GFR (CKD-EPI)NonAf 102.57 01/21/19 07:50 Random Glucose 120 mg/dL (74-106) H 01/21/19 07:50 Calcium 8.4 mg/dL (8.5-10.1) L 01/21/19 07:50 Total Bilirubin 1.5 mg/dL (0.2-1) H 01/21/19 07:50 AST 166 U/L (15-37) H 01/21/19 07:50 ALT 66 U/L (13-61) H 01/21/19 07:50 Alkaline Phosphatase 303 U/L (45-117) H 01/21/19 07:50 Total Protein 7.5 g/dl (6.4-8.2) 01/21/19 07:50 Albumin 3.5 g/dl (3.4-5.0) 01/21/19 07:50 Urine Color Yellow 01/20/19 22:38 Urine Appearance Turbid 01/20/19 22:38 Urine pH 5.0 (5.0-8.0) 01/20/19 22:38 Ur Specific [place] 1.020 (1.010-1.035) 01/20/19 22:38 Urine Protein 2+ (NEGATIVE) H 01/20/19 22:38 Urine Glucose (UA) Negative (NEGATIVE) 01/20/19 22:38 Urine Ketones Negative (NEGATIVE) 01/20/19 22:38 Urine Blood Trace (NEGATIVE) 01/20/19 22:38 Urine Nitrite Negative (NEGATIVE) 01/20/19 22:38 Urine Bilirubin Negative (NEGATIVE) 01/20/19 22:38 Urine Urobilinogen 1.0 mg/dL (0.2-1.0) 01/20/19 22:38 Ur Leukocyte Esterase Negative (NEGATIVE) 01/20/19 22:38 Urine WBC (Auto) 0 /hpf (0-5) 01/20/19 22:38 Urine RBC (Auto) 1 /hpf (0-4) 01/20/19 22:38 Urine Casts (Auto) 5 /lpf (0-8) 01/20/19 22:38 U Epithel Cells (Auto) 0.4 /HPF (0-5/HPF) 01/20/19 22:38 Urine Bacteria (Auto) 0.5 /hpf (NEGATIVE) 01/20/19 22:38 RPR Titer Nonreactive (NONREACTIVE) 01/21/19 07:50 lab noted low wbc ast elevation repeat ast 01/23/19 and cbc 01/22/19 11:24 Assessment: 01/22/19 11:28 alcohol withdrawal sx Plan: continue alcohol detox
[2019-01-22] MEDS: THIAMINE HCL 100 MG TABLET (FP) PO SCH (22:18)
[2019-01-23] MEDS ORDERED: chlordiazePOXIDE HCL 10 MG CAPSULE PO PRN
[2019-01-23] MEDS ORDERED: METHADONE HCL 10 MG TABLET ONE (04:34)
[2019-01-23] MEDS ORDERED: METHADONE HCL 40 MG DISPERSABLE TABLET ONE (04:35)
[2019-01-23] MEDS: chlordiazePOXIDE HCL 10 MG CAPSULE PO SCH ×3 (06:01→21:57)
[2019-01-23] MEDS: METHADONE 40 MG, METHADONE 30 MG PO SCH (06:01)
[2019-01-23 10:33] LABS: MCHC 34.1 g/dl (32.0-35.9); MEAN PLT VOLUME 7.9 fl (7.5-11.1); WHITE BLOOD COUNT 2.8 K/mm3 (4.0-10.0)
[2019-01-23] MEDS: amLODIPine BESYLATE 10 MG TABLET (FP) PO SCH (10:42)
[2019-01-23] MEDS: PRENATAL VITAMINS W/ FOLIC ACID TABLET (FP) PO SCH (10:42)
[2019-01-23 10:57] LABS: HEMATOCRIT 34.7 % (35.4-49); HEMOGLOBIN 11.8 GM/dL (11.7-16.9); MCH 33.5 pg (25.7-33.7); MEAN CELL VOLUME 98.1 fl (80-96); PLATELET COUNT 128 K/MM3 (134-434); RBC 3.54 M/mm3 (4.00-5.60); RDW 13.7 % (11.9-15.9)
--- NOTE | 2019-01-23 14:35 | PN ---
S CIWA - CIWA Score Nausea/Vomitin Muscle Tremors: 2 Anxiety: 2 Agitation: 2 Paroxysmal Sweats: No Perspiration Orientation: 0-Oriented Tacttile Disturbances: 0-None Auditory Disturbances: 0-None Visual Disturbances: 0-None Headache: 2-Mild CIWA-Ar Total Score: 10 BHS Progress Note (SOAP) Subjective: alert,irritable,anxious,interrupted sleep,pain in the body Objective: 01/23/19 14:34 Vital Signs Temperature 96.9 F L 01/23/19 13:21 Pulse Rate 63 01/23/19 13:21 Respiratory Rate 18 01/23/19 13:21 Blood Pressure 144/75 01/23/19 13:21 O2 Sat by Pulse Oximetry (%) Assessment: 01/23/19 14:34 withdrawal symptom Plan: continue detox,discharge in am
[2019-01-23] MEDS: THIAMINE HCL 100 MG TABLET (FP) PO SCH (21:57)
[2019-01-24] MEDS ORDERED: METHADONE HCL 40 MG DISPERSABLE TABLET ONE (04:50)
[2019-01-24] MEDS ORDERED: METHADONE HCL 10 MG TABLET ONE (04:50)
[2019-01-24] MEDS ORDERED: chlordiazePOXIDE HCL 10 MG CAPSULE PO ONE (05:00)
[2019-01-24] MEDS: METHADONE 40 MG, METHADONE 30 MG PO SCH (05:41)
[2019-01-24 07:04] VITALS: BP 140/70; PULSE 68; TEMP 97.2
[2019-01-24] MEDS: PRENATAL VITAMINS W/ FOLIC ACID TABLET (FP) PO SCH (09:01)
[2019-01-24] MEDS: amLODIPine BESYLATE 10 MG TABLET (FP) PO SCH (09:01)
--- NOTE | 2019-01-24 16:25 | DS ---
[facility] Detox Discharge Summary Admission Date: 01/20/19 Discharge Date: 01/24/19 - History Present History: Alcohol Dependence, Opioid Dependence, MMTP Additional Comments: PATIENT RETURNING TO [facility] ([place], [place]) , WHERE HE HAS PREVIOUSLY BEEN A CLIENT, FOR AFTER CARE. PATIENT ALSO REFERRED TO [facility] ([place], [place]) FOR AFTERCARE. PATIENT ADVISED TO FOLLOW-UP WITH WINDOWS DEPLOYMENT TECHNICIAN AFTER DISCHARGE FROM DETOX FOR GENERAL MEDICAL ASSESSMENT AND FOR ELEVATED LIVER ENZYMES AND BILIRUBIN LEVELS AND FOR LOW WBC AND PLATELET LEVELS NOTED ON DETOX ADMISSION LABORATORY ASSESSMENT AND FOR HISTORY OF LIVER DISEASE. PATIENT VERBALIZED UNDERSTANDING OF RECOMMENDATION. COPIES OF RESULTS OF ALL LABS DRAWN WHILE ADMITTED FOR DETOX GIVEN TO PATIENT AT TIME OF DISCHARGE FROM DETOX UNIT. PATIENT WAS DISCHARGED FROM DETOX UNIT IN STABLE MEDICAL CONDITION. Pertinent Past History: HTN, History Of Fatty Liver, History Of Liver Cirrhosis, History Of Epigastric Hernia, MMTP, Hyperbilirubinemia, Elevated Liver Anzymes, Anemia, Leukopenia, Thronbocytopenia, Use Of Cane As Ambulatory Aid. - Physical Exam Results Vital Signs: Vital Signs Temperature 97.2 F L 01/24/19 07:04 Pulse Rate 68 01/24/19 07:04 Respiratory Rate 18 01/24/19 07:04 Blood Pressure 140/70 01/24/19 07:04 O2 Sat by Pulse Oximetry (%) Pertinent Admission Physical Exam Findings: WITHDRAWAL SYMPTOMS. Laboratory Tests 01/20/19 01/21/19 01/21/19 22:38 07:50 07:50 WBC 2.4 L RBC 3.75 L Hgb 12.3 Hct 36.5 MCV 97.4 H MCH 32.8 MCHC 33.7 RDW 13.6 Plt Count 134 MPV 7.5 Sodium 137 Potassium 3.6 Chloride 101 Carbon Dioxide 31 Anion Gap 6 L BUN 15.7 Creatinine 0.7 Est GFR (CKD-EPI)AfAm 118.88 Est GFR (CKD-EPI)NonAf 102.57 Random Glucose 120 H Calcium 8.4 L Total Bilirubin 1.5 H AST 166 H ALT 66 H Alkaline Phosphatase 303 H Total Protein 7.5 Albumin 3.5 Urine Color Yellow Urine Appearance Turbid Urine pH 5.0 Ur Specific [place] 1.020 Urine Protein 2+ H Urine Glucose (UA) Negative Urine Ketones Negative Urine Blood Trace Urine Nitrite Negative Urine Bilirubin Negative Urine Urobilinogen 1.0 Ur Leukocyte Esterase Negative Urine WBC (Auto) 0 Urine RBC (Auto) 1 Urine Casts (Auto) 5 U Epithel Cells (Auto) 0.4 Urine Bacteria (Auto) 0.5 RPR Titer 01/21/19 01/23/19 01/23/19 07:50 07:00 07:00 WBC 2.8 L RBC 3.54 L Hgb 11.8 Hct 34.7 L MCV 98.1 H MCH 33.5 MCHC 34.1 RDW 13.7 Plt Count 128 L MPV 7.9 Sodium Potassium Chloride Carbon Dioxide Anion Gap BUN Creatinine Est GFR (CKD-EPI)AfAm Est GFR (CKD-EPI)NonAf Random Glucose Calcium Total Bilirubin AST 145 H ALT Alkaline Phosphatase Total Protein Albumin Urine Color Urine Appearance Urine pH Ur Specific [place] Urine Protein Urine Glucose (UA) Urine Ketones Urine Blood Urine Nitrite Urine Bilirubin Urine Urobilinogen Ur Leukocyte Esterase Urine WBC (Auto) Urine RBC (Auto) Urine Casts (Auto) U Epithel Cells (Auto) Urine Bacteria (Auto) RPR Titer Nonreactive LABS NOTED. - Treatment Hospital Course: Detox Protocol Followed, Detoxed Safely, Responded well, Discharged Condition Good Patient has Accepted a Re[facility] [place] - Medication Discharge Medications: Ambulatory Orders Amlodipine Besylate [Norvasc -] 10 mg PO DAILY 14 Days #14 tablet 01/24/19 - Diagnosis (1) Alcohol dependence with uncomplicated withdrawal Status: Acute (2) Ambulates with cane Status: Chronic (3) Methadone maintenance therapy patient Status: Chronic (4) Nicotine dependence Status: Chronic Qualifiers: Nicotine product type: cigarettes Substance use status: uncomplicated Qualified Code(s): F17.210 - Nicotine dependence, cigarettes, uncomplicated (5) Pancytopenia Status: Acute (6) Drug-induced mood disorder Status: Suspected - AMA Did Patient Leave Against Medical Advice: No
== END 2019-01-24 09:12 | disposition home or self-care (01) | DRG 773 ==
LOC: YASAS 19:14 → Y3N 21:39
PROVIDERS: ADMIT Surgery; ATTEND Surgery
PROC: HZ2ZZZZ Detoxification Services for Substance Abuse Treatment (ICD-10-PCS; principal; 2019-01-20)
DX: F10.230 Alcohol dependence with withdrawal, uncomplicated (principal); F11.20 Opioid dependence, uncomplicated; F17.210 Nicotine dependence, cigarettes, uncomplicated; F19.24 Other psychoactive substance dependence with psychoactive substance-induced mood disorder; D61.818 Other pancytopenia; I10 Essential (primary) hypertension; K74.60 Unspecified cirrhosis of liver; Z91.14 Patient's other noncompliance with medication regimen; Z99.89 Dependence on other enabling machines and devices
CPT/HCPCS: 36415; 80053; 81003; 84450; 85027; 86593

== ENCOUNTER 2019-03-01 16:56 | Inpatient (IN) | payer OTHER ==
[2019-03-01 17:44] VITALS: BMI 23.3
--- NOTE | 2019-03-01 18:54 | HP ---
CIWA Score Nausea/Vomitin Muscle Tremors: 3 Anxiety: 3 Agitation: 2 Paroxysmal Sweats: 1-Minimal Palms Moist Orientation: 0-Oriented Tacttile Disturbances: 1-Very Mild Itch/Numbness Auditory Disturbances: 0-None Visual Disturbances: 0-None Headache: 2-Mild CIWA-Ar Total Score: 14 - Admission Criteria OASAS Guidelines: Admission for Medically Managed Detox: Requires at least one of the followin. CIWA greater than 12 2. Seizures within the past 24 hours 3. Delirium tremens within the past 24 hours 4. Hallucinations within the past 24 hours 5. Acute intervention needed for co occurring medical disorder 6. Acute intervention needed for co occurring psychiatric disorder 7. Severe withdrawal that cannot be handled at a lower level of care (continued vomiting, continued diarrhea, abnormal vital signs) requiring intravenous medication and/or fluids 8. Admission ROS S - HPI Chief Complaint: I need help to stop drinking alcohol Allergies/Adverse Reactions: Allergies Allergy/AdvReac Type Severity Reaction Status Date / Time No Known Allergies Allergy Verified 03/01/19 17:29 History of Present Illness: this 59 years old male with alcohol dependence,seeking detox,withdrawal symptom, denied seizure syncope alcohol related multiple admissions in detox,last [facility] 01/20/13 epigastric hernia varicose veins both legs ambulation with cane mmtp 70 mgs/day,last medicated today insomnia history of cirrhosis of liver also has hypertension Exam Limitations: No Limitations - Ebola screening Have you traveled outside of the country in the last 21 days: No (N) Have you had contact with anyone from an Ebola affected area: No Do you have a fever: No - Review of Systems Constitutional: Loss of Appetite, Malaise, Night Sweats, Changes in sleep, Weakness EENT: reports: No Symptoms Reported, Nose Congestion Respiratory: reports: No Symptoms reported Cardiac: reports: No Symptoms Reported GI: reports: Diarrhea, Nausea, Poor Appetite, Abdominal cramping : reports: No Symptoms Reported Musculoskeletal: reports: Back Pain, Muscle Pain Integumentary: reports: Dryness Neuro: reports: Headache, Tremors Endocrine: reports: No Symptoms Reported Hematology: reports: No Symptoms Reported Psychiatric: reports: No Sypmtoms Reported, Judgement Intact, Mood/Affect Appropiate, Orientated x3, other (insomnia) Other Systems: Reviewed and Negative Patient History - Patient Medical History Hx Anemia: No Hx Asthma: No Hx Chronic Obstructive Pulmonary Disease (COPD): No Hx Cancer: No Hx Cardiac Disorders: No Hx Congestive Heart Failure: No Hx Hypertension: No Hx Hypercholesterolemia: No Hx Pacemaker: No HX Cerebrovascular Accident: No Hx Seizures: No Hx Dementia: No Hx Diabetes: No Hx Gastrointestinal Disorders: Yes (epigastric hernia) Hx Liver Disease: Yes (fatty Liver , cirrhosis, ) Hx Genitourinary Disorders: No Hx Sexually Transmitted Disorders: No Hx Renal Disease (ESRD): No Hx Thyroid Disease: No Hx Human Immunodeficiency Virus (HIV): No (last 12/31 negative) Hx Hepatitis C: No Hx Depression: Yes Hx Suicide Attempt: No Hx Bipolar Disorder: No Hx Schizophrenia: No Other Medical History: no suicidal,no homicidal,insomnia - Patient Surgical History Past Surgical History: Yes Hx Neurologic Surgery: No Hx Cataract Extraction: No Hx Cardiac Surgery: No Hx Lung Surgery: No Hx Breast Surgery: No Hx Breast Biopsy: No Hx Abdominal Surgery: No Hx Appendectomy: No Hx Cholecystectomy: No Hx Genitourinary Surgery: No Hx Section: No Hx Orthopedic Surgery: No Other Surgical History: 2009 left inguinal hernia repair Anesthesia Reaction: No - PPD History Previous Implant?: Yes Documented Results: Negative w/proof Implanted On Prior [facility] Admission?: Yes Date: 01/22/19 Results: 0 mm PPD to be Administered?: No - Smoking Cessation Smoking history: Former smoker Have you smoked in the past 12 months: No Aproximately how many cigarettes per day: 0 If you are a former smoker, when did you quit?: 2004 Cigars Per Day: 0 Hx Chewing Tobacco Use: No Initiated information on smoking cessation: Yes 'Breaking Loose' booklet given: 03/01/19 - Substance & Tx. History Hx Alcohol Use: Yes Hx Substance Use: No Substance Use Type: Alcohol Hx Substance Use Treatment: Yes ([facility] 01/20/19 to 01/24/19) - Substances abused Alcohol Substance route: Oral Frequency: Daily Amount used: 7 cans of 12 ozs of beer, 2 pints of vodka Age of first use: 19 Date of last use: 03/01/19 Family Disease History - Family Disease History Family Disease History: Heart Disease: Father (, alcohol), Respiratory: Sister (four in [place], one [place], living , asthma), Other: Father, Mother ( living in [place] - not sure about her health), Brother (two living, ALCOHOL,), Sister, Son (one adult in [place]), Daughter (one adult in [place]) Admission Physical Exam [facility] - Vital Signs Vital Signs: Vital Signs - 24 hr 03/01/19 17:29 Temperature 97.6 F Pulse Rate 61 Respiratory 16 Rate Blood Pressure 155/86 - Physical General Appearance: Yes: Moderate Distress, Tremorous, Irritable, Sweating, Anxious HEENTM: Yes: Normal ENT Inspection, ANUM, Pharynx Normal Respiratory: Yes: Lungs Clear, Normal Breath Sounds, No Respiratory Distress Neck: Yes: Within Normal Limits, Supple, Trachea in good position Breast: Yes: Within Normal Limits Cardiology: Yes: Within Normal Limits, Regular Rhythm, Regular Rate, S1, S2 Abdominal: Yes: Within Normal Limits, Normal Bowel Sounds, Non Tender, Flat, Soft, Other (epigastric hernia scar in left inguinal area) Genitourinary: Yes: Within Normal Limits Back: Yes: Muscle Spasm Musculoskeletal: Yes: Back pain, Muscle Pain Extremities: Yes: Tremors, Other (varicose veins both legs) Neurological: Yes: avionics systems repairer II-XII NML intact, Fully Oriented, Alert, Motor Strength 5/5 Integumentary: Yes: Dry Lymphatic: Yes: Within Normal Limits - Diagnostic (1) Alcohol dependence with uncomplicated withdrawal Current Visit: No Status: Acute (2) Varicose veins of both lower extremities Current Visit: No Status: Acute (3) Arthritis Current Visit: No Status: Chronic (4) Epigastric hernia Current Visit: No Status: Chronic (5) Methadone maintenance therapy patient Current Visit: No Status: Chronic Comment: [address] [facility] (6) Cirrhosis of liver Current Visit: Yes Status: Acute (7) Ambulates with cane Current Visit: No Status: Chronic (8) Essential hypertension Current Visit: Yes Status: Acute Cleared for Admission S - Detox or Rehab [facility] Level of Care: Medically Managed (ativan) Breathalyzer - Breathalyzer Breathalyzer: 0.065 Urine Drug Screen - Test Device Lot number: [id number] Expiration date: 12/12/20 - Control Is test valid?: Yes - Results Drug screen NEGATIVE: No Urine drug screen results: MTD-Methadone Inpatient Rehab Admission - Rehab Decision to Admit Inpatient rehab admission?: No
[2019-03-01] MEDS ORDERED: LORazepam 1 MG TABLET PO PRN (19:07)
[2019-03-01] MEDS ORDERED: METHOCARBAMOL 500 MG TABLET PO PRN (19:07)
[2019-03-01] MEDS ORDERED: MAGNESIUM CITRATE 300 ML BOTTLE PO PRN (19:07)
[2019-03-01] MEDS ORDERED: IBUPROFEN 400 MG TABLET (FP) PO PRN (19:07)
[2019-03-01] MEDS ORDERED: hydrOXYzine HCL 25 MG TABLET (FP) PO PRN (19:07)
[2019-03-01] MEDS ORDERED: BISMUTH SUBSALICYLATE 524 MG/30 ML UD PO PRN (19:07)
[2019-03-01] MEDS ORDERED: MENTHOL/PHENOL 1 EACH UD MM PRN (19:07)
[2019-03-01] MEDS ORDERED: MAG HYDROX/AL HYDROX/SIMETH 30 ML UNIT-DOSE CUP PO PRN (19:07)
[2019-03-01] MEDS ORDERED: ACETAMINOPHEN 325 MG TABLET (FP) PO PRN ×2 (19:07)
[2019-03-01] MEDS ORDERED: MAGNESIUM HYDROX 2400MG/30ML ORAL SUSPENSION 30 ML CUP PO PRN (19:07)
[2019-03-01] MEDS ORDERED: LORazepam 0.5 MG TABLET ONE (20:25)
[2019-03-01] MEDS: THIAMINE HCL 100 MG TABLET (FP) PO SCH (22:38)
[2019-03-01] MEDS: LORazepam 2 MG TABLET PO SCH (22:38)
[2019-03-02] MEDS: LORazepam 2 MG TABLET PO SCH ×4 (05:44→22:14)
[2019-03-02] MEDS ORDERED: METHADONE HCL 10 MG TABLET PO ONE (08:44)
[2019-03-02] MEDS ORDERED: METHADONE 40 MG, METHADONE 30 MG PO ONE (09:00)
[2019-03-02] MEDS ORDERED: METHADONE HCL 10 MG TABLET ONE (09:27)
[2019-03-02] MEDS ORDERED: METHADONE HCL 40 MG DISPERSABLE TABLET ONE (09:28)
[2019-03-02] MEDS: amLODIPine BESYLATE 10 MG TABLET (FP) PO SCH (10:20)
[2019-03-02] MEDS: PRENATAL VITAMINS W/ FOLIC ACID TABLET (FP) PO SCH (10:20)
[2019-03-02 12:10] LABS: ALBUMIN 3.8 g/dl (3.4-5.0); BILIRUBIN,TOTAL 1.3 mg/dL (0.2-1); BLOOD UREA NITROGEN 8.6 mg/dL (7-18); CALCIUM 9.3 mg/dL (8.5-10.1); CREATININE 0.6 mg/dL (0.55-1.3); POTASSIUM 4.2 mmol/L (3.5-5.1); TOT PROT 8.3 g/dl (6.4-8.2)
[2019-03-02 12:26] LABS: HEMATOCRIT 38.7 % (35.4-49); HEMOGLOBIN 13.3 GM/dL (11.7-16.9); MCH 33.3 pg (25.7-33.7); MCHC 34.3 g/dl (32.0-35.9); MEAN PLT VOLUME 7.6 fl (7.5-11.1); PLATELET COUNT 153 K/MM3 (134-434); RBC 3.99 M/mm3 (4.00-5.60); RDW 13.8 % (11.9-15.9); WHITE BLOOD COUNT 2.6 K/mm3 (4.0-10.0)
--- NOTE | 2019-03-02 15:58 | PN ---
[facility] CIWA - CIWA Score Nausea/Vomitin-No Nausea/No Vomiting Muscle Tremors: 3 Anxiety: 3 Agitation: 2 Paroxysmal Sweats: No Perspiration Orientation: 2-Disoriented Date<2 days Tacttile Disturbances: 1-Very Mild Itch/Numbness Auditory Disturbances: 0-None Visual Disturbances: 1-Very Mild Sensitivity Headache: 2-Mild CIWA-Ar Total Score: 14 S Progress Note (SOAP) Subjective: Tremors, Anxious, H/A. Objective: PATIENT A & O X 2 (UNCERTAIN ABOUT CURRENT DAY / DATE). PATIENT OBSERVED AMBULATING ON UNIT UNASSISTED. IN NO ACUTE DISTRESS. 03/02/19 15:59 Vital Signs Temperature 97.9 F 03/02/19 13:11 Pulse Rate 79 03/02/19 13:11 Respiratory Rate 18 03/02/19 13:11 Blood Pressure 146/84 03/02/19 13:11 O2 Sat by Pulse Oximetry (%) Laboratory Tests 03/02/19 03/02/19 03/02/19 07:30 07:30 07:30 WBC 2.6 L RBC 3.99 L Hgb 13.3 Hct 38.7 MCV 97.0 H MCH 33.3 MCHC 34.3 RDW 13.8 Plt Count 153 MPV 7.6 Sodium 139 Potassium 4.2 Chloride 101 Carbon Dioxide 32 Anion Gap 6 L BUN 8.6 Creatinine 0.6 Est GFR (CKD-EPI)AfAm 126.66 Est GFR (CKD-EPI)NonAf 109.28 Random Glucose 89 Calcium 9.3 Total Bilirubin 1.3 H AST 165 H ALT 61 Alkaline Phosphatase 294 H Total Protein 8.3 H Albumin 3.8 RPR Titer Nonreactive LABS NOTED. PATIENT HAS HAD LOW WBC AND ELEVATED AST, ALKALINE PHOSPHATASE, AND TOTAL BILIRUBIN LEVELS ON PREVIOUS ADMISSIONS. 03/02/19 16:02 Assessment: 03/02/19 16:00 WITHDRAWAL SYMPTOMS. LEUKOPENIA. ELEVATED AST LEVEL. ELEVATED ALKALINE PHOSPHATASE LEVEL. HYPERBILIRUBINEMIA. 03/02/19 16:03 Plan: CONTINUE DETOX.
[2019-03-02] MEDS: THIAMINE HCL 100 MG TABLET (FP) PO SCH (22:14)
[2019-03-03] MEDS ORDERED: METHADONE HCL 10 MG TABLET ONE (05:19)
[2019-03-03] MEDS ORDERED: METHADONE HCL 40 MG DISPERSABLE TABLET ONE (05:20)
[2019-03-03] MEDS: LORazepam 1 MG TABLET PO SCH ×4 (05:49→22:10)
[2019-03-03] MEDS: METHADONE 40 MG, METHADONE 30 MG PO SCH (05:49)
[2019-03-03] MEDS ORDERED: METHADONE HCL 40 MG DISPERSABLE TABLET PO SCH (06:00)
[2019-03-03] MEDS: PRENATAL VITAMINS W/ FOLIC ACID TABLET (FP) PO SCH (10:15)
[2019-03-03] MEDS: amLODIPine BESYLATE 10 MG TABLET (FP) PO SCH (10:15)
--- NOTE | 2019-03-03 10:59 | PN ---
S CIWA - CIWA Score Nausea/Vomitin Muscle Tremors: 2 Anxiety: 2 Agitation: 2 Paroxysmal Sweats: 1-Minimal Palms Moist Orientation: 0-Oriented Tacttile Disturbances: 0-None Auditory Disturbances: 1-Very Mild Visual Disturbances: 0-None Headache: 2-Mild CIWA-Ar Total Score: 12 BHS Progress Note (SOAP) Subjective: alert,irritable,anxious,interrupted sleep,pain in both knees Objective: 03/03/19 10:58 Vital Signs Temperature 97.9 F 03/03/19 09:27 Pulse Rate 98 H 03/03/19 09:27 Respiratory Rate 18 03/03/19 09:27 Blood Pressure 136/81 03/03/19 09:27 O2 Sat by Pulse Oximetry (%) Assessment: 03/03/19 10:58 withdrawal symptom Plan: continue detox ativan regimen
[2019-03-03] MEDS: MELATONIN 5 MG TABLETS PO PRN (22:10)
[2019-03-03] MEDS: THIAMINE HCL 100 MG TABLET (FP) PO SCH (22:10)
[2019-03-04] MEDS ORDERED: LORazepam 0.5 MG TABLET PO PRN
[2019-03-04] MEDS ORDERED: METHADONE HCL 40 MG DISPERSABLE TABLET ONE (04:08)
[2019-03-04] MEDS ORDERED: METHADONE HCL 10 MG TABLET ONE (04:08)
[2019-03-04] MEDS: LORazepam 0.5 MG TABLET PO SCH ×4 (05:55→22:33)
[2019-03-04] MEDS: METHADONE 40 MG, METHADONE 30 MG PO SCH (05:55)
[2019-03-04] MEDS: PRENATAL VITAMINS W/ FOLIC ACID TABLET (FP) PO SCH (10:18)
[2019-03-04] MEDS: amLODIPine BESYLATE 10 MG TABLET (FP) PO SCH (10:18)
--- NOTE | 2019-03-04 15:29 | PN ---
[facility] CIWA - CIWA Score Nausea/Vomitin-No Nausea/No Vomiting Muscle Tremors: None Anxiety: 2 Agitation: 2 Paroxysmal Sweats: No Perspiration Orientation: 2-Disoriented Date<2 days Tacttile Disturbances: 0-None Auditory Disturbances: 0-None Visual Disturbances: 1-Very Mild Sensitivity Headache: 0-None Present CIWA-Ar Total Score: 7 BHS Progress Note (SOAP) Subjective: Anxious, Stomach Cramping. Patient reports that current Withdrawal / Detox symptoms are minimal in degree and that he feels well overall. Objective: PATIENT A & O X 2 (UNCERTAIN ABOUT CURRENT DAY / DATE). PATIENT OBSERVED AMBULATING ON UNIT UNASSISTED. IN NO ACUTE DISTRESS. 03/04/19 15:26 Vital Signs Temperature 98.3 F 03/04/19 13:35 Pulse Rate 65 03/04/19 13:35 Respiratory Rate 18 03/04/19 13:35 Blood Pressure 114/62 03/04/19 13:35 O2 Sat by Pulse Oximetry (%) Laboratory Tests 03/02/19 03/02/19 03/02/19 07:30 07:30 07:30 WBC 2.6 L RBC 3.99 L Hgb 13.3 Hct 38.7 MCV 97.0 H MCH 33.3 MCHC 34.3 RDW 13.8 Plt Count 153 MPV 7.6 Sodium 139 Potassium 4.2 Chloride 101 Carbon Dioxide 32 Anion Gap 6 L BUN 8.6 Creatinine 0.6 Est GFR (CKD-EPI)AfAm 126.66 Est GFR (CKD-EPI)NonAf 109.28 Random Glucose 89 Calcium 9.3 Total Bilirubin 1.3 H AST 165 H ALT 61 Alkaline Phosphatase 294 H Total Protein 8.3 H Albumin 3.8 RPR Titer Nonreactive LABS NOTED. PATIENT HAS HAD LOW WBC LEVELS AND ELEVATED LIVER ENZYMES ON PREVIOUS ADMISSIONS. 03/04/19 15:27 Assessment: 03/04/19 15:26 WITHDRAWAL SYMPTOMS. LEUKOPENIA. ELEVATED AST LEVEL. ELEVATED ALKALINE PHOSPHATASE LEVEL. 03/04/19 15:28 Plan: CONTINUE DETOX. PATIENT SCHEDULED FOR D/C FROM DETOX UNIT TOMORROW.
[2019-03-04] MEDS: THIAMINE HCL 100 MG TABLET (FP) PO SCH (22:33)
[2019-03-04] MEDS: MELATONIN 5 MG TABLETS PO PRN (22:33)
[2019-03-05] MEDS ORDERED: LORazepam 0.5 MG TABLET PO ONE (05:00)
[2019-03-05] MEDS ORDERED: METHADONE HCL 40 MG DISPERSABLE TABLET ONE (05:31)
[2019-03-05] MEDS ORDERED: METHADONE HCL 10 MG TABLET ONE (05:31)
[2019-03-05] MEDS: METHADONE 40 MG, METHADONE 30 MG PO SCH (06:10)
[2019-03-05 06:58] VITALS: BP 153/81; PULSE 68; TEMP 97.5
--- NOTE | 2019-03-05 16:55 | DS ---
[facility] Detox Discharge Summary Admission Date: 03/01/19 Discharge Date: 03/05/19 - History Present History: Alcohol Dependence, Opioid Dependence, MMTP Additional Comments: PATIENT RETURNING TO [facility] ([place], [place]), WHERE HE HAS PREVIOUSLY BEEN A CLIENT, FOR AFTERCARE. PATIENT WILL ALSO ATTEND [facility] ([place], [place]) FOR AFTERCARE. PATIENT ADVISED TO FOLLOW- UP WITH [facility] FOR HISTORY OF EPIGASTRIC HERNIA AFTER DISCHARGE FROM DETOX UNIT. PATIENT VERBALIZED UNDERSTANDING OF RECOMMENDATION, NOTING THAT HE INTENDS TO DO IN THE NEXT FEW DAYS. PATIENT WAS DISCHARGED FROM DETOX UNIT IN STABLE MEDICAL CONDITION. Pertinent Past History: M.M.T.P., History Of Epigastric Hernia, History Of Syncope (alcohol-related), History Of Varicose Veins of Bilateral Legs, Use Of cane As An Ambulatory Aid, HTN, Insomnia, History Of Cirrhosis Of Liver, History Of Fatty Liver, Insomnia, Depression, Leukopenia, Hyperbilirubinemia, Elevated Alkaline Phosphatase Level , Elevated AST Level, History Of Arthritis. - Physical Exam Results Vital Signs: Vital Signs Temperature 97.5 F L 03/05/19 06:57 Pulse Rate 68 03/05/19 06:57 Respiratory Rate 18 03/05/19 06:57 Blood Pressure 153/81 03/05/19 06:57 O2 Sat by Pulse Oximetry (%) Pertinent Admission Physical Exam Findings: WITHDRAWAL SYMPTOMS. Laboratory Tests 03/02/19 03/02/19 03/02/19 07:30 07:30 07:30 WBC 2.6 L RBC 3.99 L Hgb 13.3 Hct 38.7 MCV 97.0 H MCH 33.3 MCHC 34.3 RDW 13.8 Plt Count 153 MPV 7.6 Sodium 139 Potassium 4.2 Chloride 101 Carbon Dioxide 32 Anion Gap 6 L BUN 8.6 Creatinine 0.6 Est GFR (CKD-EPI)AfAm 126.66 Est GFR (CKD-EPI)NonAf 109.28 Random Glucose 89 Calcium 9.3 Total Bilirubin 1.3 H AST 165 H ALT 61 Alkaline Phosphatase 294 H Total Protein 8.3 H Albumin 3.8 RPR Titer Nonreactive LABS NOTED. - Treatment Hospital Course: Detox Protocol Followed, Detoxed Safely, Responded well, Discharged Condition Good Patient has Accepted a Rehab Referral to: PATIENT RETURNING TO [facility] TO [facility] ([place], [place]). - Medication Discharge Medications: Ambulatory Orders Amlodipine Besylate [Norvasc -] 10 mg PO DAILY 14 Days #14 tablet 01/24/19 - Diagnosis (1) Alcohol dependence with uncomplicated withdrawal Status: Acute (2) Cirrhosis of liver Status: Acute Qualifiers: Hepatic cirrhosis type: unspecified hepatic cirrhosis Ascites presence: unspecified Qualified Code(s): K74.60 - Unspecified cirrhosis of liver (3) Elevated alkaline phosphatase level Status: Acute (4) Elevated aspartate aminotransferase level Status: Acute (5) Essential hypertension Status: Acute (6) Hyperbilirubinemia Status: Acute (7) Insomnia Status: Acute Qualifiers: Insomnia type: alcohol-induced Qualified Code(s): F10.982 - Alcohol use, unspecified with alcohol-induced sleep disorder (8) Leukopenia Status: Acute Qualifiers: Leukopenia type: unspecified Qualified Code(s): D72.819 - Decreased white blood cell count, unspecified (9) Varicose veins of both lower extremities Status: Acute Qualifiers: Varicose vein complication: unspecified Qualified Code(s): I83.93 - Asymptomatic varicose veins of bilateral lower extremities (10) Ambulates with cane Status: Chronic (11) Arthritis Status: Chronic (12) Epigastric hernia Status: Chronic (13) Cirrhosis of liver Status: Suspected Qualifiers: Hepatic cirrhosis type: unspecified hepatic cirrhosis Ascites presence: unspecified Qualified Code(s): K74.60 - Unspecified cirrhosis of liver - AMA Did Patient Leave Against Medical Advice: No BHS CIWA - CIWA Score Nausea/Vomitin-No Nausea/No Vomiting Muscle Tremors: None Anxiety: 1-Mildly Anxious Agitation: 1-Slight > Activity Paroxysmal Sweats: No Perspiration Orientation: 0-Oriented Tacttile Disturbances: 0-None Auditory Disturbances: 0-None Visual Disturbances: 1-Very Mild Sensitivity Headache: 0-None Present CIWA-Ar Total Score: 3
== END 2019-03-05 08:52 | disposition home or self-care (01) | DRG 775 ==
LOC: YASAS 16:56 → Y6N 19:36
PROVIDERS: ADMIT Surgery; ATTEND Surgery
PROC: HZ2ZZZZ Detoxification Services for Substance Abuse Treatment (ICD-10-PCS; principal; 2019-03-01)
DX: F10.230 Alcohol dependence with withdrawal, uncomplicated (principal); I10 Essential (primary) hypertension; R74.0 Nonspecific elevation of levels of transaminase and lactic acid dehydrogenase [LDH]; K74.60 Unspecified cirrhosis of liver; E80.6 Other disorders of bilirubin metabolism; G47.00 Insomnia, unspecified; D72.819 Decreased white blood cell count, unspecified; I83.93 Asymptomatic varicose veins of bilateral lower extremities; M19.90 Unspecified osteoarthritis, unspecified site; K43.9 Ventral hernia without obstruction or gangrene; R26.2 Difficulty in walking, not elsewhere classified; Z99.89 Dependence on other enabling machines and devices; Z87.891 Personal history of nicotine dependence
CPT/HCPCS: 36415; 80053; 85027; 86593

== ENCOUNTER 2019-05-30 14:58 | Inpatient (IN) | payer OTHER ==
--- NOTE | 2019-05-30 19:18 | HP ---
CIWA Score Nausea/Vomitin Muscle Tremors: 2 Anxiety: 2 Agitation: 2 Paroxysmal Sweats: 2 Orientation: 0-Oriented Tacttile Disturbances: 2-Mild Itch/Numbness/Burn Auditory Disturbances: 0-None Visual Disturbances: 0-None Headache: 2-Mild CIWA-Ar Total Score: 14 - Admission Criteria OASAS Guidelines: Admission for Medically Managed Detox: Requires at least one of the followin. CIWA greater than 12 2. Seizures within the past 24 hours 3. Delirium tremens within the past 24 hours 4. Hallucinations within the past 24 hours 5. Acute intervention needed for co occurring medical disorder 6. Acute intervention needed for co occurring psychiatric disorder 7. Severe withdrawal that cannot be handled at a lower level of care (continued vomiting, continued diarrhea, abnormal vital signs) requiring intravenous medication and/or fluids 8. Patient presents the following: CIWA greater than 12 Admission Criteria Met: Admission criteria met Admitting History and Physical - Smoking History Smoking history: Former smoker Have you smoked in the past 12 months: No Aproximately how many cigarettes per day: 0 If you are a former smoker, when did you quit?: 2004 - Alcohol/Substance Use Hx Alcohol Use: Yes Admission [facility] Chief Complaint: I need detox from alcohol Allergies/Adverse Reactions: Allergies Allergy/AdvReac Type Severity Reaction Status Date / Time No Known Allergies Allergy Verified 03/01/19 17:29 History of Present Illness: Patient is a 59 years old male with alcohol dependence who presents for detox. He denies seizure related to alcohol. He has been treated at this facility several times, most recently in February. He is on methadone maintenance 70mg daily. Exam Limitations: No Limitations - Ebola screening Have you traveled outside of the country in the last 21 days: No (N) Have you had contact with anyone from an Ebola affected area: No Have you been sick,other than usual withdrawal symptoms: No Do you have a fever: No - Review of Systems Constitutional: Chills, Malaise, Changes in sleep EENT: reports: Nose Congestion Respiratory: reports: No Symptoms reported Cardiac: reports: No Symptoms Reported GI: reports: Poor Appetite, Poor Fluid Intake, Abdominal cramping, Other ( abdominal hernia, non-tender) : reports: No Symptoms Reported Musculoskeletal: reports: Muscle Pain, Muscle Weakness Integumentary: reports: No Symptoms Reported Neuro: reports: Headache (mild), Tremors Endocrine: reports: No Symptoms Reported Hematology: reports: No Symptoms Reported Psychiatric: reports: No Sypmtoms Reported Other Systems: Reviewed and Negative Patient History - Patient Medical History Hx Anemia: No Hx Asthma: No Hx Chronic Obstructive Pulmonary Disease (COPD): No Hx Cancer: No Hx Cardiac Disorders: No Hx Congestive Heart Failure: No Hx Hypertension: No Hx Hypercholesterolemia: No Hx Pacemaker: No HX Cerebrovascular Accident: No Hx Seizures: No Hx Dementia: No Hx Diabetes: No Hx Gastrointestinal Disorders: Yes (epigastric hernia) Hx Liver Disease: Yes (fatty Liver , cirrhosis, ) Hx Genitourinary Disorders: No Hx Sexually Transmitted Disorders: No Hx Renal Disease (ESRD): No Hx Thyroid Disease: No Hx Human Immunodeficiency Virus (HIV): No Hx Hepatitis C: No Hx Depression: No Hx Suicide Attempt: No Hx Bipolar Disorder: No Hx Schizophrenia: No - Patient Surgical History Past Surgical History: Yes Hx Neurologic Surgery: No Hx Cataract Extraction: No Hx Cardiac Surgery: No Hx Lung Surgery: No Hx Breast Surgery: No Hx Breast Biopsy: No Hx Abdominal Surgery: No Hx Appendectomy: No Hx Cholecystectomy: No Hx Genitourinary Surgery: No Hx Section: No Hx Orthopedic Surgery: No Other Surgical History: 2009 left inguinal hernia repair Anesthesia Reaction: No - PPD History Previous Implant?: Yes Documented Results: Negative w/proof Implanted On Prior [facility] Admission?: Yes Date: 01/22/19 Results: 0 mm PPD to be Administered?: No - Smoking Cessation Smoking history: Former smoker Have you smoked in the past 12 months: No Aproximately how many cigarettes per day: 0 If you are a former smoker, when did you quit?: 2003 Cigars Per Day: 0 Hx Chewing Tobacco Use: No Initiated information on smoking cessation: No - Substances abused Alcohol Substance route: Oral Frequency: Daily Amount used: 7 cans of 12ozs of beer, 2 pints of vodka Age of first use: 19 Date of last use: 05/30/19 Admission Physical Exam BHS - Vital Signs Vital Signs: Vital Signs - 24 hr 05/30/19 17:30 Temperature 97.1 F L Pulse Rate 101 H Respiratory 19 Rate Blood Pressure 176/100 H - Physical General Appearance: Yes: No Apparent Distress HEENTM: Yes: Hearing grossly Normal, Normal ENT Inspection, Normocephalic, Normal Voice, Pharynx Normal Respiratory: Yes: Chest Non-Tender, Lungs Clear, Normal Breath Sounds, No Respiratory Distress, No Accessory Muscle Use Neck: Yes: No masses,lesions,Nodules, Supple Breast: Yes: Breast Exam Deferred Cardiology: Yes: Regular Rhythm, Regular Rate, S1, S2 Abdominal: Yes: Normal Bowel Sounds, Non Tender (firm), Hernia Genitourinary: Yes: Within Normal Limits Back: Yes: Normal Inspection Musculoskeletal: Yes: full range of Motion, Gait Steady Extremities: Yes: Normal Capillary Refill, Tremors, Other (bilateral LE varicose veins) Neurological: Yes: Fully Oriented, Alert, Normal Mood/Affect, Normal Response, Numbness Integumentary: Yes: Within Normal Limits Lymphatic: Yes: Within Normal Limits - Diagnostic (1) Alcohol dependence with uncomplicated withdrawal Current Visit: Yes Status: Acute (2) Cirrhosis of liver Current Visit: No Status: Chronic Qualifiers: Hepatic cirrhosis type: unspecified hepatic cirrhosis Ascites presence: unspecified Qualified Code(s): K74.60 - Unspecified cirrhosis of liver (3) Essential hypertension Current Visit: Yes Status: Chronic (4) Insomnia Current Visit: No Status: Acute Qualifiers: Insomnia type: alcohol-induced Qualified Code(s): F10.982 - Alcohol use, unspecified with alcohol-induced sleep disorder (5) Methadone maintenance therapy patient Current Visit: Yes Status: Chronic Comment: 70 MG [facility] Cleared for Admission [facility] - Detox or Rehab [facility] Level of Care: Medically Managed Detox Regimen/Protocol: Librium Claeared for Rehab Admission: No Breathalyzer - Breathalyzer Breathalyzer: 0.065 Urine Drug Screen - Test Device Lot number: [id number] Expiration date: 02/11/21 - Control Is test valid?: Yes - Results Drug screen NEGATIVE: No Urine drug screen results: MTD-Methadone Inpatient Rehab Admission - Rehab Decision to Admit Inpatient rehab admission?: No
[2019-05-30] MEDS ORDERED: MENTHOL/PHENOL 1 EACH UD MM PRN (19:21)
[2019-05-30] MEDS ORDERED: METHOCARBAMOL 500 MG TABLET PO PRN (19:21)
[2019-05-30] MEDS ORDERED: chlordiazePOXIDE HCL 10 MG CAPSULE PO PRN (19:21)
[2019-05-30] MEDS ORDERED: BISMUTH SUBSALICYLATE 524 MG/30 ML UD PO PRN (19:21)
[2019-05-30] MEDS ORDERED: MAGNESIUM HYDROX 2400MG/30ML ORAL SUSPENSION 30 ML CUP PO PRN (19:21)
[2019-05-30] MEDS ORDERED: ACETAMINOPHEN 325 MG TABLET (FP) PO PRN ×2 (19:21)
[2019-05-30] MEDS ORDERED: IBUPROFEN 400 MG TABLET (FP) PO PRN (19:21)
[2019-05-30] MEDS ORDERED: MAG HYDROX/AL HYDROX/SIMETH 30 ML UNIT-DOSE CUP PO PRN (19:21)
[2019-05-30] MEDS ORDERED: MAGNESIUM CITRATE 300 ML BOTTLE PO PRN (19:21)
[2019-05-30] MEDS ORDERED: hydrOXYzine PAMOATE 25 MG CAPSULE (FP) PO PRN (19:21)
[2019-05-30] MEDS: chlordiazePOXIDE HCL 25 MG CAPSULE PO SCH (21:07)
[2019-05-30] MEDS: THIAMINE HCL 100 MG TABLET (FP) PO SCH (21:08)
[2019-05-30] MEDS: MELATONIN 5 MG TABLETS PO PRN (22:20)
[2019-05-31] MEDS: chlordiazePOXIDE HCL 25 MG CAPSULE PO SCH ×3 (05:28→22:08)
[2019-05-31] MEDS ORDERED: cloNIDine HCL 0.1 MG TABLET PO ONE (07:22)
[2019-05-31] MEDS ORDERED: METHADONE HCL 10 MG TABLET PO SCH (07:30)
[2019-05-31] MEDS ORDERED: METHADONE HCL 10 MG TABLET ONE (07:47)
[2019-05-31] MEDS ORDERED: METHADONE HCL 40 MG DISPERSABLE TABLET ONE (07:48)
[2019-05-31] MEDS: METHADONE 40 MG, METHADONE 30 MG PO SCH (07:52)
[2019-05-31] MEDS: PRENATAL VITAMINS W/ FOLIC ACID TABLET (FP) PO SCH (10:17)
--- NOTE | 2019-05-31 14:28 | PN ---
S CIWA - CIWA Score Nausea/Vomitin-Mild Nausea/No Vomiting Muscle Tremors: 3 Anxiety: 3 Agitation: 2 Paroxysmal Sweats: 3 Orientation: 0-Oriented Tacttile Disturbances: 0-None Auditory Disturbances: 0-None Visual Disturbances: 0-None Headache: 0-None Present CIWA-Ar Total Score: 12 S Progress Note (SOAP) Subjective: Feels ok, medication working Objective: 05/31/19 14:23 Last Vital Signs Temp Pulse Resp BP Pulse Ox 97.7 F 65 18 132/88 05/31/19 11:20 05/31/19 11:20 05/31/19 11:20 05/31/19 11:20 Elevated b/p: denies htn, not on medication No admission labs available for review; ordered for admission CBC/CMP/UA in AM Assessment: 05/31/19 14:29 Withdrawal sxs Plan: Continue detox Encouraged PO water intake Admission labs ordered in AM: CBC, CMP, UA Elevated b/p without dx of HTN: start clonidine 0.1mg PO q8hr prn if b/p > 140/ 90, consider starting routine antihypertensive medication if b/p remains high
[2019-05-31] MEDS: THIAMINE HCL 100 MG TABLET (FP) PO SCH (22:08)
[2019-05-31] MEDS: MELATONIN 5 MG TABLETS PO PRN (22:08)
[2019-06-01] MEDS ORDERED: METHADONE HCL 40 MG DISPERSABLE TABLET ONE (04:39)
[2019-06-01] MEDS ORDERED: METHADONE HCL 10 MG TABLET ONE (04:39)
[2019-06-01] MEDS: METHADONE 40 MG, METHADONE 30 MG PO SCH (05:24)
[2019-06-01] MEDS: chlordiazePOXIDE 5 MG CAPSULE PO SCH ×3 (05:24→21:20)
[2019-06-01] MEDS: PRENATAL VITAMINS W/ FOLIC ACID TABLET (FP) PO SCH (10:22)
--- NOTE | 2019-06-01 11:03 | PN ---
S CIWA - CIWA Score Nausea/Vomitin-No Nausea/No Vomiting Muscle Tremors: 2 Anxiety: 2 Agitation: 3 Paroxysmal Sweats: 2 Orientation: 0-Oriented Tacttile Disturbances: 0-None Auditory Disturbances: 0-None Visual Disturbances: 0-None Headache: 0-None Present CIWA-Ar Total Score: 9 BHS Progress Note (SOAP) Subjective: sweats shakes agitation Objective: 06/01/19 11:03 Vital Signs Temperature 97.3 F L 06/01/19 09:25 Pulse Rate 62 06/01/19 09:25 Respiratory Rate 18 06/01/19 09:25 Blood Pressure 126/74 06/01/19 09:25 O2 Sat by Pulse Oximetry (%) aaox3 ambulating no acute distress Assessment: 06/01/19 11:03 withdrawal sx Plan: continue detox increase fluids
[2019-06-01 12:13] LABS: ALBUMIN 3.7 g/dl (3.4-5.0); BILIRUBIN,TOTAL 1.1 mg/dL (0.2-1); BLOOD UREA NITROGEN 22.1 mg/dL (7-18); CALCIUM 9.6 mg/dL (8.5-10.1); CREATININE 0.7 mg/dL (0.55-1.3); POTASSIUM 4.6 mmol/L (3.5-5.1); TOT PROT 8.3 g/dl (6.4-8.2)
[2019-06-01 12:21] LABS: BASO % 0.7 % (0-2.0); EOS % 1.6 % (0-4.5); HEMATOCRIT 42.4 % (35.4-49); HEMOGLOBIN 14.1 GM/dL (11.7-16.9); LYMPH % 21.8 % (8-40); MCH 32.8 pg (25.7-33.7); MCHC 33.3 g/dl (32.0-35.9); MEAN CELL VOLUME 98.4 fl (80-96); MEAN PLT VOLUME 8.1 fl (7.5-11.1); MONO % 12.6 % (3.8-10.2); NEUT % 63.3 % (42.8-82.8); PLATELET COUNT 154 K/MM3 (134-434); RBC 4.31 M/mm3 (4.00-5.60); RDW 14.4 % (11.9-15.9); WHITE BLOOD COUNT 2.8 K/mm3 (4.0-10.0)
[2019-06-01] MEDS: cloNIDine HCL 0.1 MG TABLET PO PRN (20:29)
[2019-06-01] MEDS: THIAMINE HCL 100 MG TABLET (FP) PO SCH (21:20)
[2019-06-02] MEDS ORDERED: chlordiazePOXIDE HCL 10 MG CAPSULE PO PRN
[2019-06-02] MEDS: chlordiazePOXIDE HCL 10 MG CAPSULE PO SCH ×3 (06:12→21:37)
[2019-06-02] MEDS ORDERED: METHADONE HCL 10 MG TABLET ONE (06:12)
[2019-06-02] MEDS: METHADONE 40 MG, METHADONE 30 MG PO SCH (06:12)
[2019-06-02] MEDS ORDERED: METHADONE HCL 40 MG DISPERSABLE TABLET ONE (06:12)
[2019-06-02] MEDS: PRENATAL VITAMINS W/ FOLIC ACID TABLET (FP) PO SCH (10:12)
[2019-06-02 10:14] LABS: URINE APPEARANCE CLEAR; URINE BILIRUBIN NEGATIVE (NEGATIVE); URINE COLOR YELLOW; URINE GLUCOSE (UA) NEGATIVE (NEGATIVE); URINE KETONE NEGATIVE (NEGATIVE); URINE LEUK ESTERASE NEGATIVE (NEGATIVE); URINE NITRITE NEGATIVE (NEGATIVE); URINE PROTEIN TRACE (NEGATIVE); URINE UROBILINOGEN 0.2 mg/dL (0.2-1.0)
--- NOTE | 2019-06-02 10:31 | PN ---
S CIWA - CIWA Score Nausea/Vomitin-No Nausea/No Vomiting Muscle Tremors: 2 Anxiety: 1-Mildly Anxious Agitation: 1-Slight > Activity Paroxysmal Sweats: No Perspiration Orientation: 0-Oriented Tacttile Disturbances: 0-None Auditory Disturbances: 0-None Visual Disturbances: 0-None Headache: 0-None Present CIWA-Ar Total Score: 4 BHS Progress Note (SOAP) Subjective: feeling better little leg discomfort a cane will help Objective: 06/02/19 10:30 Vital Signs Temperature 97.3 F L 06/02/19 10:21 Pulse Rate 66 06/02/19 10:21 Respiratory Rate 18 06/02/19 10:21 Blood Pressure 138/80 06/02/19 10:21 O2 Sat by Pulse Oximetry (%) aaox3 ambulating no acute distress Assessment: 06/02/19 10:31 mild withdrawals Plan: continue detox cane ordered d/c in am
[2019-06-02] MEDS: cloNIDine HCL 0.1 MG TABLET PO PRN (20:45)
[2019-06-02] MEDS: THIAMINE HCL 100 MG TABLET (FP) PO SCH (21:36)
[2019-06-02] MEDS: MELATONIN 5 MG TABLETS PO PRN (21:37)
[2019-06-03] MEDS ORDERED: METHADONE HCL 10 MG TABLET ONE (04:24)
[2019-06-03] MEDS ORDERED: METHADONE HCL 40 MG DISPERSABLE TABLET ONE (04:24)
[2019-06-03] MEDS ORDERED: chlordiazePOXIDE HCL 10 MG CAPSULE PO ONE (05:00)
[2019-06-03] MEDS: METHADONE 40 MG, METHADONE 30 MG PO SCH (05:11)
[2019-06-03 06:23] VITALS: BP 151/90; PULSE 63; TEMP 97.1
[2019-06-03] MEDS: PRENATAL VITAMINS W/ FOLIC ACID TABLET (FP) PO SCH (09:03)
--- NOTE | 2019-06-03 09:04 | DS ---
[facility] Detox Discharge Summary Admission Date: 05/30/19 Discharge Date: 06/03/19 - History Present History: Alcohol Dependence, Cocaine Dependence, MMTP - Physical Exam Results Vital Signs: Vital Signs Temperature 97.1 F L 06/03/19 06:23 Pulse Rate 63 06/03/19 06:23 Respiratory Rate 16 06/03/19 06:23 Blood Pressure 151/90 06/03/19 06:23 O2 Sat by Pulse Oximetry (%) Pertinent Admission Physical Exam Findings: pt arrived in withdrawals Vital Signs Temperature 97.1 F L 06/03/19 06:23 Pulse Rate 63 06/03/19 06:23 Respiratory Rate 16 06/03/19 06:23 Blood Pressure 151/90 06/03/19 06:23 O2 Sat by Pulse Oximetry (%) Laboratory Tests 06/01/19 06/01/19 06/02/19 08:15 08:15 08:00 WBC 2.8 L RBC 4.31 Hgb 14.1 Hct 42.4 MCV 98.4 H MCH 32.8 MCHC 33.3 RDW 14.4 Plt Count 154 MPV 8.1 Absolute Neuts (auto) 1.7 Neutrophils % 63.3 Lymphocytes % 21.8 Monocytes % 12.6 H Eosinophils % 1.6 Basophils % 0.7 Nucleated RBC % 0 Sodium 136 Potassium 4.6 Chloride 99 Carbon Dioxide 32 Anion Gap 5 L BUN 22.1 H Creatinine 0.7 Est GFR (CKD-EPI)AfAm 118.88 Est GFR (CKD-EPI)NonAf 102.57 Random Glucose 95 Calcium 9.6 Total Bilirubin 1.1 H AST 145 H ALT 63 H Alkaline Phosphatase 280 H Total Protein 8.3 H Albumin 3.7 Urine Color Yellow Urine Appearance Clear Urine pH 5.0 Ur Specific [place] 1.015 Urine Protein Trace Urine Glucose (UA) Negative Urine Ketones Negative Urine Blood Negative Urine Nitrite Negative Urine Bilirubin Negative Urine Urobilinogen 0.2 Ur Leukocyte Esterase Negative today pt is aaox3 ambulating no acute distress no s/s of withdrawals - Treatment Hospital Course: Detox Protocol Followed, Detoxed Safely, Responded well, Discharged Condition Good, Rehab Referral Accepted Patient has Accepted a Rehab Referral to: pt declined rehab; referreal provided - Diagnosis (1) Alcohol dependence with uncomplicated withdrawal Current Visit: Yes Status: Chronic (2) Essential hypertension Current Visit: Yes Status: Chronic (3) Methadone maintenance therapy patient Current Visit: Yes Status: Chronic (4) Elevated alkaline phosphatase level Current Visit: No Status: Acute (5) Elevated aspartate aminotransferase level Current Visit: No Status: Acute (6) Hyperbilirubinemia Current Visit: No Status: Acute (7) Insomnia Current Visit: No Status: Acute Qualifiers: Insomnia type: alcohol-induced Qualified Code(s): F10.982 - Alcohol use, unspecified with alcohol-induced sleep disorder (8) Leukopenia Current Visit: No Status: Acute Qualifiers: Leukopenia type: unspecified Qualified Code(s): D72.819 - Decreased white blood cell count, unspecified (9) Varicose veins of both lower extremities Current Visit: No Status: Acute Qualifiers: Varicose vein complication: unspecified Qualified Code(s): I83.93 - Asymptomatic varicose veins of bilateral lower extremities (10) Ambulates with cane Current Visit: No Status: Chronic (11) Anxiety Current Visit: No Status: Chronic (12) Arthritis Current Visit: No Status: Chronic (13) Cirrhosis of liver Current Visit: No Status: Chronic Qualifiers: Hepatic cirrhosis type: unspecified hepatic cirrhosis Ascites presence: unspecified Qualified Code(s): K74.60 - Unspecified cirrhosis of liver (14) Cocaine dependence Current Visit: No Status: Chronic Qualifiers: Substance use status: uncomplicated Qualified Code(s): F14.20 - Cocaine dependence, uncomplicated (15) Epigastric hernia Current Visit: No Status: Chronic (16) [place]INE[place] (hard of hearing) Current Visit: No Status: Chronic Qualifiers: Hearing loss type: unspecified Laterality: right Qualified Code(s): H91.91 - Unspecified hearing loss, right ear (17) HTN (hypertension), benign Current Visit: No Status: Chronic (18) Nicotine dependence Current Visit: No Status: Chronic Qualifiers: Nicotine product type: cigarettes Substance use status: uncomplicated Qualified Code(s): F17.210 - Nicotine dependence, cigarettes, uncomplicated (19) Cirrhosis of liver Current Visit: No Status: Suspected Qualifiers: Hepatic cirrhosis type: unspecified hepatic cirrhosis Ascites presence: unspecified Qualified Code(s): K74.60 - Unspecified cirrhosis of liver (20) Drug-induced mood disorder Current Visit: No Status: Suspected - AMA Did Patient Leave Against Medical Advice: No
== END 2019-06-03 09:16 | disposition home or self-care (01) | DRG 773 ==
LOC: YASAS 14:58 → Y6N 20:09
PROVIDERS: ADMIT Allergy & Immunology; ATTEND Allergy & Immunology
PROC: HZ2ZZZZ Detoxification Services for Substance Abuse Treatment (ICD-10-PCS; principal; 2019-05-30)
DX: F10.230 Alcohol dependence with withdrawal, uncomplicated (principal); F11.20 Opioid dependence, uncomplicated; F14.20 Cocaine dependence, uncomplicated; F17.210 Nicotine dependence, cigarettes, uncomplicated; F10.282 Alcohol dependence with alcohol-induced sleep disorder; F41.9 Anxiety disorder, unspecified; D72.819 Decreased white blood cell count, unspecified; H91.91 Unspecified hearing loss, right ear; I10 Essential (primary) hypertension; I83.893 Varicose veins of bilateral lower extremities with other complications; K74.60 Unspecified cirrhosis of liver; K43.9 Ventral hernia without obstruction or gangrene; E80.6 Other disorders of bilirubin metabolism; R74.8 Abnormal levels of other serum enzymes; R74.0 Nonspecific elevation of levels of transaminase and lactic acid dehydrogenase [LDH]; Z99.89 Dependence on other enabling machines and devices
CPT/HCPCS: 36415; 80053; 81003; 85025; J0735

== ENCOUNTER 2019-07-31 12:31 | Inpatient (IN) | payer OTHER ==
[2019-07-31 13:28] VITALS: BMI 29.2
--- NOTE | 2019-07-31 16:54 | HP ---
CIWA Score Nausea/Vomitin Muscle Tremors: 2 Anxiety: 4-Mod. Anxious/Guarded Agitation: 1-Slight > Activity Paroxysmal Sweats: No Perspiration Orientation: 2-Disoriented Date<2 days Tacttile Disturbances: 0-None Auditory Disturbances: 0-None Visual Disturbances: 0-None Headache: 2-Mild CIWA-Ar Total Score: 13 - Admission Criteria OASAS Guidelines: Admission for Medically Managed Detox: Requires at least one of the followin. CIWA greater than 12 2. Seizures within the past 24 hours 3. Delirium tremens within the past 24 hours 4. Hallucinations within the past 24 hours 5. Acute intervention needed for co occurring medical disorder 6. Acute intervention needed for co occurring psychiatric disorder 7. Severe withdrawal that cannot be handled at a lower level of care (continued vomiting, continued diarrhea, abnormal vital signs) requiring intravenous medication and/or fluids 8. Patient presents the following: CIWA greater than 12 Admission Criteria Met: Admission criteria met Admitting History and Physical - Admission History Source: Patient Limitations to Obtaining History: No Limitations - Past Medical History Psych: Yes: Addictions - Past Surgical History Past Surgical History: Yes: None - Smoking History Smoking history: Former smoker Have you smoked in the past 12 months: No Aproximately how many cigarettes per day: 0 If you are a former smoker, when did you quit?: 2003 - Alcohol/Substance Use Hx Alcohol Use: Yes Admission [facility] Allergies/Adverse Reactions: Allergies Allergy/AdvReac Type Severity Reaction Status Date / Time No Known Allergies Allergy Verified 07/31/19 13:22 History of Present Illness: 59 yo m w/ PMH etoh abuse and former heroin abuser comes into [facility] for assistance with detoxification from alcohol. The patient endorses drinking 6 nips of vodka and a 6 pack of beer daily since he was 19. Last drink was this morning. Of note, the patient is currently participating in a methadone program. He is currently on methadone 70 mg daily. will admit for valium detox. Exam Limitations: Language Barrier - Ebola screening Have you traveled outside of the country in the last 21 days: No Have you had contact with anyone from an Ebola affected area: No Do you have a fever: No - Review of Systems Constitutional: No Symptoms Reported Respiratory: reports: No Symptoms reported Cardiac: reports: No Symptoms Reported GI: reports: Abdominal cramping Neuro: reports: Headache Psychiatric: reports: Judgement Intact, Mood/Affect Appropiate, Orientated x3, Anxious Patient History - Patient Medical History Hx Anemia: No Hx Asthma: No Hx Chronic Obstructive Pulmonary Disease (COPD): No Hx Cancer: No Hx Cardiac Disorders: No Hx Congestive Heart Failure: No Hx Hypertension: No Hx Hypercholesterolemia: No Hx Pacemaker: No HX Cerebrovascular Accident: No Hx Seizures: No Hx Dementia: No Hx Diabetes: No Hx Gastrointestinal Disorders: Yes (epigastric hernia) Hx Liver Disease: Yes (fatty Liver , cirrhosis, ) Hx Genitourinary Disorders: No Hx Sexually Transmitted Disorders: No Hx Renal Disease (ESRD): No Hx Thyroid Disease: No Hx Human Immunodeficiency Virus (HIV): No Hx Hepatitis C: No Hx Depression: No Hx Suicide Attempt: No Hx Bipolar Disorder: No Hx Schizophrenia: No - Patient Surgical History Past Surgical History: Yes Hx Neurologic Surgery: No Hx Cataract Extraction: No Hx Cardiac Surgery: No Hx Lung Surgery: No Hx Breast Surgery: No Hx Breast Biopsy: No Hx Abdominal Surgery: No Hx Appendectomy: No Hx Cholecystectomy: No Hx Genitourinary Surgery: No Hx Section: No Hx Orthopedic Surgery: No Other Surgical History: 2009 left inguinal hernia repair Anesthesia Reaction: No - PPD History Date: 01/22/19 Results: 0 mm - Smoking Cessation Smoking history: Former smoker Have you smoked in the past 12 months: No Aproximately how many cigarettes per day: 0 If you are a former smoker, when did you quit?: 2003 Cigars Per Day: 0 Hx Chewing Tobacco Use: No Initiated information on smoking cessation: No - Substances abused Alcohol Substance route: Oral Frequency: Daily Amount used: 6x [employer]ERS and 6 nips of vodka Age of first use: 19 Date of last use: 07/31/19 Admission Physical Exam BHS - Vital Signs Vital Signs: Vital Signs - 24 hr 07/31/19 13:21 Pulse Rate 61 Respiratory 19 Rate Blood Pressure 165/89 - Physical General Appearance: Yes: No Apparent Distress, Nourished, Appropriately Dressed HEENTM: Yes: EOMI, Normal ENT Inspection, ANUM Respiratory: Yes: Chest Non-Tender, Lungs Clear, Normal Breath Sounds, No Respiratory Distress, No Accessory Muscle Use Neck: Yes: Trachea in good position Cardiology: Yes: Regular Rhythm, Regular Rate, S1, S2. No: JVD, Murmur, Gallop/ S3, Gallop/S4 Abdominal: Yes: Normal Bowel Sounds, Non Tender, Flat, Soft Neurological: Yes: mixing machine tender II-XII NML intact, Fully Oriented, Alert, Motor Strength 5/5, Normal Mood/Affect, Normal Response Integumentary: Yes: Normal Color, Dry, Warm - Diagnostic (1) Alcohol dependence with uncomplicated withdrawal Current Visit: No Status: Chronic (2) [place] (hard of hearing) Current Visit: No Status: Chronic Qualifiers: Hearing loss type: unspecified Laterality: right Qualified Code(s): H91.91 - Unspecified hearing loss, right ear Cleared for Admission S - Detox or Rehab [facility] Level of Care: Medically Managed Breathalyzer - Breathalyzer Breathalyzer: 0.85 Urine Drug Screen - Test Device Lot number: [id number] Expiration date: 02/11/21 - Control Is test valid?: Yes - Results Drug screen NEGATIVE: No Urine drug screen results: MTD-Methadone Inpatient Rehab Admission - Rehab Decision to Admit Inpatient rehab admission?: No
[2019-07-31] MEDS ORDERED: IBUPROFEN 400 MG TABLET (FP) PO PRN (17:10)
[2019-07-31] MEDS ORDERED: MAG HYDROX/AL HYDROX/SIMETH 30 ML UNIT-DOSE CUP PO PRN (17:10)
[2019-07-31] MEDS ORDERED: ACETAMINOPHEN 325 MG TABLET (FP) PO PRN ×2 (17:10)
[2019-07-31] MEDS ORDERED: MENTHOL/PHENOL 1 EACH UD MM PRN (17:10)
[2019-07-31] MEDS ORDERED: METHOCARBAMOL 500 MG TABLET PO PRN (17:10)
[2019-07-31] MEDS ORDERED: MAGNESIUM HYDROX 2400MG/30ML ORAL SUSPENSION 30 ML CUP PO PRN (17:10)
[2019-07-31] MEDS ORDERED: MAGNESIUM CITRATE 300 ML BOTTLE PO PRN (17:10)
[2019-07-31] MEDS ORDERED: hydrOXYzine PAMOATE 25 MG CAPSULE (FP) PO PRN (17:10)
[2019-07-31] MEDS ORDERED: BISMUTH SUBSALICYLATE 524 MG/30 ML UD PO PRN (17:10)
--- NOTE | 2019-07-31 17:50 | PN ---
Teaching Attending Note Name of Resident: Johnie Lawrence ATTENDING PHYSICIAN STATEMENT I saw and evaluated the patient. I reviewed the resident's note and discussed the case with the resident. I agree with the resident's findings and plan as documented. SUBJECTIVE: pt here requesting detox from etoh use , reports daily use x years , denies seizures . MMTP . OBJECTIVE:wnwd Vital Signs - 24 hr 07/31/19 13:21 Pulse Rate 61 Respiratory 19 Rate Blood Pressure 165/89 ASSESSMENT AND PLAN: AUD - Valium detox.
[2019-07-31] MEDS: diazePAM 5 MG TABLET PO PRN (17:54)
[2019-07-31] MEDS: THIAMINE HCL 100 MG TABLET (FP) PO SCH (21:53)
[2019-07-31] MEDS: MELATONIN 5 MG TABLETS PO PRN (21:53)
[2019-07-31] MEDS: diazePAM 5 MG TABLET PO SCH (21:53)
[2019-08-01] MEDS: diazePAM 5 MG TABLET PO SCH ×3 (06:04→22:18)
--- NOTE | 2019-08-01 07:06 | PN ---
BHS Progress Note Note: Patient's blood pressure is B/P 186/125. Patient is asymptomatic Vital Signs Temperature 97.5 F L 07/31/19 21:09 Pulse Rate 76 08/01/19 07:02 Respiratory Rate 18 08/01/19 07:02 Blood Pressure 186/125 H 08/01/19 07:02 O2 Sat by Pulse Oximetry (%) Action: Clonidine 0.1mg tablet oral ordered
[2019-08-01] MEDS ORDERED: cloNIDine HCL 0.1 MG TABLET PO ONE (07:30)
[2019-08-01] MEDS ORDERED: METHADONE HCL 10 MG TABLET PO SCH (09:15)
[2019-08-01] MEDS: PRENATAL VITAMINS W/ FOLIC ACID TABLET (FP) PO SCH (09:56)
[2019-08-01] MEDS ORDERED: METHADONE HCL 10 MG TABLET ONE (09:56)
[2019-08-01] MEDS ORDERED: METHADONE HCL 40 MG DISPERSABLE TABLET ONE (09:56)
[2019-08-01] MEDS: METHADONE 40 MG, METHADONE 30 MG PO SCH (09:57)
[2019-08-01] MEDS ORDERED: METHADONE HCL 40 MG DISPERSABLE TABLET PO SCH (10:00)
[2019-08-01 11:36] LABS: HEMATOCRIT 39.7 % (35.4-49); HEMOGLOBIN 13.6 GM/dL (11.7-16.9); MCH 32.6 pg (25.7-33.7); MCHC 34.1 g/dl (32.0-35.9); MEAN CELL VOLUME 95.5 fl (80-96); MEAN PLT VOLUME 7.6 fl (7.5-11.1); PLATELET COUNT 156 K/MM3 (134-434); RBC 4.16 M/mm3 (4.00-5.60); RDW 13.6 % (11.9-15.9); WHITE BLOOD COUNT 2.4 K/mm3 (4.0-10.0)
[2019-08-01 11:55] LABS: ALBUMIN 3.3 g/dl (3.4-5.0); BILIRUBIN,TOTAL 0.8 mg/dL (0.2-1); BLOOD UREA NITROGEN 16.9 mg/dL (7-18); CALCIUM 9.1 mg/dL (8.5-10.1); CREATININE 0.7 mg/dL (0.55-1.3); POTASSIUM 3.9 mmol/L (3.5-5.1); TOT PROT 7.7 g/dl (6.4-8.2)
[2019-08-01] MEDS ORDERED: guaiFENesin 200 MG/10 ML 10 ML UNIT-DOSE CUPS PO PRN (13:55)
--- NOTE | 2019-08-01 17:03 | PN ---
S CIWA - CIWA Score Nausea/Vomitin-No Nausea/No Vomiting Muscle Tremors: 3 Anxiety: 2 Agitation: 1-Slight > Activity Paroxysmal Sweats: No Perspiration Orientation: 2-Disoriented Date<2 days Tacttile Disturbances: 2-Mild Itch/Numbness/Burn Auditory Disturbances: 0-None Visual Disturbances: 1-Very Mild Sensitivity Headache: 0-None Present CIWA-Ar Total Score: 11 BHS Progress Note (SOAP) Subjective: Anxious, Tremors, Sweating. Objective: PATIENT A & O X 2 (UNCERTAIN ABOUT CURRENT DAY/ DATE). PATIENT OBSERVED AMBULATING ON DETOX UNIT WITH ASSISTANCE OF A CANE. IN NO ACUTE DISTRESS. 08/01/19 17:01 Vital Signs Temperature 98.1 F 08/01/19 15:35 Pulse Rate 66 08/01/19 15:35 Respiratory Rate 18 08/01/19 15:35 Blood Pressure 123/76 08/01/19 15:35 O2 Sat by Pulse Oximetry (%) Laboratory Tests 08/01/19 08/01/19 08/01/19 07:30 07:30 07:30 WBC 2.4 L RBC 4.16 Hgb 13.6 Hct 39.7 MCV 95.5 MCH 32.6 MCHC 34.1 RDW 13.6 Plt Count 156 MPV 7.6 Sodium 137 Potassium 3.9 Chloride 101 Carbon Dioxide 31 Anion Gap 5 L BUN 16.9 Creatinine 0.7 Est GFR (CKD-EPI)AfAm 118.88 Est GFR (CKD-EPI)NonAf 102.57 Random Glucose 118 H Calcium 9.1 Total Bilirubin 0.8 AST 99 H ALT 52 Alkaline Phosphatase 279 H Total Protein 7.7 Albumin 3.3 L RPR Titer Nonreactive LABS NOTED. PATIENT HAS HAD ELEVATED AST AND ALK. PHOS LEVELS AND LOW WBC LEVELS ON PREVIOUS ADMISSIONS. 08/01/19 17:02 Assessment: 08/01/19 17:02 WITHDRAWAL SYMPTOMS. LEUKOPENIA. ELEVATED AST LEVEL. ELEVATED ALK. PHOS. LEVEL. Plan: CONTINUE DETOX.
[2019-08-01] MEDS: MELATONIN 5 MG TABLETS PO PRN (22:18)
[2019-08-01] MEDS: THIAMINE HCL 100 MG TABLET (FP) PO SCH (22:18)
[2019-08-02] MEDS ORDERED: METHADONE HCL 10 MG TABLET ONE (05:22)
[2019-08-02] MEDS ORDERED: METHADONE HCL 40 MG DISPERSABLE TABLET ONE (05:22)
[2019-08-02] MEDS: diazePAM 5 MG TABLET PO SCH ×2 (06:04→17:18)
[2019-08-02] MEDS: METHADONE 40 MG, METHADONE 30 MG PO SCH (06:04)
[2019-08-02] MEDS: PRENATAL VITAMINS W/ FOLIC ACID TABLET (FP) PO SCH (10:11)
[2019-08-02] MEDS: diazePAM 5 MG TABLET PO PRN ×2 (13:49→22:13)
--- NOTE | 2019-08-02 14:20 | PN ---
[facility] CIWA - CIWA Score Nausea/Vomitin-No Nausea/No Vomiting Muscle Tremors: None Anxiety: 0-No Anxiety, at Ease Agitation: 0-Normal Activity Paroxysmal Sweats: 1-Minimal Palms Moist Orientation: 0-Oriented Tacttile Disturbances: 0-None Auditory Disturbances: 0-None Visual Disturbances: 0-None Headache: 0-None Present CIWA-Ar Total Score: 1 BHS Progress Note (SOAP) Subjective: feeling better Objective: 08/02/19 14:19 Vital Signs Temperature 98.1 F 08/02/19 14:18 Pulse Rate 79 08/02/19 14:18 Respiratory Rate 16 08/02/19 14:18 Blood Pressure 110/72 08/02/19 14:18 O2 Sat by Pulse Oximetry (%) aaox3 ambulating no acute distress Assessment: 08/02/19 14:20 mild to no withdrawals Plan: d/c in am
[2019-08-02] MEDS: MELATONIN 5 MG TABLETS PO PRN (22:13)
[2019-08-02] MEDS: THIAMINE HCL 100 MG TABLET (FP) PO SCH (22:13)
[2019-08-03] MEDS ORDERED: METHADONE HCL 40 MG DISPERSABLE TABLET ONE (04:10)
[2019-08-03] MEDS ORDERED: METHADONE HCL 10 MG TABLET ONE (04:10)
[2019-08-03] MEDS ORDERED: diazePAM 5 MG TABLET PO ONE (06:00)
[2019-08-03] MEDS: METHADONE 40 MG, METHADONE 30 MG PO SCH (06:12)
[2019-08-03 06:59] VITALS: BP 154/93; PULSE 65; TEMP 96.3
--- NOTE | 2019-08-03 09:22 | DS ---
[facility] Detox Discharge Summary Admission Date: 07/31/19 Discharge Date: 08/03/19 - History Present History: Alcohol Dependence, Cannabis Dependence, MMTP - Physical Exam Results Vital Signs: Vital Signs Temperature 96.3 F L 08/03/19 06:58 Pulse Rate 65 08/03/19 06:58 Respiratory Rate 18 08/03/19 06:58 Blood Pressure 154/93 08/03/19 06:58 O2 Sat by Pulse Oximetry (%) Pertinent Admission Physical Exam Findings: Vital Signs Temperature 96.3 F L 08/03/19 06:58 Pulse Rate 65 08/03/19 06:58 Respiratory Rate 18 08/03/19 06:58 Blood Pressure 154/93 08/03/19 06:58 O2 Sat by Pulse Oximetry (%) Laboratory Tests 08/01/19 08/01/19 08/01/19 07:30 07:30 07:30 WBC 2.4 L RBC 4.16 Hgb 13.6 Hct 39.7 MCV 95.5 MCH 32.6 MCHC 34.1 RDW 13.6 Plt Count 156 MPV 7.6 Sodium 137 Potassium 3.9 Chloride 101 Carbon Dioxide 31 Anion Gap 5 L BUN 16.9 Creatinine 0.7 Est GFR (CKD-EPI)AfAm 118.88 Est GFR (CKD-EPI)NonAf 102.57 Random Glucose 118 H Calcium 9.1 Total Bilirubin 0.8 AST 99 H ALT 52 Alkaline Phosphatase 279 H Total Protein 7.7 Albumin 3.3 L RPR Titer Nonreactive aaox3 ambulating no acute distress - Treatment Hospital Course: Detox Protocol Followed, Detoxed Safely, Responded well, Discharged Condition Good, Rehab Referral Accepted - Medication Discharge Medications: Ambulatory Orders Methadone [Dolophine -] 70 mg PO DAILY 07/31/19 - Diagnosis (1) Elevated alkaline phosphatase level Current Visit: No Status: Acute (2) Elevated aspartate aminotransferase level Current Visit: No Status: Acute (3) Hyperbilirubinemia Current Visit: No Status: Acute (4) Insomnia Current Visit: No Status: Acute Qualifiers: Insomnia type: alcohol-induced Qualified Code(s): F10.982 - Alcohol use, unspecified with alcohol-induced sleep disorder (5) Varicose veins of both lower extremities Current Visit: No Status: Acute Qualifiers: Varicose vein complication: unspecified Qualified Code(s): I83.93 - Asymptomatic varicose veins of bilateral lower extremities (6) Alcohol dependence with uncomplicated withdrawal Current Visit: Yes Status: Chronic (7) Ambulates with cane Current Visit: No Status: Chronic (8) Anxiety Current Visit: No Status: Chronic (9) Arthritis Current Visit: No Status: Chronic (10) Cirrhosis of liver Current Visit: No Status: Chronic Qualifiers: Hepatic cirrhosis type: unspecified hepatic cirrhosis Ascites presence: unspecified Qualified Code(s): K74.60 - Unspecified cirrhosis of liver (11) Cocaine dependence Current Visit: Yes Status: Chronic Qualifiers: Substance use status: uncomplicated Qualified Code(s): F14.20 - Cocaine dependence, uncomplicated (12) Epigastric hernia Current Visit: No Status: Chronic (13) Essential hypertension Current Visit: No Status: Chronic (14) ALATNA (hard of hearing) Current Visit: No Status: Chronic Qualifiers: Hearing loss type: unspecified Laterality: right Qualified Code(s): H91.91 - Unspecified hearing loss, right ear (15) HTN (hypertension), benign Current Visit: No Status: Chronic (16) Methadone maintenance therapy patient Current Visit: Yes Status: Chronic (17) Nicotine dependence Current Visit: Yes Status: Chronic Qualifiers: Nicotine product type: cigarettes Substance use status: uncomplicated Qualified Code(s): F17.210 - Nicotine dependence, cigarettes, uncomplicated (18) Cirrhosis of liver Current Visit: No Status: Suspected Qualifiers: Hepatic cirrhosis type: unspecified hepatic cirrhosis Ascites presence: unspecified Qualified Code(s): K74.60 - Unspecified cirrhosis of liver (19) Drug-induced mood disorder Current Visit: No Status: Suspected - AMA Did Patient Leave Against Medical Advice: No
== END 2019-08-03 09:12 | disposition home or self-care (01) | DRG 773 ==
LOC: YASAS 12:31 → Y6N 17:13
PROVIDERS: ADMIT Allergy & Immunology; ATTEND Allergy & Immunology
PROC: HZ2ZZZZ Detoxification Services for Substance Abuse Treatment (ICD-10-PCS; principal; 2019-07-31)
DX: F10.230 Alcohol dependence with withdrawal, uncomplicated (principal); F14.20 Cocaine dependence, uncomplicated; F11.20 Opioid dependence, uncomplicated; F41.9 Anxiety disorder, unspecified; F19.24 Other psychoactive substance dependence with psychoactive substance-induced mood disorder; I10 Essential (primary) hypertension; D72.819 Decreased white blood cell count, unspecified; K74.60 Unspecified cirrhosis of liver; G47.00 Insomnia, unspecified; R74.0 Nonspecific elevation of levels of transaminase and lactic acid dehydrogenase [LDH]; R77.0 Abnormality of albumin; I83.93 Asymptomatic varicose veins of bilateral lower extremities; M19.90 Unspecified osteoarthritis, unspecified site; H91.91 Unspecified hearing loss, right ear; R26.2 Difficulty in walking, not elsewhere classified; Z99.89 Dependence on other enabling machines and devices; Z87.891 Personal history of nicotine dependence
CPT/HCPCS: 36415; 80053; 85027; 86593; J0735

== ENCOUNTER 2020-02-10 15:48 | Inpatient (IN) | payer OTHER ==
[2020-02-10 16:44] VITALS: BMI 23.8
--- NOTE | 2020-02-10 17:55 | HP ---
CIWA Score Nausea/Vomitin-No Nausea/No Vomiting Muscle Tremors: 1-None Visible, but [place] Anxiety: 2 Agitation: 1-Slight > Activity Paroxysmal Sweats: No Perspiration Orientation: 1-Uncertain about Date Tacttile Disturbances: 0-None Auditory Disturbances: 2-Mild Harshness/Frighten Visual Disturbances: 3-Moderate Sensitivity Headache: 0-None Present CIWA-Ar Total Score: 10 - Admission Criteria OASAS Guidelines: Admission for Medically Managed Detox: Requires at least one of the followin. CIWA greater than 12 2. Seizures within the past 24 hours 3. Delirium tremens within the past 24 hours 4. Hallucinations within the past 24 hours 5. Acute intervention needed for co occurring medical disorder 6. Acute intervention needed for co occurring psychiatric disorder 7. Severe withdrawal that cannot be handled at a lower level of care (continued vomiting, continued diarrhea, abnormal vital signs) requiring intravenous medication and/or fluids 8. Admitting History and Physical - Past Medical History Psych: Yes: Addictions - Past Surgical History Past Surgical History: Yes: None - Smoking History Smoking history: Former smoker Have you smoked in the past 12 months: No Aproximately how many cigarettes per day: 0 If you are a former smoker, when did you quit?: 2004 - Alcohol/Substance Use Hx Alcohol Use: Yes Admission [facility] Allergies/Adverse Reactions: Allergies Allergy/AdvReac Type Severity Reaction Status Date / Time No Known Allergies Allergy Verified 02/10/20 16:41 History of Present Illness: 60 y.o. male requesting detox from alcohol use , reports 2 x 6-pk /day , denies seizures or blackouts , occasional tremors if not drinking . Cyurrent YANNICK 0.113 . Ambulating w/ cane due to pain in feet . MMTP 75 mg in program [place] x 5 years. PMHX : denies PSHX : umbilical hernia Exam Limitations: Intoxication - Review of Systems Constitutional: Loss of Appetite EENT: reports: Hearing Loss (right ear hearing loss) Respiratory: reports: No Symptoms reported Cardiac: reports: No Symptoms Reported GI: reports: Poor Appetite : reports: No Symptoms Reported Musculoskeletal: reports: Other (bilateral feet pain w/ ambulation , no injuries) Integumentary: reports: No Symptoms Reported Neuro: reports: Unsteady Gait Hematology: reports: Other (reports varicose veins in legs , had rx for compression stockings) Psychiatric: reports: Disorientated Patient History - Patient Medical History Hx Anemia: No Hx Asthma: No Hx Chronic Obstructive Pulmonary Disease (COPD): No Hx Cancer: No Hx Cardiac Disorders: No Hx Congestive Heart Failure: No Hx Hypertension: No Hx Hypercholesterolemia: No Hx Pacemaker: No HX Cerebrovascular Accident: No Hx Seizures: No Hx Dementia: No Hx Diabetes: No Hx Gastrointestinal Disorders: Yes (epigastric hernia) Hx Liver Disease: Yes (fatty Liver , cirrhosis, ) Hx Genitourinary Disorders: No Hx Sexually Transmitted Disorders: No Hx Renal Disease (ESRD): No Hx Thyroid Disease: No Hx Human Immunodeficiency Virus (HIV): No Hx Hepatitis C: No Hx Depression: Yes Hx Suicide Attempt: No Hx Bipolar Disorder: No Hx Schizophrenia: No - Patient Surgical History Past Surgical History: Yes Hx Neurologic Surgery: No Hx Cataract Extraction: No Hx Cardiac Surgery: No Hx Lung Surgery: No Hx Breast Surgery: No Hx Breast Biopsy: No Hx Abdominal Surgery: No Hx Appendectomy: No Hx Cholecystectomy: No Hx Genitourinary Surgery: No Hx Section: No Hx Orthopedic Surgery: No Other Surgical History: 2009 left inguinal hernia repair Anesthesia Reaction: No - PPD History Previous Implant?: Yes Documented Results: Negative w/proof Date: 01/22/19 Results: 0 mm - Smoking Cessation Smoking history: Former smoker Have you smoked in the past 12 months: No Aproximately how many cigarettes per day: 0 If you are a former smoker, when did you quit?: 2003 Cigars Per Day: 0 Hx Chewing Tobacco Use: No Initiated information on smoking cessation: No - Substances abused Alcohol Substance route: Oral Frequency: Daily Amount used: liquor- 2 pts, beer 2 six pk Age of first use: 24 Date of last use: 02/10/20 Admission Physical Exam BHS - Vital Signs Vital Signs: Vital Signs - 24 hr 02/10/20 16:41 Temperature 97.8 F Pulse Rate 61 Respiratory 18 Rate Blood Pressure 130/74 - Physical General Appearance: Yes: Disheveled, Intoxicated, Anxious HEENTM: Yes: EOMI, Normocephalic, Hearing Decreased, Muffled/Hoarse Voice Respiratory: Yes: Chest Non-Tender, No Respiratory Distress, No Accessory Muscle Use, Wheezing, Expiration, Other (pt denies h/o asthma) Neck: Yes: No masses,lesions,Nodules, Trachea in good position Cardiology: Yes: Regular Rhythm, Regular Rate, S1, S2 Abdominal: Yes: Non Tender, Soft, Distended Back: Yes: Normal Inspection Musculoskeletal: Yes: Other (unsteady gait , laura feet no deformity , no tenderness to palpation , erythema throughout LE w/ varicose veins / stasis dermatitis.) Extremities: Yes: Normal Range of Motion Neurological: Yes: Alert, Motor Strength 5/5 Integumentary: Yes: Warm, Other ( L > R varicose veins laura LE, stasis dermatitis.) - Diagnostic (1) Methadone maintenance therapy patient Current Visit: Yes Status: Chronic Comment: Methadone 70 mg PO Daily on [facility] OT (2) Alcohol intoxication Current Visit: Yes Status: Acute Qualifiers: Complication of substance-induced condition: uncomplicated Qualified Code(s): F10.920 - Alcohol use, unspecified with intoxication, uncomplicated Breathalyzer - Breathalyzer Breathalyzer: 0.113 Urine Drug Screen - Test Device Lot number: [id number] Expiration date: 03/14/21 - Control Is test valid?: No - Results Drug screen NEGATIVE: No Urine drug screen results: MTD-Methadone Inpatient Rehab Admission - Rehab Decision to Admit Inpatient rehab admission?: No
[2020-02-10] MEDS ORDERED: MAGNESIUM CITRATE 300 ML BOTTLE PO PRN (18:15)
[2020-02-10] MEDS ORDERED: MENTHOL/PHENOL 1 EACH UD MM PRN (18:15)
[2020-02-10] MEDS ORDERED: MAGNESIUM HYDROX 2400MG/30ML ORAL SUSPENSION 30 ML CUP PO PRN (18:15)
[2020-02-10] MEDS ORDERED: BISMUTH SUBSALICYLATE 524 MG/30 ML UD PO PRN (18:15)
[2020-02-10] MEDS ORDERED: METHOCARBAMOL 500 MG TABLET PO PRN (18:15)
[2020-02-10] MEDS ORDERED: IBUPROFEN 400 MG TABLET (FP) PO PRN (18:15)
[2020-02-10] MEDS ORDERED: ONDANSETRON *ODT* 4 MG TABLET SL PRN (18:15)
[2020-02-10] MEDS ORDERED: ACETAMINOPHEN 325 MG TABLET (FP) PO PRN ×2 (18:15)
[2020-02-10] MEDS ORDERED: MAG HYDROX/AL HYDROX/SIMETH 30 ML UNIT-DOSE CUP PO PRN (18:15)
[2020-02-10] MEDS ORDERED: ALBUTEROL SO4 HFA INHALER IH PRN (18:17)
[2020-02-10] MEDS ORDERED: chlordiazePOXIDE HCL 10 MG CAPSULE PO PRN (18:17)
[2020-02-10] MEDS: hydrOXYzine PAMOATE 25 MG CAPSULE (FP) PO PRN (19:49)
[2020-02-10] MEDS ORDERED: cloNIDine HCL 0.1 MG TABLET PO ONE (20:04)
--- NOTE | 2020-02-10 20:05 | PN ---
S Progress Note Note: called by nursing for elevated BP Vital Signs - 24 hr 02/10/20 02/10/20 16:41 19:41 Temperature 97.8 F 97.5 F L Pulse Rate 61 63 Respiratory 18 18 Rate Blood Pressure 130/74 202/95 H O2 Sat by Pulse 97 Oximetry (%) P : Clonidine 0.1 mg once .
[2020-02-10] MEDS: MELATONIN 5 MG TABLETS PO SCH (21:23)
[2020-02-10] MEDS: chlordiazePOXIDE HCL 25 MG CAPSULE PO SCH (21:23)
[2020-02-10] MEDS: THIAMINE HCL 100 MG TABLET (FP) PO SCH (21:23)
[2020-02-11] MEDS: chlordiazePOXIDE HCL 25 MG CAPSULE PO SCH (05:33)
[2020-02-11] MEDS ORDERED: METHADONE HCL 10 MG TABLET ONE (09:49)
[2020-02-11] MEDS ORDERED: METHADONE HCL 40 MG DISPERSABLE TABLET ONE (09:49)
[2020-02-11] MEDS ORDERED: METHADONE 40 MG, METHADONE 30 MG PO ONE (10:00)
[2020-02-11] MEDS ORDERED: METHADONE HCL 10 MG TABLET PO ONE (10:00)
[2020-02-11] MEDS: PRENATAL VITAMINS W/ FOLIC ACID TABLET (FP) PO SCH (10:39)
[2020-02-11 10:53] LABS: HEMATOCRIT 35.7 % (35.4-49); HEMOGLOBIN 12.2 GM/dL (11.7-16.9); MCH 33.5 pg (25.7-33.7); MCHC 34.1 g/dl (32.0-35.9); MEAN CELL VOLUME 98.3 fl (80-96); MEAN PLT VOLUME 8.3 fl (7.5-11.1); PLATELET COUNT 123 K/MM3 (134-434); RBC 3.63 M/mm3 (4.00-5.60); RDW 13.5 % (11.9-15.9); WHITE BLOOD COUNT 2.3 K/mm3 (4.0-10.0)
[2020-02-11 11:01] LABS: ALBUMIN 3.5 g/dl (3.4-5.0); BLOOD UREA NITROGEN 23.6 mg/dL (7-18); CREATININE 0.8 mg/dL (0.55-1.3); POTASSIUM 4.1 mmol/L (3.5-5.1); TOT PROT 7.4 g/dl (6.4-8.2)
[2020-02-11] MEDS ORDERED: cloNIDine HCL 0.1 MG TABLET PO PRN (11:45)
[2020-02-11] MEDS ORDERED: LORazepam 1 MG TABLET PO PRN (11:49)
--- NOTE | 2020-02-11 11:49 | PN ---
S CIWA - CIWA Score Nausea/Vomitin-Mild Nausea/No Vomiting Muscle Tremors: 4-Moderate,w/Arms Extend Anxiety: 3 Agitation: 2 Paroxysmal Sweats: No Perspiration Orientation: 0-Oriented Tacttile Disturbances: 0-None Auditory Disturbances: 0-None Visual Disturbances: 2-Mild Sensitivity Headache: 0-None Present CIWA-Ar Total Score: 12 S Progress Note (SOAP) Subjective: 60 years old male admitted on 02/10/20 for alcohol withdrawal sx management treating with librium detox regiment ambulating with cane slow steady from bed to bathroom bmi 23.9 ensure 120 ml po tid with meals bp elevation lisinopril 20 mg po bid initiated clonidine 0.1 mg po prn Vital Signs - 24 hr 02/10/20 02/10/20 02/10/20 16:41 19:41 20:52 Temperature 97.8 F 97.5 F L 97.7 F Pulse Rate 61 63 62 Respiratory 18 18 18 Rate Blood Pressure 130/74 202/95 H 133/77 O2 Sat by Pulse 97 96 Oximetry (%) 02/11/20 02/11/20 06:33 08:42 Temperature 97.4 F L 97.1 F L Pulse Rate 52 L 55 L Respiratory 18 16 Rate Blood Pressure 192/96 H 142/78 O2 Sat by Pulse 99 Oximetry (%) Objective: 02/11/20 11:47 Vital Signs - 24 hr 02/10/20 02/10/20 02/10/20 16:41 19:41 20:52 Temperature 97.8 F 97.5 F L 97.7 F Pulse Rate 61 63 62 Respiratory 18 18 18 Rate Blood Pressure 130/74 202/95 H 133/77 O2 Sat by Pulse 97 96 Oximetry (%) 02/11/20 02/11/20 06:33 08:42 Temperature 97.4 F L 97.1 F L Pulse Rate 52 L 55 L Respiratory 18 16 Rate Blood Pressure 192/96 H 142/78 O2 Sat by Pulse 99 Oximetry (%) Laboratory Tests 02/11/20 02/11/20 02/11/20 07:40 07:40 07:40 WBC 2.3 L RBC 3.63 L Hgb 12.2 Hct 35.7 MCV 98.3 H MCH 33.5 MCHC 34.1 RDW 13.5 Plt Count 123 L MPV 8.3 D Sodium 139 Potassium 4.1 Chloride 101 Carbon Dioxide 29 Anion Gap 9 BUN 23.6 H Creatinine 0.8 Est GFR (CKD-EPI)AfAm 111.74 Est GFR (CKD-EPI)NonAf 96.41 Random Glucose 97 Calcium 9.0 Total Bilirubin 1.0 AST 100 H ALT 49 Alkaline Phosphatase 224 H Total Protein 7.4 Albumin 3.5 Syphilis Serology Non-reactive lab noted chronic leukocytosis low wbc ast elevation discontinue librium begin ativan for alcohol detox regiment 02/11/20 11:49 discontinue tylenal 02/11/20 11:51 Assessment: 02/11/20 11:49 alcohol withdrawal Plan: ativan regiment
[2020-02-11] MEDS: LISINOPRIL 20 MG TABLET (FP) PO SCH ×2 (14:19→22:40)
[2020-02-11] MEDS: LORazepam 2 MG TABLET PO SCH ×2 (17:56→22:40)
[2020-02-11] MEDS: MELATONIN 5 MG TABLETS PO SCH (22:40)
[2020-02-11] MEDS: THIAMINE HCL 100 MG TABLET (FP) PO SCH (22:40)
[2020-02-12] MEDS ORDERED: chlordiazePOXIDE 5 MG CAPSULE PO SCH (05:00)
[2020-02-12] MEDS ORDERED: METHADONE HCL 10 MG TABLET ONE (05:10)
[2020-02-12] MEDS ORDERED: METHADONE HCL 40 MG DISPERSABLE TABLET ONE (05:10)
[2020-02-12] MEDS: LORazepam 1 MG TABLET PO SCH ×4 (05:28→22:12)
[2020-02-12] MEDS: METHADONE 40 MG, METHADONE 30 MG PO SCH (05:28)
[2020-02-12] MEDS ORDERED: METHADONE HCL 10 MG TABLET PO SCH (06:00)
[2020-02-12] MEDS: LISINOPRIL 20 MG TABLET (FP) PO SCH ×2 (10:03→22:12)
[2020-02-12] MEDS: PRENATAL VITAMINS W/ FOLIC ACID TABLET (FP) PO SCH (10:04)
--- NOTE | 2020-02-12 10:49 | PN ---
S CIWA - CIWA Score Nausea/Vomitin-No Nausea/No Vomiting Muscle Tremors: None Anxiety: 1-Mildly Anxious Agitation: 0-Normal Activity Paroxysmal Sweats: 2 Orientation: 1-Uncertain about Date Tacttile Disturbances: 0-None Auditory Disturbances: 0-None Visual Disturbances: 0-None Headache: 0-None Present CIWA-Ar Total Score: 4 S Progress Note (SOAP) Subjective: Patient is a 60 year old male with history of heroin use (methadone maintenance 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 Endorsed difficulty hearing from right ear- ongoing for past year. Endorses he has primary care physician, and will need to follow up. Objective: 02/12/20 10:49 General: sitting in bed, mild distress HEENT: NC/AT. PERRL, EOMI Neuro: moving all four extremities equally. No focal deficits. Mentation: normal Vital Signs Temperature 96.9 F L 02/12/20 08:32 Pulse Rate 66 02/12/20 08:32 Respiratory Rate 18 02/12/20 08:32 Blood Pressure 139/80 02/12/20 08:32 O2 Sat by Pulse Oximetry (%) 99 02/12/20 06:31 Laboratory Tests 02/10/20 02/11/20 02/11/20 19:00 07:40 07:40 WBC 2.3 L RBC 3.63 L Hgb 12.2 Hct 35.7 MCV 98.3 H MCH 33.5 MCHC 34.1 RDW 13.5 Plt Count 123 L MPV 8.3 D Sodium Potassium Chloride Carbon Dioxide Anion Gap BUN Creatinine Est GFR (CKD-EPI)AfAm Est GFR (CKD-EPI)NonAf Random Glucose Calcium Total Bilirubin AST ALT Alkaline Phosphatase Total Protein Albumin Syphilis Serology Non-reactive COVID-19 (BER[facility]) Not detected 02/11/20 07:40 WBC RBC Hgb Hct MCV MCH MCHC RDW Plt Count MPV Sodium 139 Potassium 4.1 Chloride 101 Carbon Dioxide 29 Anion Gap 9 BUN 23.6 H Creatinine 0.8 Est GFR (CKD-EPI)AfAm 111.74 Est GFR (CKD-EPI)NonAf 96.41 Random Glucose 97 Calcium 9.0 Total Bilirubin 1.0 AST 100 H ALT 49 Alkaline Phosphatase 224 H Total Protein 7.4 Albumin 3.5 Syphilis Serology COVID-19 (BERNA) 02/12/20 10:51 Assessment: 02/12/20 10:50 Patient is a 60 year old male with history of heroin use (methadone maintenance 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 Plan: History of Heroin use: continue methadone maintenance 70mg\ Alcohol use disorder: Ativan taper Hypertension: Lisinopril, Clonidine,
[2020-02-12] MEDS: MELATONIN 5 MG TABLETS PO SCH (22:12)
[2020-02-12] MEDS: THIAMINE HCL 100 MG TABLET (FP) PO SCH (22:12)
[2020-02-13] MEDS ORDERED: LORazepam 0.5 MG TABLET PO PRN
[2020-02-13] MEDS ORDERED: chlordiazePOXIDE HCL 10 MG CAPSULE PO PRN
[2020-02-13] MEDS ORDERED: METHADONE HCL 10 MG TABLET ONE (04:23)
[2020-02-13] MEDS ORDERED: METHADONE HCL 40 MG DISPERSABLE TABLET ONE (04:23)
[2020-02-13] MEDS ORDERED: chlordiazePOXIDE HCL 10 MG CAPSULE PO SCH (05:00)
[2020-02-13] MEDS: LORazepam 0.5 MG TABLET PO SCH ×4 (05:45→22:25)
[2020-02-13] MEDS: METHADONE 40 MG, METHADONE 30 MG PO SCH (05:46)
[2020-02-13] MEDS: LISINOPRIL 20 MG TABLET (FP) PO SCH ×2 (10:04→22:25)
[2020-02-13] MEDS: PRENATAL VITAMINS W/ FOLIC ACID TABLET (FP) PO SCH (10:05)
--- NOTE | 2020-02-13 12:00 | PN ---
S CIWA - CIWA Score Nausea/Vomitin-No Nausea/No Vomiting Muscle Tremors: None Anxiety: 2 Agitation: 0-Normal Activity Paroxysmal Sweats: 1-Minimal Palms Moist Orientation: 0-Oriented Tacttile Disturbances: 0-None Auditory Disturbances: 0-None Visual Disturbances: 0-None Headache: 0-None Present CIWA-Ar Total Score: 3 BHS Progress Note (SOAP) Subjective: c/o mild withdrawal symptoms. Objective: 02/13/20 11:59 Vital Signs 02/13/20 02/13/20 06:51 08:38 Temperature 97.1 F L 97.8 F Pulse Rate 66 69 Respiratory 18 16 Rate Blood Pressure 145/85 127/80 O2 Sat by Pulse 96 Oximetry (%) Laboratory Last Values WBC 2.3 K/mm3 (4.0-10.0) L 02/11/20 07:40 RBC 3.63 M/mm3 (4.00-5.60) L 02/11/20 07:40 Hgb 12.2 GM/dL (11.7-16.9) 02/11/20 07:40 Hct 35.7 % (35.4-49) 02/11/20 07:40 MCV 98.3 fl (80-96) H 02/11/20 07:40 MCH 33.5 pg (25.7-33.7) 02/11/20 07:40 MCHC 34.1 g/dl (32.0-35.9) 02/11/20 07:40 RDW 13.5 % (11.9-15.9) 02/11/20 07:40 Plt Count 123 K/MM3 (134-434) L 02/11/20 07:40 MPV 8.3 fl (7.5-11.1) D 02/11/20 07:40 Sodium 139 mmol/L (136-145) 02/11/20 07:40 Potassium 4.1 mmol/L (3.5-5.1) 02/11/20 07:40 Chloride 101 mmol/L (98-107) 02/11/20 07:40 Carbon Dioxide 29 mmol/L (21-32) 02/11/20 07:40 Anion Gap 9 MMOL/L (8-16) 02/11/20 07:40 BUN 23.6 mg/dL (7-18) H 02/11/20 07:40 Creatinine 0.8 mg/dL (0.55-1.3) 02/11/20 07:40 Est GFR (CKD-EPI)AfAm 111.74 02/11/20 07:40 Est GFR (CKD-EPI)NonAf 96.41 02/11/20 07:40 Random Glucose 97 mg/dL (74-106) 02/11/20 07:40 Calcium 9.0 mg/dL (8.5-10.1) 02/11/20 07:40 Total Bilirubin 1.0 mg/dL (0.2-1) 02/11/20 07:40 AST 100 U/L (15-37) H 02/11/20 07:40 ALT 49 U/L (13-61) 02/11/20 07:40 Alkaline Phosphatase 224 U/L (45-117) H 02/11/20 07:40 Total Protein 7.4 g/dl (6.4-8.2) 02/11/20 07:40 Albumin 3.5 g/dl (3.4-5.0) 02/11/20 07:40 Syphilis Serology Non-reactive (NONREACTIVE) 02/11/20 07:40 COVID-19 ([facility]) Not detected (Not Detected) 02/10/20 19:00 Labs noted. Assessment: 02/13/20 11:59 AOX3, in no acute respiratory distress. Full ROM, ambulating in the unit. Withdrawal symptoms. For d/c tomorrow. Plan: continue detox. D/C in AM.
[2020-02-13 17:18] VITALS: TEMP 97.3
[2020-02-13] MEDS: THIAMINE HCL 100 MG TABLET (FP) PO SCH (22:25)
[2020-02-13] MEDS: hydrOXYzine PAMOATE 25 MG CAPSULE (FP) PO PRN (22:25)
[2020-02-13] MEDS: MELATONIN 5 MG TABLETS PO SCH (22:25)
[2020-02-14] MEDS ORDERED: METHADONE HCL 10 MG TABLET ONE (04:32)
[2020-02-14] MEDS ORDERED: METHADONE HCL 40 MG DISPERSABLE TABLET ONE (04:32)
[2020-02-14] MEDS ORDERED: chlordiazePOXIDE HCL 10 MG CAPSULE PO ONE (05:00)
[2020-02-14] MEDS ORDERED: LORazepam 0.5 MG TABLET PO ONE (05:00)
[2020-02-14] MEDS: METHADONE 40 MG, METHADONE 30 MG PO SCH (05:40)
[2020-02-14 07:11] VITALS: BP 139/85; PULSE 69
[2020-02-14] MEDS: PRENATAL VITAMINS W/ FOLIC ACID TABLET (FP) PO SCH (09:11)
[2020-02-14] MEDS: LISINOPRIL 20 MG TABLET (FP) PO SCH (09:12)
--- NOTE | 2020-02-14 11:09 | DS ---
[facility] Detox Discharge Summary Admission Date: 02/10/20 Discharge Date: 02/14/20 - History Present History: Alcohol Dependence Additional Comments: 60 years old male admitted on 02/10/20 for alcohol withdrawal sx management treated with ativan detox regiment mr oakley has completed the ativan regiment and is tolerated well alert oriented x 3 speech clearly coherently ambulating with cane slow steady cardiac s1s2 regular rate rhythm ekg indicated left atrial enlargement and left ventricular hypertrophy denies chest pain denies dizziness no shortness of breath respiratory clear lung sounds bilaterally on auscultation abdomen soft no rebound tenderness Pertinent Past History: time for discharge 35 minutes - Physical Exam Results Vital Signs: Vital Signs Temperature 97.3 F L 02/14/20 05:32 Pulse Rate 69 02/14/20 07:10 Respiratory Rate 18 02/14/20 07:10 Blood Pressure 139/85 02/14/20 07:10 O2 Sat by Pulse Oximetry (%) 97 02/14/20 05:32 Pertinent Admission Physical Exam Findings: alcohol withdrawal Laboratory Tests 02/10/20 02/11/20 02/11/20 19:00 07:40 07:40 WBC 2.3 L RBC 3.63 L Hgb 12.2 Hct 35.7 MCV 98.3 H MCH 33.5 MCHC 34.1 RDW 13.5 Plt Count 123 L MPV 8.3 D Sodium Potassium Chloride Carbon Dioxide Anion Gap BUN Creatinine Est GFR (CKD-EPI)AfAm Est GFR (CKD-EPI)NonAf Random Glucose Calcium Total Bilirubin AST ALT Alkaline Phosphatase Total Protein Albumin Syphilis Serology Non-reactive COVID-19 ([facility]) Not detected 02/11/20 07:40 WBC RBC Hgb Hct MCV MCH MCHC RDW Plt Count MPV Sodium 139 Potassium 4.1 Chloride 101 Carbon Dioxide 29 Anion Gap 9 BUN 23.6 H Creatinine 0.8 Est GFR (CKD-EPI)AfAm 111.74 Est GFR (CKD-EPI)NonAf 96.41 Random Glucose 97 Calcium 9.0 Total Bilirubin 1.0 AST 100 H ALT 49 Alkaline Phosphatase 224 H Total Protein 7.4 Albumin 3.5 Syphilis Serology COVID-19 ([facility]) chronic leukocytosis alcohol induced ast elevation mr oakley agrees returning to methadone program for phosphatase serum repeat - Treatment Hospital Course: Detox Protocol Followed, Detoxed Safely, Responded well, Discharged Condition Good, Rehab Referral Accepted Patient has Accepted a Rehab Referral to: methadone maintenance program - Medication Discharge Medications: Ambulatory Orders Methadone [Dolophine -] 70 mg PO DAILY 07/31/19 - Diagnosis (1) Alcohol dependence with uncomplicated withdrawal Status: Acute (2) Elevated alkaline phosphatase level Status: Chronic (3) Elevated aspartate aminotransferase level Status: Chronic (4) Leukocytosis Status: Chronic Qualifiers: Leukocytosis type: unspecified Qualified Code(s): D72.829 - Elevated white blood cell count, unspecified (5) Nicotine dependence Status: Acute Qualifiers: Nicotine product type: cigarettes Substance use status: in withdrawal Qualified Code(s): F17.213 - Nicotine dependence, cigarettes, with withdrawal (6) Ambulates with cane Status: Chronic (7) Cirrhosis of liver Status: Chronic Qualifiers: Hepatic cirrhosis type: unspecified hepatic cirrhosis Ascites presence: unspecified Qualified Code(s): K74.60 - Unspecified cirrhosis of liver (8) Essential hypertension Status: Chronic (9) MENTASTA (hard of hearing) Status: Chronic Qualifiers: Hearing loss type: unspecified Laterality: right Qualified Code(s): H91.91 - Unspecified hearing loss, right ear (10) Methadone maintenance therapy patient Status: Chronic - AMA Did Patient Leave Against Medical Advice: No CIWA Score - CIWA Score Nausea/Vomitin-No Nausea/No Vomiting Muscle Tremors: None Anxiety: 1-Mildly Anxious Agitation: 0-Normal Activity Paroxysmal Sweats: No Perspiration Orientation: 0-Oriented Tacttile Disturbances: 0-None Auditory Disturbances: 0-None Visual Disturbances: 0-None Headache: 0-None Present CIWA-Ar Total Score: 1
== END 2020-02-14 09:08 | disposition home or self-care (01) | DRG 773 ==
LOC: YASAS 15:48 → Y3N 18:53
PROVIDERS: ADMIT Allergy & Immunology; ATTEND Allergy & Immunology
PROC: HZ2ZZZZ Detoxification Services for Substance Abuse Treatment (ICD-10-PCS; principal; 2020-02-10)
DX: F10.230 Alcohol dependence with withdrawal, uncomplicated (principal); F10.220 Alcohol dependence with intoxication, uncomplicated; F11.20 Opioid dependence, uncomplicated; I10 Essential (primary) hypertension; R74.0 Nonspecific elevation of levels of transaminase and lactic acid dehydrogenase [LDH]; D72.829 Elevated white blood cell count, unspecified; K74.60 Unspecified cirrhosis of liver; H91.91 Unspecified hearing loss, right ear; R26.2 Difficulty in walking, not elsewhere classified; Z99.89 Dependence on other enabling machines and devices; Z87.891 Personal history of nicotine dependence
CPT/HCPCS: 36415; 80053; 85027; 86780; J0735; U0003

== ENCOUNTER 2020-03-06 17:12 | Inpatient (IN) | payer OTHER ==
[2020-03-06 17:57] VITALS: BMI 23.8
--- NOTE | 2020-03-06 18:04 | BHS.RME ---
Substance Use & Tx History - Substance Use History Alcohol Substance amount: 6 beer, 2 pints vodka Frequency of use: Daily Substance route: Oral Date of Last Use: 03/06/20 - Last Treatment Date of last treatment: 02/10/2020 Where was last treatment: Detox Physical/Psych/Mental Status - Behavior General Behavior: Increased activity (restlessness, agitation) Eye Contact: Normal Other Behaviors: Mannerisms - Cooperativeness Cooperativeness: Cooperative - Thinking Thought Processes: Tight Thought content: Future oriented - Physical Health Problems Is patient presently having any pain?: No Does patient presently have any injuries (include location): No Does patient currently have a fever: No CIWA Nausea/Vomitin-Mild Nausea/No Vomiting Muscle Tremors: 1-None Visible, but [place] Anxiety: 2 Agitation: 2 Paroxysmal Sweats: 1-Minimal Palms Moist Orientation: 1-Uncertain about Date Tacttile Disturbances: 1-Very Mild Itch/Numbness Auditory Disturbances: 0-None Visual Disturbances: 0-None Headache: 1-Very Mild CIWA-Ar Total Score: 10
--- NOTE | 2020-03-06 18:09 | HP ---
CIWA Score Nausea/Vomitin-Mild Nausea/No Vomiting Muscle Tremors: 1-None Visible, but [place] Anxiety: 2 Agitation: 2 Paroxysmal Sweats: 1-Minimal Palms Moist Orientation: 1-Uncertain about Date Tacttile Disturbances: 1-Very Mild Itch/Numbness Auditory Disturbances: 0-None Visual Disturbances: 0-None Headache: 1-Very Mild CIWA-Ar Total Score: 10 - Admission Criteria OASAS Guidelines: Admission for Medically Managed Detox: Requires at least one of the followin. CIWA greater than 12 2. Seizures within the past 24 hours 3. Delirium tremens within the past 24 hours 4. Hallucinations within the past 24 hours 5. Acute intervention needed for co occurring medical disorder 6. Acute intervention needed for co occurring psychiatric disorder 7. Severe withdrawal that cannot be handled at a lower level of care (continued vomiting, continued diarrhea, abnormal vital signs) requiring intravenous medication and/or fluids 8. Admitting History and Physical - Past Medical History Psych: Yes: Addictions - Past Surgical History Past Surgical History: Yes: None - Smoking History Smoking history: Former smoker Have you smoked in the past 12 months: No Aproximately how many cigarettes per day: 0 If you are a former smoker, when did you quit?: 2004 - Alcohol/Substance Use Hx Alcohol Use: Yes Admission [facility] Chief Complaint: Withdrawal sx Allergies/Adverse Reactions: Allergies Allergy/AdvReac Type Severity Reaction Status Date / Time No Known Allergies Allergy Verified 02/10/20 16:41 History of Present Illness: Patient is a 60 year old man with alcohol abuse who presents for detox, he denies seizures or blackouts. He is on methadone 70mg at [facility], medicated this morning. Exam Limitations: No Limitations - Ebola screening Have you traveled outside of the country in the last 21 days: No Have you had contact with anyone from an Ebola affected area: No Have you been sick,other than usual withdrawal symptoms: No Do you have a fever: No - Review of Systems Constitutional: Loss of Appetite, Changes in sleep, Weakness EENT: reports: No Symptoms Reported Respiratory: reports: No Symptoms reported Cardiac: reports: No Symptoms Reported GI: reports: Poor Appetite, Poor Fluid Intake, Abdominal cramping : reports: No Symptoms Reported Musculoskeletal: reports: Back Pain, Muscle Pain, Muscle Weakness Integumentary: reports: No Symptoms Reported Neuro: reports: Headache, Tremors (mild), Weakness Endocrine: reports: No Symptoms Reported Hematology: reports: No Symptoms Reported Psychiatric: reports: Depressed Other Systems: Reviewed and Negative Patient History - Patient Medical History Hx Anemia: No Hx Asthma: No Hx Chronic Obstructive Pulmonary Disease (COPD): No Hx Cancer: No Hx Cardiac Disorders: No Hx Congestive Heart Failure: No Hx Hypertension: No Hx Hypercholesterolemia: No Hx Pacemaker: No HX Cerebrovascular Accident: No Hx Seizures: No Hx Dementia: No Hx Diabetes: No Hx Gastrointestinal Disorders: Yes (epigastric hernia) Hx Liver Disease: Yes (fatty Liver , cirrhosis, ) Hx Genitourinary Disorders: No Hx Sexually Transmitted Disorders: No Hx Renal Disease (ESRD): No Hx Thyroid Disease: No Hx Human Immunodeficiency Virus (HIV): No Hx Hepatitis C: No Hx Depression: Yes Hx Suicide Attempt: No Hx Bipolar Disorder: No Hx Schizophrenia: No - Patient Surgical History Past Surgical History: Yes Hx Neurologic Surgery: No Hx Cataract Extraction: No Hx Cardiac Surgery: No Hx Lung Surgery: No Hx Breast Surgery: No Hx Breast Biopsy: No Hx Abdominal Surgery: No Hx Appendectomy: No Hx Cholecystectomy: No Hx Genitourinary Surgery: No Hx Section: No Hx Orthopedic Surgery: No Other Surgical History: 2009 left inguinal hernia repair Anesthesia Reaction: No - PPD History Previous Implant?: Yes Documented Results: Negative w/proof Implanted On Prior [facility] Admission?: Yes Date: 01/22/19 Results: 0 mm PPD to be Administered?: Yes - Smoking Cessation Smoking history: Former smoker Have you smoked in the past 12 months: No Aproximately how many cigarettes per day: 0 If you are a former smoker, when did you quit?: 2003 Cigars Per Day: 0 Hx Chewing Tobacco Use: No Initiated information on smoking cessation: No - Substances abused Alcohol Substance route: Oral Frequency: Daily Amount used: 2 - 6 PACK, 3 FIFTH OF GIN Age of first use: 29 Date of last use: 03/06/20 Admission Physical Exam BHS - Vital Signs Vital Signs: Vital Signs - 24 hr 03/06/20 03/06/20 17:30 17:56 Temperature 99.1 F 99.1 F Pulse Rate 73 73 Respiratory 18 18 Rate Blood Pressure 133/69 133/69 - Physical General Appearance: Yes: Alcohol on Breath, Other (sleepy) HEENTM: Yes: Normocephalic, Pharynx Normal, Other (full set of upper and lower dentures) Respiratory: Yes: Chest Non-Tender, Lungs Clear, Normal Breath Sounds, No Respiratory Distress, No Accessory Muscle Use Breast: Yes: Breast Exam Deferred Cardiology: Yes: Regular Rhythm, Regular Rate Abdominal: Yes: Normal Bowel Sounds, Non Tender, Soft Genitourinary: Yes: Within Normal Limits Back: Yes: Normal Inspection Musculoskeletal: Yes: Muscle Pain, Muscle weakness, Other (LE varicose veins, unsteady gait) Extremities: Yes: Tremors (mild) Neurological: Yes: Alert, Normal Response Integumentary: Yes: Normal Color, Cold Lymphatic: Yes: Within Normal Limits - Diagnostic (1) Alcohol dependence with uncomplicated withdrawal Current Visit: Yes Status: Acute (2) Methadone maintenance therapy patient Current Visit: Yes Status: Chronic Comment: Methadone 70 mg PO Daily [facility] Cleared for Admission [facility] - Detox or Rehab [facility] Level of Care: Medically Managed Detox Regimen/Protocol: Librium Claeared for Rehab Admission: No Breathalyzer - Breathalyzer Breathalyzer: 0.151 Urine Drug Screen - Test Device Lot number: [id number] Expiration date: 10/20/21 - Control Is test valid?: Yes - Results Drug screen NEGATIVE: Yes Urine drug screen results: MTD-Methadone Inpatient Rehab Admission - Rehab Decision to Admit Inpatient rehab admission?: No
[2020-03-06] MEDS ORDERED: ACETAMINOPHEN 325 MG TABLET (FP) PO PRN ×2 (18:11)
[2020-03-06] MEDS ORDERED: MAG HYDROX/AL HYDROX/SIMETH 30 ML UNIT-DOSE CUP PO PRN (18:11)
[2020-03-06] MEDS ORDERED: BISMUTH SUBSALICYLATE 524 MG/30 ML UD PO PRN (18:11)
[2020-03-06] MEDS ORDERED: MAGNESIUM HYDROX 2400MG/30ML ORAL SUSPENSION 30 ML CUP PO PRN (18:11)
[2020-03-06] MEDS ORDERED: MAGNESIUM CITRATE 300 ML BOTTLE PO PRN (18:11)
[2020-03-06] MEDS ORDERED: IBUPROFEN 400 MG TABLET (FP) PO PRN (18:11)
[2020-03-06] MEDS ORDERED: MENTHOL/PHENOL 1 EACH UD MM PRN (18:11)
[2020-03-06] MEDS ORDERED: ONDANSETRON *ODT* 4 MG TABLET SL ONE (18:11)
[2020-03-06] MEDS ORDERED: METHOCARBAMOL 500 MG TABLET PO PRN (18:11)
[2020-03-06] MEDS: chlordiazePOXIDE HCL 10 MG CAPSULE PO PRN (19:05)
[2020-03-06] MEDS: MELATONIN 5 MG TABLETS PO SCH (22:01)
[2020-03-06] MEDS: THIAMINE HCL 100 MG TABLET (FP) PO SCH (22:01)
[2020-03-06] MEDS: chlordiazePOXIDE HCL 25 MG CAPSULE PO SCH (22:02)
[2020-03-07] MEDS: chlordiazePOXIDE HCL 25 MG CAPSULE PO SCH ×3 (05:56→22:21)
--- NOTE | 2020-03-07 09:58 | PN ---
S CIWA - CIWA Score Nausea/Vomitin-No Nausea/No Vomiting Muscle Tremors: 3 Anxiety: 4-Mod. Anxious/Guarded Agitation: 2 Paroxysmal Sweats: 1-Minimal Palms Moist Orientation: 0-Oriented Tacttile Disturbances: 0-None Auditory Disturbances: 0-None Visual Disturbances: 0-None Headache: 2-Mild CIWA-Ar Total Score: 12 BHS Progress Note (SOAP) Subjective: 60 YEARS OLD MALE WAS ADMITTED ON 03/06/20 FOR ALCOHOL WITHDRAWAL SX MANAGEMENT TREATING WITH LIBRIUM DETOX REGIMENT ATE BREAKFAST IN ROOM RESTING IN BED WILL RECEIVED METHADONE 70MG TODAY Objective: 03/07/20 09:58 Vital Signs - 24 hr 03/06/20 03/06/20 03/06/20 17:30 17:56 19:00 Temperature 99.1 F 99.1 F 97.1 F L Pulse Rate 73 73 61 Respiratory 18 18 18 Rate Blood Pressure 133/69 133/69 168/94 O2 Sat by Pulse 95 Oximetry (%) 03/06/20 03/07/20 03/07/20 20:37 05:53 09:10 Temperature 97.3 F L 97.9 F 98.4 F Pulse Rate 70 55 L 65 Respiratory 16 18 18 Rate Blood Pressure 151/77 174/90 H 158/79 O2 Sat by Pulse 96 97 Oximetry (%) 03/07/20 09:58 LAB PENDING 03/07/20 10:00 BP ELEVATION BEGIN LISINOPRIL 5 MG PO BID Assessment: 03/07/20 10:01 ALCOHOL WITHDRAWAL 03/07/20 10:01 HYPERTENSION Plan: LIBRIUM REGIMENT LISINOPRIL 5 MG PO BID
[2020-03-07] MEDS ORDERED: METHADONE HCL 10 MG TABLET PO ONE (10:00)
[2020-03-07] MEDS ORDERED: METHADONE 40 MG, METHADONE 30 MG PO SCH (10:00)
[2020-03-07] MEDS ORDERED: METHADONE HCL 10 MG TABLET ONE (10:22)
[2020-03-07] MEDS ORDERED: METHADONE HCL 40 MG DISPERSABLE TABLET ONE (10:23)
[2020-03-07] MEDS: LISINOPRIL 5 MG TABLET (FP) PO SCH ×2 (10:25→22:22)
[2020-03-07] MEDS: PRENATAL VITAMINS W/ FOLIC ACID TABLET (FP) PO SCH (10:25)
[2020-03-07] MEDS ORDERED: METHADONE 40 MG, METHADONE 30 MG PO ONE (10:30)
[2020-03-07 10:50] LABS: ALBUMIN 3.8 g/dl (3.4-5.0); CALCIUM 9.2 mg/dL (8.5-10.1); POTASSIUM 4.6 mmol/L (3.5-5.1)
[2020-03-07 11:00] LABS: HEMATOCRIT 37.9 % (35.4-49); HEMOGLOBIN 12.6 GM/dL (11.7-16.9); MEAN PLT VOLUME 7.7 fl (7.5-11.1)
[2020-03-07 11:04] LABS: MCH 32.2 pg (25.7-33.7); MCHC 33.2 g/dl (32.0-35.9); MEAN CELL VOLUME 97.1 fl (80-96); PLATELET COUNT 133 K/MM3 (134-434); RDW 13.2 % (11.9-15.9); WHITE BLOOD COUNT 2.6 K/mm3 (4.0-10.0)
[2020-03-07] MEDS: hydrOXYzine PAMOATE 25 MG CAPSULE (FP) PO PRN ×2 (13:20→17:51)
--- NOTE | 2020-03-07 14:40 | CONSULT ---
[facility] Psychiatric Consult - Data Date of interview: 03/07/20 Admission source: [facility] Identifying data: Readmission to [address] [place] [address] for this 60 y/o [place] male self- referred for detoxification treatment. SARAH issues : alcohol, opioid. Patient is , no children, domiciled (lives in a rented room), unemployed and supported on welfare. Substance Abuse History: Discussed with the patient. SARAH profile as follows : Smoking history: Former smoker. Have you smoked in the past 12 months: No. Aproximately how many cigarettes per day: 0. If you are a former smoker, when did you quit?: 2003. Cigars Per Day: 0. Hx Chewing Tobacco Use: No. Initiated information on smoking cessation: No. - Substances abused. Alcohol. Substance route: Oral. Frequency: Daily. Amount used: 2 - 6 PACK, 3 FIFTH OF GIN. Age of first use: 29. Date of last use: 03/06/20 Medical History: Medical profile is remarkable for decreased hearing, hypertension, varicose veins (lower extremities), epigastric hernia, cirrhosis of the liver and history of herniorraphies (left inguinal hernia + umbilical hernia). Patient ambulates with a cane. Psychiatric History: Patient denies history of psychiatric hospitalizations, OPD care or suicide attempts. Mr Watts is currently on methadone maintenance (70 mg/day) at the [facility] in [place]. Physical/Sexual Abuse/Trauma History: Patient denies. Additional Comment: Urine drug screen results: MTD-Methadone. Noted. Mental Status Exam - Mental Status Exam Alert and Oriented to: Time, Place, Person Cognitive Function: Good Patient Appearance: Unkempt, Disheveled Mood: Withdrawn, Hopeful Affect: Appropriate, Normal Range Patient Behavior: Fatigued, Appropriate, Cooperative Speech Pattern: Clear, Appropriate Voice Loudness: Normal Thought Process: Intact, Goal Oriented Thought Disorder: Not Present Hallucinations: Denies Suicidal Ideation: Denies Homicidal Ideation: Denies Insight/Judgement: Poor Sleep: Well Appetite: Good (walks with a cane) Gait/Station: Other Psychiatric Findings - Problem List ([place] 1, 2,3) (1) Alcohol dependence with uncomplicated withdrawal Current Visit: Yes Status: Acute (2) Opioid dependence on agonist therapy Current Visit: Yes Status: Chronic (3) Nicotine dependence Current Visit: Yes Status: Chronic Qualifiers: Nicotine product type: cigarettes Substance use status: in withdrawal Qualified Code(s): F17.213 - Nicotine dependence, cigarettes, with withdrawal - Initial Treatment Plan Initial Treatment Plan: Psychoeducation. Sleep hygiene. Support. Detoxification. Observation.
[2020-03-07] MEDS: MELATONIN 5 MG TABLETS PO SCH (22:21)
[2020-03-07] MEDS: THIAMINE HCL 100 MG TABLET (FP) PO SCH (22:21)
[2020-03-08] MEDS ORDERED: METHADONE HCL 10 MG TABLET ONE (04:49)
[2020-03-08] MEDS ORDERED: METHADONE HCL 40 MG DISPERSABLE TABLET ONE (04:50)
[2020-03-08] MEDS ORDERED: chlordiazePOXIDE 5 MG CAPSULE PO SCH (05:00)
[2020-03-08] MEDS: METHADONE 40 MG, METHADONE 30 MG PO SCH (05:55)
[2020-03-08] MEDS ORDERED: METHADONE HCL 10 MG TABLET PO SCH (06:00)
[2020-03-08] MEDS: LISINOPRIL 5 MG TABLET (FP) PO SCH (10:16)
[2020-03-08] MEDS: PRENATAL VITAMINS W/ FOLIC ACID TABLET (FP) PO SCH (10:16)
[2020-03-08] MEDS: chlordiazePOXIDE HCL 10 MG CAPSULE PO PRN (10:18)
--- NOTE | 2020-03-08 12:30 | PN ---
[facility] CIWA - CIWA Score Nausea/Vomitin-Mild Nausea/No Vomiting Muscle Tremors: 2 Anxiety: 3 Agitation: 1-Slight > Activity Paroxysmal Sweats: No Perspiration Orientation: 0-Oriented Tacttile Disturbances: 1-Very Mild Itch/Numbness Auditory Disturbances: 0-None Visual Disturbances: 1-Very Mild Sensitivity Headache: 0-None Present CIWA-Ar Total Score: 9 S Progress Note (SOAP) Subjective: 60 years old male was admitted on 03/06/20 for alcohol withdrawal sx management treating with librium detox regiment ambulating with cane slow and steady ate breakfast and lunch in room social with peers in day room received methadone 70mg po today feels better Objective: 03/08/20 12:30 Vital Signs - 24 hr 03/07/20 03/07/20 03/07/20 12:40 16:30 20:26 Temperature 97.8 F 97.7 F 97.5 F L Pulse Rate 69 61 60 Respiratory 18 18 18 Rate Blood Pressure 141/92 130/78 138/80 O2 Sat by Pulse 98 98 95 Oximetry (%) 03/08/20 03/08/20 05:51 09:40 Temperature 97.3 F L 98.6 F Pulse Rate 48 L 56 L Respiratory 18 18 Rate Blood Pressure 140/82 152/93 O2 Sat by Pulse 97 Oximetry (%) Laboratory Tests 03/07/20 03/07/20 03/07/20 07:45 07:45 07:45 WBC 2.6 L RBC 3.90 L Hgb 12.6 Hct 37.9 MCV 97.1 H MCH 32.2 MCHC 33.2 RDW 13.2 Plt Count 133 L MPV 7.7 Sodium 138 Potassium 4.6 Chloride 99 Carbon Dioxide 34 H Anion Gap 4 L BUN 27.0 H Creatinine 1.0 Est GFR (CKD-EPI)AfAm 93.73 Est GFR (CKD-EPI)NonAf 80.87 Random Glucose 114 H Calcium 9.2 Total Bilirubin 1.0 AST 101 H ALT 51 Alkaline Phosphatase 254 H Total Protein 8.0 Albumin 3.8 Syphilis Serology Non-reactive 03/08/20 12:33 bp elevation discontinue lisinopril 5 mg po bid begin lisinopril 10mg po bid ast elevation discontinue librium begin ativan regiment discontinue tylenal 03/08/20 12:35 Assessment: 03/08/20 12:35 alcohol withdrawal Plan: ativan regiment
[2020-03-08] MEDS ORDERED: LORazepam 1 MG TABLET PO PRN (12:35)
[2020-03-08] MEDS ORDERED: LISINOPRIL 5 MG TABLET (FP) PO ONE (13:00)
[2020-03-08] MEDS: LORazepam 1 MG TABLET PO PRN (15:54)
[2020-03-08] MEDS ORDERED: LORazepam 2 MG TABLET PO SCH (17:00)
[2020-03-08] MEDS: LORazepam 0.5 MG TABLET PO SCH ×2 (18:10→22:40)
[2020-03-08] MEDS: LISINOPRIL 10 MG TABLET (FP) PO SCH (22:13)
[2020-03-08] MEDS: THIAMINE HCL 100 MG TABLET (FP) PO SCH (22:13)
[2020-03-08] MEDS: hydrOXYzine PAMOATE 25 MG CAPSULE (FP) PO PRN (22:13)
[2020-03-08] MEDS: MELATONIN 5 MG TABLETS PO SCH (22:13)
[2020-03-09] MEDS ORDERED: chlordiazePOXIDE HCL 10 MG CAPSULE PO PRN
[2020-03-09] MEDS ORDERED: METHADONE HCL 10 MG TABLET ONE (04:09)
[2020-03-09] MEDS ORDERED: METHADONE HCL 40 MG DISPERSABLE TABLET ONE (04:10)
[2020-03-09] MEDS ORDERED: chlordiazePOXIDE HCL 10 MG CAPSULE PO SCH (05:00)
[2020-03-09] MEDS: METHADONE 40 MG, METHADONE 30 MG PO SCH (06:01)
[2020-03-09] MEDS: LORazepam 0.5 MG TABLET PO SCH ×2 (06:02→17:27)
[2020-03-09] MEDS: LISINOPRIL 10 MG TABLET (FP) PO SCH ×2 (09:10→21:13)
[2020-03-09] MEDS: PRENATAL VITAMINS W/ FOLIC ACID TABLET (FP) PO SCH (09:10)
[2020-03-09] MEDS: LORazepam 1 MG TABLET PO PRN ×2 (09:10→15:05)
--- NOTE | 2020-03-09 11:03 | PN ---
S CIWA - CIWA Score Nausea/Vomitin-No Nausea/No Vomiting Muscle Tremors: 1-None Visible, but [place] Anxiety: 1-Mildly Anxious Agitation: 1-Slight > Activity Paroxysmal Sweats: 1-Minimal Palms Moist Orientation: 0-Oriented Tacttile Disturbances: 0-None Auditory Disturbances: 0-None Visual Disturbances: 0-None Headache: 1-Very Mild CIWA-Ar Total Score: 5 BHS Progress Note (SOAP) Subjective: 60 years old male was admitted on 03/06/20 for alcohol withdrawal sx management treating with ativan detox regiment encourage mr oakley to use cane at all time from bed to bathroom mr oakley prefers returning to methadone program for behavior and psychosocial therapies Objective: 03/09/20 11:03 Vital Signs - 24 hr 03/08/20 03/08/20 03/08/20 12:40 16:52 20:45 Temperature 98.1 F 97.5 F L 97.3 F L Pulse Rate 59 L 60 78 Respiratory 18 16 16 Rate Blood Pressure 125/73 108/70 128/81 O2 Sat by Pulse 99 96 Oximetry (%) 03/09/20 03/09/20 03/09/20 05:53 07:51 08:36 Temperature 96.6 F L 96.5 F L Pulse Rate 62 93 H 78 Respiratory 20 18 18 Rate Blood Pressure 139/92 148/93 128/80 O2 Sat by Pulse 98 Oximetry (%) Laboratory Tests 03/06/20 03/07/20 03/07/20 18:35 07:45 07:45 WBC 2.6 L RBC 3.90 L Hgb 12.6 Hct 37.9 MCV 97.1 H MCH 32.2 MCHC 33.2 RDW 13.2 Plt Count 133 L MPV 7.7 Sodium Potassium Chloride Carbon Dioxide Anion Gap BUN Creatinine Est GFR (CKD-EPI)AfAm Est GFR (CKD-EPI)NonAf Random Glucose Calcium Total Bilirubin AST ALT Alkaline Phosphatase Total Protein Albumin Syphilis Serology Non-reactive COVID-19 ([facility]) Not detected 03/07/20 07:45 WBC RBC Hgb Hct MCV MCH MCHC RDW Plt Count MPV Sodium 138 Potassium 4.6 Chloride 99 Carbon Dioxide 34 H Anion Gap 4 L BUN 27.0 H Creatinine 1.0 Est GFR (CKD-EPI)AfAm 93.73 Est GFR (CKD-EPI)NonAf 80.87 Random Glucose 114 H Calcium 9.2 Total Bilirubin 1.0 AST 101 H ALT 51 Alkaline Phosphatase 254 H Total Protein 8.0 Albumin 3.8 Syphilis Serology COVID-19 ([facility]NA) 03/09/20 11:10 glucose bun ast and phosphatase will be follow up with aftercare methadone maintenance program Assessment: 03/09/20 11:11 alcohol withdrawal Plan: ativan regiment
[2020-03-09] MEDS: MELATONIN 5 MG TABLETS PO SCH (21:13)
[2020-03-09] MEDS: THIAMINE HCL 100 MG TABLET (FP) PO SCH (21:13)
[2020-03-09] MEDS: hydrOXYzine PAMOATE 25 MG CAPSULE (FP) PO PRN (22:28)
[2020-03-10] MEDS ORDERED: LORazepam 0.5 MG TABLET PO PRN
[2020-03-10] MEDS ORDERED: METHADONE HCL 10 MG TABLET ONE (04:47)
[2020-03-10] MEDS ORDERED: METHADONE HCL 40 MG DISPERSABLE TABLET ONE (04:47)
[2020-03-10] MEDS ORDERED: chlordiazePOXIDE HCL 10 MG CAPSULE PO ONE (05:00)
[2020-03-10] MEDS ORDERED: LORazepam 0.5 MG TABLET PO ONE (05:00)
[2020-03-10] MEDS: METHADONE 40 MG, METHADONE 30 MG PO SCH (05:35)
[2020-03-10 06:44] VITALS: BP 154/83; PULSE 59; TEMP 97.1
--- NOTE | 2020-03-10 11:00 | DS ---
[facility] Detox Discharge Summary Admission Date: 03/06/20 Discharge Date: 03/10/20 - History Present History: Alcohol Dependence Additional Comments: 60 years old male was admitted on 03/06/20 for alcohol withdrawal sx management treated with ativan regiment seen by psychiatrist no medical intervention mr oakley has completed the ativan regimen and is tolerated well General Appearance: Yes: no Alcohol on Breath, HEENTM: Yes: Normocephalic, Pharynx Normal, Other (full set of upper and lower dentures) Respiratory: Yes: Chest Non-Tender, Lungs Clear, Normal Breath Sounds, No Respi ratory Distress, No Accessory Muscle Use Breast: Yes: Breast Exam Deferred Cardiology: Yes: Regular Rhythm, Regular Rate Abdominal: Yes: Normal Bowel Sounds, Non Tender, Soft Genitourinary: Yes: Within Normal Limits Back: Yes: Normal Inspection Musculoskeletal: Yes: Muscle Pain, Muscle weakness, Other (LE varicose veins, unsteady gait) Extremities: Yes: mild Tremors (mild) Neurological: Yes: Alert, Normal Response Integumentary: Yes: Normal Color, Cold Lymphatic: Yes: Within Normal Limits Pertinent Past History: time for discharge 35 minutes - Physical Exam Results Vital Signs: Vital Signs Temperature 97.1 F L 03/10/20 06:43 Pulse Rate 59 L 03/10/20 06:43 Respiratory Rate 18 03/10/20 06:43 Blood Pressure 154/83 03/10/20 06:43 O2 Sat by Pulse Oximetry (%) 96 03/10/20 06:43 Pertinent Admission Physical Exam Findings: alcohol withdrawal Vital Signs - 24 hr 03/09/20 03/09/20 03/10/20 16:28 20:44 06:43 Temperature 97.2 F L 97.4 F L 97.1 F L Pulse Rate 55 L 65 59 L Respiratory 16 18 18 Rate Blood Pressure 119/69 113/69 154/83 O2 Sat by Pulse 96 95 96 Oximetry (%) Laboratory Tests 03/06/20 03/07/20 03/07/20 18:35 07:45 07:45 WBC 2.6 L RBC 3.90 L Hgb 12.6 Hct 37.9 MCV 97.1 H MCH 32.2 MCHC 33.2 RDW 13.2 Plt Count 133 L MPV 7.7 Sodium Potassium Chloride Carbon Dioxide Anion Gap BUN Creatinine Est GFR (CKD-EPI)AfAm Est GFR (CKD-EPI)NonAf Random Glucose Calcium Total Bilirubin AST ALT Alkaline Phosphatase Total Protein Albumin Syphilis Serology Non-reactive COVID-19 ([facility]) Not detected 03/07/20 07:45 WBC RBC Hgb Hct MCV MCH MCHC RDW Plt Count MPV Sodium 138 Potassium 4.6 Chloride 99 Carbon Dioxide 34 H Anion Gap 4 L BUN 27.0 H Creatinine 1.0 Est GFR (CKD-EPI)AfAm 93.73 Est GFR (CKD-EPI)NonAf 80.87 Random Glucose 114 H Calcium 9.2 Total Bilirubin 1.0 AST 101 H ALT 51 Alkaline Phosphatase 254 H Total Protein 8.0 Albumin 3.8 Syphilis Serology COVID-19 ([facility]) mr oakley will return to [facility] for follow up - Treatment Hospital Course: Detox Protocol Followed, Detoxed Safely, Responded well, Discharged Condition Good, Rehab Referral Accepted Patient has Accepted a Rehab Referral to: return to [facility] - Medication Discharge Medications: Ambulatory Orders Methadone [Dolophine -] 70 mg PO DAILY 07/31/19 - AMA Did Patient Leave Against Medical Advice: No CIWA Score - CIWA Score Nausea/Vomitin-No Nausea/No Vomiting Muscle Tremors: 1-None Visible, but [place] Anxiety: 1-Mildly Anxious Agitation: 0-Normal Activity Paroxysmal Sweats: No Perspiration Orientation: 0-Oriented Tacttile Disturbances: 0-None Auditory Disturbances: 0-None Visual Disturbances: 0-None Headache: 0-None Present CIWA-Ar Total Score: 2
== END 2020-03-10 08:30 | disposition home or self-care (01) | DRG 773 ==
LOC: YASAS 17:12 → Y3N 18:34
PROVIDERS: ADMIT Allergy & Immunology; ATTEND Allergy & Immunology
PROC: HZ2ZZZZ Detoxification Services for Substance Abuse Treatment (ICD-10-PCS; principal; 2020-03-06)
DX: F10.230 Alcohol dependence with withdrawal, uncomplicated (principal); F11.20 Opioid dependence, uncomplicated; F17.211 Nicotine dependence, cigarettes, in remission; I10 Essential (primary) hypertension; K74.60 Unspecified cirrhosis of liver; K43.9 Ventral hernia without obstruction or gangrene; I83.93 Asymptomatic varicose veins of bilateral lower extremities; H91.90 Unspecified hearing loss, unspecified ear; R26.89 Other abnormalities of gait and mobility; Z99.89 Dependence on other enabling machines and devices; Z98.890 Other specified postprocedural states; Z56.0 Unemployment, unspecified
CPT/HCPCS: 36415; 80053; 85027; 86780; Q0162; U0003

== ENCOUNTER 2020-06-29 11:19 | Inpatient (IN) | payer OTHER ==
[2020-06-29 13:26] VITALS: BMI 25.0
[2020-06-29] MEDS ORDERED: METHOCARBAMOL 500 MG TABLET PO PRN (13:28)
[2020-06-29] MEDS ORDERED: ONDANSETRON *ODT* 4 MG TABLET SL PRN (13:28)
[2020-06-29] MEDS ORDERED: NICOTINE POLACRILEX 2 MG GUM BUC PRN (13:28)
[2020-06-29] MEDS ORDERED: MENTHOL/PHENOL 1 EACH UD MM PRN (13:28)
[2020-06-29] MEDS ORDERED: MAGNESIUM CITRATE 300 ML BOTTLE PO PRN (13:28)
[2020-06-29] MEDS ORDERED: LORazepam 1 MG TABLET PO PRN (13:28)
[2020-06-29] MEDS ORDERED: MAG HYDROX/AL HYDROX/SIMETH 30 ML UNIT-DOSE CUP PO PRN (13:28)
[2020-06-29] MEDS ORDERED: BISMUTH SUBSALICYLATE 524 MG/30 ML UD PO PRN (13:28)
[2020-06-29] MEDS ORDERED: ACETAMINOPHEN 325 MG TABLET (FP) PO PRN ×2 (13:28)
[2020-06-29] MEDS ORDERED: IBUPROFEN 400 MG TABLET (FP) PO PRN (13:28)
[2020-06-29] MEDS ORDERED: MAGNESIUM HYDROX 2400MG/30ML ORAL SUSPENSION 30 ML CUP PO PRN (13:28)
[2020-06-29] MEDS ORDERED: LISINOPRIL 10 MG TABLET ONE (13:30)
[2020-06-29] MEDS ORDERED: LISINOPRIL 10 MG TABLET PO ONE (13:45)
[2020-06-29] MEDS: hydrOXYzine PAMOATE 25 MG CAPSULE (FP) PO SCH ×3 (14:07→22:12)
[2020-06-29 17:09] LABS: POTASSIUM 4.1 mmol/L (3.5-5.1)
[2020-06-29 17:11] LABS: ALBUMIN 4.2 g/dl (3.4-5.0); BLOOD UREA NITROGEN 22.4 mg/dL (7-18); CALCIUM 8.8 mg/dL (8.5-10.1); HEMATOCRIT 39.6 % (35.4-49); HEMOGLOBIN 13.3 GM/dL (11.7-16.9); MCH 32.8 pg (25.7-33.7); MCHC 33.7 g/dl (32.0-35.9); MEAN CELL VOLUME 97.4 fl (80-96); MEAN PLT VOLUME 7.5 fl (7.5-11.1); PLATELET COUNT 206 K/MM3 (134-434); RBC 4.07 M/mm3 (4.00-5.60); RDW 13.9 % (11.9-15.9)
[2020-06-29 17:14] LABS: CREATININE 0.7 mg/dL (0.55-1.3)
[2020-06-29 17:16] LABS: BILIRUBIN,TOTAL 0.8 mg/dL (0.2-1); TOT PROT 8.8 g/dl (6.4-8.2)
[2020-06-29] MEDS: LORazepam 2 MG TABLET PO SCH ×2 (17:56→22:12)
[2020-06-29] MEDS: LISINOPRIL 10 MG TABLET PO SCH (19:01)
[2020-06-29] MEDS ORDERED: THIAMINE HCL 100 MG TABLET (FP) PO SCH (22:00)
[2020-06-29] MEDS ORDERED: MELATONIN 5 MG TABLETS PO SCH (22:00)
[2020-06-30] MEDS ORDERED: METHADONE HCL 10 MG TABLET ONE (04:15)
[2020-06-30] MEDS ORDERED: METHADONE HCL 40 MG DISPERSABLE TABLET ONE (04:16)
[2020-06-30] MEDS: hydrOXYzine PAMOATE 25 MG CAPSULE (FP) PO SCH ×3 (05:31→13:07)
[2020-06-30] MEDS: LORazepam 2 MG TABLET PO SCH ×2 (05:31→10:12)
[2020-06-30] MEDS ORDERED: METHADONE HCL 40 MG DISPERSABLE TABLET PO SCH (06:00)
[2020-06-30] MEDS ORDERED: METHADONE 40 MG, METHADONE 30 MG PO SCH (06:00)
[2020-06-30] MEDS ORDERED: PRENATAL VITAMINS W/ FOLIC ACID TABLET (FP) PO SCH (10:00)
[2020-06-30] MEDS: LISINOPRIL 10 MG TABLET PO SCH (10:12)
[2020-06-30 11:02] LABS: POTASSIUM 4.6 mmol/L (3.5-5.1)
[2020-06-30 11:06] LABS: CALCIUM 8.7 mg/dL (8.5-10.1)
[2020-06-30 11:07] LABS: ALBUMIN 3.8 g/dl (3.4-5.0); BLOOD UREA NITROGEN 38.6 mg/dL (7-18)
[2020-06-30 11:10] LABS: CREATININE 1.2 mg/dL (0.55-1.3)
[2020-06-30 11:11] LABS: TOT PROT 8.2 g/dl (6.4-8.2)
[2020-06-30 13:16] VITALS: BP 123/69; PULSE 67; TEMP 97.3
[2020-07-01] MEDS ORDERED: LORazepam 1 MG TABLET PO SCH (05:00)
[2020-07-02] MEDS ORDERED: LORazepam 0.5 MG TABLET PO PRN
[2020-07-02] MEDS ORDERED: LORazepam 0.5 MG TABLET PO SCH (05:00)
[2020-07-03] MEDS ORDERED: LORazepam 0.5 MG TABLET PO ONE (05:00)
== END 2020-06-30 14:17 | disposition left against medical advice (07) | DRG 770 ==
LOC: YASAS 11:19 → Y3N 12:59
PROVIDERS: ADMIT Allergy & Immunology; ATTEND Allergy & Immunology
PROC: HZ2ZZZZ Detoxification Services for Substance Abuse Treatment (ICD-10-PCS; principal; 2020-06-29)
DX: F10.230 Alcohol dependence with withdrawal, uncomplicated (principal); F10.220 Alcohol dependence with intoxication, uncomplicated; F12.20 Cannabis dependence, uncomplicated; F11.220 Opioid dependence with intoxication, uncomplicated; F17.213 Nicotine dependence, cigarettes, with withdrawal; I10 Essential (primary) hypertension; H91.91 Unspecified hearing loss, right ear; K74.60 Unspecified cirrhosis of liver; I83.91 Asymptomatic varicose veins of right lower extremity; K43.9 Ventral hernia without obstruction or gangrene; R26.2 Difficulty in walking, not elsewhere classified; Z99.89 Dependence on other enabling machines and devices
CPT/HCPCS: 36415; 80053; 85027; 86780; C9803; U0003

== ENCOUNTER 2020-08-13 11:54 | Inpatient (IN) | payer OTHER ==
[2020-08-13] MEDS ORDERED: ONDANSETRON *ODT* 4 MG TABLET SL PRN (14:47)
[2020-08-13] MEDS ORDERED: ACETAMINOPHEN 325 MG TABLET (FP) PO PRN (14:47)
[2020-08-13] MEDS ORDERED: MAG HYDROX/AL HYDROX/SIMETH 30 ML UNIT-DOSE CUP PO PRN (14:47)
[2020-08-13] MEDS ORDERED: hydrOXYzine PAMOATE 25 MG CAPSULE (FP) PO PRN (14:47)
[2020-08-13] MEDS ORDERED: LORazepam 1 MG TABLET PO PRN (14:47)
[2020-08-13] MEDS ORDERED: MENTHOL/PHENOL 1 EACH UD MM PRN (14:47)
[2020-08-13] MEDS ORDERED: MAGNESIUM CITRATE 300 ML BOTTLE PO PRN (14:47)
[2020-08-13] MEDS ORDERED: MAGNESIUM HYDROX 2400MG/30ML ORAL SUSPENSION 30 ML CUP PO PRN (14:47)
[2020-08-13] MEDS ORDERED: BISMUTH SUBSALICYLATE 524 MG/30 ML UD PO PRN (14:47)
[2020-08-13] MEDS ORDERED: METHOCARBAMOL 500 MG TABLET PO PRN (14:47)
[2020-08-13] MEDS ORDERED: LORazepam 2 MG TABLET PO ONE (14:47)
[2020-08-13] MEDS ORDERED: COLLOIDAL OATMEAL 1 BAR EACH TP PRN (14:49)
[2020-08-13 16:03] VITALS: BMI 25.7
[2020-08-13] MEDS ORDERED: LISINOPRIL 10 MG TABLET ONE (21:38)
[2020-08-13] MEDS: LORazepam 2 MG TABLET PO SCH ×2 (21:39→23:14)
[2020-08-13] MEDS ORDERED: LORazepam 2 MG TABLET ONE (21:39)
[2020-08-13] MEDS: LISINOPRIL 10 MG TABLET PO SCH (21:40)
[2020-08-13] MEDS: THIAMINE HCL 100 MG TABLET (FP) PO SCH (23:14)
[2020-08-13] MEDS: MELATONIN 5 MG TABLETS PO SCH (23:15)
[2020-08-13] MEDS: AMMONIUM LACTATE 12% LOTION 225 GM BOTTLE TP SCH (23:15)
[2020-08-14] MEDS: LORazepam 2 MG TABLET PO SCH ×4 (05:53→22:15)
[2020-08-14] MEDS ORDERED: METHADONE HCL 10 MG TABLET PO ONE (06:00)
[2020-08-14] MEDS ORDERED: METHADONE HCL 10 MG TABLET ONE (07:58)
[2020-08-14] MEDS ORDERED: METHADONE HCL 40 MG DISPERSABLE TABLET ONE (07:59)
[2020-08-14] MEDS: METHADONE 40 MG, METHADONE 30 MG PO SCH (08:11)
[2020-08-14] MEDS ORDERED: LISINOPRIL 10 MG TABLET PO ONE (10:03)
[2020-08-14] MEDS: PRENATAL VITAMINS W/ FOLIC ACID TABLET (FP) PO SCH (10:18)
[2020-08-14] MEDS: AMMONIUM LACTATE 12% LOTION 225 GM BOTTLE TP SCH ×2 (10:19→22:17)
[2020-08-14] MEDS: LISINOPRIL 10 MG TABLET PO SCH ×2 (10:52→22:16)
[2020-08-14 16:56] LABS: ALBUMIN 3.7 g/dl (3.4-5.0); CALCIUM 8.7 mg/dL (8.5-10.1)
[2020-08-14 16:57] LABS: BLOOD UREA NITROGEN 30.6 mg/dL (7-18)
[2020-08-14 17:00] LABS: CREATININE 0.8 mg/dL (0.55-1.3)
[2020-08-14 17:01] LABS: TOT PROT 7.8 g/dl (6.4-8.2)
[2020-08-14 17:06] LABS: HEMATOCRIT 38.3 % (35.4-49); HEMOGLOBIN 13.1 GM/dL (11.7-16.9); MCH 32.7 pg (25.7-33.7); MCHC 34.3 g/dl (32.0-35.9); MEAN CELL VOLUME 95.5 fl (80-96); MEAN PLT VOLUME 8.1 fl (7.5-11.1); PLATELET COUNT 149 K/MM3 (134-434); RBC 4.01 M/mm3 (4.00-5.60); RDW 13.4 % (11.9-15.9); WHITE BLOOD COUNT 2.7 K/mm3 (4.0-10.0)
[2020-08-14] MEDS: THIAMINE HCL 100 MG TABLET (FP) PO SCH (22:16)
[2020-08-14] MEDS: MELATONIN 5 MG TABLETS PO SCH (22:17)
[2020-08-15] MEDS ORDERED: METHADONE HCL 10 MG TABLET ONE (03:31)
[2020-08-15] MEDS ORDERED: METHADONE HCL 40 MG DISPERSABLE TABLET ONE (03:32)
[2020-08-15] MEDS: METHADONE 40 MG, METHADONE 30 MG PO SCH (05:57)
[2020-08-15] MEDS: LORazepam 1 MG TABLET PO SCH ×4 (05:57→22:29)
[2020-08-15] MEDS: AMMONIUM LACTATE 12% LOTION 225 GM BOTTLE TP SCH ×2 (10:33→22:31)
[2020-08-15] MEDS: PRENATAL VITAMINS W/ FOLIC ACID TABLET (FP) PO SCH (10:34)
[2020-08-15] MEDS: LISINOPRIL 10 MG TABLET PO SCH ×2 (12:03→22:30)
[2020-08-15] MEDS: THIAMINE HCL 100 MG TABLET (FP) PO SCH (22:30)
[2020-08-15] MEDS: MELATONIN 5 MG TABLETS PO SCH (22:31)
[2020-08-16] MEDS ORDERED: LORazepam 0.5 MG TABLET PO PRN
[2020-08-16] MEDS ORDERED: METHADONE HCL 10 MG TABLET ONE (04:55)
[2020-08-16] MEDS ORDERED: METHADONE HCL 40 MG DISPERSABLE TABLET ONE (04:56)
[2020-08-16] MEDS: METHADONE 40 MG, METHADONE 30 MG PO SCH (05:09)
[2020-08-16] MEDS: LORazepam 0.5 MG TABLET PO SCH ×4 (06:00→22:02)
[2020-08-16] MEDS: PRENATAL VITAMINS W/ FOLIC ACID TABLET (FP) PO SCH (10:20)
[2020-08-16] MEDS: LISINOPRIL 10 MG TABLET PO SCH ×2 (10:20→22:02)
[2020-08-16] MEDS: AMMONIUM LACTATE 12% LOTION 225 GM BOTTLE TP SCH ×2 (10:21→22:01)
[2020-08-16 11:36] LABS: HEMATOCRIT 37.3 % (35.4-49); HEMOGLOBIN 12.6 GM/dL (11.7-16.9); MCH 32.6 pg (25.7-33.7); MCHC 33.8 g/dl (32.0-35.9); MEAN CELL VOLUME 96.7 fl (80-96); MEAN PLT VOLUME 8.5 fl (7.5-11.1); PLATELET COUNT 159 K/MM3 (134-434); RBC 3.86 M/mm3 (4.00-5.60); RDW 13.8 % (11.9-15.9); WHITE BLOOD COUNT 2.9 K/mm3 (4.0-10.0)
[2020-08-16 11:46] LABS: POTASSIUM 4.7 mmol/L (3.5-5.1)
[2020-08-16 12:06] LABS: ALBUMIN 3.9 g/dl (3.4-5.0); CALCIUM 9.1 mg/dL (8.5-10.1)
[2020-08-16 12:07] LABS: BLOOD UREA NITROGEN 30.9 mg/dL (7-18)
[2020-08-16 12:08] LABS: CREATININE 0.8 mg/dL (0.55-1.3)
[2020-08-16 12:10] LABS: BILIRUBIN,TOTAL 0.8 mg/dL (0.2-1); TOT PROT 8.2 g/dl (6.4-8.2)
[2020-08-16] MEDS ORDERED: MASKS NR ONE (16:03)
[2020-08-16] MEDS: MELATONIN 5 MG TABLETS PO SCH (22:01)
[2020-08-16] MEDS: THIAMINE HCL 100 MG TABLET (FP) PO SCH (22:02)
[2020-08-17] MEDS ORDERED: METHADONE HCL 10 MG TABLET ONE (04:06)
[2020-08-17] MEDS ORDERED: METHADONE HCL 40 MG DISPERSABLE TABLET ONE (04:07)
[2020-08-17] MEDS ORDERED: LORazepam 0.5 MG TABLET PO ONE (05:00)
[2020-08-17] MEDS: METHADONE 40 MG, METHADONE 30 MG PO SCH (05:05)
[2020-08-17 09:21] VITALS: BP 135/87; PULSE 83; TEMP 97.5
[2020-08-17] MEDS: PRENATAL VITAMINS W/ FOLIC ACID TABLET (FP) PO SCH (09:45)
[2020-08-17] MEDS: LISINOPRIL 10 MG TABLET PO SCH (09:45)
[2020-08-17] MEDS: AMMONIUM LACTATE 12% LOTION 225 GM BOTTLE TP SCH (09:46)
== END 2020-08-17 09:51 | disposition home or self-care (01) | DRG 773 ==
LOC: YASAS 11:54 → Y6N 21:15
PROVIDERS: ADMIT Allergy & Immunology; ATTEND Allergy & Immunology
PROC: HZ2ZZZZ Detoxification Services for Substance Abuse Treatment (ICD-10-PCS; principal; 2020-08-13)
DX: F10.230 Alcohol dependence with withdrawal, uncomplicated (principal); F14.20 Cocaine dependence, uncomplicated; F11.20 Opioid dependence, uncomplicated; F17.213 Nicotine dependence, cigarettes, with withdrawal; F10.282 Alcohol dependence with alcohol-induced sleep disorder; I10 Essential (primary) hypertension; I83.893 Varicose veins of bilateral lower extremities with other complications; K74.60 Unspecified cirrhosis of liver; L85.3 Xerosis cutis; L84 Corns and callosities; R94.5 Abnormal results of liver function studies; Z99.89 Dependence on other enabling machines and devices
CPT/HCPCS: 36415; 80053; 85027; 86780; C9803; U0003

== ENCOUNTER 2020-11-06 17:38 | Inpatient (IN) | payer OTHER ==
[2020-11-06 18:10] VITALS: BMI 25.6
[2020-11-06] MEDS ORDERED: LORazepam 1 MG TABLET PO PRN (19:47)
[2020-11-06] MEDS ORDERED: MENTHOL/PHENOL 1 EACH UD MM PRN (19:47)
[2020-11-06] MEDS ORDERED: BISMUTH SUBSALICYLATE 524 MG/30 ML UD PO PRN (19:47)
[2020-11-06] MEDS ORDERED: ACETAMINOPHEN 325 MG TABLET (FP) PO PRN ×2 (19:47)
[2020-11-06] MEDS ORDERED: ONDANSETRON *ODT* 4 MG TABLET SL PRN (19:47)
[2020-11-06] MEDS ORDERED: IBUPROFEN 400 MG TABLET (FP) PO PRN (19:47)
[2020-11-06] MEDS ORDERED: MAGNESIUM HYDROX 2400MG/30ML ORAL SUSPENSION 30 ML CUP PO PRN (19:47)
[2020-11-06] MEDS ORDERED: MAG HYDROX/AL HYDROX/SIMETH 30 ML UNIT-DOSE CUP PO PRN (19:47)
[2020-11-06] MEDS ORDERED: MAGNESIUM CITRATE 300 ML BOTTLE PO PRN (19:47)
[2020-11-06] MEDS ORDERED: METHOCARBAMOL 500 MG TABLET PO PRN (19:47)
[2020-11-06] MEDS: LORazepam 2 MG TABLET PO SCH (22:08)
[2020-11-06] MEDS: MELATONIN 5 MG TABLETS PO SCH (22:08)
[2020-11-06] MEDS: LISINOPRIL 10 MG TABLET PO SCH (22:08)
[2020-11-06] MEDS: THIAMINE HCL 100 MG TABLET (FP) PO SCH (22:08)
[2020-11-07] MEDS: LORazepam 2 MG TABLET PO SCH ×4 (05:19→22:10)
[2020-11-07] MEDS ORDERED: METHADONE 40 MG, METHADONE 30 MG PO ONE (09:15)
[2020-11-07] MEDS ORDERED: METHADONE HCL 40 MG DISPERSABLE TABLET ONE (09:20)
[2020-11-07] MEDS ORDERED: METHADONE HCL 10 MG TABLET ONE (09:20)
[2020-11-07] MEDS ORDERED: METHADONE HCL 10 MG TABLET PO ONE (10:00)
[2020-11-07 10:40] LABS: CALCIUM 8.9 mg/dL (8.5-10.1)
[2020-11-07 10:41] LABS: ALBUMIN 3.6 g/dl (3.4-5.0); BLOOD UREA NITROGEN 31.2 mg/dL (7-18); HEMATOCRIT 35.4 % (35.4-49); HEMOGLOBIN 12.3 GM/dL (11.7-16.9); MCH 33.2 pg (25.7-33.7); MCHC 34.8 g/dl (32.0-35.9); MEAN CELL VOLUME 95.2 fl (80-96); MEAN PLT VOLUME 7.7 fl (7.5-11.1); PLATELET COUNT 143 K/MM3 (134-434); RBC 3.72 M/mm3 (4.00-5.60); RDW 13.9 % (11.9-15.9); WHITE BLOOD COUNT 2.5 K/mm3 (4.0-10.0)
[2020-11-07 10:44] LABS: CREATININE 0.7 mg/dL (0.55-1.3)
[2020-11-07 10:45] LABS: BILIRUBIN,TOTAL 1.4 mg/dL (0.2-1); TOT PROT 7.8 g/dl (6.4-8.2)
[2020-11-07] MEDS: LOSARTAN POTASSIUM 50 MG TABLET PO SCH (11:31)
[2020-11-07] MEDS: LISINOPRIL 10 MG TABLET PO SCH ×2 (11:31→22:10)
[2020-11-07] MEDS: PRENATAL VITAMINS W/ FOLIC ACID TABLET (FP) PO SCH (11:31)
[2020-11-07] MEDS: MELATONIN 5 MG TABLETS PO SCH (22:11)
[2020-11-07] MEDS: THIAMINE HCL 100 MG TABLET (FP) PO SCH (22:11)
[2020-11-08] MEDS ORDERED: METHADONE HCL 10 MG TABLET ONE (04:40)
[2020-11-08] MEDS ORDERED: METHADONE HCL 40 MG DISPERSABLE TABLET ONE (04:41)
[2020-11-08] MEDS: LORazepam 1 MG TABLET PO SCH ×4 (05:04→22:11)
[2020-11-08] MEDS: METHADONE 40 MG, METHADONE 30 MG PO SCH (05:05)
[2020-11-08] MEDS ORDERED: METHADONE HCL 10 MG TABLET PO SCH (06:00)
[2020-11-08] MEDS ORDERED: cloNIDine HCL 0.1 MG TABLET PO ONE (07:23)
[2020-11-08] MEDS: PRENATAL VITAMINS W/ FOLIC ACID TABLET (FP) PO SCH (10:30)
[2020-11-08] MEDS: LISINOPRIL 20 MG TABLET PO SCH ×2 (10:30→22:09)
[2020-11-08] MEDS: LOSARTAN POTASSIUM 50 MG TABLET PO SCH (10:31)
[2020-11-08] MEDS: THIAMINE HCL 100 MG TABLET (FP) PO SCH (22:09)
[2020-11-08] MEDS: MELATONIN 5 MG TABLETS PO SCH (22:10)
[2020-11-09] MEDS ORDERED: LORazepam 0.5 MG TABLET PO PRN
[2020-11-09] MEDS ORDERED: METHADONE HCL 40 MG DISPERSABLE TABLET ONE (03:48)
[2020-11-09] MEDS ORDERED: METHADONE HCL 10 MG TABLET ONE (03:48)
[2020-11-09] MEDS: METHADONE 40 MG, METHADONE 30 MG PO SCH (05:20)
[2020-11-09] MEDS: LORazepam 0.5 MG TABLET PO SCH ×2 (05:20→10:40)
[2020-11-09 06:11] LABS: SARS-CoV-2 NAA Not Detected (Not Detected)
[2020-11-09] MEDS: LISINOPRIL 20 MG TABLET PO SCH (09:10)
[2020-11-09] MEDS: LOSARTAN POTASSIUM 50 MG TABLET PO SCH (09:10)
[2020-11-09] MEDS: PRENATAL VITAMINS W/ FOLIC ACID TABLET (FP) PO SCH (09:10)
[2020-11-09 09:32] VITALS: BP 151/83; PULSE 86; TEMP 97.7
[2020-11-09 10:04] LABS: HEMATOCRIT 37.2 % (35.4-49); HEMOGLOBIN 12.7 GM/dL (11.7-16.9); MCH 32.9 pg (25.7-33.7); MCHC 34.1 g/dl (32.0-35.9); MEAN CELL VOLUME 96.4 fl (80-96); MEAN PLT VOLUME 7.9 fl (7.5-11.1); PLATELET COUNT 179 K/MM3 (134-434); RBC 3.85 M/mm3 (4.00-5.60); RDW 14.1 % (11.9-15.9)
[2020-11-09 10:12] LABS: INR 0.99 (0.83-1.09); PROTHROMBIN TIME (PATIENT) 12.2 SEC (9.7-13.0)
[2020-11-09 10:20] LABS: CALCIUM 9.5 mg/dL (8.5-10.1)
[2020-11-09 10:22] LABS: BLOOD UREA NITROGEN 23.6 mg/dL (7-18)
[2020-11-09 10:24] LABS: BILIRUBIN,TOTAL 1.4 mg/dL (0.2-1)
[2020-11-09 10:25] LABS: CREATININE 0.9 mg/dL (0.55-1.3); TOT PROT 8.7 g/dl (6.4-8.2)
[2020-11-10] MEDS ORDERED: LORazepam 0.5 MG TABLET PO ONE (05:00)
== END 2020-11-09 10:40 | disposition home or self-care (01) | DRG 773 ==
LOC: YASAS 17:38 → Y6N 20:06
PROVIDERS: ADMIT Allergy & Immunology; ATTEND Allergy & Immunology
PROC: HZ2ZZZZ Detoxification Services for Substance Abuse Treatment (ICD-10-PCS; principal; 2020-11-06)
DX: F10.230 Alcohol dependence with withdrawal, uncomplicated (principal); F11.20 Opioid dependence, uncomplicated; F41.9 Anxiety disorder, unspecified; F32.9 Major depressive disorder, single episode, unspecified; D72.819 Decreased white blood cell count, unspecified; H91.91 Unspecified hearing loss, right ear; I10 Essential (primary) hypertension; I83.93 Asymptomatic varicose veins of bilateral lower extremities; L85.3 Xerosis cutis; L84 Corns and callosities; K74.60 Unspecified cirrhosis of liver; R74.01 Elevation of levels of liver transaminase levels; R79.89 Other specified abnormal findings of blood chemistry; Z99.89 Dependence on other enabling machines and devices
CPT/HCPCS: 36415; 80053; 85027; 85610; 86780; C9803; J0735; U0003; U0005

== ENCOUNTER 2021-02-13 21:47 | Inpatient (IN) | payer OTHER ==
[2021-02-13 22:25] VITALS: BMI 23.5
[2021-02-13] MEDS ORDERED: MAGNESIUM CITRATE 300 ML BOTTLE PO PRN (22:36)
[2021-02-13] MEDS ORDERED: MAG HYDROX/AL HYDROX/SIMETH 30 ML UNIT-DOSE CUP PO PRN (22:36)
[2021-02-13] MEDS ORDERED: MAGNESIUM HYDROX 2400MG/30ML ORAL SUSPENSION 30 ML CUP PO PRN (22:36)
[2021-02-13] MEDS ORDERED: BISMUTH SUBSALICYLATE 524 MG/30 ML PO PRN (22:36)
[2021-02-13] MEDS ORDERED: ONDANSETRON *ODT* 4 MG TABLET SL PRN (22:36)
[2021-02-13] MEDS ORDERED: IBUPROFEN 400 MG TABLET (FP) PO PRN (22:36)
[2021-02-13] MEDS ORDERED: MENTHOL/PHENOL 1 EACH UD MM PRN (22:36)
[2021-02-14] MEDS: diazePAM 5 MG TABLET PO PRN ×2 (02:30→03:09)
[2021-02-14] MEDS: hydrOXYzine PAMOATE 25 MG CAPSULE (FP) PO PRN ×2 (02:31→03:09)
[2021-02-14] MEDS ORDERED: methaDONE HCL 10 MG TABLET PO ONE (08:13)
[2021-02-14] MEDS ORDERED: methaDONE 40 MG, methaDONE 30 MG PO ONE (08:30)
[2021-02-14] MEDS: LOSARTAN POTASSIUM 50 MG TABLET PO SCH ×2 (08:40→10:09)
[2021-02-14] MEDS ORDERED: methaDONE HCL 10 MG TABLET ONE (09:32)
[2021-02-14] MEDS ORDERED: methaDONE HCL 40 MG DISPERSABLE TABLET ONE (09:35)
[2021-02-14] MEDS ORDERED: LISINOPRIL 10 MG TABLET PO SCH (10:00)
[2021-02-14] MEDS: LISINOPRIL 20 MG TABLET PO SCH (10:08)
[2021-02-14] MEDS: diazePAM 5 MG TABLET PO SCH ×3 (10:08→22:27)
[2021-02-14] MEDS: PRENATAL VITAMINS W/ FOLIC ACID TABLET (FP) PO SCH (10:08)
[2021-02-14 10:25] LABS: HEMATOCRIT 34.9 % (35.4-49); HEMOGLOBIN 12.4 GM/dL (11.7-16.9); MCH 33.4 pg (25.7-33.7); MCHC 35.4 g/dl (32.0-35.9); MEAN CELL VOLUME 94.1 fl (80-96); MEAN PLT VOLUME 7.5 fl (7.5-11.1); PLATELET COUNT 178 10^3/uL (134-434); RBC 3.71 M/mm3 (4.00-5.60); RDW 13.2 % (11.9-15.9); WHITE BLOOD COUNT 3.1 K/mm3 (4.0-10.0)
[2021-02-14 10:31] LABS: ALBUMIN 3.9 g/dl (3.4-5.0); BLOOD UREA NITROGEN 36.3 mg/dL (7-18); CALCIUM 8.7 mg/dL (8.5-10.1)
[2021-02-14 10:34] LABS: CREATININE 0.9 mg/dL (0.55-1.3)
[2021-02-14 10:35] LABS: BILIRUBIN,TOTAL 1.1 mg/dL (0.2-1); TOT PROT 8.4 g/dl (6.4-8.2)
[2021-02-14] MEDS ORDERED: MELATONIN 5 MG TABLETS PO SCH (22:00)
[2021-02-14] MEDS ORDERED: THIAMINE HCL 100 MG TABLET (FP) PO SCH (22:00)
[2021-02-15] MEDS ORDERED: methaDONE HCL 40 MG DISPERSABLE TABLET ONE (04:15)
[2021-02-15] MEDS ORDERED: methaDONE HCL 10 MG TABLET ONE (04:15)
[2021-02-15] MEDS: diazePAM 5 MG TABLET PO SCH ×2 (05:54→10:06)
[2021-02-15] MEDS ORDERED: methaDONE 40 MG, methaDONE 30 MG PO SCH (06:00)
[2021-02-15] MEDS ORDERED: methaDONE HCL 40 MG DISPERSABLE TABLET PO SCH (06:00)
[2021-02-15 09:14] VITALS: BP 163/92; PULSE 63; TEMP 96.8
[2021-02-15] MEDS: LISINOPRIL 20 MG TABLET PO SCH (10:05)
[2021-02-15] MEDS: LOSARTAN POTASSIUM 50 MG TABLET PO SCH (10:05)
[2021-02-15] MEDS: PRENATAL VITAMINS W/ FOLIC ACID TABLET (FP) PO SCH (10:06)
[2021-02-15 15:31] LABS: HIV INTERPRETATION NEGATIVE (NEGATIVE)
[2021-02-16] MEDS ORDERED: diazePAM 5 MG TABLET PO SCH (06:00)
[2021-02-17] MEDS ORDERED: diazePAM 5 MG TABLET PO SCH (06:00)
[2021-02-18] MEDS ORDERED: diazePAM 5 MG TABLET PO ONE (06:00)
== END 2021-02-15 12:42 | disposition left against medical advice (07) | DRG 770 ==
LOC: YASAS 21:47 → UNDOADMIN 23:10 → Y3N 23:10
PROVIDERS: ADMIT Allergy & Immunology; ATTEND Allergy & Immunology
PROC: HZ2ZZZZ Detoxification Services for Substance Abuse Treatment (ICD-10-PCS; principal; 2021-02-13)
DX: F10.230 Alcohol dependence with withdrawal, uncomplicated (principal); F10.220 Alcohol dependence with intoxication, uncomplicated; F11.20 Opioid dependence, uncomplicated; I10 Essential (primary) hypertension; K74.60 Unspecified cirrhosis of liver; L98.8 Other specified disorders of the skin and subcutaneous tissue; L03.115 Cellulitis of right lower limb; R00.0 Tachycardia, unspecified; R26.2 Difficulty in walking, not elsewhere classified; Z99.89 Dependence on other enabling machines and devices; Z87.891 Personal history of nicotine dependence
CPT/HCPCS: 36415; 80053; 85027; 86780; 87389; C9803; U0003; U0005

== ENCOUNTER 2021-04-09 18:35 | Inpatient (IN) | payer OTHER ==
[2021-04-09 19:01] VITALS: BMI 25.0
[2021-04-09] MEDS ORDERED: MAG HYDROX/AL HYDROX/SIMETH 30 ML UNIT-DOSE CUP PO PRN (19:34)
[2021-04-09] MEDS ORDERED: BISMUTH SUBSALICYLATE 524 MG/30 ML PO PRN (19:34)
[2021-04-09] MEDS ORDERED: MAGNESIUM CITRATE 300 ML BOTTLE PO PRN (19:34)
[2021-04-09] MEDS ORDERED: ONDANSETRON *ODT* 4 MG TABLET SL PRN (19:34)
[2021-04-09] MEDS ORDERED: ACETAMINOPHEN 325 MG TABLET (FP) PO PRN ×2 (19:34)
[2021-04-09] MEDS ORDERED: MENTHOL/PHENOL 1 EACH UD MM PRN (19:34)
[2021-04-09] MEDS ORDERED: LORazepam 1 MG TABLET PO PRN (19:37)
[2021-04-09] MEDS ORDERED: cloNIDine HCL 0.1 MG TABLET PO ONE (20:58)
[2021-04-09] MEDS: THIAMINE HCL 100 MG TABLET (FP) PO SCH (22:07)
[2021-04-09] MEDS: MELATONIN 5 MG TABLETS PO SCH (22:07)
[2021-04-09] MEDS: LORazepam 2 MG TABLET PO SCH (22:07)
[2021-04-10] MEDS: LORazepam 2 MG TABLET PO SCH ×4 (06:05→22:13)
[2021-04-10] MEDS ORDERED: methaDONE HCL 10 MG TABLET PO SCH (09:15)
[2021-04-10] MEDS ORDERED: methaDONE 40 MG, methaDONE 30 MG PO ONE (09:30)
[2021-04-10] MEDS ORDERED: methaDONE HCL 10 MG TABLET ONE (10:25)
[2021-04-10] MEDS ORDERED: methaDONE HCL 40 MG DISPERSABLE TABLET ONE (10:25)
[2021-04-10] MEDS: LOSARTAN POTASSIUM 50 MG TABLET PO SCH (10:26)
[2021-04-10] MEDS: PRENATAL VITAMINS W/ FOLIC ACID TABLET (FP) PO SCH (10:26)
[2021-04-10 10:41] LABS: ALBUMIN 3.5 g/dl (3.4-5.0); BLOOD UREA NITROGEN 32.4 mg/dL (7-18); CALCIUM 8.8 mg/dL (8.5-10.1)
[2021-04-10 10:44] LABS: HEMATOCRIT 32.6 % (35.4-49); HEMOGLOBIN 11.2 GM/dL (11.7-16.9); MCHC 34.5 g/dl (32.0-35.9); MEAN CELL VOLUME 95.7 fl (80-96); MEAN PLT VOLUME 7.4 fl (7.5-11.1); PLATELET COUNT 162 10^3/uL (134-434); RBC 3.41 M/mm3 (4.00-5.60); RDW 13.1 % (11.9-15.9); WHITE BLOOD COUNT 2.3 K/mm3 (4.0-10.0)
[2021-04-10 10:46] LABS: BILIRUBIN,TOTAL 1.6 mg/dL (0.2-1); TOT PROT 7.7 g/dl (6.4-8.2)
[2021-04-10] MEDS: MAGNESIUM HYDROX 2400MG/30ML ORAL SUSPENSION 30 ML CUP PO PRN (17:26)
[2021-04-10] MEDS: THIAMINE HCL 100 MG TABLET (FP) PO SCH (22:12)
[2021-04-10] MEDS: MELATONIN 5 MG TABLETS PO SCH (22:12)
[2021-04-10] MEDS: METHOCARBAMOL 500 MG TABLET PO PRN (22:14)
[2021-04-11] MEDS ORDERED: methaDONE HCL 10 MG TABLET ONE (05:11)
[2021-04-11] MEDS ORDERED: methaDONE HCL 40 MG DISPERSABLE TABLET ONE (05:11)
[2021-04-11] MEDS: LORazepam 1 MG TABLET PO SCH ×4 (06:32→22:06)
[2021-04-11] MEDS: methaDONE 40 MG, methaDONE 30 MG PO SCH (06:33)
[2021-04-11] MEDS: LOSARTAN POTASSIUM 50 MG TABLET PO SCH (10:03)
[2021-04-11] MEDS: PRENATAL VITAMINS W/ FOLIC ACID TABLET (FP) PO SCH (10:03)
[2021-04-11] MEDS: MAGNESIUM HYDROX 2400MG/30ML ORAL SUSPENSION 30 ML CUP PO PRN (17:42)
[2021-04-11] MEDS: METHOCARBAMOL 500 MG TABLET PO PRN (22:07)
[2021-04-11] MEDS: THIAMINE HCL 100 MG TABLET (FP) PO SCH (22:07)
[2021-04-11] MEDS: MELATONIN 5 MG TABLETS PO SCH (22:07)
[2021-04-12] MEDS ORDERED: LORazepam 0.5 MG TABLET PO PRN
[2021-04-12] MEDS: IBUPROFEN 400 MG TABLET (FP) PO PRN ×2 (00:15→22:09)
[2021-04-12] MEDS ORDERED: methaDONE HCL 10 MG TABLET ONE (05:11)
[2021-04-12] MEDS ORDERED: methaDONE HCL 40 MG DISPERSABLE TABLET ONE (05:12)
[2021-04-12] MEDS: LORazepam 0.5 MG TABLET PO SCH ×4 (06:43→22:08)
[2021-04-12] MEDS: methaDONE 40 MG, methaDONE 30 MG PO SCH (06:44)
[2021-04-12] MEDS: LOSARTAN POTASSIUM 50 MG TABLET PO SCH (10:04)
[2021-04-12] MEDS: PRENATAL VITAMINS W/ FOLIC ACID TABLET (FP) PO SCH (10:04)
[2021-04-12] MEDS ORDERED: LISINOPRIL 5 MG TABLET PO ONE (18:58)
[2021-04-12] MEDS: METHOCARBAMOL 500 MG TABLET PO PRN (22:09)
[2021-04-12] MEDS: MELATONIN 5 MG TABLETS PO SCH (22:09)
[2021-04-12] MEDS: THIAMINE HCL 100 MG TABLET (FP) PO SCH (22:09)
[2021-04-13] MEDS ORDERED: methaDONE HCL 10 MG TABLET ONE (04:10)
[2021-04-13] MEDS ORDERED: methaDONE HCL 40 MG DISPERSABLE TABLET ONE (04:10)
[2021-04-13] MEDS ORDERED: LORazepam 0.5 MG TABLET PO ONE (05:00)
[2021-04-13] MEDS: methaDONE 40 MG, methaDONE 30 MG PO SCH (06:20)
[2021-04-13] MEDS ORDERED: MASKS NR ONE (08:09)
[2021-04-13] MEDS: LOSARTAN POTASSIUM 50 MG TABLET PO SCH (09:06)
[2021-04-13] MEDS: PRENATAL VITAMINS W/ FOLIC ACID TABLET (FP) PO SCH (09:06)
[2021-04-13 09:33] VITALS: BP 160/96; PULSE 68; TEMP 96.8
== END 2021-04-13 09:23 | disposition home or self-care (01) | DRG 773 ==
LOC: YASAS 18:35 → Y3N 19:12
PROVIDERS: ADMIT Allergy & Immunology; ATTEND Allergy & Immunology
PROC: HZ2ZZZZ Detoxification Services for Substance Abuse Treatment (ICD-10-PCS; principal; 2021-04-09)
DX: F10.230 Alcohol dependence with withdrawal, uncomplicated (principal); F11.20 Opioid dependence, uncomplicated; F14.20 Cocaine dependence, uncomplicated; F19.24 Other psychoactive substance dependence with psychoactive substance-induced mood disorder; I10 Essential (primary) hypertension; G47.00 Insomnia, unspecified; H91.91 Unspecified hearing loss, right ear; I83.93 Asymptomatic varicose veins of bilateral lower extremities; K74.60 Unspecified cirrhosis of liver; Z56.0 Unemployment, unspecified
CPT/HCPCS: 36415; 80053; 85027; 86780; C9803; J0735; U0003; U0005

== ENCOUNTER 2021-06-04 17:40 | Inpatient (IN) | payer OTHER ==
[2021-06-04 18:22] VITALS: BMI 24.2
[2021-06-04] MEDS ORDERED: ACETAMINOPHEN 325 MG TABLET (FP) PO PRN ×2 (20:00)
[2021-06-04] MEDS ORDERED: BISMUTH SUBSALICYLATE 524 MG/30 ML PO PRN (20:00)
[2021-06-04] MEDS ORDERED: MAGNESIUM CITRATE 300 ML BOTTLE PO PRN (20:00)
[2021-06-04] MEDS ORDERED: IBUPROFEN 400 MG TABLET (FP) PO PRN (20:00)
[2021-06-04] MEDS ORDERED: MAG HYDROX/AL HYDROX/SIMETH 30 ML UNIT-DOSE CUP PO PRN (20:00)
[2021-06-04] MEDS ORDERED: ONDANSETRON *ODT* 4 MG TABLET SL PRN (20:00)
[2021-06-04] MEDS ORDERED: MAGNESIUM HYDROX 2400MG/30ML ORAL SUSPENSION 30 ML CUP PO PRN (20:00)
[2021-06-04] MEDS ORDERED: METHOCARBAMOL 500 MG TABLET PO PRN (20:00)
[2021-06-04] MEDS ORDERED: MENTHOL/PHENOL 1 EACH UD MM PRN (20:00)
[2021-06-04] MEDS ORDERED: LORazepam 1 MG TABLET PO PRN (20:05)
[2021-06-04] MEDS ORDERED: MELATONIN 5 MG TABLETS PO SCH (22:00)
[2021-06-04] MEDS: THIAMINE HCL 100 MG TABLET (FP) PO SCH (22:23)
[2021-06-04] MEDS: LORazepam 2 MG TABLET PO SCH (22:25)
[2021-06-05] MEDS: LORazepam 2 MG TABLET PO SCH ×4 (05:12→22:23)
[2021-06-05] MEDS ORDERED: cloNIDine HCL 0.1 MG TABLET PO ONE (08:15)
[2021-06-05] MEDS ORDERED: methaDONE HCL 10 MG TABLET (FOR DETOX USE ONLY) PO ONE (09:23)
[2021-06-05] MEDS ORDERED: methaDONE HCL 10 MG TABLET PO ONE (09:25)
[2021-06-05] MEDS ORDERED: methaDONE 40 MG, methaDONE 30 MG PO ONE (10:00)
[2021-06-05] MEDS ORDERED: methaDONE HCL 40 MG DISPERSABLE TABLET ONE (10:16)
[2021-06-05] MEDS ORDERED: methaDONE HCL 10 MG TABLET ONE (10:16)
[2021-06-05] MEDS: PRENATAL VITAMINS W/ FOLIC ACID TABLET (FP) PO SCH (10:18)
[2021-06-05 13:54] LABS: HEMATOCRIT 35.1 % (35.4-49); HEMOGLOBIN 11.9 GM/dL (11.7-16.9); MCH 32.5 pg (25.7-33.7); MCHC 33.9 g/dl (32.0-35.9); MEAN CELL VOLUME 95.6 fl (80-96); MEAN PLT VOLUME 7.7 fl (7.5-11.1); PLATELET COUNT 167 10^3/uL (134-434); RBC 3.67 M/mm3 (4.00-5.60); RDW 13.6 % (11.9-15.9); WHITE BLOOD COUNT 2.6 K/mm3 (4.0-10.0)
[2021-06-05 14:01] LABS: ALBUMIN 3.7 g/dl (3.4-5.0); BLOOD UREA NITROGEN 34.9 mg/dL (7-18); CALCIUM 8.8 mg/dL (8.5-10.1)
[2021-06-05 14:04] LABS: CREATININE 0.9 mg/dL (0.55-1.3)
[2021-06-05 14:06] LABS: TOT PROT 7.9 g/dl (6.4-8.2)
[2021-06-05] MEDS: MELATONIN 5 MG TABLETS PO SCH (22:23)
[2021-06-05] MEDS: THIAMINE HCL 100 MG TABLET (FP) PO SCH (22:24)
[2021-06-06] MEDS ORDERED: methaDONE HCL 10 MG TABLET ONE (04:24)
[2021-06-06] MEDS ORDERED: methaDONE HCL 40 MG DISPERSABLE TABLET ONE (04:25)
[2021-06-06] MEDS: LORazepam 1 MG TABLET PO SCH ×4 (05:30→22:16)
[2021-06-06] MEDS: methaDONE 40 MG, methaDONE 30 MG PO SCH (05:31)
[2021-06-06] MEDS ORDERED: methaDONE HCL 10 MG TABLET PO SCH (06:00)
[2021-06-06] MEDS: PRENATAL VITAMINS W/ FOLIC ACID TABLET (FP) PO SCH (10:26)
[2021-06-06] MEDS ORDERED: AMMONIUM LACTATE 12% LOTION 225 GM BOTTLE TP SCH (22:00)
[2021-06-06] MEDS: THIAMINE HCL 100 MG TABLET (FP) PO SCH (22:16)
[2021-06-06] MEDS: MELATONIN 5 MG TABLETS PO SCH (22:16)
[2021-06-07] MEDS ORDERED: LORazepam 0.5 MG TABLET PO PRN
[2021-06-07] MEDS ORDERED: methaDONE HCL 40 MG DISPERSABLE TABLET ONE (04:22)
[2021-06-07] MEDS ORDERED: methaDONE HCL 10 MG TABLET ONE (04:22)
[2021-06-07] MEDS ORDERED: LORazepam 0.5 MG TABLET PO SCH (05:00)
[2021-06-07] MEDS: methaDONE 40 MG, methaDONE 30 MG PO SCH (05:17)
[2021-06-07] MEDS ORDERED: cloNIDine HCL 0.1 MG TABLET PO ONE (06:35)
[2021-06-07 09:04] VITALS: BP 147/85; PULSE 74; TEMP 97.3
[2021-06-08] MEDS ORDERED: LORazepam 0.5 MG TABLET PO ONE (05:00)
== END 2021-06-07 09:22 | disposition home or self-care (01) | DRG 773 ==
LOC: YASAS 17:40 → Y3N 20:06
PROVIDERS: ADMIT Allergy & Immunology; ATTEND Allergy & Immunology
PROC: HZ2ZZZZ Detoxification Services for Substance Abuse Treatment (ICD-10-PCS; principal; 2021-06-04)
DX: F10.230 Alcohol dependence with withdrawal, uncomplicated (principal); F11.20 Opioid dependence, uncomplicated; F17.210 Nicotine dependence, cigarettes, uncomplicated; F10.282 Alcohol dependence with alcohol-induced sleep disorder; F32.A Depression, unspecified; F41.8 Other specified anxiety disorders; D72.819 Decreased white blood cell count, unspecified; I10 Essential (primary) hypertension; I83.93 Asymptomatic varicose veins of bilateral lower extremities; K74.60 Unspecified cirrhosis of liver; L85.3 Xerosis cutis; H91.91 Unspecified hearing loss, right ear; R74.8 Abnormal levels of other serum enzymes; Z86.69 Personal history of other diseases of the nervous system and sense organs; Z99.89 Dependence on other enabling machines and devices
CPT/HCPCS: 36415; 80053; 85027; 86780; 93005; 93010; C9803; J0735; Q0162; U0003; U0005

== ENCOUNTER 2022-06-02 15:35 | Inpatient (IN) | payer OTHER ==
[2022-06-02 17:44] VITALS: BMI 24.0
[2022-06-02] MEDS ORDERED: NALOXONE HCL (KLOXXADO) 8 MG SPRAY NS PRN (19:25)
[2022-06-02] MEDS ORDERED: IBUPROFEN 600 MG TABLET (FP) PO PRN (19:25)
[2022-06-02] MEDS ORDERED: ONDANSETRON *ODT* 4 MG TABLET SL PRN (19:25)
[2022-06-02] MEDS ORDERED: MAG HYDROX/AL HYDROX/SIMETH 30 ML UNIT-DOSE CUP PO PRN (19:25)
[2022-06-02] MEDS ORDERED: LOPERAMIDE HCL 2 MG CAPSULE PO PRN (19:25)
[2022-06-02] MEDS ORDERED: DICYCLOMINE HCL 10 MG CAPSULE PO PRN (19:25)
[2022-06-02] MEDS ORDERED: BENZOCAINE/MENTHOL (CHLORASEPTIC ) LOZENGE MM PRN (19:25)
[2022-06-02] MEDS ORDERED: BISMUTH SUBSALICYLATE 524 MG/30 ML PO PRN (19:25)
[2022-06-02] MEDS ORDERED: LORazepam 1 MG TABLET PO PRN (19:25)
[2022-06-02] MEDS ORDERED: ACETAMINOPHEN 325 MG TABLET (FP) PO PRN ×2 (19:25)
[2022-06-02] MEDS ORDERED: POLYETHYLENE GLYCOL (HEALTHYLAX) 3350 17 GM PACKET PO PRN (19:25)
[2022-06-02] MEDS ORDERED: MAGNESIUM HYDROX 2400MG/30ML ORAL SUSPENSION 30 ML CUP PO PRN (19:25)
[2022-06-02] MEDS ORDERED: IBUPROFEN 400 MG TABLET (FP) PO PRN (19:25)
[2022-06-02] MEDS: LORazepam 2 MG TABLET PO SCH (22:19)
[2022-06-02] MEDS: MELATONIN 5 MG TABLETS PO SCH (22:20)
[2022-06-02] MEDS: THIAMINE HCL 100 MG TABLET (FP) PO SCH (22:20)
[2022-06-03] MEDS: LORazepam 2 MG TABLET PO SCH ×4 (06:05→22:07)
[2022-06-03] MEDS ORDERED: methaDONE HCL 10 MG TABLET PO ONE (09:16)
[2022-06-03] MEDS ORDERED: methaDONE 40 MG, methaDONE 30 MG PO ONE (09:45)
[2022-06-03] MEDS ORDERED: amLODIPine BESYLATE 10 MG TABLET (FP) PO SCH (10:00)
[2022-06-03] MEDS: LOSARTAN POTASSIUM 50 MG TABLET PO SCH (10:25)
[2022-06-03] MEDS: METHOCARBAMOL 500 MG TABLET PO PRN (10:25)
[2022-06-03] MEDS: PRENATAL VITAMINS W/ FOLIC ACID TABLET (FP) PO SCH (10:26)
[2022-06-03 11:38] LABS: HEMATOCRIT 30.6 % (35.4-49); HEMOGLOBIN 10.4 GM/dL (11.7-16.9); MCH 35.1 pg (25.7-33.7); MEAN CELL VOLUME 103.2 fl (80-96); MEAN PLT VOLUME 7.5 fl (7.5-11.1); PLATELET COUNT 161 10^3/uL (134-434); RBC 2.96 M/mm3 (4.00-5.60); RDW 14.6 % (11.9-15.9); WHITE BLOOD COUNT 3.2 K/mm3 (4.0-10.0)
[2022-06-03 11:45] LABS: ALBUMIN 3.5 g/dl (3.4-5.0)
[2022-06-03 11:46] LABS: CALCIUM 8.6 mg/dL (8.5-10.1)
[2022-06-03 11:48] LABS: BLOOD UREA NITROGEN 43.4 mg/dL (7-18)
[2022-06-03 11:49] LABS: CREATININE 1.2 mg/dL (0.55-1.3)
[2022-06-03 11:50] LABS: BILIRUBIN,TOTAL 1.3 mg/dL (0.2-1); TOT PROT 7.6 g/dl (6.4-8.2)
[2022-06-03] MEDS: THIAMINE HCL 100 MG TABLET (FP) PO SCH (22:08)
[2022-06-03] MEDS: MELATONIN 5 MG TABLETS PO SCH (22:08)
[2022-06-04] MEDS: methaDONE 40 MG, methaDONE 30 MG PO SCH (05:44)
[2022-06-04] MEDS: LORazepam 1 MG TABLET PO SCH ×4 (05:45→22:21)
[2022-06-04] MEDS ORDERED: methaDONE HCL 10 MG TABLET PO SCH (06:00)
[2022-06-04] MEDS: PRENATAL VITAMINS W/ FOLIC ACID TABLET (FP) PO SCH (10:08)
[2022-06-04] MEDS: FLUTICASONE PROP 0.05% 16 GM NASAL SPRAY NS SCH (10:08)
[2022-06-04] MEDS: LOSARTAN POTASSIUM 50 MG TABLET PO SCH (10:08)
[2022-06-04] MEDS: AMMONIUM LACTATE 12% LOTION 225 GM BOTTLE TP SCH (15:55)
[2022-06-04] MEDS: FERROUS SO4 325 MG TABLET (FP) PO SCH (17:25)
[2022-06-04] MEDS ORDERED: cloNIDine HCL 0.1 MG TABLET PO ONE ×2 (22:09→23:45)
[2022-06-04] MEDS: THIAMINE HCL 100 MG TABLET (FP) PO SCH (22:21)
[2022-06-04] MEDS: MELATONIN 5 MG TABLETS PO SCH (22:21)
[2022-06-04] MEDS: METHOCARBAMOL 500 MG TABLET PO PRN (22:21)
[2022-06-05] MEDS ORDERED: LORazepam 0.5 MG TABLET PO PRN
[2022-06-05] MEDS: methaDONE 40 MG, methaDONE 30 MG PO SCH (05:31)
[2022-06-05] MEDS: LORazepam 0.5 MG TABLET PO SCH ×4 (05:32→22:21)
[2022-06-05] MEDS ORDERED: cloNIDine HCL 0.1 MG TABLET PO ONE (06:14)
[2022-06-05] MEDS: FERROUS SO4 325 MG TABLET (FP) PO SCH ×3 (07:44→17:35)
[2022-06-05] MEDS: FLUTICASONE PROP 0.05% 16 GM NASAL SPRAY NS SCH (10:16)
[2022-06-05] MEDS: LOSARTAN POTASSIUM 50 MG TABLET PO SCH (10:16)
[2022-06-05] MEDS: AMMONIUM LACTATE 12% LOTION 225 GM BOTTLE TP SCH (10:16)
[2022-06-05] MEDS: PRENATAL VITAMINS W/ FOLIC ACID TABLET (FP) PO SCH (10:17)
[2022-06-05] MEDS: MELATONIN 5 MG TABLETS PO SCH (22:21)
[2022-06-05] MEDS: THIAMINE HCL 100 MG TABLET (FP) PO SCH (22:22)
[2022-06-05] MEDS: METHOCARBAMOL 500 MG TABLET PO PRN (22:23)
[2022-06-06] MEDS ORDERED: LORazepam 0.5 MG TABLET PO ONE (05:00)
[2022-06-06] MEDS: methaDONE 40 MG, methaDONE 30 MG PO SCH (05:20)
[2022-06-06] MEDS: FERROUS SO4 325 MG TABLET (FP) PO SCH (07:33)
[2022-06-06] MEDS: LOSARTAN POTASSIUM 50 MG TABLET PO SCH (09:49)
[2022-06-06 09:50] VITALS: BP 149/92; PULSE 70; RESP 18; TEMP 96.9
[2022-06-06] MEDS: FLUTICASONE PROP 0.05% 16 GM NASAL SPRAY NS SCH (09:50)
[2022-06-06] MEDS: PRENATAL VITAMINS W/ FOLIC ACID TABLET (FP) PO SCH (09:50)
[2022-06-06] MEDS: AMMONIUM LACTATE 12% LOTION 225 GM BOTTLE TP SCH (09:50)
== END 2022-06-06 10:00 | disposition home or self-care (01) | DRG 773 ==
LOC: YASAS 15:35 → Y6N 19:37
PROVIDERS: ADMIT Allergy & Immunology; ATTEND Surgery
PROC: HZ2ZZZZ Detoxification Services for Substance Abuse Treatment (ICD-10-PCS; principal; 2022-06-02)
DX: F10.230 Alcohol dependence with withdrawal, uncomplicated (principal); F11.20 Opioid dependence, uncomplicated; F14.20 Cocaine dependence, uncomplicated; F17.210 Nicotine dependence, cigarettes, uncomplicated; F10.282 Alcohol dependence with alcohol-induced sleep disorder; F41.9 Anxiety disorder, unspecified; I10 Essential (primary) hypertension; K74.60 Unspecified cirrhosis of liver; L85.3 Xerosis cutis; L84 Corns and callosities; R74.01 Elevation of levels of liver transaminase levels; R74.8 Abnormal levels of other serum enzymes; D64.9 Anemia, unspecified; Z99.89 Dependence on other enabling machines and devices; Z28.310 Unvaccinated for COVID-19; Z28.9 Immunization not carried out for unspecified reason
CPT/HCPCS: 36415; 80053; 85027; 86780; C9803-CS; U0003; U0005

== ENCOUNTER 2022-06-07 14:20 | Inpatient (IN) | payer OTHER ==
[2022-06-07 14:46] VITALS: BMI 24.2
[2022-06-07] MEDS ORDERED: MAGNESIUM HYDROX 2400MG/30ML ORAL SUSPENSION 30 ML CUP PO PRN (15:32)
[2022-06-07] MEDS ORDERED: NICOTINE 7 MG/24 HOURS TOPICAL PATCH TD PRN (15:32)
[2022-06-07] MEDS ORDERED: MAG HYDROX/AL HYDROX/SIMETH 30 ML UNIT-DOSE CUP PO PRN (15:32)
[2022-06-07] MEDS ORDERED: NALOXONE HCL (KLOXXADO) 8 MG SPRAY NS PRN (15:32)
[2022-06-07] MEDS ORDERED: LOPERAMIDE HCL 2 MG CAPSULE PO PRN (15:32)
[2022-06-07] MEDS ORDERED: POLYETHYLENE GLYCOL (HEALTHYLAX) 3350 17 GM PACKET PO PRN (15:32)
[2022-06-07] MEDS ORDERED: IBUPROFEN 400 MG TABLET (FP) PO PRN (15:32)
[2022-06-07] MEDS ORDERED: guaiFENesin 200 MG/10 ML 10 ML UNIT-DOSE CUPS PO PRN (15:32)
[2022-06-07] MEDS ORDERED: NICOTINE 10 MG CARTRIDGE (INHALER) IH PRN (15:32)
[2022-06-07] MEDS ORDERED: ACETAMINOPHEN 325 MG TABLET (FP) PO PRN (15:32)
[2022-06-07] MEDS ORDERED: NICOTINE POLACRILEX 2 MG GUM BC PRN (15:32)
[2022-06-07] MEDS ORDERED: P-EPHED 60MG/TRIPROLIDI 2.5MG TABLET PO PRN (15:32)
[2022-06-07] MEDS ORDERED: cloNIDine HCL 0.1 MG TABLET PO ONE (19:25)
[2022-06-07] MEDS: THIAMINE HCL 100 MG TABLET (FP) PO SCH (21:55)
[2022-06-07] MEDS ORDERED: MELATONIN 5 MG TABLETS PO SCH (22:00)
[2022-06-07] MEDS: cloNIDine HCL 0.1 MG TABLET PO PRN (23:16)
[2022-06-08] MEDS ORDERED: methaDONE HCL 10 MG TABLET PO SCH (06:00)
[2022-06-08] MEDS: methaDONE 40 MG, methaDONE 30 MG PO SCH (06:29)
[2022-06-08] MEDS: cloNIDine HCL 0.1 MG TABLET PO PRN (06:29)
[2022-06-08] MEDS: amLODIPine BESYLATE 5 MG TABLET (FP) PO SCH (10:04)
[2022-06-08] MEDS: PRENATAL VITAMINS W/ FOLIC ACID TABLET (FP) PO SCH (10:05)
[2022-06-08] MEDS: LOSARTAN POTASSIUM 50 MG TABLET PO SCH (10:05)
[2022-06-08] MEDS: FERROUS SO4 325 MG TABLET (FP) PO SCH (12:20)
[2022-06-08] MEDS: MELATONIN 5 MG TABLETS PO SCH (21:54)
[2022-06-08] MEDS: THIAMINE HCL 100 MG TABLET (FP) PO SCH (21:55)
[2022-06-08] MEDS: hydrOXYzine PAMOATE 25 MG CAPSULE (FP) PO PRN (21:55)
[2022-06-08 23:24] LABS: EPI CELLS 3 /uL (0-25.1); HYALINE CASTS 1 /uL (0-3.1); PH,URINE 5.5 (5.0-8.0); URINE APPEARANCE CLEAR; URINE BACTERIA 26 /uL (0-1359); URINE BILIRUBIN NEGATIVE (NEGATIVE); URINE COLOR YELLOW; URINE GLUCOSE (UA) NEGATIVE (NEGATIVE); URINE KETONE NEGATIVE (NEGATIVE); URINE LEUK ESTERASE NEGATIVE (NEGATIVE); URINE NITRITE NEGATIVE (NEGATIVE); URINE PROTEIN 1+ (NEGATIVE); URINE RBC 2 /uL (0-23.9); URINE WBC 3 /uL (0-25.8)
[2022-06-09] MEDS: methaDONE 40 MG, methaDONE 30 MG PO SCH (06:31)
[2022-06-09] MEDS: FERROUS SO4 325 MG TABLET (FP) PO SCH (09:16)
[2022-06-09] MEDS: PRENATAL VITAMINS W/ FOLIC ACID TABLET (FP) PO SCH (09:16)
[2022-06-09] MEDS: amLODIPine BESYLATE 5 MG TABLET (FP) PO SCH (09:16)
[2022-06-09] MEDS: LOSARTAN POTASSIUM 50 MG TABLET PO SCH (09:16)
[2022-06-09] MEDS: hydrOXYzine PAMOATE 25 MG CAPSULE (FP) PO PRN (21:23)
[2022-06-09] MEDS: MELATONIN 5 MG TABLETS PO SCH (21:23)
[2022-06-09] MEDS: THIAMINE HCL 100 MG TABLET (FP) PO SCH (21:23)
[2022-06-10] MEDS: methaDONE 40 MG, methaDONE 30 MG PO SCH (06:15)
[2022-06-10] MEDS: FERROUS SO4 325 MG TABLET (FP) PO SCH (10:05)
[2022-06-10] MEDS: LOSARTAN POTASSIUM 50 MG TABLET PO SCH (10:05)
[2022-06-10] MEDS: PRENATAL VITAMINS W/ FOLIC ACID TABLET (FP) PO SCH (10:05)
[2022-06-10] MEDS: amLODIPine BESYLATE 5 MG TABLET (FP) PO SCH (10:06)
[2022-06-10] MEDS: MELATONIN 5 MG TABLETS PO SCH (21:21)
[2022-06-10] MEDS: THIAMINE HCL 100 MG TABLET (FP) PO SCH (21:21)
[2022-06-10] MEDS: hydrOXYzine PAMOATE 25 MG CAPSULE (FP) PO PRN (21:22)
[2022-06-11] MEDS: methaDONE 40 MG, methaDONE 30 MG PO SCH (06:09)
[2022-06-11] MEDS: FERROUS SO4 325 MG TABLET (FP) PO SCH (09:41)
[2022-06-11] MEDS: LOSARTAN POTASSIUM 50 MG TABLET PO SCH (09:41)
[2022-06-11] MEDS: amLODIPine BESYLATE 5 MG TABLET (FP) PO SCH (09:42)
[2022-06-11] MEDS: PRENATAL VITAMINS W/ FOLIC ACID TABLET (FP) PO SCH (09:42)
[2022-06-11] MEDS: THIAMINE HCL 100 MG TABLET (FP) PO SCH (21:10)
[2022-06-11] MEDS: MELATONIN 5 MG TABLETS PO SCH (21:11)
[2022-06-11] MEDS: hydrOXYzine PAMOATE 25 MG CAPSULE (FP) PO PRN (21:11)
[2022-06-12] MEDS: methaDONE 40 MG, methaDONE 30 MG PO SCH (06:18)
[2022-06-12] MEDS: LOSARTAN POTASSIUM 50 MG TABLET PO SCH (09:56)
[2022-06-12] MEDS: PRENATAL VITAMINS W/ FOLIC ACID TABLET (FP) PO SCH (09:57)
[2022-06-12] MEDS: amLODIPine BESYLATE 5 MG TABLET (FP) PO SCH (09:57)
[2022-06-12] MEDS: FERROUS SO4 325 MG TABLET (FP) PO SCH (09:57)
[2022-06-12 12:39] LABS: ALBUMIN 3.6 g/dl (3.4-5.0); BLOOD UREA NITROGEN 29.8 mg/dL (7-18); CALCIUM 9.1 mg/dL (8.5-10.1)
[2022-06-12 12:42] LABS: CREATININE 1.2 mg/dL (0.55-1.3)
[2022-06-12 12:44] LABS: BILIRUBIN,TOTAL 0.9 mg/dL (0.2-1); TOT PROT 7.5 g/dl (6.4-8.2)
[2022-06-12] MEDS: LACTULOSE 20 GM/30 ML UDC (FOR ORAL USE ONLY) PO SCH ×2 (14:16→21:13)
[2022-06-12] MEDS ORDERED: SALICYLIC ACID 1 APPLIC BOTTLE TP ONE (14:38)
[2022-06-12] MEDS: SALICYLIC ACID 1 APPLIC BOTTLE TP PRN (15:58)
[2022-06-12] MEDS: THIAMINE HCL 100 MG TABLET (FP) PO SCH (21:13)
[2022-06-12] MEDS: MELATONIN 5 MG TABLETS PO SCH (21:13)
[2022-06-12] MEDS: hydrOXYzine PAMOATE 25 MG CAPSULE (FP) PO PRN (21:13)
[2022-06-13] MEDS: LACTULOSE 20 GM/30 ML UDC (FOR ORAL USE ONLY) PO SCH ×3 (06:29→21:15)
[2022-06-13] MEDS: methaDONE 40 MG, methaDONE 30 MG PO SCH (06:29)
[2022-06-13] MEDS: LOSARTAN POTASSIUM 50 MG TABLET PO SCH (09:33)
[2022-06-13] MEDS: amLODIPine BESYLATE 5 MG TABLET (FP) PO SCH (09:34)
[2022-06-13] MEDS: FERROUS SO4 325 MG TABLET (FP) PO SCH (09:34)
[2022-06-13] MEDS: PRENATAL VITAMINS W/ FOLIC ACID TABLET (FP) PO SCH (09:34)
[2022-06-13] MEDS: SALICYLIC ACID 1 APPLIC BOTTLE TP PRN (15:00)
[2022-06-13] MEDS: hydrOXYzine PAMOATE 25 MG CAPSULE (FP) PO PRN (21:15)
[2022-06-13] MEDS: MELATONIN 5 MG TABLETS PO SCH (21:15)
[2022-06-13] MEDS: THIAMINE HCL 100 MG TABLET (FP) PO SCH (21:16)
[2022-06-14] MEDS: methaDONE 40 MG, methaDONE 30 MG PO SCH (06:20)
[2022-06-14] MEDS: LACTULOSE 20 GM/30 ML UDC (FOR ORAL USE ONLY) PO SCH ×3 (06:21→21:08)
[2022-06-14] MEDS: LOSARTAN POTASSIUM 50 MG TABLET PO SCH (09:25)
[2022-06-14] MEDS: PRENATAL VITAMINS W/ FOLIC ACID TABLET (FP) PO SCH (09:25)
[2022-06-14] MEDS: amLODIPine BESYLATE 5 MG TABLET (FP) PO SCH (09:25)
[2022-06-14] MEDS: FERROUS SO4 325 MG TABLET (FP) PO SCH (09:25)
[2022-06-14] MEDS: THIAMINE HCL 100 MG TABLET (FP) PO SCH (21:08)
[2022-06-14] MEDS: MELATONIN 5 MG TABLETS PO SCH (21:08)
[2022-06-14] MEDS: hydrOXYzine PAMOATE 25 MG CAPSULE (FP) PO PRN (21:08)
[2022-06-15] MEDS: methaDONE 40 MG, methaDONE 30 MG PO SCH (06:19)
[2022-06-15] MEDS: LACTULOSE 20 GM/30 ML UDC (FOR ORAL USE ONLY) PO SCH ×3 (06:19→21:17)
[2022-06-15] MEDS: LOSARTAN POTASSIUM 50 MG TABLET PO SCH (09:50)
[2022-06-15] MEDS: FERROUS SO4 325 MG TABLET (FP) PO SCH (09:50)
[2022-06-15] MEDS: PRENATAL VITAMINS W/ FOLIC ACID TABLET (FP) PO SCH (09:51)
[2022-06-15] MEDS: amLODIPine BESYLATE 5 MG TABLET (FP) PO SCH (09:51)
[2022-06-15 10:14] VITALS: RESP 16
[2022-06-15] MEDS: THIAMINE HCL 100 MG TABLET (FP) PO SCH (21:16)
[2022-06-15] MEDS: MELATONIN 5 MG TABLETS PO SCH (21:16)
[2022-06-15] MEDS: hydrOXYzine PAMOATE 25 MG CAPSULE (FP) PO PRN (21:16)
[2022-06-16] MEDS: methaDONE 40 MG, methaDONE 30 MG PO SCH (06:22)
[2022-06-16] MEDS: LACTULOSE 20 GM/30 ML UDC (FOR ORAL USE ONLY) PO SCH ×3 (06:22→21:28)
[2022-06-16] MEDS: amLODIPine BESYLATE 5 MG TABLET (FP) PO SCH (09:26)
[2022-06-16] MEDS: PRENATAL VITAMINS W/ FOLIC ACID TABLET (FP) PO SCH (09:26)
[2022-06-16] MEDS: FERROUS SO4 325 MG TABLET (FP) PO SCH (09:26)
[2022-06-16] MEDS: LOSARTAN POTASSIUM 50 MG TABLET PO SCH (09:26)
[2022-06-16] MEDS: hydrOXYzine PAMOATE 25 MG CAPSULE (FP) PO PRN (21:28)
[2022-06-16] MEDS: THIAMINE HCL 100 MG TABLET (FP) PO SCH (21:28)
[2022-06-16] MEDS: MELATONIN 5 MG TABLETS PO SCH (21:29)
[2022-06-17] MEDS: methaDONE 40 MG, methaDONE 30 MG PO SCH (06:20)
[2022-06-17] MEDS: LACTULOSE 20 GM/30 ML UDC (FOR ORAL USE ONLY) PO SCH ×3 (06:21→21:46)
[2022-06-17] MEDS: amLODIPine BESYLATE 5 MG TABLET (FP) PO SCH (10:01)
[2022-06-17] MEDS: FERROUS SO4 325 MG TABLET (FP) PO SCH (10:01)
[2022-06-17] MEDS: LOSARTAN POTASSIUM 50 MG TABLET PO SCH (10:01)
[2022-06-17] MEDS: PRENATAL VITAMINS W/ FOLIC ACID TABLET (FP) PO SCH (10:02)
[2022-06-17] MEDS: hydrOXYzine PAMOATE 25 MG CAPSULE (FP) PO PRN (21:45)
[2022-06-17] MEDS: MELATONIN 5 MG TABLETS PO SCH (21:45)
[2022-06-17] MEDS: THIAMINE HCL 100 MG TABLET (FP) PO SCH (21:45)
[2022-06-18] MEDS: methaDONE 40 MG, methaDONE 30 MG PO SCH (06:24)
[2022-06-18] MEDS: LACTULOSE 20 GM/30 ML UDC (FOR ORAL USE ONLY) PO SCH (06:25)
[2022-06-18 06:48] VITALS: TEMP 98.1
[2022-06-18] MEDS: amLODIPine BESYLATE 5 MG TABLET (FP) PO SCH (09:10)
[2022-06-18] MEDS: LOSARTAN POTASSIUM 50 MG TABLET PO SCH (09:10)
[2022-06-18] MEDS: PRENATAL VITAMINS W/ FOLIC ACID TABLET (FP) PO SCH (09:10)
[2022-06-18] MEDS: FERROUS SO4 325 MG TABLET (FP) PO SCH (09:10)
[2022-06-18 09:11] VITALS: BP 137/75; PULSE 88
[2022-06-18 11:06] LABS: CALCIUM 9.5 mg/dL (8.5-10.1)
[2022-06-18 11:07] LABS: ALBUMIN 3.9 g/dl (3.4-5.0); BLOOD UREA NITROGEN 28.2 mg/dL (7-18)
[2022-06-18 11:11] LABS: BILIRUBIN,TOTAL 0.5 mg/dL (0.2-1); TOT PROT 8.3 g/dl (6.4-8.2)
[2022-06-18 11:12] LABS: CREATININE 1.1 mg/dL (0.55-1.3)
== END 2022-06-18 09:21 | disposition home or self-care (01) | DRG 772 ==
LOC: YASAS 14:20 → Y3E 18:21
PROVIDERS: ADMIT Allergy & Immunology; ATTEND Psychiatry & Neurology Pain Medicine
PROC: HZ42ZZZ Group Counseling for Substance Abuse Treatment, Cognitive-Behavioral (ICD-10-PCS; principal; 2022-06-07)
DX: F10.20 Alcohol dependence, uncomplicated (principal); F11.20 Opioid dependence, uncomplicated; F10.282 Alcohol dependence with alcohol-induced sleep disorder; F10.24 Alcohol dependence with alcohol-induced mood disorder; F19.259 Other psychoactive substance dependence with psychoactive substance-induced psychotic disorder, unspecified; F41.9 Anxiety disorder, unspecified; F32.A Depression, unspecified; E72.20 Disorder of urea cycle metabolism, unspecified; E80.6 Other disorders of bilirubin metabolism; I10 Essential (primary) hypertension; K74.60 Unspecified cirrhosis of liver; H91.91 Unspecified hearing loss, right ear; L85.3 Xerosis cutis; L84 Corns and callosities; R74.8 Abnormal levels of other serum enzymes; R79.89 Other specified abnormal findings of blood chemistry; Z28.310 Unvaccinated for COVID-19; Z28.9 Immunization not carried out for unspecified reason
CPT/HCPCS: 36415; 80053; 81003; 82140; 86803; 87811; C9803-CS; U0003; U0005

== ENCOUNTER 2022-08-02 15:39 | Inpatient (IN) | payer OTHER ==
[2022-08-02 17:00] VITALS: BMI 19.3
[2022-08-02] MEDS ORDERED: ACETAMINOPHEN 325 MG TABLET (FP) PO PRN (17:31)
[2022-08-02] MEDS ORDERED: IBUPROFEN 600 MG TABLET (FP) PO PRN (17:31)
[2022-08-02] MEDS ORDERED: hydrOXYzine PAMOATE 25 MG CAPSULE (FP) PO PRN (17:31)
[2022-08-02] MEDS ORDERED: LORazepam 1 MG TABLET PO PRN (17:31)
[2022-08-02] MEDS ORDERED: POLYETHYLENE GLYCOL (HEALTHYLAX) 3350 17 GM PACKET PO PRN (17:31)
[2022-08-02] MEDS ORDERED: MAG HYDROX/AL HYDROX/SIMETH 30 ML UNIT-DOSE CUP PO PRN (17:31)
[2022-08-02] MEDS ORDERED: BENZOCAINE/MENTHOL (CHLORASEPTIC ) LOZENGE MM PRN (17:31)
[2022-08-02] MEDS ORDERED: DICYCLOMINE HCL 10 MG CAPSULE PO PRN (17:31)
[2022-08-02] MEDS ORDERED: NALOXONE HCL (KLOXXADO) 8 MG SPRAY NS PRN (17:31)
[2022-08-02] MEDS ORDERED: ONDANSETRON *ODT* 4 MG TABLET SL PRN (17:31)
[2022-08-02] MEDS ORDERED: LOPERAMIDE HCL 2 MG CAPSULE PO PRN (17:31)
[2022-08-02] MEDS ORDERED: BISMUTH SUBSALICYLATE 524 MG/30 ML PO PRN (17:31)
[2022-08-02] MEDS ORDERED: MAGNESIUM HYDROX 2400MG/30ML ORAL SUSPENSION 30 ML CUP PO PRN (17:31)
[2022-08-02] MEDS ORDERED: METHOCARBAMOL 500 MG TABLET PO PRN (17:31)
[2022-08-02] MEDS ORDERED: IBUPROFEN 400 MG TABLET (FP) PO PRN (17:31)
[2022-08-02] MEDS ORDERED: AMMONIUM LACTATE 12% LOTION 225 GM BOTTLE TP PRN (17:38)
[2022-08-02] MEDS ORDERED: cloNIDine HCL 0.1 MG TABLET PO ONE (19:40)
[2022-08-02] MEDS: LORazepam 2 MG TABLET PO SCH (22:22)
[2022-08-02] MEDS: MELATONIN 5 MG TABLETS PO SCH (22:23)
[2022-08-02] MEDS: THIAMINE HCL 100 MG TABLET (FP) PO SCH (22:23)
[2022-08-03] MEDS: ACETAMINOPHEN 325 MG TABLET (FP) PO PRN (03:52)
[2022-08-03] MEDS: LORazepam 2 MG TABLET PO SCH ×4 (05:22→22:10)
[2022-08-03] MEDS: PRENATAL VITAMINS W/ FOLIC ACID TABLET (FP) PO SCH (10:06)
[2022-08-03] MEDS ORDERED: methaDONE HCL 10 MG TABLET PO SCH (10:15)
[2022-08-03] MEDS ORDERED: methaDONE 40 MG, methaDONE 30 MG PO ONE (10:30)
[2022-08-03 11:58] LABS: BLOOD UREA NITROGEN 45.3 mg/dL (7-18); CALCIUM 9.3 mg/dL (8.5-10.1)
[2022-08-03 11:59] LABS: ALBUMIN 4.1 g/dl (3.4-5.0)
[2022-08-03 12:01] LABS: CREATININE 1.3 mg/dL (0.55-1.3)
[2022-08-03 12:03] LABS: HEMATOCRIT 37.3 % (35.4-49); HEMOGLOBIN 12.5 GM/dL (11.7-16.9); MCH 34.2 pg (25.7-33.7); MCHC 33.6 g/dl (32.0-35.9); MEAN CELL VOLUME 101.9 fl (80-96); MEAN PLT VOLUME 8.1 fl (7.5-11.1); PLATELET COUNT 175 10^3/uL (134-434); RBC 3.67 M/mm3 (4.00-5.60); RDW 13.7 % (11.9-15.9); TOT PROT 8.3 g/dl (6.4-8.2); WHITE BLOOD COUNT 2.7 K/mm3 (4.0-10.0)
[2022-08-03] MEDS ORDERED: cloNIDine HCL 0.1 MG TABLET PO ONE (22:09)
[2022-08-03] MEDS: MELATONIN 5 MG TABLETS PO SCH (22:10)
[2022-08-03] MEDS: THIAMINE HCL 100 MG TABLET (FP) PO SCH (22:10)
[2022-08-04] MEDS: methaDONE 40 MG, methaDONE 30 MG PO SCH (05:15)
[2022-08-04] MEDS: LORazepam 1 MG TABLET PO SCH ×4 (05:15→22:09)
[2022-08-04] MEDS ORDERED: cloNIDine HCL 0.1 MG TABLET PO ONE (06:33)
[2022-08-04] MEDS: PRENATAL VITAMINS W/ FOLIC ACID TABLET (FP) PO SCH (10:24)
[2022-08-04] MEDS: THIAMINE HCL 100 MG TABLET (FP) PO SCH (22:09)
[2022-08-04] MEDS: MELATONIN 5 MG TABLETS PO SCH (22:09)
[2022-08-05] MEDS ORDERED: LORazepam 0.5 MG TABLET PO PRN
[2022-08-05] MEDS: methaDONE 40 MG, methaDONE 30 MG PO SCH (05:11)
[2022-08-05] MEDS: LORazepam 0.5 MG TABLET PO SCH ×2 (05:12→10:01)
[2022-08-05 06:28] VITALS: RESP 18
[2022-08-05] MEDS: ACETAMINOPHEN 325 MG TABLET (FP) PO PRN (06:59)
[2022-08-05 09:45] VITALS: BP 139/90; PULSE 82; TEMP 97.3
[2022-08-05] MEDS: PRENATAL VITAMINS W/ FOLIC ACID TABLET (FP) PO SCH (10:01)
[2022-08-06] MEDS ORDERED: LORazepam 0.5 MG TABLET PO ONE (05:00)
== END 2022-08-05 10:09 | disposition home or self-care (01) | DRG 773 ==
LOC: YASAS 15:39 → Y3N 18:15
PROVIDERS: ADMIT Allergy & Immunology; ATTEND Family Medicine
PROC: HZ2ZZZZ Detoxification Services for Substance Abuse Treatment (ICD-10-PCS; principal; 2022-08-02)
DX: F10.230 Alcohol dependence with withdrawal, uncomplicated (principal); F11.20 Opioid dependence, uncomplicated; H91.91 Unspecified hearing loss, right ear; I10 Essential (primary) hypertension; I83.93 Asymptomatic varicose veins of bilateral lower extremities; K74.60 Unspecified cirrhosis of liver; L85.3 Xerosis cutis; L84 Corns and callosities; R26.89 Other abnormalities of gait and mobility
CPT/HCPCS: 36415; 80053; 85027; 86780; C9803-CS; U0003; U0005

== ENCOUNTER 2022-09-30 18:51 | Inpatient (IN) | payer OTHER ==
[2022-09-30 20:42] VITALS: BMI 24.5
[2022-09-30] MEDS ORDERED: NALOXONE HCL (KLOXXADO) 8 MG SPRAY NS PRN (20:52)
[2022-09-30] MEDS ORDERED: IBUPROFEN 400 MG TABLET (FP) PO PRN (20:52)
[2022-09-30] MEDS ORDERED: hydrOXYzine PAMOATE 25 MG CAPSULE (FP) PO PRN (20:52)
[2022-09-30] MEDS ORDERED: BENZOCAINE/MENTHOL (CHLORASEPTIC ) LOZENGE MM PRN (20:52)
[2022-09-30] MEDS ORDERED: BISMUTH SUBSALICYLATE 524 MG/30 ML PO PRN (20:52)
[2022-09-30] MEDS ORDERED: MAGNESIUM HYDROX 2400MG/30ML ORAL SUSPENSION 30 ML CUP PO PRN (20:52)
[2022-09-30] MEDS ORDERED: BENZONATATE 200 MG CAPSULE PO PRN (20:52)
[2022-09-30] MEDS ORDERED: MAG HYDROX/AL HYDROX/SIMETH 30 ML UNIT-DOSE CUP PO PRN (20:52)
[2022-09-30] MEDS ORDERED: ACETAMINOPHEN 325 MG TABLET (FP) PO PRN (20:52)
[2022-09-30] MEDS ORDERED: POLYETHYLENE GLYCOL (HEALTHYLAX) 3350 17 GM PACKET PO PRN (20:52)
[2022-09-30] MEDS ORDERED: guaiFENesin 600 MG TABLET.ER (FP) PO PRN (20:52)
[2022-09-30] MEDS ORDERED: IBUPROFEN 600 MG TABLET (FP) PO PRN (20:52)
[2022-09-30] MEDS ORDERED: ONDANSETRON *ODT* 4 MG TABLET SL PRN (20:52)
[2022-09-30] MEDS ORDERED: DICYCLOMINE HCL 10 MG CAPSULE PO PRN (20:52)
[2022-09-30] MEDS ORDERED: LOPERAMIDE HCL 2 MG CAPSULE PO PRN (20:52)
[2022-09-30] MEDS ORDERED: NALOXONE HCL 0.4 MG/ML VIAL IM PRN (20:52)
[2022-09-30] MEDS ORDERED: AMMONIUM LACTATE 12% LOTION 225 GM BOTTLE TP PRN (20:56)
[2022-09-30] MEDS ORDERED: MELATONIN 5 MG TABLETS PO SCH (22:00)
[2022-09-30] MEDS ORDERED: THIAMINE HCL 100 MG TABLET (FP) PO SCH (22:00)
[2022-09-30] MEDS ORDERED: MELATONIN 5 MG TABLETS ONE (22:59)
[2022-10-01] MEDS ORDERED: methaDONE HCL 10 MG TABLET PO SCH (07:30)
[2022-10-01] MEDS ORDERED: methaDONE 40 MG, methaDONE 30 MG PO SCH (07:45)
[2022-10-01 09:03] VITALS: BP 118/103; PULSE 62; RESP 16; TEMP 96.4
[2022-10-01] MEDS ORDERED: PRENATAL VITAMINS W/ FOLIC ACID TABLET (FP) PO SCH (10:00)
[2022-10-01 11:58] LABS: HEMATOCRIT 34.3 % (35.4-49); HEMOGLOBIN 11.9 GM/dL (11.7-16.9); MCH 32.9 pg (25.7-33.7); MCHC 34.5 g/dl (32.0-35.9); MEAN CELL VOLUME 95.3 fl (80-96); MEAN PLT VOLUME 7.7 fl (7.5-11.1); PLATELET COUNT 141 10^3/uL (134-434); RDW 13.9 % (11.9-15.9); WHITE BLOOD COUNT 2.8 K/mm3 (4.0-10.0)
[2022-10-01 12:30] LABS: ALBUMIN 3.8 g/dl (3.4-5.0); CALCIUM 8.6 mg/dL (8.5-10.1)
[2022-10-01 12:31] LABS: BLOOD UREA NITROGEN 35.4 mg/dL (7-18)
[2022-10-01 12:34] LABS: TOT PROT 7.8 g/dl (6.4-8.2)
[2022-10-01 12:35] LABS: BILIRUBIN,TOTAL 1.2 mg/dL (0.2-1)
== END 2022-10-01 11:30 | disposition home or self-care (01) | DRG 773 ==
LOC: YASAS 18:51 → Y6N 22:43
PROVIDERS: ADMIT Allergy & Immunology; ATTEND Surgery
PROC: HZ2ZZZZ Detoxification Services for Substance Abuse Treatment (ICD-10-PCS; principal; 2022-09-30)
DX: F10.230 Alcohol dependence with withdrawal, uncomplicated (principal); F10.220 Alcohol dependence with intoxication, uncomplicated; F11.20 Opioid dependence, uncomplicated; F14.20 Cocaine dependence, uncomplicated; F19.24 Other psychoactive substance dependence with psychoactive substance-induced mood disorder; F10.282 Alcohol dependence with alcohol-induced sleep disorder; I10 Essential (primary) hypertension; H91.91 Unspecified hearing loss, right ear; K74.60 Unspecified cirrhosis of liver; K46.9 Unspecified abdominal hernia without obstruction or gangrene; R63.8 Other symptoms and signs concerning food and fluid intake; R23.8 Other skin changes; Z87.891 Personal history of nicotine dependence; Z99.89 Dependence on other enabling machines and devices
CPT/HCPCS: 36415; 80053; 85027; 86780; C9803-CS; U0003; U0005

== ENCOUNTER 2022-10-03 12:58 | Inpatient (IN) | payer OTHER ==
[2022-10-03 13:47] VITALS: BMI 23.5
[2022-10-03] MEDS ORDERED: DICYCLOMINE HCL 10 MG CAPSULE PO PRN (14:35)
[2022-10-03] MEDS ORDERED: BENZOCAINE/MENTHOL (CHLORASEPTIC ) LOZENGE MM PRN (14:35)
[2022-10-03] MEDS ORDERED: MAGNESIUM HYDROX 2400MG/30ML ORAL SUSPENSION 30 ML CUP PO PRN (14:35)
[2022-10-03] MEDS ORDERED: MAG HYDROX/AL HYDROX/SIMETH 30 ML UNIT-DOSE CUP PO PRN (14:35)
[2022-10-03] MEDS ORDERED: BISMUTH SUBSALICYLATE 262 MG/15 ML BTL PO PRN (14:35)
[2022-10-03] MEDS ORDERED: LOPERAMIDE HCL 2 MG CAPSULE PO PRN (14:35)
[2022-10-03] MEDS ORDERED: NALOXONE HCL 0.4 MG/ML VIAL IM PRN (14:35)
[2022-10-03] MEDS ORDERED: BENZONATATE 200 MG CAPSULE PO PRN (14:35)
[2022-10-03] MEDS ORDERED: ONDANSETRON *ODT* 4 MG TABLET SL PRN (14:35)
[2022-10-03] MEDS ORDERED: guaiFENesin 600 MG TABLET.ER (FP) PO PRN (14:35)
[2022-10-03] MEDS ORDERED: IBUPROFEN 400 MG TABLET (FP) PO PRN (14:35)
[2022-10-03] MEDS ORDERED: POLYETHYLENE GLYCOL (HEALTHYLAX) 3350 17 GM PACKET PO PRN (14:35)
[2022-10-03] MEDS ORDERED: NALOXONE HCL (KLOXXADO) 8 MG SPRAY NS PRN (14:35)
[2022-10-03] MEDS ORDERED: METHOCARBAMOL 500 MG TABLET PO PRN (14:35)
[2022-10-03] MEDS: IBUPROFEN 600 MG TABLET (FP) PO PRN (16:06)
[2022-10-03] MEDS: hydrOXYzine PAMOATE 25 MG CAPSULE (FP) PO PRN (22:17)
[2022-10-03] MEDS: FAMOTIDINE 20 MG TABLET PO SCH (22:17)
[2022-10-03] MEDS: MELATONIN 5 MG TABLETS PO SCH (22:17)
[2022-10-03] MEDS: THIAMINE HCL 100 MG TABLET (FP) PO SCH (22:17)
[2022-10-03] MEDS ORDERED: cloNIDine HCL 0.1 MG TABLET PO ONE (23:34)
[2022-10-04] MEDS: hydrOXYzine PAMOATE 25 MG CAPSULE (FP) PO PRN (05:56)
[2022-10-04] MEDS ORDERED: cloNIDine HCL 0.1 MG TABLET PO ONE (07:28)
[2022-10-04] MEDS ORDERED: chlordiazePOXIDE HCL 25 MG CAPSULE PO PRN (07:53)
[2022-10-04] MEDS ORDERED: methaDONE HCL 40 MG DISPERSABLE TABLET PO SCH (08:00)
[2022-10-04] MEDS ORDERED: methaDONE 40 MG, methaDONE 30 MG PO ONE ×2 (08:15→10:00)
[2022-10-04] MEDS ORDERED: methaDONE HCL 10 MG TABLET PO ONE (10:00)
[2022-10-04] MEDS: LOSARTAN POTASSIUM 50 MG TABLET PO SCH (10:10)
[2022-10-04] MEDS: chlordiazePOXIDE HCL 25 MG CAPSULE PO SCH ×3 (10:11→22:09)
[2022-10-04] MEDS: PRENATAL VITAMINS W/ FOLIC ACID TABLET (FP) PO SCH (10:12)
[2022-10-04] MEDS: FAMOTIDINE 20 MG TABLET PO SCH ×2 (10:13→22:09)
[2022-10-04 11:03] LABS: HEMATOCRIT 36.2 % (35.4-49); HEMOGLOBIN 12.2 GM/dL (11.7-16.9); MCH 32.7 pg (25.7-33.7); MCHC 33.7 g/dl (32.0-35.9); PLATELET COUNT 172 10^3/uL (134-434); RBC 3.73 M/mm3 (4.00-5.60); RDW 13.7 % (11.9-15.9); WHITE BLOOD COUNT 3.7 K/mm3 (4.0-10.0)
[2022-10-04 11:18] LABS: CALCIUM 8.9 mg/dL (8.5-10.1)
[2022-10-04 11:19] LABS: ALBUMIN 3.5 g/dl (3.4-5.0)
[2022-10-04 11:23] LABS: BILIRUBIN,TOTAL 1.4 mg/dL (0.2-1)
[2022-10-04 11:24] LABS: TOT PROT 7.7 g/dl (6.4-8.2)
[2022-10-04] MEDS ORDERED: amLODIPine BESYLATE 10 MG TABLET (FP) PO ONE (14:00)
[2022-10-04] MEDS: MELATONIN 5 MG TABLETS PO SCH (22:09)
[2022-10-04] MEDS: THIAMINE HCL 100 MG TABLET (FP) PO SCH (22:09)
[2022-10-05] MEDS: methaDONE 40 MG, methaDONE 30 MG PO SCH (05:34)
[2022-10-05] MEDS: chlordiazePOXIDE HCL 25 MG CAPSULE PO SCH ×4 (05:34→22:12)
[2022-10-05] MEDS: PRENATAL VITAMINS W/ FOLIC ACID TABLET (FP) PO SCH (10:14)
[2022-10-05] MEDS: amLODIPine BESYLATE 10 MG TABLET (FP) PO SCH (10:14)
[2022-10-05] MEDS: LOSARTAN POTASSIUM 50 MG TABLET PO SCH (10:14)
[2022-10-05] MEDS: FAMOTIDINE 20 MG TABLET PO SCH ×2 (10:14→22:11)
[2022-10-05] MEDS: LACTULOSE 20 GM/30 ML UDC (FOR ORAL USE ONLY) PO SCH ×4 (10:18→22:13)
[2022-10-05] MEDS: THIAMINE HCL 100 MG TABLET (FP) PO SCH (22:11)
[2022-10-05] MEDS: MELATONIN 5 MG TABLETS PO SCH (22:12)
[2022-10-06] MEDS: methaDONE 40 MG, methaDONE 30 MG PO SCH (05:18)
[2022-10-06] MEDS: chlordiazePOXIDE HCL 25 MG CAPSULE PO SCH ×4 (05:19→22:29)
[2022-10-06] MEDS: LACTULOSE 20 GM/30 ML UDC (FOR ORAL USE ONLY) PO SCH ×4 (10:08→22:32)
[2022-10-06] MEDS: FAMOTIDINE 20 MG TABLET PO SCH ×2 (10:08→22:29)
[2022-10-06] MEDS: PRENATAL VITAMINS W/ FOLIC ACID TABLET (FP) PO SCH (10:08)
[2022-10-06] MEDS: LOSARTAN POTASSIUM 50 MG TABLET PO SCH (10:08)
[2022-10-06] MEDS: amLODIPine BESYLATE 10 MG TABLET (FP) PO SCH (10:09)
[2022-10-06] MEDS: hydrOXYzine PAMOATE 25 MG CAPSULE (FP) PO PRN (10:09)
[2022-10-06 11:18] LABS: CALCIUM 8.4 mg/dL (8.5-10.1)
[2022-10-06 11:19] LABS: BLOOD UREA NITROGEN 30.1 mg/dL (7-18)
[2022-10-06 11:22] LABS: CREATININE 1.2 mg/dL (0.55-1.3)
[2022-10-06 11:23] LABS: BILIRUBIN,TOTAL 0.5 mg/dL (0.2-1)
[2022-10-06 11:24] LABS: TOT PROT 6.8 g/dl (6.4-8.2)
[2022-10-06] MEDS: THIAMINE HCL 100 MG TABLET (FP) PO SCH (22:29)
[2022-10-06] MEDS: MELATONIN 5 MG TABLETS PO SCH (22:31)
[2022-10-07] MEDS ORDERED: chlordiazePOXIDE HCL 10 MG CAPSULE PO PRN
[2022-10-07] MEDS: IBUPROFEN 600 MG TABLET (FP) PO PRN (01:38)
[2022-10-07] MEDS: methaDONE 40 MG, methaDONE 30 MG PO SCH (05:38)
[2022-10-07] MEDS: chlordiazePOXIDE HCL 10 MG CAPSULE PO SCH ×4 (05:38→22:28)
[2022-10-07] MEDS: FAMOTIDINE 20 MG TABLET PO SCH ×2 (10:38→22:28)
[2022-10-07] MEDS: amLODIPine BESYLATE 10 MG TABLET (FP) PO SCH (10:38)
[2022-10-07] MEDS: LOSARTAN POTASSIUM 50 MG TABLET PO SCH (10:38)
[2022-10-07] MEDS: LACTULOSE 20 GM/30 ML UDC (FOR ORAL USE ONLY) PO SCH ×4 (10:38→22:28)
[2022-10-07] MEDS: PRENATAL VITAMINS W/ FOLIC ACID TABLET (FP) PO SCH (10:38)
[2022-10-07] MEDS: THIAMINE HCL 100 MG TABLET (FP) PO SCH (22:28)
[2022-10-07] MEDS: MELATONIN 5 MG TABLETS PO SCH (22:28)
[2022-10-08] MEDS: chlordiazePOXIDE HCL 10 MG CAPSULE PO SCH ×2 (05:40→17:36)
[2022-10-08] MEDS: methaDONE 40 MG, methaDONE 30 MG PO SCH (05:41)
[2022-10-08] MEDS: PRENATAL VITAMINS W/ FOLIC ACID TABLET (FP) PO SCH (10:39)
[2022-10-08] MEDS: LACTULOSE 20 GM/30 ML UDC (FOR ORAL USE ONLY) PO SCH ×4 (10:39→22:11)
[2022-10-08] MEDS: FAMOTIDINE 20 MG TABLET PO SCH ×2 (10:39→22:11)
[2022-10-08] MEDS: LOSARTAN POTASSIUM 50 MG TABLET PO SCH (10:39)
[2022-10-08] MEDS: amLODIPine BESYLATE 10 MG TABLET (FP) PO SCH (10:39)
[2022-10-08] MEDS: THIAMINE HCL 100 MG TABLET (FP) PO SCH (22:11)
[2022-10-08] MEDS: MELATONIN 5 MG TABLETS PO SCH (22:11)
[2022-10-09] MEDS ORDERED: chlordiazePOXIDE HCL 10 MG CAPSULE PO ONE (05:00)
[2022-10-09] MEDS: methaDONE 40 MG, methaDONE 30 MG PO SCH (05:32)
[2022-10-09 09:43] VITALS: BP 115/67; PULSE 83; RESP 17; TEMP 97.3
[2022-10-09] MEDS: FAMOTIDINE 20 MG TABLET PO SCH (10:04)
[2022-10-09] MEDS: amLODIPine BESYLATE 10 MG TABLET (FP) PO SCH (10:04)
[2022-10-09] MEDS: LOSARTAN POTASSIUM 50 MG TABLET PO SCH (10:04)
[2022-10-09] MEDS: PRENATAL VITAMINS W/ FOLIC ACID TABLET (FP) PO SCH (10:06)
[2022-10-09] MEDS: LACTULOSE 20 GM/30 ML UDC (FOR ORAL USE ONLY) PO SCH (10:06)
== END 2022-10-09 10:55 | disposition home or self-care (01) | DRG 773 ==
LOC: YASAS 12:58 → Y3N 14:56 → Y6N 15:05
PROVIDERS: ADMIT Allergy & Immunology; ATTEND Surgery
PROC: HZ2ZZZZ Detoxification Services for Substance Abuse Treatment (ICD-10-PCS; principal; 2022-10-03)
DX: F10.230 Alcohol dependence with withdrawal, uncomplicated (principal); F11.20 Opioid dependence, uncomplicated; F14.20 Cocaine dependence, uncomplicated; F10.282 Alcohol dependence with alcohol-induced sleep disorder; F19.24 Other psychoactive substance dependence with psychoactive substance-induced mood disorder; H91.91 Unspecified hearing loss, right ear; I10 Essential (primary) hypertension; K21.9 Gastro-esophageal reflux disease without esophagitis; L85.3 Xerosis cutis; R74.8 Abnormal levels of other serum enzymes; R74.01 Elevation of levels of liver transaminase levels; Z99.89 Dependence on other enabling machines and devices
CPT/HCPCS: 36415; 80053; 82140; 83036; 84520; 85027; 86780; 87811; C9803-CS; U0003; U0005

== ENCOUNTER 2022-10-27 11:50 | Inpatient (IN) | payer OTHER ==
[2022-10-27 12:54] VITALS: BMI 27.1
[2022-10-27] MEDS ORDERED: DICYCLOMINE HCL 10 MG CAPSULE PO PRN (13:43)
[2022-10-27] MEDS ORDERED: POLYETHYLENE GLYCOL (HEALTHYLAX) 3350 17 GM PACKET PO PRN (13:43)
[2022-10-27] MEDS ORDERED: ONDANSETRON *ODT* 4 MG TABLET SL PRN (13:43)
[2022-10-27] MEDS ORDERED: BISMUTH SUBSALICYLATE 524 MG/30 ML PO PRN (13:43)
[2022-10-27] MEDS ORDERED: IBUPROFEN 400 MG TABLET (FP) PO PRN (13:43)
[2022-10-27] MEDS ORDERED: LORazepam 1 MG TABLET PO PRN (13:43)
[2022-10-27] MEDS ORDERED: guaiFENesin 600 MG TABLET.ER (FP) PO PRN (13:43)
[2022-10-27] MEDS ORDERED: BENZONATATE 200 MG CAPSULE PO PRN (13:43)
[2022-10-27] MEDS ORDERED: MAG HYDROX/AL HYDROX/SIMETH 30 ML UNIT-DOSE CUP PO PRN (13:43)
[2022-10-27] MEDS ORDERED: LOPERAMIDE HCL 2 MG CAPSULE PO PRN (13:43)
[2022-10-27] MEDS ORDERED: NALOXONE HCL 0.4 MG/ML VIAL IM PRN (13:43)
[2022-10-27] MEDS ORDERED: NALOXONE HCL (KLOXXADO) 8 MG SPRAY NS PRN (13:43)
[2022-10-27] MEDS ORDERED: MAGNESIUM HYDROX 2400MG/30ML ORAL SUSPENSION 30 ML CUP PO PRN (13:43)
[2022-10-27] MEDS ORDERED: BENZOCAINE/MENTHOL (CHLORASEPTIC ) LOZENGE MM PRN (13:43)
[2022-10-27] MEDS ORDERED: IBUPROFEN 600 MG TABLET (FP) PO ONE (14:30)
[2022-10-27] MEDS ORDERED: hydrOXYzine PAMOATE 25 MG CAPSULE (FP) PO ONE (14:30)
[2022-10-27] MEDS: IBUPROFEN 600 MG TABLET (FP) PO PRN (14:32)
[2022-10-27] MEDS: hydrOXYzine PAMOATE 25 MG CAPSULE (FP) PO PRN ×2 (14:33→22:28)
[2022-10-27] MEDS ORDERED: LORazepam 2 MG TABLET PO SCH (17:00)
[2022-10-27] MEDS: MELATONIN 5 MG TABLETS PO SCH (22:28)
[2022-10-27] MEDS: LORazepam 1 MG TABLET PO SCH (22:28)
[2022-10-27] MEDS: THIAMINE HCL 100 MG TABLET (FP) PO SCH (22:28)
[2022-10-28] MEDS: LORazepam 1 MG TABLET PO SCH ×4 (06:06→22:04)
[2022-10-28] MEDS ORDERED: cloNIDine HCL 0.1 MG TABLET PO ONE (07:39)
[2022-10-28] MEDS ORDERED: methaDONE HCL 10 MG TABLET PO SCH (07:45)
[2022-10-28] MEDS: methaDONE 40 MG, methaDONE 30 MG PO SCH (08:24)
[2022-10-28] MEDS: LOSARTAN POTASSIUM 50 MG TABLET PO SCH (10:16)
[2022-10-28] MEDS: PRENATAL VITAMINS W/ FOLIC ACID TABLET (FP) PO SCH (10:16)
[2022-10-28] MEDS: amLODIPine BESYLATE 10 MG TABLET (FP) PO SCH (10:16)
[2022-10-28 11:12] LABS: CALCIUM 9.7 mg/dL (8.5-10.1)
[2022-10-28 11:14] LABS: ALBUMIN 3.6 g/dl (3.4-5.0); BLOOD UREA NITROGEN 37.3 mg/dL (7-18); HEMATOCRIT 32.6 % (35.4-49); HEMOGLOBIN 11.2 GM/dL (11.7-16.9); MCH 33.2 pg (25.7-33.7); MCHC 34.4 g/dl (32.0-35.9); MEAN CELL VOLUME 96.5 fl (80-96); MEAN PLT VOLUME 7.4 fl (7.5-11.1); PLATELET COUNT 215 10^3/uL (134-434); RBC 3.38 M/mm3 (4.00-5.60); RDW 14.6 % (11.9-15.9); TOT PROT 8.3 g/dl (6.4-8.2); WHITE BLOOD COUNT 3.8 K/mm3 (4.0-10.0)
[2022-10-28 11:20] LABS: BILIRUBIN,TOTAL 0.9 mg/dL (0.2-1)
[2022-10-28] MEDS: ACETAMINOPHEN 325 MG TABLET (FP) PO PRN (20:21)
[2022-10-28] MEDS: THIAMINE HCL 100 MG TABLET (FP) PO SCH (22:04)
[2022-10-28] MEDS: FAMOTIDINE 20 MG TABLET PO SCH (22:04)
[2022-10-28] MEDS: MELATONIN 5 MG TABLETS PO SCH (22:04)
[2022-10-29] MEDS: methaDONE 40 MG, methaDONE 30 MG PO SCH (05:33)
[2022-10-29] MEDS: LORazepam 1 MG TABLET PO SCH ×4 (05:33→22:05)
[2022-10-29] MEDS: FAMOTIDINE 20 MG TABLET PO SCH ×2 (10:03→22:04)
[2022-10-29] MEDS: amLODIPine BESYLATE 10 MG TABLET (FP) PO SCH (10:03)
[2022-10-29] MEDS: PRENATAL VITAMINS W/ FOLIC ACID TABLET (FP) PO SCH (10:03)
[2022-10-29] MEDS: LOSARTAN POTASSIUM 50 MG TABLET PO SCH (10:49)
[2022-10-29] MEDS: hydrOXYzine PAMOATE 25 MG CAPSULE (FP) PO PRN (17:11)
[2022-10-29] MEDS: THIAMINE HCL 100 MG TABLET (FP) PO SCH (22:04)
[2022-10-29] MEDS: MELATONIN 5 MG TABLETS PO SCH (22:04)
[2022-10-30] MEDS ORDERED: LORazepam 0.5 MG TABLET PO PRN
[2022-10-30] MEDS: methaDONE 40 MG, methaDONE 30 MG PO SCH (05:36)
[2022-10-30] MEDS: LORazepam 0.5 MG TABLET PO SCH ×4 (05:37→22:27)
[2022-10-30] MEDS: ACETAMINOPHEN 325 MG TABLET (FP) PO PRN (05:38)
[2022-10-30] MEDS: PRENATAL VITAMINS W/ FOLIC ACID TABLET (FP) PO SCH (10:20)
[2022-10-30] MEDS: FAMOTIDINE 20 MG TABLET PO SCH ×2 (10:20→22:27)
[2022-10-30] MEDS: hydrOXYzine PAMOATE 25 MG CAPSULE (FP) PO PRN (10:20)
[2022-10-30] MEDS: LOSARTAN POTASSIUM 50 MG TABLET PO SCH (10:20)
[2022-10-30] MEDS: amLODIPine BESYLATE 10 MG TABLET (FP) PO SCH (10:20)
[2022-10-30] MEDS ORDERED: cloNIDine HCL 0.1 MG TABLET PO PRN (11:47)
[2022-10-30] MEDS: IBUPROFEN 600 MG TABLET (FP) PO PRN (17:40)
[2022-10-30 17:54] VITALS: RESP 16
[2022-10-30] MEDS: MELATONIN 5 MG TABLETS PO SCH (22:27)
[2022-10-30] MEDS: THIAMINE HCL 100 MG TABLET (FP) PO SCH (22:27)
[2022-10-31] MEDS ORDERED: LORazepam 0.5 MG TABLET PO ONE (05:00)
[2022-10-31] MEDS: methaDONE 40 MG, methaDONE 30 MG PO SCH (05:47)
[2022-10-31] MEDS: IBUPROFEN 600 MG TABLET (FP) PO PRN (05:50)
[2022-10-31 06:57] VITALS: BP 165/88; PULSE 62; TEMP 97.7
[2022-10-31] MEDS: PRENATAL VITAMINS W/ FOLIC ACID TABLET (FP) PO SCH (09:22)
[2022-10-31] MEDS: LOSARTAN POTASSIUM 50 MG TABLET PO SCH (09:22)
[2022-10-31] MEDS: FAMOTIDINE 20 MG TABLET PO SCH (09:22)
[2022-10-31] MEDS: amLODIPine BESYLATE 10 MG TABLET (FP) PO SCH (09:22)
== END 2022-10-31 09:27 | disposition home or self-care (01) | DRG 773 ==
LOC: YASAS 11:50 → Y6N 14:34
PROVIDERS: ADMIT Allergy & Immunology; ATTEND Surgery
PROC: HZ2ZZZZ Detoxification Services for Substance Abuse Treatment (ICD-10-PCS; principal; 2022-10-27)
DX: F10.230 Alcohol dependence with withdrawal, uncomplicated (principal); F11.20 Opioid dependence, uncomplicated; D64.9 Anemia, unspecified; I10 Essential (primary) hypertension; H91.91 Unspecified hearing loss, right ear; K21.9 Gastro-esophageal reflux disease without esophagitis; I83.93 Asymptomatic varicose veins of bilateral lower extremities; L85.3 Xerosis cutis; Z87.19 Personal history of other diseases of the digestive system; Z99.89 Dependence on other enabling machines and devices
CPT/HCPCS: 36415; 80053; 85027; 86780; C9803-CS; U0003; U0005

== ENCOUNTER 2023-01-20 19:26 | Inpatient (IN) | payer OTHER ==
[2023-01-20 20:04] VITALS: BMI 22.6
[2023-01-20] MEDS ORDERED: NALOXONE HCL (KLOXXADO) 8 MG SPRAY NS PRN (20:19)
[2023-01-20] MEDS ORDERED: BENZOCAINE/MENTHOL (CHLORASEPTIC ) LOZENGE MM PRN (20:19)
[2023-01-20] MEDS ORDERED: ACETAMINOPHEN 325 MG TABLET (FP) PO PRN (20:19)
[2023-01-20] MEDS ORDERED: BISMUTH SUBSALICYLATE 524 MG/30 ML PO PRN (20:19)
[2023-01-20] MEDS ORDERED: guaiFENesin 600 MG TABLET.ER (FP) PO PRN (20:19)
[2023-01-20] MEDS ORDERED: ONDANSETRON *ODT* 4 MG TABLET SL PRN (20:19)
[2023-01-20] MEDS ORDERED: BENZONATATE 200 MG CAPSULE PO PRN (20:19)
[2023-01-20] MEDS ORDERED: POLYETHYLENE GLYCOL (HEALTHYLAX) 3350 17 GM PACKET PO PRN (20:19)
[2023-01-20] MEDS ORDERED: MAG HYDROX/AL HYDROX/SIMETH 30 ML UNIT-DOSE CUP PO PRN (20:19)
[2023-01-20] MEDS ORDERED: LOPERAMIDE HCL 2 MG CAPSULE PO PRN (20:19)
[2023-01-20] MEDS ORDERED: DICYCLOMINE HCL 10 MG CAPSULE PO PRN (20:19)
[2023-01-20] MEDS ORDERED: MAGNESIUM HYDROX 2400MG/30ML ORAL SUSPENSION 30 ML CUP PO PRN (20:19)
[2023-01-20] MEDS ORDERED: IBUPROFEN 600 MG TABLET (FP) PO PRN (20:19)
[2023-01-20] MEDS ORDERED: NALOXONE HCL 0.4 MG/ML VIAL IM PRN (20:19)
[2023-01-20] MEDS ORDERED: IBUPROFEN 400 MG TABLET (FP) PO PRN (20:19)
[2023-01-20] MEDS ORDERED: cloNIDine HCL 0.1 MG TABLET PO ONE (20:23)
[2023-01-20] MEDS ORDERED: cloNIDine HCL 0.1 MG TABLET ONE (21:14)
[2023-01-20] MEDS: PANTOPRAZOLE 20 MG TABLET PO SCH (22:47)
[2023-01-20] MEDS: hydrOXYzine PAMOATE 25 MG CAPSULE (FP) PO PRN (22:47)
[2023-01-20] MEDS: THIAMINE HCL 100 MG TABLET (FP) PO SCH (22:48)
[2023-01-20] MEDS: MELATONIN 5 MG TABLETS PO SCH (22:48)
[2023-01-21] MEDS: hydrOXYzine PAMOATE 25 MG CAPSULE (FP) PO PRN (06:07)
[2023-01-21] MEDS ORDERED: methaDONE HCL 10 MG TABLET PO SCH (09:00)
[2023-01-21] MEDS ORDERED: methaDONE 40 MG, methaDONE 30 MG PO ONE (09:15)
[2023-01-21] MEDS: PRENATAL VITAMINS W/ FOLIC ACID TABLET (FP) PO SCH (09:28)
[2023-01-21] MEDS: PANTOPRAZOLE 20 MG TABLET PO SCH (09:28)
[2023-01-21] MEDS ORDERED: LORazepam 1 MG TABLET PO PRN (10:29)
[2023-01-21] MEDS: LORazepam 2 MG TABLET PO SCH ×3 (10:55→22:16)
[2023-01-21 11:09] LABS: HEMOGLOBIN 11.6 GM/dL (11.7-16.9); MEAN PLT VOLUME 8.1 fl (7.5-11.1); PLATELET COUNT 147 10^3/uL (134-434); POTASSIUM 4.1 mmol/L (3.5-5.1); RDW 14.2 % (11.9-15.9); WHITE BLOOD COUNT 2.4 K/mm3 (4.0-10.0)
[2023-01-21 11:13] LABS: BLOOD UREA NITROGEN 48.5 mg/dL (7-18)
[2023-01-21 11:14] LABS: CALCIUM 9.2 mg/dL (8.5-10.1)
[2023-01-21 11:15] LABS: ALBUMIN 3.7 g/dl (3.4-5.0)
[2023-01-21 11:18] LABS: CREATININE 1.2 mg/dL (0.55-1.3)
[2023-01-21 11:19] LABS: BILIRUBIN,TOTAL 1.6 mg/dL (0.2-1)
[2023-01-21 11:20] LABS: TOT PROT 7.8 g/dl (6.4-8.2)
[2023-01-21] MEDS: cloNIDine HCL 0.1 MG TABLET PO PRN (19:08)
[2023-01-21] MEDS: THIAMINE HCL 100 MG TABLET (FP) PO SCH (22:15)
[2023-01-21] MEDS: MELATONIN 5 MG TABLETS PO SCH (22:16)
[2023-01-22] MEDS: cloNIDine HCL 0.1 MG TABLET PO PRN ×4 (00:17→22:08)
[2023-01-22] MEDS: LORazepam 2 MG TABLET PO SCH ×4 (05:38→22:08)
[2023-01-22] MEDS: methaDONE 40 MG, methaDONE 30 MG PO SCH (05:38)
[2023-01-22] MEDS: PRENATAL VITAMINS W/ FOLIC ACID TABLET (FP) PO SCH (10:02)
[2023-01-22] MEDS: PANTOPRAZOLE 20 MG TABLET PO SCH (10:03)
[2023-01-22] MEDS: THIAMINE HCL 100 MG TABLET (FP) PO SCH (22:07)
[2023-01-22] MEDS: MELATONIN 5 MG TABLETS PO SCH (22:08)
[2023-01-23] MEDS: LORazepam 1 MG TABLET PO SCH ×4 (05:25→22:18)
[2023-01-23] MEDS: methaDONE 40 MG, methaDONE 30 MG PO SCH (05:26)
[2023-01-23] MEDS: cloNIDine HCL 0.1 MG TABLET PO PRN ×2 (05:26→21:28)
[2023-01-23] MEDS: PANTOPRAZOLE 20 MG TABLET PO SCH (10:17)
[2023-01-23] MEDS: LISINOPRIL 5 MG TABLET PO SCH (10:17)
[2023-01-23] MEDS: PRENATAL VITAMINS W/ FOLIC ACID TABLET (FP) PO SCH (10:18)
[2023-01-23] MEDS: MELATONIN 5 MG TABLETS PO SCH (22:18)
[2023-01-23] MEDS: THIAMINE HCL 100 MG TABLET (FP) PO SCH (22:18)
[2023-01-23] MEDS: hydrOXYzine PAMOATE 25 MG CAPSULE (FP) PO PRN (22:19)
[2023-01-24] MEDS ORDERED: LORazepam 0.5 MG TABLET PO PRN
[2023-01-24] MEDS: methaDONE 40 MG, methaDONE 30 MG PO SCH (05:43)
[2023-01-24] MEDS: LORazepam 0.5 MG TABLET PO SCH ×4 (05:44→22:13)
[2023-01-24] MEDS ORDERED: cloNIDine HCL 0.1 MG TABLET PO ONE (08:00)
[2023-01-24] MEDS: PANTOPRAZOLE 20 MG TABLET PO SCH (10:15)
[2023-01-24] MEDS: PRENATAL VITAMINS W/ FOLIC ACID TABLET (FP) PO SCH (10:15)
[2023-01-24] MEDS: LISINOPRIL 5 MG TABLET PO SCH (10:15)
[2023-01-24] MEDS: MELATONIN 5 MG TABLETS PO SCH (22:13)
[2023-01-24] MEDS: THIAMINE HCL 100 MG TABLET (FP) PO SCH (22:13)
[2023-01-24] MEDS: cloNIDine HCL 0.1 MG TABLET PO PRN (22:15)
[2023-01-24] MEDS: hydrOXYzine PAMOATE 25 MG CAPSULE (FP) PO PRN (22:15)
[2023-01-25] MEDS ORDERED: LORazepam 0.5 MG TABLET PO ONE (05:00)
[2023-01-25] MEDS: methaDONE 40 MG, methaDONE 30 MG PO SCH (05:33)
[2023-01-25] MEDS: cloNIDine HCL 0.1 MG TABLET PO PRN (08:04)
[2023-01-25 08:52] VITALS: RESP 18
[2023-01-25] MEDS: PANTOPRAZOLE 20 MG TABLET PO SCH (09:34)
[2023-01-25] MEDS: PRENATAL VITAMINS W/ FOLIC ACID TABLET (FP) PO SCH (09:35)
[2023-01-25] MEDS ORDERED: amLODIPine BESYLATE 10 MG TABLET (FP) PO SCH (10:00)
[2023-01-25] MEDS ORDERED: LISINOPRIL 5 MG TABLET PO SCH (10:00)
[2023-01-25 10:12] VITALS: BP 141/90; PULSE 71; TEMP 97.1
== END 2023-01-25 10:13 | disposition home or self-care (01) | DRG 773 ==
LOC: YASAS 19:26 → Y3N 22:04
PROVIDERS: ADMIT Allergy & Immunology; ATTEND Surgery
PROC: HZ2ZZZZ Detoxification Services for Substance Abuse Treatment (ICD-10-PCS; principal; 2023-01-20)
DX: F10.230 Alcohol dependence with withdrawal, uncomplicated (principal); F11.20 Opioid dependence, uncomplicated; I10 Essential (primary) hypertension; I83.93 Asymptomatic varicose veins of bilateral lower extremities; H91.91 Unspecified hearing loss, right ear; K21.9 Gastro-esophageal reflux disease without esophagitis; L85.3 Xerosis cutis; R63.8 Other symptoms and signs concerning food and fluid intake; Z86.59 Personal history of other mental and behavioral disorders; Z99.89 Dependence on other enabling machines and devices
CPT/HCPCS: 36415; 80053; 85027; 86780; 87635; 87811

== ENCOUNTER 2023-04-27 12:09 | Inpatient (IN) | payer OTHER ==
[2023-04-27 13:10] VITALS: BMI 23.3
[2023-04-27] MEDS ORDERED: MAG HYDROX/AL HYDROX/SIMETH 30 ML UNIT-DOSE CUP PO PRN (13:31)
[2023-04-27] MEDS ORDERED: POLYETHYLENE GLYCOL (HEALTHYLAX) 3350 17 GM PACKET PO PRN (13:31)
[2023-04-27] MEDS ORDERED: DICYCLOMINE HCL 10 MG CAPSULE PO PRN (13:31)
[2023-04-27] MEDS ORDERED: hydrOXYzine PAMOATE 25 MG CAPSULE (FP) PO PRN (13:31)
[2023-04-27] MEDS ORDERED: AMMONIUM LACTATE 12% LOTION 225 GM BOTTLE TP PRN (13:31)
[2023-04-27] MEDS ORDERED: IBUPROFEN 600 MG TABLET (FP) PO PRN (13:31)
[2023-04-27] MEDS ORDERED: MAGNESIUM HYDROX 2400MG/30ML ORAL SUSPENSION 30 ML CUP PO PRN (13:31)
[2023-04-27] MEDS ORDERED: NALOXONE HCL 0.4 MG/ML VIAL IM PRN (13:31)
[2023-04-27] MEDS ORDERED: BENZOCAINE/MENTHOL (CHLORASEPTIC ) LOZENGE MM PRN (13:31)
[2023-04-27] MEDS ORDERED: BISMUTH SUBSALICYLATE 524 MG/30 ML PO PRN (13:31)
[2023-04-27] MEDS ORDERED: ACETAMINOPHEN 325 MG TABLET (FP) PO PRN (13:31)
[2023-04-27] MEDS ORDERED: guaiFENesin 600 MG TABLET.ER (FP) PO PRN (13:31)
[2023-04-27] MEDS ORDERED: BENZONATATE 200 MG CAPSULE PO PRN (13:31)
[2023-04-27] MEDS ORDERED: METHOCARBAMOL 500 MG TABLET PO PRN (13:31)
[2023-04-27] MEDS ORDERED: LOPERAMIDE HCL 2 MG CAPSULE PO PRN (13:31)
[2023-04-27] MEDS ORDERED: ONDANSETRON *ODT* 4 MG TABLET SL PRN (13:31)
[2023-04-27] MEDS ORDERED: NALOXONE HCL (KLOXXADO) 8 MG SPRAY NS PRN (13:31)
[2023-04-27] MEDS ORDERED: IBUPROFEN 400 MG TABLET (FP) PO PRN (13:31)
[2023-04-27] MEDS ORDERED: LISINOPRIL 5 MG TABLET PO SCH (14:45)
[2023-04-27] MEDS ORDERED: amLODIPine BESYLATE 10 MG TABLET (FP) PO SCH (14:45)
[2023-04-27 19:12] VITALS: RESP 16; TEMP 98.1
[2023-04-27 19:22] VITALS: BP 163/97; PULSE 88
[2023-04-27] MEDS ORDERED: MELATONIN 5 MG TABLETS PO SCH (22:00)
[2023-04-27] MEDS ORDERED: THIAMINE HCL 100 MG TABLET (FP) PO SCH (22:00)
[2023-04-28] MEDS ORDERED: PRENATAL VITAMINS W/ FOLIC ACID TABLET (FP) PO SCH (10:00)
== END 2023-04-27 19:20 | disposition home or self-care (01) | DRG 773 ==
LOC: YASAS 12:09 → Y6N 14:24
PROVIDERS: ADMIT Allergy & Immunology; ATTEND Surgery
PROC: HZ2ZZZZ Detoxification Services for Substance Abuse Treatment (ICD-10-PCS; principal; 2023-04-27)
DX: F10.20 Alcohol dependence, uncomplicated (principal); F11.20 Opioid dependence, uncomplicated; I10 Essential (primary) hypertension; H91.91 Unspecified hearing loss, right ear; K21.9 Gastro-esophageal reflux disease without esophagitis; L85.3 Xerosis cutis; Z87.891 Personal history of nicotine dependence; Z86.59 Personal history of other mental and behavioral disorders
CPT/HCPCS: 87635

== ENCOUNTER 2023-07-07 13:26 | Inpatient (IN) | payer OTHER ==
[2023-07-07 14:17] VITALS: BMI 23.3
[2023-07-07] MEDS ORDERED: BENZOCAINE/MENTHOL (CHLORASEPTIC ) LOZENGE MM PRN (15:53)
[2023-07-07] MEDS ORDERED: NALOXONE HCL (KLOXXADO) 8 MG SPRAY NS PRN (15:53)
[2023-07-07] MEDS ORDERED: ONDANSETRON *ODT* 4 MG TABLET SL PRN (15:53)
[2023-07-07] MEDS ORDERED: LOPERAMIDE HCL 2 MG CAPSULE PO PRN (15:53)
[2023-07-07] MEDS ORDERED: guaiFENesin 600 MG TABLET.ER (FP) PO PRN (15:53)
[2023-07-07] MEDS ORDERED: BISMUTH SUBSALICYLATE 524 MG/30 ML PO PRN (15:53)
[2023-07-07] MEDS ORDERED: POLYETHYLENE GLYCOL (HEALTHYLAX) 3350 17 GM PACKET PO PRN (15:53)
[2023-07-07] MEDS ORDERED: MAGNESIUM HYDROX 2400MG/30ML ORAL SUSPENSION 30 ML CUP PO PRN (15:53)
[2023-07-07] MEDS ORDERED: BENZONATATE 200 MG CAPSULE PO PRN (15:53)
[2023-07-07] MEDS ORDERED: NALOXONE HCL 0.4 MG/ML VIAL IM PRN (15:53)
[2023-07-07] MEDS ORDERED: MAG HYDROX/AL HYDROX/SIMETH 30 ML UNIT-DOSE CUP PO PRN (15:53)
[2023-07-07] MEDS ORDERED: cloNIDine HCL 0.1 MG TABLET PO ONE (18:24)
[2023-07-07] MEDS: IBUPROFEN 400 MG TABLET (FP) PO PRN (18:30)
[2023-07-07] MEDS ORDERED: MELATONIN 5 MG TABLETS PO SCH (22:00)
[2023-07-07] MEDS: THIAMINE HCL 100 MG TABLET (FP) PO SCH (22:24)
[2023-07-08] MEDS: IBUPROFEN 400 MG TABLET (FP) PO PRN (06:12)
[2023-07-08] MEDS: PRENATAL VITAMINS W/ FOLIC ACID TABLET (FP) PO SCH (09:40)
[2023-07-08] MEDS: LOSARTAN POTASSIUM 50 MG TABLET PO SCH (09:40)
[2023-07-08] MEDS: amLODIPine BESYLATE 10 MG TABLET (FP) PO SCH (09:40)
[2023-07-08 10:02] LABS: HEMATOCRIT 32.8 % (35.4-49); HEMOGLOBIN 11.1 GM/dL (11.7-16.9); MCH 34.2 pg (25.7-33.7); MEAN CELL VOLUME 100.7 fl (80-96); PLATELET COUNT 188 10^3/uL (134-434); RBC 3.25 M/mm3 (4.00-5.60); RDW 12.4 % (11.9-15.9)
[2023-07-08 10:07] LABS: CHLORIDE 98 mmol/L (98-107); POTASSIUM 3.9 mmol/L (3.5-5.1); SODIUM 135 mmol/L (136-145)
[2023-07-08] MEDS ORDERED: methaDONE HCL 10 MG TABLET PO ONE (10:10)
[2023-07-08 10:18] LABS: ALBUMIN 3.7 g/dl (3.4-5.0); ANION GAP 9 mmol/L (4-13); BLOOD UREA NITROGEN 49.9 mg/dL (7-18); CALCIUM 9.2 mg/dL (8.5-10.1); CO2 28 mmol/L (21-32); GLUCOSE,RANDOM 107 mg/dL (74-106)
[2023-07-08 10:21] LABS: CREATININE 1.6 mg/dL (0.55-1.3); SGOT/AST 75 U/L (15-37); SGPT/ALT 39 U/L (13-61)
[2023-07-08 10:23] LABS: BILIRUBIN,TOTAL 2.1 mg/dL (0.2-1); TOT PROT 7.7 g/dl (6.4-8.2)
[2023-07-08 10:24] LABS: ALK PHOS 181 U/L (45-117)
[2023-07-08] MEDS ORDERED: LORazepam 1 MG TABLET PO PRN (11:18)
[2023-07-08] MEDS ORDERED: methaDONE HCL 40 MG DISPERSABLE TABLET PO ONE (11:19)
[2023-07-08] MEDS: LORazepam 2 MG TABLET PO SCH ×3 (11:34→22:11)
[2023-07-08] MEDS: METHOCARBAMOL 500 MG TABLET PO PRN (17:35)
[2023-07-08] MEDS: MELATONIN 5 MG TABLETS PO SCH (22:11)
[2023-07-08] MEDS: THIAMINE HCL 100 MG TABLET (FP) PO SCH (22:11)
[2023-07-09] MEDS: METHOCARBAMOL 500 MG TABLET PO PRN ×4 (02:42→20:46)
[2023-07-09] MEDS: LORazepam 2 MG TABLET PO SCH ×4 (05:23→22:13)
[2023-07-09] MEDS: methaDONE 40 MG, methaDONE 30 MG PO SCH (07:23)
[2023-07-09] MEDS ORDERED: cloNIDine HCL 0.1 MG TABLET PO ONE (07:30)
[2023-07-09] MEDS: amLODIPine BESYLATE 10 MG TABLET (FP) PO SCH (10:04)
[2023-07-09] MEDS: LOSARTAN POTASSIUM 50 MG TABLET PO SCH (10:04)
[2023-07-09] MEDS: PRENATAL VITAMINS W/ FOLIC ACID TABLET (FP) PO SCH (10:05)
[2023-07-09] MEDS: MELATONIN 5 MG TABLETS PO SCH (22:13)
[2023-07-09] MEDS: THIAMINE HCL 100 MG TABLET (FP) PO SCH (22:13)
[2023-07-10] MEDS: LORazepam 1 MG TABLET PO SCH ×4 (05:00→22:23)
[2023-07-10] MEDS: methaDONE 40 MG, methaDONE 30 MG PO SCH (05:00)
[2023-07-10] MEDS: METHOCARBAMOL 500 MG TABLET PO PRN ×3 (05:01→22:24)
[2023-07-10] MEDS: PRENATAL VITAMINS W/ FOLIC ACID TABLET (FP) PO SCH (10:04)
[2023-07-10] MEDS: amLODIPine BESYLATE 10 MG TABLET (FP) PO SCH (10:04)
[2023-07-10] MEDS: LOSARTAN POTASSIUM 50 MG TABLET PO SCH (10:04)
[2023-07-10] MEDS: LIDOCAINE 5% TOPICAL PATCH TP SCH ×2 (10:54→18:04)
[2023-07-10] MEDS: METHYL SALICYLATE/MENTHOL OINT 30 GM TUBE TP SCH (13:39)
[2023-07-10] MEDS ORDERED: ALBUTEROL SO4 HFA INHALER IH ONE (17:15)
[2023-07-10] MEDS ORDERED: ACETAMINOPHEN 325 MG TABLET (FP) PO ONE (17:51)
[2023-07-10] MEDS ORDERED: ALBUTEROL SO4 HFA INHALER IH PRN (19:08)
[2023-07-10] MEDS: MELATONIN 5 MG TABLETS PO SCH (22:23)
[2023-07-10] MEDS: THIAMINE HCL 100 MG TABLET (FP) PO SCH (22:23)
[2023-07-10] MEDS: NAPROXEN 500 MG TABLET PO SCH (22:23)
[2023-07-10] MEDS: LIDOCAINE PATCH REMOVAL MC SCH ×2 (22:26)
[2023-07-11] MEDS ORDERED: LORazepam 0.5 MG TABLET PO PRN
[2023-07-11] MEDS: methaDONE 40 MG, methaDONE 30 MG PO SCH (05:54)
[2023-07-11] MEDS: LORazepam 0.5 MG TABLET PO SCH ×4 (05:55→22:25)
[2023-07-11] MEDS: PRENATAL VITAMINS W/ FOLIC ACID TABLET (FP) PO SCH (10:14)
[2023-07-11] MEDS: NAPROXEN 500 MG TABLET PO SCH ×2 (10:14→22:25)
[2023-07-11] MEDS: LOSARTAN POTASSIUM 50 MG TABLET PO SCH (10:15)
[2023-07-11] MEDS: amLODIPine BESYLATE 10 MG TABLET (FP) PO SCH (10:15)
[2023-07-11] MEDS: METHYL SALICYLATE/MENTHOL OINT 30 GM TUBE TP SCH (10:16)
[2023-07-11] MEDS: LIDOCAINE 5% TOPICAL PATCH TP SCH ×2 (10:17→10:19)
[2023-07-11] MEDS: METHOCARBAMOL 500 MG TABLET PO PRN (17:18)
[2023-07-11] MEDS: THIAMINE HCL 100 MG TABLET (FP) PO SCH (22:25)
[2023-07-11] MEDS: MELATONIN 5 MG TABLETS PO SCH (22:25)
[2023-07-11] MEDS: LIDOCAINE PATCH REMOVAL MC SCH ×2 (22:26)
[2023-07-12] MEDS ORDERED: LORazepam 0.5 MG TABLET PO ONE (05:00)
[2023-07-12] MEDS: methaDONE 40 MG, methaDONE 30 MG PO SCH (05:45)
[2023-07-12 09:49] VITALS: BP 133/84; PULSE 77; RESP 18; TEMP 97.3
[2023-07-12] MEDS: LOSARTAN POTASSIUM 50 MG TABLET PO SCH (09:54)
[2023-07-12] MEDS: NAPROXEN 500 MG TABLET PO SCH (09:54)
[2023-07-12] MEDS: amLODIPine BESYLATE 10 MG TABLET (FP) PO SCH (09:54)
[2023-07-12] MEDS: PRENATAL VITAMINS W/ FOLIC ACID TABLET (FP) PO SCH (09:54)
[2023-07-12] MEDS: METHYL SALICYLATE/MENTHOL OINT 30 GM TUBE TP SCH (09:58)
[2023-07-12] MEDS: LIDOCAINE 5% TOPICAL PATCH TP SCH ×2 (09:58)
== END 2023-07-12 11:10 | disposition home or self-care (01) | DRG 773 ==
LOC: YASAS 13:26 → Y3N 17:13 → Y6N 07-10 12:51
PROVIDERS: ADMIT Allergy & Immunology; ATTEND Surgery
PROC: HZ2ZZZZ Detoxification Services for Substance Abuse Treatment (ICD-10-PCS; principal; 2023-07-07)
DX: F10.20 Alcohol dependence, uncomplicated (principal); F11.20 Opioid dependence, uncomplicated; F10.282 Alcohol dependence with alcohol-induced sleep disorder; F10.24 Alcohol dependence with alcohol-induced mood disorder; F41.9 Anxiety disorder, unspecified; I10 Essential (primary) hypertension; I83.93 Asymptomatic varicose veins of bilateral lower extremities; K74.60 Unspecified cirrhosis of liver; L85.3 Xerosis cutis; Z99.89 Dependence on other enabling machines and devices; Z87.891 Personal history of nicotine dependence
CPT/HCPCS: 36415; 80053; 80307; 85027; 86780; 87635

== ENCOUNTER 2023-10-25 21:10 | Inpatient (IN) | payer OTHER ==
[2023-10-25 21:32] VITALS: BMI 24.2
[2023-10-25] MEDS ORDERED: BISMUTH SUBSALICYLATE 524 MG/30 ML PO PRN (21:42)
[2023-10-25] MEDS ORDERED: guaiFENesin 600 MG TABLET.ER (FP) PO PRN (21:42)
[2023-10-25] MEDS ORDERED: MAG HYDROX/AL HYDROX/SIMETH 30 ML UNIT-DOSE CUP PO PRN (21:42)
[2023-10-25] MEDS ORDERED: MAGNESIUM HYDROX 2400MG/30ML ORAL SUSPENSION 30 ML CUP PO PRN (21:42)
[2023-10-25] MEDS ORDERED: ONDANSETRON *ODT* 4 MG TABLET SL PRN (21:42)
[2023-10-25] MEDS ORDERED: POLYETHYLENE GLYCOL (HEALTHYLAX) 3350 17 GM PACKET PO PRN (21:42)
[2023-10-25] MEDS ORDERED: BENZOCAINE/MENTHOL (CHLORASEPTIC ) LOZENGE MM PRN (21:42)
[2023-10-25] MEDS ORDERED: DICYCLOMINE HCL 10 MG CAPSULE PO PRN (21:42)
[2023-10-25] MEDS ORDERED: BENZONATATE 200 MG CAPSULE PO PRN (21:42)
[2023-10-25] MEDS ORDERED: LOPERAMIDE HCL 2 MG CAPSULE PO PRN (21:42)
[2023-10-25] MEDS ORDERED: MELATONIN 5 MG TABLETS ONE (22:32)
[2023-10-25] MEDS ORDERED: amLODIPine BESYLATE 5 MG TABLET (FP) ONE (22:32)
[2023-10-25] MEDS: MELATONIN 5 MG TABLETS PO SCH (22:35)
[2023-10-25] MEDS: THIAMINE HCL 100 MG TABLET (FP) PO SCH (22:35)
[2023-10-25] MEDS: amLODIPine BESYLATE 5 MG TABLET (FP) PO SCH (22:35)
[2023-10-26] MEDS: ACETAMINOPHEN 325 MG TABLET (FP) PO PRN (03:42)
[2023-10-26 09:16] VITALS: BP 176/96; PULSE 80; RESP 16; TEMP 98
[2023-10-26] MEDS: methaDONE 40 MG, methaDONE 30 MG PO SCH (10:49)
[2023-10-26] MEDS: PRENATAL VITAMINS W/ FOLIC ACID TABLET (FP) PO SCH (10:49)
[2023-10-26] MEDS: methaDONE HCL 40 MG DISPERSABLE TABLET PO SCH (10:52)
== END 2023-10-26 11:20 | disposition left against medical advice (07) | DRG 770 ==
LOC: YASAS 21:10 → Y6N 21:55 → Y3N 22:29
PROVIDERS: ADMIT Allergy & Immunology; ATTEND Surgery
PROC: HZ2ZZZZ Detoxification Services for Substance Abuse Treatment (ICD-10-PCS; principal; 2023-10-25)
DX: F10.230 Alcohol dependence with withdrawal, uncomplicated (principal); F11.20 Opioid dependence, uncomplicated; F17.210 Nicotine dependence, cigarettes, uncomplicated; G47.00 Insomnia, unspecified; I10 Essential (primary) hypertension; K21.9 Gastro-esophageal reflux disease without esophagitis; K74.60 Unspecified cirrhosis of liver; Z99.89 Dependence on other enabling machines and devices

== ENCOUNTER 2024-11-22 04:04 | Emergency (ER) | payer OTHER ==
[2024-11-22] MEDS ORDERED: methylPREDNISolone NA SUCC 125 MG/2 ML VIAL ONE (04:13)
[2024-11-22] MEDS ORDERED: ALBUTEROL SO4 2.5/IPRATROPIUM 0.5 INH SOL 3 ML VIAL.NEB. NEB ONE (04:13)
[2024-11-22 04:18] VITALS: TEMP 98.2; BMI 24.2
[2024-11-22] MEDS: methylPREDNISolone NA SUCC 125 MG/2 ML VIAL IVPUSH ONE (04:18)
[2024-11-22] MEDS: ALBUTEROL SO4 2.5/IPRATROPIUM 0.5 INH SOL 3 ML VIAL.NEB. NEB ONE (04:18)
[2024-11-22 04:47] VITALS: BP 154/92; PULSE 96; RESP 16
[2024-11-22] MEDS: SODIUM CHLORIDE 1,000 ML IV STA (04:47)
[2024-11-22 04:56] LABS: ABSOLUTE IMMATURE GRANULOCYTES 0.02 x10^3/uL (0.0-0.031); EOSINOPHIL % 0.2 % (0.8-7.0); EOSINOPHILS # 0.01 x10^3/uL (0.04-0.54); HEMATOCRIT 32.4 % (40.1-51.0); HEMOGLOBIN 10.4 g/dL (13.7-17.5); MCHC 32.1 g/dl (32.3-36.5); MEAN CELL VOLUME 105.9 fl (79.0-92.2); MEAN PLT VOLUME 10.4 fl (9.4-12.4); MONOCYTE # 0.49 x10^3/uL (0.30-0.82); MONOCYTE % 9.9 % (5.3-12.2); PLATELET COUNT 140 x10^3/uL (163-337); RDW 13.9 % (12.2-16.4)
[2024-11-22 05:02] LABS: VENOUS BASE EXCESS 0.4 mmol/L (-2-2); VENOUS O2 SATURATION 45.1 % (70-80); VENOUS PCO2 49.1 mmHg (38-52); VENOUS PH 7.352 (7.310-7.410)
[2024-11-22 05:11] LABS: INR 0.99 (0.83-1.09); PROTHROMBIN TIME (PATIENT) 10.9 SEC (9.7-13.0)
[2024-11-22 05:14] LABS: ACTIVATED PTT 27.2 SECONDS (25.2-36.5)
[2024-11-22 05:30] LABS: POTASSIUM 4.7 mmol/L (3.5-5.1)
[2024-11-22 05:32] LABS: CALCIUM 8.8 mg/dL (8.5-10.1)
[2024-11-22 05:33] LABS: ALBUMIN 3.7 g/dl (3.4-5.0); BLOOD UREA NITROGEN 60.3 mg/dL (7-18); MAGNESIUM 1.8 mg/dL (1.8-2.4)
[2024-11-22 05:36] LABS: CREATININE 2.1 mg/dL (0.55-1.3)
[2024-11-22 05:38] LABS: BILIRUBIN,TOTAL 0.8 mg/dL (0.2-1); TOT PROT 7.8 g/dl (6.4-8.2)
[2024-11-22 05:41] LABS: N-TERMINAL BNP 14750.2 pg/ml (5-125)
[2024-11-22] MEDS: FOLIC ACID INJECTION - 1 MG, THIAMINE HCL 100 MG, MULTIVIT INJECTION ADULT 10 ML in SOD... IVPB ONE (06:25)
[2024-11-22] MEDS ORDERED: FOLIC ACID INJECTION - 1 MG, THIAMINE HCL 100 MG, MULTIVIT INJECTION ADULT 10 ML in SOD... IVPB ONE (06:30)
== END 2024-11-22 07:13 | disposition left against medical advice (07) ==
LOC: JER 04:04
PROC: 3E033GC Introduction of Other Therapeutic Substance into Peripheral Vein, Percutaneous Approach (ICD-10-PCS; principal; 2024-11-22)
PROC: 3E0337Z Introduction of Electrolytic and Water Balance Substance into Peripheral Vein, Percutaneous Approach (ICD-10-PCS; 2024-11-22)
PROC: 3E0F7GC Introduction of Other Therapeutic Substance into Respiratory Tract, Via Natural or Artificial Opening (ICD-10-PCS; 2024-11-22)
DX: R07.89 Other chest pain (principal); F10.20 Alcohol dependence, uncomplicated; F11.20 Opioid dependence, uncomplicated; R06.02 Shortness of breath; R05.9 Cough, unspecified
CPT/HCPCS: 0241U-QW; 36415; 71045-TC-FY; 80053; 82803; 83735; 83880; 84484; 85025; 85610; 85730; 93005; 93010; 99285-25